=== PATIENT | male | born 1955 | race Caucasian/White ===

== ENCOUNTER 2020-04-15 14:04 | Outpatient (CLI) | payer MEDICARE, SELFPAY ==
--- NOTE | ~2020-04-15 | XR_ITS ---
EXAMINATION: XR chest 2V EXAM DATE: 04/15/2020 14:44 INDICATION: Weight loss, shortness of breath. TECHNIQUE: Frontal and lateral projections of the chest obtained and reviewed. There is no prior dilan dy for comparison. FINDINGS: The lungs are hyperinflated which can be seen with chronic obstructive pulmonary disease ( a clinical diagnosis of functional impairment), but is not diagnostic of it. The lungs are clear. Th ere are no pleural effusions. The cardiomediastinal silhouette is within normal limits. There is no pneumothorax suspected. There are bony degenerative changes. Cervical fusion hardware. IMPRESSION: 1. No acute cardiopulmonary findings. 2. Hyperinflation. Reviewed, dictated and finalized at location B.
== END 2020-04-15 14:05 | disposition home or self-care (01) ==
LOC: ANHIMG 14:17
PROVIDERS: PCP Physician Assistant Medical; Visit Provider Physician Assistant Medical
DX: R63.4 Abnormal weight loss (principal); R91.8 Other nonspecific abnormal finding of lung field
CPT/HCPCS: 71046

== ENCOUNTER 2020-04-25 14:09 | Outpatient (CLI) | payer MEDICARE, SELFPAY ==
--- NOTE | 2020-04-25 14:55 | ECHO_ITS ---
Patient Info Name: Brendan Ling Age: 65 years : 1955 Gender: Male Ht: 67 in Wt: 199 lbs BSA: 2.09 m2 HR: 67 bpm BP: 133 / 89 mmHg Technical Quality: Fair Exam Date: 04/25/2020 3:02 PM Exam Location: [facility] Patient Status: Outpatient Admit Date: 04/25/2020 Staff Ordering Physician: Trupti Mendez PAC Sales And Service Consultant: Alex Goldman RDCS, RT Attending Provider: Trupti Mendez Referring Physician: Vanessa JIMENEZ; Exam Type: CA echo doppler color flow Study Info Indications R01.1 - Cardiac murmur, unspecified Complete two-dimensional, color flow and Doppler transthoracic echocardiogram is performed. Summary 1. Complete two-dimensional, color flow and Doppler transthoracic echocardiogram is performed. 2. Left ventricular chamber dimension is normal. 3. Left ventricular systolic function is normal, estimated at 60-65%. 4. The left ventricular diastolic function is normal. 5. E/e' 9 is minimally elevated. 6. Global longitudinal strain is normal at -17.4%. 7. There is trace tricuspid valve regurgitation. 8. No pulmonary hypertension, estimated pulmonary arterial systolic pressure is 29 mmHg. Left Ventricle E/e' 9 is minimally elevated. Global longitudinal strain is normal at -17.4%. Left ventricular chamber dimension is normal. Left ventricular systolic function is normal, estimated at 60-65%. The left ventricular diastolic function is normal. Right Ventricle Right ventricular chamber dimension is normal. Right ventricular systolic function is normal. Left Atria Left atrial chamber dimension is normal. Right Atria Right atrial chamber dimension is normal. Aortic Valve There is no aortic valve stenosis based on valve area and gradients. Cannot determine number of aortic valve leaflets. The aortic valve is not well visualized. There is no aortic valve regurgitation. Pulmonic Valve There is no pulmonic regurgitation. Mitral Valve There is no mitral valve stenosis. There is no mitral valve regurgitation. Tricuspid Valve There is trace tricuspid valve regurgitation. No pulmonary hypertension, estimated pulmonary arterial systolic pressure is 29 mmHg. Pericardium/Pleural There is no pericardial effusion. Inferior Vena Cava Normal inferior vena cava with >50% collapse upon inspiration consistent with normal right atrial pressure, 5 mmHg. Aorta The aortic root size at the sinus of Valsalva is normal. Left Ventricular Outflow Tract Name Value Normal LVOT 2D LVOT Diameter 2.2 cm LVOT Doppler LVOT Peak Gradient 4 mmHg LVOT Mean Gradient 2 mmHg LVOT VTI 22 cm LVOT VTI/AV VTI Ratio 0.7 LVOT Stroke Volume 83 ml LVOT CO 5.8 l/min LVOT CI 2.8 l/min/m2 Mitral Valve Name Value Normal
== END 2020-04-25 14:10 | disposition home or self-care (01) ==
PROVIDERS: PCP Family Medicine; Visit Provider Physician Assistant Medical
DX: R01.1 Cardiac murmur, unspecified (principal)
CPT/HCPCS: 93306

== ENCOUNTER 2020-05-06 07:46 | Outpatient (CLI) | payer MEDICARE, SELFPAY ==
--- NOTE | ~2020-05-06 | US_ITS ---
EXAMINATION: US arterial ankle brachial ind DATE: 05/06/2020 09:37 INDICATION: Hypertension with heaviness to the legs. TECHNIQUE: Segmental pressures and plethysmographic and Doppler waveforms of the brachial and lower e xtremity arteries were obtained. COMPARISON: None. FINDINGS: Right and left brachial artery pressures of 123 mm Hg and 128 mm Hg, respectively, are concordant (no rmal difference <= 30 mmHg). The right ankle-brachial index (PRADEEP) is 1.27 (normal >= 0.9-1.0). The right great toe-brachial index (TBI) is 0.80 (normal >= 0.65). Arterial Doppler waveforms are triphasic at the right posterior tibia l artery and biphasic at the right dorsalis pedis artery, both with brisk systolic upstrokes. The left PRADEEP is 1.22. The left TBI is 0.79. Arterial Doppler waveforms are triphasic at the left post erior tibial and biphasic at the left dorsalis pedis artery, both with brisk systolic upstrokes. IMPRESSION: 1. No arterial occlusive disease to either lower limb with normal bilateral ABIs and TBI's. Reviewed, dictated and finalized at location B. IMPRESSION: 1. No arterial occlusive disease to either lower limb with normal bilateral PRADEEP s and TBI's.
== END 2020-05-06 07:47 | disposition home or self-care (01) ==
PROVIDERS: PCP Family Medicine; Visit Provider Physician Assistant Medical
DX: R09.89 Other specified symptoms and signs involving the circulatory and respiratory systems (principal)
CPT/HCPCS: 93922

== ENCOUNTER 2020-05-22 14:32 | Outpatient (CLI) | payer MEDICARE, SELFPAY ==
--- NOTE | 2020-05-26 16:38 | WPDPFTINT ---
PFT Interpretation PFT Interpretation: DOS: 05/22/2020 REQUESTING: Trupti Mendez NP REASON FOR TESTING: Hyperinflation PULMONARY FUNCTION TESTS Test results are reliable and reproducible. Spirometry: FEV1 144%, above normal. FVC is 133%, above normal. Normal FEV1%. No change with bronchodilator administration. Lung volumes: TLC is 138%, mildly increased consistent with mild hyperinflation. Residual volume is 114%, within the normal range. RV/TLC is normal which shows no air trapping. Normal airway resistance. Diffusion: DLCO 120%, upper limit of normal. Flow volume loop: Normal. IMPRESSION: This study shows mild hyperinflation without airflow obstruction and DLCO at the upper limit of normal. There are no prior tests to compare. This can be a normal variant. Danika Saleem MD
== END 2020-05-22 14:33 | disposition home or self-care (01) ==
PROVIDERS: PCP Family Medicine; Visit Provider Physician Assistant Medical
DX: R93.89 Abnormal findings on diagnostic imaging of other specified body structures (principal)
CPT/HCPCS: 94060; 94726; 94729

== ENCOUNTER 2020-06-07 01:12 | Outpatient (CLI) | payer MEDICARE, SELFPAY ==
[2020-06-07 18:31] LABS: SARS-CoV-2 RNA PCR Negative
== END 2020-06-07 01:13 | disposition home or self-care (01) ==
LOC: ANHCOVIDDT 01:12
PROVIDERS: PCP Family Medicine; Visit Provider Internal Medicine Gastroenterology
DX: Z01.812 Encounter for preprocedural laboratory examination (principal); Z20.828 Contact with and (suspected) exposure to other viral communicable diseases
CPT/HCPCS: 87635; C9803; U0003

== ENCOUNTER 2020-06-10 00:03 | Day surgery (SDC) | payer MEDICARE, SELFPAY ==
[2020-05-29 14:21] VITALS: BMI 33.1
[2020-06-10 07:52] VITALS: BP 134/83; PULSE 71; RESP 18; TEMP 37.1; O2SAT 99
[2020-06-10] MEDS: LACTATED RINGERS 1,000 ML 150 ML IV CONT (08:05)
--- NOTE | 2020-06-10 08:26 | WPDANESEPPF ---
Anes - Initial Pre Proc Eval Procedure: Operation Date: 06/10/20 09:00 Proposed Procedures p Screening Colonoscopy - Zeke Muller MD Date/Time: 06/10/20 08:26 Surgeon: Zeke Muller MD Pre Op Diagnosis: Neoplasm Screening Patient Data Age: 65 Gender: M Height: 5 ft 7 in Weight: 95.7 kg Last Vital Signs Temp 98.7 F 06/10/20 07:52 Pulse 71 06/10/20 07:52 Resp 18 06/10/20 07:52 BP 134/83 06/10/20 07:52 Pulse Ox 99 06/10/20 07:52 Allergies Allergy/AdvReac Type Severity Reaction Status Date / Time No Known Allergies Allergy Unknown Verified 06/10/20 07:51 Home Medications Medication Instructions Recorded Confirmed Type sildenafil 100 mg tablet 100 mg PO DAILY PRN #10 tablet 10/16/19 05/29/20 Rx alprazolam 0.25 mg tablet 0.25 mg PO TID PRN #90 tablet 12/11/19 05/29/20 Rx levothyroxine 75 mcg tablet 75 mcg PO DAILY #90 tablet 02/01/20 05/29/20 Rx fluoxetine 20 mg capsule See Rx Instructions .ROUTE 03/24/20 05/29/20 Rx .COMPLEX #180 cap amlodipine 2.5 mg tablet 2.5 mg PO DAILY #90 tablet 04/15/20 05/29/20 Rx ergocalciferol (vitamin D2) 1,250 50,000 unit PO WEEKLY #8 cap 04/28/20 05/29/20 Rx mcg (50,000 unit) capsule losartan 50 mg tablet See Rx Instructions .ROUTE 04/28/20 05/29/20 Rx .COMPLEX #90 tablet omeprazole 20 mg capsule,delayed See Rx Instructions .ROUTE 04/28/20 05/29/20 Rx release .COMPLEX #90 cap testosterone 20.25 mg/1.25 gram 2 pump TOPICAL DAILY #75 gm 05/06/20 05/29/20 Rx (1.62 %) transdermal gel pump Patient hx anesthesia problems: none Family hx anesthesia problems: none PMFSH Past Medical History Medical History (Updated 06/10/20 @ 08:26 by [place] Nelson MD) BMI 29.0-29.9,adult Essential hypertension Mixed hyperlipidemia Mood disorder CARIE (obstructive sleep apnea) CARIE on CPAP Family History Family History Sibling Diabetes mellitus Family history of obesity Hypertension Family history of type 2 diabetes mellitus Mother Depression Hypertension Other Family history of arthritis Family history of malignant neoplasm Social History Social History Smoking status: Never smoker Alcohol intake: current Alcohol use details: socially, infrequently Substance use: never Living arrangements: with friend(s) Gender identity (if verbalized by the patient): Male Spiritual care concerns: No Anes - Eval Final PreProcedure Day of Procedure 06/10/20 08:26 Patient weight: overweight Heart: regular rate and rhythm Lungs: clear to auscultation Airway: Mallampati scale class II Neurological: alert and oriented Last oral intake: >/= 8 hours ASA classification: III Emergent: no Anesthetic plan: proceed Anesthesia type and monitoring: general GIVS and standard monitoring Informed Consent: The patient's anesthetic plan and its attendant risks and benefits were discussed with the patient/family/POA. Questions were solicited and answers provided to the satisfaction of the patient/family/POA.
--- NOTE | 2020-06-10 08:59 | PM.HPGS ---
History of Present Illness History of Present Illness Consent: Risks, benefits, and alternatives have been discussed and questions answered. Patient agrees to proceed with procedure. Chief complaint: Neoplasm Screening Narrative: Brendan Ling is a 65 year old male here for screening colonoscopy, last one about 5 years ago. Review of Systems Constitutional: Constitutional: Denies headache(s) and Denies weakness Eyes: Eyes: Denies blurry vision ENT: Reports Normal hearing present, Denies headache(s) and Denies neck pain Cardiovascular: Cardiovascular: Denies chest pain and Denies dyspnea Respiratory: Respiratory: Denies dyspnea Gastrointestinal: Gastrointestinal: Reports no additional gastrointestinal complaints Genitourinary: Genitourinary: Denies dysuria Musculoskeletal: Musculoskeletal: Denies neck pain Integumentary/Breasts: Skin/Breast: Denies dry skin Neurologic: Reports Normal hearing present, Denies headache(s) and Denies weakness Psychiatric: Psychiatric: Denies anxiety Endocrine: Endocrine: Denies change in body appearance Hematologic/Lymphatic: Hematologic/Lymphatic: Denies easy bleeding Allergic/Immunologic: Allergic/Immunologic: Denies urticaria PMFSH Past Medical History Medical History (Updated 06/10/20 @ 09:00 by Zeke Muller MD) BMI 29.0-29.9,adult Colon cancer screening Essential hypertension Mixed hyperlipidemia Mood disorder CARIE (obstructive sleep apnea) CARIE on CPAP Family History Family History Sibling Diabetes mellitus Family history of obesity Hypertension Family history of type 2 diabetes mellitus Mother Depression Hypertension Other Family history of arthritis Family history of malignant neoplasm Social History Social History Smoking status: Never smoker Alcohol intake: current Alcohol use details: socially, infrequently Substance use: never Living arrangements: with friend(s) Gender identity (if verbalized by the patient): Male Spiritual care concerns: No Meds Home Medications and Allergies Home Medications Medication Instructions Recorded Confirmed Type sildenafil 100 mg tablet 100 mg PO DAILY PRN #10 tablet 10/16/19 05/29/20 Rx alprazolam 0.25 mg tablet 0.25 mg PO TID PRN #90 tablet 12/11/19 05/29/20 Rx levothyroxine 75 mcg tablet 75 mcg PO DAILY #90 tablet 02/01/20 05/29/20 Rx fluoxetine 20 mg capsule See Rx Instructions .ROUTE 09/14/20 11/19/20 Rx .COMPLEX #180 cap amlodipine 2.5 mg tablet 2.5 mg PO DAILY #90 tablet 04/15/20 05/29/20 Rx ergocalciferol (vitamin D2) 1,250 50,000 unit PO WEEKLY #8 cap 04/28/20 05/29/20 Rx mcg (50,000 unit) capsule losartan 50 mg tablet See Rx Instructions .ROUTE 04/28/20 05/29/20 Rx .COMPLEX #90 tablet omeprazole 20 mg capsule,delayed See Rx Instructions .ROUTE 04/28/20 05/29/20 Rx release .COMPLEX #90 cap testosterone 20.25 mg/1.25 gram 2 pump TOPICAL DAILY #75 gm 05/06/20 05/29/20 Rx (1.62 %) transdermal gel pump Allergies Allergy/AdvReac Type Severity Reaction Status Date / Time No Known Allergies Allergy Unknown Verified 06/10/20 07:51 Vital Signs Vital Signs - 24 hr 06/10/20 07:52 Temperature 98.7 F Pulse Rate 71 Respiratory Rate 18 Blood Pressure 134/83 Pulse Oximetry 99 Exam Const: General: comfortable and no acute distress HENMT: General nose exam: Normal nares present Eyes: General: appearance normal, both eyes and all related structures Neck: Neck: no JVD Resp: Auscultation: clear to auscultation bilaterally Cardio: Rate: regular rate Rhythm: regular rhythm GI: Inspection: non-distended GI Palp: Yes Soft to palpation Skin: General skin exam: normal color Neuro: General: gait normal Speech: normal speech Extrem: General: normal to inspection Psych: Mental Status: mental status grossly normal Assessment and
[2020-06-10 09:17] VITALS: BP 93/49; PULSE 62; RESP 18; O2SAT 95
[2020-06-10 09:27] VITALS: BP 99/66; PULSE 68; RESP 17; O2SAT 100
[2020-06-10 09:37] VITALS: BP 101/75; PULSE 64; RESP 25; O2SAT 100
== END 2020-06-10 09:54 | disposition home or self-care (01) ==
PROVIDERS: PCP Family Medicine; Visit Provider Internal Medicine Gastroenterology
PROC: 0DJD8ZZ Inspection of Lower Intestinal Tract, Via Natural or Artificial Opening Endoscopic (ICD-10-PCS; CPT 45378; principal; 2020-06-10 09:00)
DX: Z12.11 Encounter for screening for malignant neoplasm of colon (principal); D12.0 Benign neoplasm of cecum; K64.8 Other hemorrhoids; I10 Essential (primary) hypertension; E78.2 Mixed hyperlipidemia; G47.33 Obstructive sleep apnea (adult) (pediatric)
CPT/HCPCS: 45380; 88305; J2704; J7120

== ENCOUNTER 2020-07-30 12:24 | Outpatient (CLI) | payer MEDICARE, SELFPAY ==
--- NOTE | ~2020-07-30 | CT_ITS ---
EXAMINATION: CT abdomen pelvis wo/w con DATE: 07/30/2020 13:23 INDICATION: Microscopic hematuria TECHNIQUE: Computed tomography (CT) of the abdomen and pelvis was performed without intravenous contr ast. CT of the abdomen and pelvis was then performed with a total of 130 mL Omnipaque-350 intravenous contrast using a double-bolus technique for simultaneous opacification of the renal parenchyma and r enal collecting system. The dose-length product was 2501.83 mGy-cm. COMPARISON: None FINDINGS: Couple calcified nodules in the left lower lobe and lingula and calcified left hilar lymph node consi stent with old granulomatous disease. Heart size is normal. No pericardial or pleural effusion. A cou ple tiny mobile calcified gallstones in the dependent aspect of the otherwise normal gallbladder. A f ew scattered splenic calcific lesions consistent with old granulomatous disease. Liver, pancreas and bilateral adrenal glands are normal. Normal appendix. No abnormal bowel wall thickening or obstructio n. Bilateral kidneys and ureters are normal with no urolithiasis or hydronephrosis. The bilateral helen al collecting systems and ureters are opacified in their entirety with no evident urothelial irregula rities. Bladder appears unremarkable although assessment is limited due to dense metallic streak zia fact which projects across and obscures the central to inferior aspect of the bladder as well as the prostate. Tiny fat-containing umbilical and left inguinal hernias. Bilateral total hip arthroplasties which appear well-seated in near-anatomic alignment. Moderate lumbar spondylosis. There are bridging osteophytes at multiple levels in the lower thoracic spine, consistent with diffuse idiopathic skele miguelina hyperostosis (DISH). IMPRESSION: 1. Normal kidneys and ureters with no urolithiasis or other lesions to explain provided history of mi croscopic hematuria. 2. The prostate and portions of the bladder are obscured by dense metallic streak artifact from bilat eral total hip arthroplasties. 3. Minimal cholelithiasis. Reviewed, dictated and finalized at location A. CHECKER IMPRESSION: 1. Normal kidneys and ureters with no urolithiasis or other lesions to explain provided history of microscopic hematuria. 2. The prostate and portions of the bladder are obscured by dense metallic stre ak artifact from bilateral total hip arthroplasties. 3. Minimal cholelithiasis.
[2020-07-30 13:00] LABS: Estimated Glomerular Filt Rate > 60
== END 2020-07-30 12:25 | disposition home or self-care (01) ==
PROVIDERS: PCP Family Medicine; Visit Provider Urology
DX: R31.29 Other microscopic hematuria (principal); R91.8 Other nonspecific abnormal finding of lung field; M47.816 Spondylosis without myelopathy or radiculopathy, lumbar region; K80.20 Calculus of gallbladder without cholecystitis without obstruction
CPT/HCPCS: 74178; Q9967

== ENCOUNTER 2023-09-06 14:57 | Outpatient (CLI) | payer MEDICARE, SELFPAY ==
--- NOTE | ~2023-09-06 | MR_ITS ---
MRI of the brain Clinical History: Benign neoplasm of cerebral meninges Technique: Axial and sagittal T1-weighted images were acquired. These were followed by axial T2-weigh lori, diffusion weighted, gradient, and FLAIR images.. Following intravenous administration of 20 cc M ultiHance gadolinium, T1-weighted fat-sat imaging was performed in the axial and coronal planes. Findings: There is no acute infarct or intracranial hemorrhage. There are mild chronic white matter c hanges in the periventricular white matter bilaterally. Ventricles and subarachnoid spaces are unremarkable. Orbits are unremarkable. Paranasal sinuses and m astoid air cells are clear. Major intracranial flow voids are intact. Sagittal midline structures are intact. Suspected 1 cm enhancing meningioma anteriorly just right of the anterior falx cerebri (coronal postc ontrast image 21). IMPRESSION: Probable 1 cm meningioma at the anterior right frontal region, as detailed above. Minimal chronic white matter changes. Reviewed, dictated and finalized at location . ER AND CHECKERER SPECIALS IMPRESSION: Probable 1 cm meningioma at the anterior right frontal region, as detailed juana jones. Minimal chronic white matter changes.
== END 2023-09-06 14:58 | disposition home or self-care (01) ==
PROVIDERS: PCP Family Medicine; Visit Provider Family Medicine
DX: D32.0 Benign neoplasm of cerebral meninges (principal); R90.82 White matter disease, unspecified
CPT/HCPCS: 70553; A9577

== ENCOUNTER 2024-02-22 15:01 | Outpatient (CLI) | payer MEDICARE, SELFPAY ==
[2024-02-22 16:37] LABS: Free T4 Free Thyroxine 1.03 ng/mL (0.78-2.19)
[2024-02-23 14:38] LABS: Triiodothyronine T3 Free 2.8 pg/mL (2.3-4.2)
[2024-02-25 15:44] LABS: Vitamin D 1,25 (OH)2 Total 42 pg/mL (18-72); Vitamin D2 1,25 (OH)2 <8 pg/mL; Vitamin D3 1,25 (OH)2 42 pg/mL
[2024-02-27 18:23] LABS: Red Blood Cell Folate 470 ng/mL RBC (>280)
== END 2024-02-22 15:02 | disposition home or self-care (01) ==
LOC: ANHLAB 15:07
PROVIDERS: PCP Family Medicine; Visit Provider Psychiatry & Neurology Neurology
DX: E55.9 Vitamin D deficiency, unspecified (principal); D32.0 Benign neoplasm of cerebral meninges; G25.0 Essential tremor; G47.33 Obstructive sleep apnea (adult) (pediatric); R41.3 Other amnesia; R09.89 Other specified symptoms and signs involving the circulatory and respiratory systems
CPT/HCPCS: 36415; 82652; 82747; 84439; 84443; 84481

== ENCOUNTER 2024-12-14 08:53 | Outpatient (CLI) | payer MEDICARE, SELFPAY ==
--- NOTE | ~2024-12-14 | XR_ITS ---
XR chest 2V 12/14/2024 09:35 Indication: Cough Procedure: 2 view chest Comparison: 04/15/2020 Findings: Heart size upper normal. Shallow inspiration. No focal air space disease, pulmonary edema, pleural effusion or suspected pneumothorax. There are moderate degenerative changes of the shoulders. There is diffuse idiopathic skeletal hyperostosis (DISH) of the thoracic spine. Impression: 1: No acute cardiopulmonary disease. Reviewed, dictated and finalized at location A. Impression: 1: No acute cardiopulmonary disease.
--- NOTE | ~2024-12-14 | XR_ITS ---
AP view of the pelvis and AP and lateral views of the right hip Clinical history: Pain Findings: No acute fracture or dislocation is seen. Bilateral hip arthroplasties are present. No hard fuentes complication is evident. Soft tissues are unremarkable. Impression: No acute abnormality. Bilateral hip arthroplasties in place. Reviewed, dictated and finalized at location . Impression: No acute abnormality. Bilateral hip arthroplasties in place.
--- OUTSIDE RECORDS SUMMARY | 2024-12-14 09:01 | XMS_ITS | CONTINUITY OF CARE DOCUMENT ---
Author Name bradley huerta Address Unknown Organization [facility] Address [address] [place] [address] Phone [phone] Care Team Providers Care Refrigerator Car Icer Name Role Phone Vinod Jensen MD Unavailable [phone] CHANDRA VERMA, BOAZ F Unavailable CHANDRA VERMA, BOAZ F Unavailable [phone] PROBLEMS Condition Status Date Provider Notes PVD completed - Vinod Jensen MD per PCP Hypertension active Vinod Jensen MD Hyperlipidemia active Vinod Jensen MD Hypothyroidism active Vinod Jensen MD Depression / anxiety active Vinod Jensen MD Fatigue active Vinod Jensen MD Coronavirus infection in 09/2019 active Jojo Jensen MD Palpitations active Vinod Jensen MD Leg pain - nml ABIs 12/2021 active Vinod hadley MD CARIE - on CPAP active Vinod Jensen MD Coronary atherosclerosis, CA C score 155 01/2022 active Vinod Jensen MD Shortness of breath active Vinod Jensen MD Memory deficit active Vinod Jensen MD Dementia active Vinod Jensen MD ENCOUNTERS Date Type Provider Location Encounter Diag nosis 02/19 - 02/19 In-person encounter Office Visit Vinod Jensen MD [place] [facility] 11/02 - 11/02 In-person encounter Office Visit Vinod Jensen MD [place] [place] [facility] Dementia 07/29 - 07/29 In-person encounter Office Visit Vinod Jensen MD [place] Shortness of breathMemory deficit 04/29 - 04/29 In-person encounter Office Visit Vinod Jensen MD [place] [place] [facility] 10/22 - 10/22 In-person encounter Office Visit Vinod Jensen MD [place] 05/06 - 05/06 In-person encounter Office Visit Vinod Jensen MD [place] Coronary atherosclerosis, CAC score 155 01/2022 - 02/04 In-person encounter Office Visit Vinod Jensen MD [place] 01/29 - 01/29 In-person encounter Office Visit Vinod Jensen MD [place] 12/31 - 12/31 In-person encounter Office Visit Vinod Jensen MD [place] PVDHypertensionHyperlipidemiaHypothyroid ismDepressio n / anxietyFatigueCoronavirus infection in 09/2019PalpitationsLeg pain - nml ABIs 2OSA - on CPAP VITAL SIGNS Date Observation Value Provider Body Mass Index (Ratio) 32.48 kg/m2 Jojo Jensen MD oxygen saturation, oximetry 99 % Sonia Antonio respiratory rate E&M 12 /min Sonia Antonio weight E&M 207.4 [lb_av] Sonia Antonio pulse rate 67 /min Sonia Antonio blood pressure, cuff size regular Garfield Antonio blood pressure, diastolic 84 mm[Hg] Garfield Antonio blood pressure, systolic 134 mm[Hg] Butch Antonio height E&M 67 [in_i] Sonia Antonio Body Mass Index (Ratio) 32.10 kg/m2 Jojo Jensen MD blood pressure, cuff size regular Do angeline Sae blood pressure, diastolic 87 mm[Hg] Do angeline Sae blood pressure, systolic 132 mm[Hg] Spencer Doyleant oxygen saturation, oximetry 98 % Andreas Sae respiratory rate E&M 16 /min Andreas Sae pulse rate 68 /min Andreas Sae weight E&M 205 [lb_av] Andreas Sae height E&M 67 [in_i] [facility] (Ratio) 33.36 kg/m2 Jojo Jensen MD pulse rate 79 /min Marianna Cottonwood blood pressure, cuff size regular Fa [facility] blood pressure, diastolic 87 mm[Hg] [facility] blood pressure, systolic 138 mm[Hg] Christopher [facility] oxygen saturation, oximetry 98 % [facility] respiratory rate E&M 14 /min Marianna Marvin [facility] weight E&M 213 [lb_av] [facility] height E&M 67 [in_i] [facility] Body Mass Index (Ratio) 34.27 kg/m2 Jojo Jensen MD blood pressure, diastolic -1 mm[Hg] Li nkLogbenjamín blood pressure, systolic 130 mm[Hg] Ashley kLogbenjamín blood pressure, diastolic 84 mm[Hg] Sh james Martinez blood pressure, systolic 130 mm[Hg] She carolmera Martinez oxygen saturation, oximetry 95 % Yamileth Martinez pulse rate 73 /min Yamileth Martinez respiratory rate E&M 18 /min Yamileth Martinez weight E&M 218.8 [lb_av] Yamileth Martinez blood pressure, cuff size regular james Martinez height E&M 67 [in_i] Yamileth Michelle Body Mass Index (Ratio) 35.46 kg/m2 Jojo Jensen MD blood pressure, diastolic 84 mm[Hg] St keegan Kim blood pressure, systolic 139 mm[Hg] Anjum glynn Julio oxygen saturation, oximetry 98 % Mariola Julio pulse rate 68 /min Mariola Julio respiratory rate E&M 18 /min Mariolarenard sousas weight E&M 226.4 [lb_av] Mariolarenard Kim height E&M 67 [in_i] Mariolarenard Kim Body Mass Index (Ratio) 33.83 kg/m2 Jojo Jensen MD blood pressure, diastolic 81 mm[Hg] Ri gia Manerson blood pressure, systolic 126 mm[Hg] Leonides mega Manerson blood pressure, cuff size large Ri gia Dempsey oxygen saturation, oximetry 99 % Latosha Ke respiratory rate E&M 16 /min Andie jones Dempsey pulse rate 61 /min Latosha Clayton son weight E&M 216 [lb_av] Latosha Clayton son height E&M 67 [in_i] Latosha Clayton son Body Mass Index (Ratio) 34.45 kg/m2 Jojo Jensen MD blood pressure, cuff size large Mi gia Jonathon blood pressure, diastolic 91 mm[Hg] Mi gia Jonathon blood pressure, systolic 144 mm[Hg] Renny helroberth Jonathon oxygen saturation, oximetry 98 % Yazmin Holt pulse rate 79 /min Yazmin juan respiratory rate E&M 16 /min Dolores Holt weight E&M 220 [lb_av] Yazmin juan height E&M 67 [in_i] Yazmin juan Body Mass Index (Ratio) 34.45 kg/m2 Jojo Jensen MD blood pressure, diastolic 78 mm[Hg] Sa ra Diggs blood pressure, systolic 128 mm[Hg] Rashad a Diggs oxygen saturation, oximetry 100 % Kadi Diggs respiratory rate E&M 20 /min Kadi Si ms pulse rate 100 /min Kadi Diggs blood pressure, cuff size regular Sa ra Diggs weight E&M 220 [lb_av] Kadi Diggs height E&M 67 [in_i] Kadi Diggs weight E&M 219 [lb_av] Vaishnavi Galvan in Body Mass Index (Ratio) 34.30 kg/m2 Jojo Jensen MD blood pressure, diastolic 79 mm[Hg] Li nkLogic blood pressure, systolic 130 mm[Hg] Ashley kLogic blood pressure, diastolic 79 mm[Hg] Ca therine Arnol blood pressure, systolic 130 mm[Hg] Cat herine [place] oxygen saturation, oximetry 98 % Carrie [place] respiratory rate E&M 16 /min Catheri ne [place] pulse rate 60 /min Carrie Arnol weight E&M 219 [lb_av] Carrie [place] height E&M 67 [in_i] Carrie Arnol blood pressure, cuff size regular Ca therine Arnol ALLERGIES No Known Drug Allergies RESULTS Date Observation Value Provider Reference Range Interpretation Location cholesterol, non-HDL, total 112 MG/DL (CALC) [facility] <130 Normal cholesterol/HDL ratio, serum, percent 3.0 (calc) [facility] <5.0 Normal LDL cholesterol, serum 98 MG/DL (CALC) [facility] Normal triglyceride, serum, fasting 53 mg/dL [facility] <150 Normal HDL cholesterol, serum 55 mg/dL [facility] > OR = 40 Normal cholesterol, serum 167 mg/dL [facility] <200 Normal HISTORY OF MEDICATION USE Medication Status Instructions Dates Provider Indications Com ments primidone 50 mg tablet active Take one tab PO QD Sonia Antonio donepezil 5 mg tablet completed 1 tab daily - Sonia Antonio Zetia 10 mg tablet active Take 1 tablet by mouth once a day Karne Martinez Zetia 10 mg tablet completed Take 1 tablet by mouth once a day TAKE 1 TABLET BY MOUTH DAILY - Karen Martinez rosuvastatin 20 mg tablet active TAKE 1 TABLET BY MOUTH DAILY Daphne Barone Zetia 10 mg tablet completed TAKE 1 TABLET BY MOUTH DAILY - Jaqueline Omalley Crestor 20 mg tablet completed TAKE ONE TABLET BY MOUTH DAILY - Daphne Barone Vitamin D3 unspecified unspecified active 1 tab 3 times daily Andreas Quevedo One-A-Day Maximum Formula completed - Sonia Antonio fluoxetine 20 mg capsule active 1 tab daily Andreas Quevedo ibuprofen 800 mg tablet completed TAKE 1 TABLET BY MOUTH THREE TIMES DAILY NEEDED FOR PAIN - Sonia Antonio buspirone 5 mg tablet completed as needed - Sonia Antonio mirtazapine 15 mg tablet active 1 tab daily Andreas Quevedo omeprazole 20 mg capsule,delayed release(DR/EC) active 1 tab daily Andreas Quevedo amlodipine 2.5 mg tablet completed 1 tab daily - Sonia Antonio levothyroxine 75 mcg tablet active 1 tab daily Andreas Quevedo oxcarbazepine 150 mg tablet completed - Sonia Antonio losartan 50 mg tablet completed - Andreas Quevedo SOCIAL HISTORY Date Observation Value Provider smoking status Never smoker Vinod Jensen MD smoking status Never smoker Vinod Jensen MD smoking status Never smoker Marianna Antonio social history E&M S moking History: P enrique has never smoked. Vinod Jensen MD smoking status Never smoker Yamileth Martinez social history E&M S moking History: P enrique has never smoked. Vinod Jensen MD social history reviewed E&M revi ewed - no changes required Vinod Jensen MD smoking status Never smoker Mariola Julio social history E&M S moking History: P enrique has never smoked. Vinod Jensen MD social history reviewed E&M revi ewed - no changes required Vinod Jensen MD smoking status Never smoker Latosha gregory social history E&M S moking History: P enrique has never smoked. Vinod Jensen MD social history reviewed E&M revi ewed - no changes required Vinod Jensen MD smoking status Never smoker Yazmin Meraz and social history reviewed E&M revi ewed - no changes required Vinod Jensen MD social history E&M S moking History: P enrique has never smoked. Vinod Jensen MD smoking status Never smoker Vinod Jensen MD number of grandchildren Vinod Jensen MD social history E&M S moking History: P enrique has never smoked. Vinod Jensen MD social history reviewed E&M revi ewed - no changes required Vinod Jensen MD smoking status Never smoker Carrie mata FUNCTIONAL STATUS Date Observation Value Provider HRA, CV Assess/Plan, Angina (inactive) Management Plan continue current therapy Vinod Jensen MD HRA, CV Assess/Plan, Angina (inactive) Management Plan continue current therapy Vinod Jensen MD HRA, CV Assess/Plan, Angina (inactive) Management Plan continue current therapy Vinod Jensen MD HRA, CV Assess/Plan, Angina (inactive) Management Plan continue current therapy Vinod Jensen MD INSURANCE PROVIDERS Payer name Policy type / Coverage type [place] [employer] ID [facility] Other [facility] Other [employer]ARP [facility] ADVANTAGE PLAN 2 (HMO-POS) Medicare [id number] ADVANCE DIRECTIVES Name Date DISCUSSED - NO DECISION MADE TREATMENT PLAN Date Name Performer [id number],C,w ill check lipids H is updated medication list for this problem includes: Rosuvastatin 20 Mg Tablet (Rosuvastatin) ..... Take 1 tablet by mouth daily Zetia 10 Mg Tablet (Ezetimibe) ..... Take 1 tablet by mouth once a day take 1 tablet by mouth daily Vinod Jensen MD [id number],S, Vinod Jensen MD [id number],S, Vinod Jensen MD [id number],C,w ell controlled H is updated medication list for this problem includes: Amlodipine 2.5 Mg Tablet (Amlodipine) Losartan 50 Mg Tablet (Losartan) BP today: 130/84 P rior BP: 139/84 (10/22/2022) Labs Reviewed: C hol: 167 (04/14/2022) HDL: 55 (04/14/2022) LDL: 98 MG/DL (CALC) (04/14/2022) T (04/14/2022) Vinod Jensen MD [id number],C,T he patient is using CPAP on a regular basis. The patient has been benefiting from therapy and should continue use. Vinod Jensen MD [id number],C,c onitnue statin and xetia, will check lipid panel and adjust if needed. Vinod Jensen MD [id number],S, Vinod Jensen MD [id number],S, B P today: 139/84 P rior BP: 126/81 (05/06/2022) Labs Reviewed: C hol: 167 (04/14/2022) HDL: 55 (04/14/2022) LDL: 98 MG/DL (CALC) (04/14/2022) T (04/14/2022) His updated medication list for this problem includes: Amlodipine 2.5 Mg Tablet (Amlodipine) Losartan 50 Mg Tablet (Losartan) Vinod Jensen MD [id number],S,C ontinue his statin and zetia. Will check his cholesterol in 6 months and see him then. H is updated medication list for this problem includes: Zetia 10 Mg Tablet (Ezetimibe) ..... Take 1 tablet by mouth once a day take 1 tablet by mouth daily Rosuvastatin 20 Mg Tablet (Rosuvastatin) ..... Take 1 tablet by mouth daily Vinod Jensen MD [id number],S, Vinod Jensen MD [id number],C,Continue his statin and zetia Vinod Jensen MD [id number],B, H is updated medication list for this problem includes: Amlodipine 2.5 Mg Tablet (Amlodipine) Vinod Jensen MD [id number],B, B P today: 126/81 P rior BP: 144/91 (02/04/2022) His updated medication list for this problem includes: Amlodipine 2.5 Mg Tablet (Amlodipine) Losartan 50 Mg Tablet (Losartan) Vinod Jensen MD [id number],S, N o angina H is calcium score was 155 Vinod Jensen MD [id number],W, H e's taking crestor and we added zetia about 2 weeks ago because his LDL was 98. We'll recheck his lipids in 3 months or so. His updated medication list for this problem includes: Crestor 20 Mg Tablet (Rosuvastatin) ..... Take one tablet by mouth daily Zetia 10 Mg Tablet (Ezetimibe) ..... Take 1 tablet by mouth daily Vinod Jensen MD [id number],S, Vinod Jensen MD [id number],C,P t notes it has not been this high in ages. BP today: 144/91 P rior BP: 128/78 (01/29/2022) Vinod Jensen MD [id number],C,M RAMANDEEP 10yr risk is 13.2%. (greater than 10%). B egin 5mg Crestor daily. Will check in about 2 months. F/u with me in 3 months. Vinod Jensen MD [id number],S, Vinod Jensen MD [id number],S, T he patient is using CPAP on a regular basis. The patient has been benefiting from therapy and should continue use. Vinod Jensen MD [id number],S, H e wore a 24-hr holter which showed SR with 2% PVC burden and 0.3% PAC burden, no afib or pauses. Vinod Jensen MD [id number],S, R ecent LDL was 135. I recommended he get a calcium score to see how low he needs his LDL treated. Vinod Jensen MD [id number],S, H is recent ABIs showed normal bloodflow in his BLEs. Vinod Jensen MD [id number],S, B P today: 130/79 His updated medication list for this problem includes: Amlodipine 2.5 Mg Tablet (Amlodipine) Losartan 50 Mg Tablet (Losartan) Vinod Jensen MD Cardiology: N o recurrence Vinod Jensen MD Cardiology: H is updated medication list for this problem includes: Zetia 10 Mg Tablet (Ezetimibe) ..... Take 1 tablet by mouth once a day Rosuvastatin 20 Mg Tablet (Rosuvastatin) ..... Take 1 tablet by mouth daily Vinod Jensen MD Cardiology:Recently hospitalized for intense anxiety Vinod Jensen MD Cardiology: B P today: 134/84 P rior BP: 132/87 (11/03/2023) Labs Reviewed: C hol: 167 (04/14/2022) HDL: 55 (04/14/2022) LDL: 98 MG/DL (CALC) (04/14/2022) T (04/14/2022) & #13;The following medications were removed from the medication list: Amlodipine 2.5 Mg Tablet (Amlodipine) ..... 1 tab daily Vinod Jensen MD Cardiology: H ad a few extra beats according to recent Tele monitor, otherwise stable Vinod Jensen MD Cardiology: C ontinue statin and Zetia Vinod Jensen MD Cardiology:Worsened Vinod Jensen MD Cardiology:The patie nt is using CPAP on a regular basis. The patient has been benefiting from therapy and should continue use. Vinod Jensen MD Cardiology:per neurologist Vinod Jensen MD Cardiology Vinod Jensen MD Cardiology: B P today: 132/87 P rior BP: 138/87 (07/29/2023) Labs Reviewed: C hol: 167 (04/14/2022) HDL: 55 (04/14/2022) LDL: 98 MG/DL (CALC) (04/14/2022) T (04/14/2022) & #13;The following medications were removed from the medication list: Losartan 50 Mg Tablet (Losartan) His updated medication list for this problem includes: Amlodipine 2.5 Mg Tablet (Amlodipine) ..... 1 tab daily Vinod Jensen MD Cardiology:Stable. C ontinue medical therapy. I n light of his negative stress test and absence of chest pain at exertion there is no clinical indication to proceed with a cardiac cath at present. Vinod Jensen MD Cardiology:Stress te st negative for ischemia. PFTs show minimal disease on 09/08 E cho showed normal LVEF with some evidence of impaired relaxation which is normal for his age. Vinod Jensen MD Cardiology Vinod Jensen MD Cardiology: T he patient is using CPAP on a regular basis. The patient has been benefiting from therapy and should continue use. Vinod Jensen MD Cardiology: B P today: 138/87 P rior BP: 130/-1 (04/29/2023) Labs Reviewed: C hol: 167 (04/14/2022) HDL: 55 (04/14/2022) LDL: 98 MG/DL (CALC) (04/14/2022) T (04/14/2022) & #13;His updated medication list for this problem includes: Amlodipine 2.5 Mg Tablet (Amlodipine) Losartan 50 Mg Tablet (Losartan) Vinod Jensen MD Cardiology:CHOL: 167 (04/14/2022) LDL: 98 MG/DL (CALC) (04/14/2022) HDL: 55 (04/14/2022) T (04/14/2022) W ill obtain recent labs His updated medication list for this problem includes: Rosuvastatin 20 Mg Tablet (Rosuvastatin) ..... Take 1 tablet by mouth daily Zetia 10 Mg Tablet (Ezetimibe) ..... Take 1 tablet by mouth once a day take 1 tablet by mouth daily Vinod Jensen MD Cardiology: c onitnue statin and xetia His updated medication list for this problem includes: Amlodipine 2.5 Mg Tablet (Amlodipine) Vinod Jensen MD Cardiology:Decreased exercise tolerance and SOB on mild activity, this is new for him. We will check an Echo, PFTs, and a Reg stress test to evaluate his heart function. Vinod Jensen MD Cardiology:will chec k lipids H is updated medication list for this problem includes: Rosuvastatin 20 Mg Tablet (Rosuvastatin) ..... Take 1 tablet by mouth daily Zetia 10 Mg Tablet (Ezetimibe) ..... Take 1 tablet by mouth once a day take 1 tablet by mouth daily Vinod Jensen MD Cardiology Vinod Jensen MD Cardiology Vinod Jensen MD Cardiology:well cont rolled H is updated medication list for this problem includes: Amlodipine 2.5 Mg Tablet (Amlodipine) Losartan 50 Mg Tablet (Losartan) BP today: 130/84 P rior BP: 139/84 (10/22/2022) Labs Reviewed: C hol: 167 (04/14/2022) HDL: 55 (04/14/2022) LDL: 98 MG/DL (CALC) (04/14/2022) T (04/14/2022) Vinod Jensen MD Cardiology:The patie nt is using CPAP on a regular basis. The patient has been benefiting from therapy and should continue use. Vinod Jensen MD Cardiology:conitnue statin and xetia, will check lipid panel and adjust if needed. Vinod Jensen MD Cardiology Vinod Jensen MD Cardiology: B P today: 139/84 P rior BP: 126/81 (05/06/2022) Labs Reviewed: C hol: 167 (04/14/2022) HDL: 55 (04/14/2022) LDL: 98 MG/DL (CALC) (04/14/2022) T (04/14/2022) & #13;His updated medication list for this problem includes: Amlodipine 2.5 Mg Tablet (Amlodipine) Losartan 50 Mg Tablet (Losartan) Vinod Jensen MD Cardiology:Continue his statin and zetia. Will check his cholesterol in 6 months and see him then. H is updated medication list for this problem includes: Zetia 10 Mg Tablet (Ezetimibe) ..... Take 1 tablet by mouth once a day take 1 tablet by mouth daily Rosuvastatin 20 Mg Tablet (Rosuvastatin) ..... Take 1 tablet by mouth daily Vinod Jensen MD Cardiology Vinod Jensen MD Cardiology:Continue his statin a nd zetia Vinod Jensen MD Cardiology: H is updated medication list for this problem includes: Amlodipine 2.5 Mg Tablet (Amlodipine) Vinod Jensen MD Cardiology: B P today: 126/81 P rior BP: 144/91 (02/04/2022) His updated medication list for this problem includes: Amlodipine 2.5 Mg Tablet (Amlodipine) Losartan 50 Mg Tablet (Losartan) Vinod Jensen MD Cardiology: N o angina H is calcium score was 155 Vinod Jensen MD Cardiology: H e's taking crestor and we added zetia about 2 weeks ago because his LDL was 98. We'll recheck his lipids in 3 months or so. His updated medication list for this problem includes: Crestor 20 Mg Tablet (Rosuvastatin) ..... Take one tablet by mouth daily Zetia 10 Mg Tablet (Ezetimibe) ..... Take 1 tablet by mouth daily Vinod Jensen MD Cardiology Vinod Jensen MD Cardiology:Pt notes it has not been this high in ages. BP today: 144/91 P rior BP: 128/78 (01/29/2022) Vinod Jensen MD Cardiology:ABBOTT 10yr risk is 13.2%. (greater than 10%). B egin 5mg Crestor daily. Will check in about 2 months. F/u with me in 3 months. Vinod Jensen MD Cardiology Vinod Jensen MD Cardiology: T he patient is using CPAP on a regular basis. The patient has been benefiting from therapy and should continue use. Vinod Jensen MD Cardiology: H e wore a 24-hr holter which showed SR with 2% PVC burden and 0.3% PAC burden, no afib or pauses. Vinod Jensen MD Cardiology: R ecent LDL was 135. I recommended he get a calcium score to see how low he needs his LDL treated. Vinod Jensen MD Cardiology: H is recent ABIs showed normal bloodflow in his BLEs. Vinod Jensen MD Cardiology: B P today: 130/79 His updated medication list for this problem includes: Amlodipine 2.5 Mg Tablet (Amlodipine) Losartan 50 Mg Tablet (Losartan) Vinod Jensen MD Date Name Stress Regadenoson DLCO - 12724 FRC - 29712 FVC - 73054 Complete Echo LIPID PANEL COMPREHENSIVE METABO LIC PANEL, W/EGFR LIPID PANEL COMPREHENSIVE METABO LIC PANEL, W/EGFR LIPID PANEL LIPID PANEL Complete Echo Stress Routine CT, Coronary Calcium Score Arterial Duplex Bi-L ower EX HISTORY OF PROCEDURES Procedure Date Procedure Name Provider Procedure Notes S tatus Complex e/m visit add on Vinod Jensen MD completed Spirometry Vinod Jensen MD completed FVC / MVV - 01097 Vinod Jensen MD co mpleted FRC - 50421 Vinod Jensen MD complete d SpO2 w/o 6min walk/titration Vinod Jensen MD completed SVC - 46204 Vinod Jensen MD complete d DLCO - 20182 Vinod Jensen MD complet ed CT- Coronary CA score Vinod Jensen MD completed EKG Vinod Jensen MD completed
--- OUTSIDE RECORDS SUMMARY | 2024-12-14 09:01 | XMS_ITS | Clinical Summary ---
Author Organization [facility] [employer] Address [address] [address] Care Team Providers Care Pinsetter Mechanic Helper Name Role Phone Elan Gross MD Primary Care Provider [phone] Source Comments [facility] [employer],non-owned Affiliates and Associated Physician Practices is amultiple site organization consisting of ambulatory clinics and hospital sitesin [place], [place], [place] and [place]. This disclosure is being madepursuant to the Care Everywhere program and may not contain all information available regarding this patient. Last updated 18.[facility] [employer] Allergies No known active allergies Medications * Be aware that medications may not be up to date on this document. Alwaysverify current medications with the patient. busPIRone (BUSPAR) 5 MG tablet Take 5 mg by mouth 3 times daily 02/14/2021 Active mirtazapine (REMERON) 15 MG tablet TAKE 1 TABLET BY MOUTH EVERY DAY AT BEDTIME 02/14/2021 Active omeprazole (PRILOSEC) 20 MG capsule 08/15/2020 Active losartan (COZAAR) 50 MG tablet 1 tablet once daily 01/19/2021 Active amLODIPine (NORVASC) 2.5 MG tablet 1 tablet once daily 01/07/2021 Active levothyroxine (SYNTHROID) 75 MCG tablet 1 tablet once daily 01/19/2021 Active FLUoxetine (PROZAC) 20 MG capsule 1 capsule once daily 02/17/2021 Active valACYclovir (VALTREX) 500 MG tablet Take 500 mg by mouth once daily 02/20/2021 Active Cholecalciferol (VITAMIN D3 PO) Take 500 Units by mouth once daily Active Active Problems Problem Noted Date Diagnosed Date 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 Gender Identity Not on file Sexual Orientation Not on file Last Filed Vital Signs Vital Sign Reading Time Taken Comments Blood Pressure 136/84 03/05/2021 1:37 PM CDT Pulse 73 03/05/2021 1:37 PM CDT Temperature 36.6 C (97.8 F) 03/05/2021 1:37 PM CDT Respiratory Rate - - Oxygen Saturation 98% 03/05/2021 1:37 PM CDT Inhaled Oxygen Concentration - - Weight 96.5 kg (212 lb 12.8 oz) 03/05/2021 1:37 PM CDT Height 170.2 cm (5' 7) 03/05/2021 1:37 PM CDT Body Mass Index 33.33 03/05/2021 1:37 PM CDT Plan of Treatment Health Maintenance Due Date Last Done Comments COLOGUARD (AGES 45-75) - COL ON CA SCREENING 1954 COLON MONITORING 1954 COLONOSCOPY - COLON CA SCREENING 1954 CT COLONOGRAPHY - COLON CA SCREENING 1954 Colorectal Cancer Screening 1954 FIT - COLON CA SCREENING 1954 FLEX SIG - COLON CA SCREENING 1954 LIPID TESTING 1954 HEPATITIS C SCREENING 01/10/1972 DTAP/TDAP/TD VACCINES (1 - Tdap) 1973 PNEUMOCOCCAL VACCINE 50+ (1 of 1 - PCV) 01/15/2004 ZOSTER VACCINE (2 of 3) 11/30/2017 10/05/2017 SCREENING FOR DIABETES 03/05/2024 , 03/05/2021 COVID-19 VACCINE (3 - 2023-2 5 season) 2024 09/23/2020, 08/21/2020 DEPRESSION SCREENING 07/11/2024 INFLUENZA VACCINE (Season Ended) 2025 04/20/2018, 03/24/2016 Respiratory Syncytial Virus (RSV) Vaccine Pt: or over 60 yrs (1 - 1-dose 75+ series) 2029 HEPATITIS B VACCINE Aged Out No longe r eligible based on patient's age to complete this topic HIB VACCINE Aged Out No longer eligi ble based on patient's age to complete this topic HPV VACCINE Aged Out No longer eligi ble based on patient's age to complete this topic MENINGOCOCCAL (Group B) VACCINE SHARED DECISION-MAKING Aged Out No longer eligible based on patient's age to complete this topic MENINGOCOCCAL GROUPS A/C/Y/W VACCINE Aged Out No longer eligible b ased on patient's age to complete this topic Procedures Procedure Name Priority Date/Time Associated Diagnosis Comments COMPREHENSIVE METABOLIC PANEL Routine 03/05/2021 3:12 PM CDT Myopathy from Last 3 Months or Most Recently Relevant to Health Maintenance Results * (ABNORMAL) COMPREHENSIVE METABOLIC PANEL (03/05/2021 3:12 PM CDT) BUN 13 7 - 26 mg/dL 03/05/2021 4:09 PM [facility] Creatinine 0.93 0.71 - 1.16 mg/dL 03/05/2021 4:09 PM [facility] Sodium 139 136 - 145 mmol/L 03/05/2021 4:09 PM [facility] Potassium 4.1 3.5 - 4.5 mmol/L 03/05/2021 4:09 PM [facility] Chloride 103 98 - 107 mmol/L 03/05/2021 4:09 PM [facility] CO2 24 22 - 29 mmol/L 03/05/2021 4:09 PM [facility] Glucose 92 70 - 115 mg/dL 03/05/2021 4:09 PM [facility] Calcium 9.6 8.4 - 10.2 mg/dL 03/05/2021 4:09 PM [facility] Protein Total 7.4 6.0 - 8.3 g/dL 03/05/2021 4:09 PM [facility] Albumin 4.4 3.4 - 5.0 g/dL 03/05/2021 4:09 PM [facility] Bilirubin Total 0.7 0.2 - 1.2 mg/dL 03/05/2021 4:09 PM [facility] Alkaline Phosphatase 74 40 - 150 U/L 03/05/2021 4:09 PM [facility] ALT 14 5 - 55 U/L 03/05/2021 4:09 PM [facility] AST 18 5 - 34 U/L 03/05/2021 4:09 PM [facility] Anion Gap 16 8 - 18 03/05/2021 4:09 PM [facility] BUN/Creatinine Ratio 14 7 - 23 03/05/2021 4:09 PM [facility] Osmolality Calculated 288 270 - 300 mOsm/kg 03/05/2021 4:09 PM [facility] Albumin/Globulin Ratio 1.5 1.1 - 2.3 03/05/2021 4:09 PM [facility] eGFR by CKD-EPI 85(L) >=90 mL/min/1.7 3 m2 03/05/2021 4:09 PM [facility] Blood BLOOD SPECIMEN / Unknown Lab Venipuncture / Unknown 03/05/2021 3:12 PM CDT 03/05/2021 3:39 PM T Lokesh Pennington MD LAB - CHEMI STRY ORDERABLES Final Result [facility] [address] [place] [address], [place] [phone] from Last 3 Months or Most Recently Relevant to Health Maintenance Insurance [place] [id number] MANAGED MEDICARE ADV Care Teams Pinsetter Mechanic Helper Relationship Specialty Start Date End Date Elan Gross MD [address] [place] [address] PCP - General 02/26/21
--- OUTSIDE RECORDS SUMMARY | 2024-12-14 09:01 | XMS_ITS | Clinical Summary ---
Author Organization [facility] Address [address] [place] [address] Care Team Providers Care Orthopaedic Physician Assistant Name Role Phone Elan Gross MD Primary Care Provider [phone] Allergies No known active allergies Medications ALPRAZolam (XANAX) 0.25 mg tablet TAKE 1 TABLET 3 TIMES DAILY NEEDED. 5 Active FLUoxetine (PROzac) 20 mg capsule daily Active levothyroxine (SYNTHROID) 75 mcg tablet daily 5 Active omeprazole (PriLOSEC) 20 mg capsule 2 times daily 5 Active ibuprofen (ADVIL,MOTRIN) 800 mg tablet TAKE 1 TABLET EVERY SIX HOURS NEEDED FOR PAIN . DO NOT TAKE MORE THAN 4 TABLETS IN 24 HOURS 2 9 Active ARIPiprazole (ABILIFY) 5 mg tablet Take 5 mg by mouth daily 2 9 Active amLODIPine (NORVASC) 2.5 mg tablet 1 Active amoxicillin-cla vulanate (AUGMENTIN) 875-125 mg per tablet Take 1 tablet by mouth 2 (two) times a day 1 Active busPIRone (BUSPAR) 5 mg tablet Take 5 mg by mouth 3 (three) times a day 1 Active losartan (COZAAR) 50 mg tablet 1 Active valACYclovir (VALTREX) 500 mg tablet Take 500 mg by mouth daily 1 Active Nystop powder APPLY 1 APPLICATION TOPICALLY TO THE AFFECTED AREA TWICE DAILY 1 Active mirtazapine (REMERON) 15 mg tablet TAKE 1/2 TABLET BY MOUTH EVERY DAY AT BEDTIME Active Active Problems Problem Noted Date Diagnosed Date 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 Intracranial tumor 10/24/2014 Immunizations Immunization Administration Dates Next Due Influenza, Quadrivalent, Karlene l Culture-based MDCK, Preservative Free, Antibiotic Free, Intramuscular 04/20/2018 Influenza, Trivalent, Preservative Free, Intramu scular 03/24/2016 ZOSTER LIVE 10/05/2017 Surgical History Surgery Date Site/Laterality Comments [place] ARTHRP ACETBLR/PROX FEM PROSTC AGRFT/ALGRFT Total Hip Replacement Left - (Added by TW Conv) [place] NEUROPLASTY &/TRANSPOS MEDIAN NRV CARPAL TUNNE Neuroplasty Decompression Median Nerve At Carpal Tunnel - (Added by TW Conv) [place] ARTHRP ACETBLR/PROX FEM PROSTC AGRFT/ALGRFT Total Knee Replacement Right - (Added by TW Conv) Family History Medical History Relation Name Comments Diabetes Brother Family history of diabetes mellitus - (Added by TW Conv) Rheum arthritis Father Family histo ry of rheumatoid arthritis - (Added by TW Conv) Relation Name Status Comments Brother Father Social History Tobacco Use Types Packs/Day Years Used Date Smoking Tobacco: Never Smokeless Tobacco: Never Tobacco Cessation:Counseling Given: No AUDIT-C Answer Date Recorded Q1: How often do you have a drink containing alc ohol? Monthly or less 11/10/2020 Q2: How many drinks containi ng alcohol do you have on a typical day when you are drinking? 1 or 2 11/10/2020 Q3: How often do you have si x or more drinks on one occasion? 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 Gender Identity Not on file Sexual Orientation Not on file Obstetrics History Last Filed Vital Signs Vital Sign Reading Time Taken Comments Blood Pressure 149/90 11/10/2020 10:00 AM CDT Pulse 65 11/10/2020 10:00 AM CDT Temperature - - Respiratory Rate - - Oxygen Saturation - - Inhaled Oxygen Concentration - - Weight 101.4 kg (223 lb 9.6 oz) 021 10:00 AM CDT Height 170.2 cm (5' 7) 11/10/2020 10:0 0 AM CDT Body Mass Index 35.02 11/10/2020 10:00 AM CDT Plan of Treatment Not on file Medical Devices Implanted Type Area Healthcare Project Manager Device Identifier Shelf Expiration Date Model / Serial / Lot Bilateral Hip Replacement Pelvis Knee Replacement Right: Knee Hardware Spine Cervical Insurance [facility] MDCR HMO REF MEDICARE COMMERCIAL GENERIC [facility] MDCR HMO REF Care Teams Orthopaedic Physician Assistant Relationship Specialty Start Date End Date Elan Gross MD PCP - General 07/27/17
--- OUTSIDE RECORDS SUMMARY | 2024-12-14 09:01 | XMS_ITS | Referral Summary ---
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
--- OUTSIDE RECORDS SUMMARY | 2024-12-14 09:01 | XMS_ITS | Continuity of Care Document ---
Author Organization [facility] Address [address] [place] [address] [place] [address] Phone Care Team Providers Care Spaghetti Press Helper Name Role Phone Naveen Coulter MD Unavailable Unavailable Advance Directives Directive Yes / No Effective Date File Name No Information Encounters Encounter Description Practice Location Reason(s) For Visit Diagnoses Date Provider Providers Copied on Encounter Merged with [facility], [id number] [place] [address] [address], [place], [place], [id number], [place] tel:[phone] [facility] No Information [address] [place], [place], [id number], [place]. tel:[phone] Family History Family Member Type Diagnosis Age [...]
[2024-12-14 10:48] LABS: Basophils Absolute Auto 0.1 K/mm3 (0.0-0.1); Basophils Percent Auto 0.9 % (0.2-1.2); Eosinophils Absolute Auto 0.1 K/mm3 (0-0.3); Eosinophils Percent Auto 1.5 % (0-4.4); Hematocrit 41.6 % (42.0-52.0); Hemoglobin 13.7 g/dL (14.0-18.0); Immature Granulocyte Absolute 0.01 K/mm3 (0.00-0.031); Immature Granulocyte Percent A 0.2 % (0-0.5); Lymphocytes Absolute Auto 1.12 K/mm3 (0.9-3.2); Lymphocytes Percent Auto 20.9 % (18.3-44.2); Mean Corpuscular HGB Conc 32.9 g/dl (32-36); Mean Corpuscular Hemoglobin 30.1 pg (26-34); Mean Corpuscular Volume 91.4 fl (80-100); Mean Platelet Volume 11.6 fl (7.4-10.4); Monocytes Absolute Auto 0.4 K/mm3 (0.1-0.6); Monocytes Percent Auto 6.7 % (2.6-8.5); Neutrophils Absolute Auto 3.7 K/mm3 (1.3-6.7); Neutrophils Percent Auto 69.8 % (45.5-73.1); Platelet Count Result 221 k/mm3 (150-375); Red Blood Count 4.55 M/mm3 (4.6-6.20); Red Cell Distribution Width 12.9 % (11.5-14.5); White Blood Count 5.4 K/mm3 (4.5-10.0)
[2024-12-14 11:03] LABS: Alanine Aminotransferase 18 U/L (6-50); Albumin Level 4.4 g/dL (3.5-5.1); Alkaline Phosphatase 70 U/L (38-126); Anion Gap 8 mmol/L (4-12); Aspartate Amino Transferase 29 U/L (17-59); Bilirubin,Total 0.7 mg/dL (0.2-1.3); Blood Urea Nitrogen 17 mg/dL (9-20); Calcium 9.4 mg/dL (8.4-10.2); Carbon Dioxide 25 mmol/L (22-30); Chloride 107 mmol/L (98-107); Cholesterol 119 mg/dL (0-200); Estimated Glomerular Filt Rate > 60; Glucose 97 mg/dL (65-110); HDL Direct 56 mg/dL; Sodium 140 mmol/L (137-145); Total Protein 7.2 g/dL (6.3-8.2); Triglycerides 68 mg/dL (<150)
[2024-12-14 11:14] LABS: LDL Cholesterol Direct 39 mg/dL
[2024-12-14 11:33] LABS: Prostate Specific Antigen 1.1 ng/mL (< OR = 4.0)
== END 2024-12-14 08:54 | disposition home or self-care (01) ==
PROVIDERS: PCP Family Medicine; Visit Provider Physician Assistant Medical
DX: Z12.5 Encounter for screening for malignant neoplasm of prostate (principal); E78.5 Hyperlipidemia, unspecified; I10 Essential (primary) hypertension; R63.4 Abnormal weight loss; R05.9 Cough, unspecified; Z96.643 Presence of artificial hip joint, bilateral
CPT/HCPCS: 36415; 71046; 73502; 80053; 80061; 84153; 84443; 85025; G0103

== ENCOUNTER 2025-01-08 09:34 | Outpatient (CLI) | payer MEDICARE, SELFPAY ==
--- NOTE | ~2025-01-08 | MR_ITS ---
MRI of the brain Clinical History: Headache Technique: Axial and sagittal T1-weighted images were acquired. These were followed by axial T2-weigh lori, diffusion weighted, gradient, and FLAIR images. Following intravenous administration of 18 cc Mu ltiHance gadolinium, T1-weighted fat-sat imaging was performed in the axial, coronal, and sagittal pl anes. COMPARISON: 09/06/2023 Findings: There is no acute infarct or intracranial hemorrhage. Stable suspected meningioma anteriorl y.. Minimal chronic white matter changes are stable from prior exam. Ventricles and subarachnoid spaces are unremarkable. Orbits are unremarkable. Paranasal sinuses and m astoid air cell are clear. Major intracranial flow voids are intact. Sagittal midline structures are intact. IMPRESSION: No acute abnormality. Stable support 1 cm suspected meningioma anteriorly. Stable minimal chronic white matter disease. Reviewed, dictated and finalized at location .
--- OUTSIDE RECORDS SUMMARY | 2025-01-08 09:50 | XMS_ITS | Clinical Summary ---
Author Organization [facility] [employer] Address [address] [place] [address] Care Team Providers Care Pattern Scratcher Name Role Phone Elan Gross MD Primary Care Provider [phone] [facility] [employer],non-owned Affiliates and Associated Physician Practices is amultiple site organization consisting of ambulatory clinics and hospital sitesin [place] and [place]. This disclosure is being madepursuant to the Care Everywhere program and may not contain all information available regarding this patient. Last updated 18.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 Gender Identity Not on file Sexual Orientation [...] 7 - 26 mg/dL 03/05/2021 4:09 PM [facility] Creatinine 0.93 0.71 - 1.16 mg/dL 03/05/2021 4:09 PM [facility] Sodium 139 136 - 145 mmol/L 03/05/2021 4:09 PM [facility] Potassium 4.1 3.5 - 4.5 mmol/L 03/05/2021 4:09 PM [facility] Chloride 103 98 - 107 mmol/L 03/05/2021 4:09 PM [facility] CO2 24 22 - 29 mmol/L 03/05/2021 4:09 PM [facility] Glucose 92 70 - 115 mg/dL 03/05/2021 4:09 PM [facility] Calcium 9.6 8.4 - 10.2 mg/dL 03/05/2021 4:09 PM [facility] Protein Total 7.4 6.0 - 8.3 g/dL 03/05/2021 4:09 PM [facility] Albumin 4.4 3.4 - 5.0 g/dL 03/05/2021 4:09 PM [facility] Bilirubin Total 0.7 0.2 - 1.2 mg/dL 03/05/2021 4:09 PM [facility] Alkaline Phosphatase 74 40 - 150 U/L 03/05/2021 4:09 PM [facility] ALT 14 5 - 55 U/L 03/05/2021 4:09 PM [facility] AST 18 5 - 34 U/L 03/05/2021 4:09 PM [facility] Anion Gap 16 8 - 18 03/05/2021 4:09 PM [facility] BUN/Creatinine Ratio 14 7 - 23 03/05/2021 4:09 PM [facility] Osmolality Calculated 288 270 - 300 mOsm/kg 03/05/2021 4:09 PM [facility] Albumin/Globulin Ratio 1.5 1.1 - 2.3 03/05/2021 4:09 PM [facility] eGFR by CKD-EPI 85(L) >=90 mL/min/1.7 3 m2 03/05/2021 4:09 PM [facility] Blood BLOOD SPECIMEN / Unknown Lab Venipuncture / Unknown 03/05/2021 3:12 PM CDT 03/05/2021 3:39 PM T Lokesh Pennington MD LAB - CHEMI STRY ORDERABLES Final Result [facility] [address] [place] [address], [place] [phone] from Last 3 Months or Most Recently Relevant to Health Maintenance Insurance [place] [id number] MANAGED MEDICARE ADV Care Teams Pattern Scratcher Relationship Specialty Start Date End Date Elan Gross MD [address] [place] [address] PCP - General 02/26/21
--- OUTSIDE RECORDS SUMMARY | 2025-01-08 09:50 | XMS_ITS | Continuity of Care Document ---
Author Organization [facility] Address [address] [place] [address] [place] [address] Phone Care Team Providers Care Client Success Specialist Name Role Phone Naveen Coulter MD Unavailable Unavailable Advance Directives Directive Yes / No Effective Date File Name No Information Encounters Encounter Description Practice Location Reason(s) For Visit Diagnoses Date Provider Providers Copied on Encounter [facility], [id number] [place] [address] [address], [place], [place], [id number], [place] tel:[phone] [facility] No Information [address], [place], [place], [id number], [place]. tel:[phone] Family History Family Member Type Diagnosis Age [...]
--- OUTSIDE RECORDS SUMMARY | 2025-01-08 09:50 | XMS_ITS | Referral Summary ---
Author Organization 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
--- OUTSIDE RECORDS SUMMARY | 2025-01-08 09:50 | XMS_ITS | Clinical Summary ---
Author Organization [facility] Address [address] [place] [address] Care Team Providers Care Auto Body Worker Name Role Phone Elan Gross MD Primary Care Provider [phone] Allergies No known active allergies Medications ALPRAZolam [...] 10/05/2017 Surgical History Surgery Date Site/Laterality Comments [place] ARTHRP ACETBLR/PROX FEM PROSTC AGRFT/ALGRFT Total Hip Replacement Left - (Added by TW Conv) [place] NEUROPLASTY &/TRANSPOS MEDIAN NRV CARPAL TUNNE Neuroplasty Decompression Median Nerve At Carpal Tunnel - (Added by TW Conv) [place] ARTHRP ACETBLR/PROX FEM PROSTC AGRFT/ALGRFT Total Knee [...] on file 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 Gender Identity Not on file Sexual Orientation [...] on file Medical Devices Implanted Type Area Plodder Operator Device Identifier Shelf Expiration Date Model / Serial / Lot Bilateral Hip Replacement Pelvis Knee Replacement Right: Knee Hardware Spine Cervical Insurance [facility] MDCR HMO REF [facility] MEDICARE Address: [address] [address] [place] [address] MEDICARE COMMERCIAL GENERIC [facility] MDCR HMO REF [facility] MEDICARE Address: [place] [phone] [place] [address] Care Teams Auto Body Worker Relationship Specialty Start Date End Date Elan Gross MD PCP - General 07/27/17
--- OUTSIDE RECORDS SUMMARY | 2025-01-08 09:50 | XMS_ITS | Patient Health Record ---
Author Organization [facility] [employer] [facility] Address [address] [place] [address] Care Team Providers Care Acid Concentrator Name Role Phone Renato VERMA, Elan Primary Care Provider Elodia Medina Unavailable [phone] AltheaFernando harriset Unavailable [phone] Allergies Allergen (clinical drug ingredient) Drug/Non Drug Allergy documented on EMR Reaction Allergy Type Onset Date Status Seasonale Unknown Drug Allergy Active Reason For Referral No Information Medications Medication SIG (Take, Route, Frequency, Duration) Notes Start Date End Date Status valACYclovir HCl 500 MG Oral 11/21/2023 Unknown Ingrezza 40 MG 1 capsule Orally Onc e a day; Duration: 30 days Active Omeprazole 20 MG Oral; Duration: 100 Days Active Nystop [id number] UNIT/GM External 11/21/2023 Unknown Losartan Potassium 50 MG Oral; Duration: 100 Days Active Sertraline HCl 50 MG 0.5 tablet once a d ay for 6 days, 1 tablet once a day for 24 days Orally Once a day; Duration: 30 days 12/18/2024 Active Rosuvastatin Calcium 20 MG TAKE 1 TABLET BY MOUTH DAILY Oral; Duration: 90 Days Active amLODIPine Besylate 2.5 MG TAKE 1 TABLET BY MOUTH EVERY MORNING Oral; Duration: 100 Days Active Vitamin D 50 MCG (1999) 1 tablet Oral ly Once a day Active Mirtazapine 15 MG 1 tablet at bedtime Oral Once a day; Duration: 30 days Active Primidone 50 MG Oral; Duration: 90 Days Not-Taking Donepezil HCl 10 MG TAKE 1 TABLET BY EVERY DAY AT BEDTIME Oral; Duration: 90 Days Not-Taking Memantine HCl 10 MG 1 tablet Orally twic e a day Active Ezetimibe 10 MG Oral; Duration: 100 Days Active ARIPiprazole 5 MG TAKE 1 TABLET BY ALLYSON TH EVERY DAY Oral; Duration: 30 Days Not-Taking Levothyroxine Sodium 75 MCG Oral; Duration: 100 Days Active Rexulti 2 MG TAKE 1 TABLET BY ALLYSON TH DAILY; Duration: 30 Active Immunizations Vaccine Route Administration Date Status Comme nts Influenza virus vaccine, quadrivalent (IIV4), split virus, 0.25 mL dosage Unknown 05/30/2019 Administered Influenza, high-dose seasona l, quadrivalent, preservative free >65 yrs Unknown 04/22/2020 Administered Influenza, high-dose seasona l, quadrivalent, preservative free >65 yrs Unknown 04/03/2021 Administered Moderna Covid-19 Vaccine 1st dose Unknown 08/21/2020 Ad ministered Moderna Covid-19 Vaccine 1st dose Unknown 09/23/2020 Ad ministered Moderna Covid-19 Vaccine 1st dose Unknown 06/05/2021 Ad ministered Zoster Unknown 10/05/2017 Administered Social History Tobacco Use: Social History Observation Description Date Details (start date - stop date) Never Smoker NA - NA Sex Assigned At : Social History Observation Description Sex Assigned At Male Household Question Answer Notes Marital status: living with significant other Tobacco Control (Standard) Question Answer Notes Tobacco use: Nonsmoker Section Notes: Social History Substance Use Do you or have you ever smoked tobacco?: Never smoker How much tobacco do you smoke?: None Do you or have you ever used any other forms of tobacco or nicotine?: No Do you or have you ever used e-cigarettes or vape?: Never used electronic cigarettes Do you or have you ever used smokeless tobacco?: Never used smokeless tobacco How much tobacco do you chew?: none What was the date of your most recent tobacco screening?: 11/21/2023 Has tobacco cessation counseling been provided?: No What is your level of alcohol consumption?: Occasional How many years have you consumed alcohol?: 44 Do you use any illicit or recreational drugs?: No Which illicit or recreational drugs have you used?: Cannabis Have you used IV drugs?: No What is your level of caffeine consumption?: Moderate Education and Occupation What is the highest grade or level of school you have completed or the highest degree you have received?: GED or equivalent Are you currently employed?: No Who is your employer?: None Marriage and Sexuality What is your relationship status?: Domestic partner Are you sexually active?: Yes How many children do you have?: 6 Home and Environment Do you have any siblings?: 2 Are there any smokers in your house?: No Are there any guns present in your home?: No Advance Directive Do you have an advance directive?: Yes Do you have a medical power of defense attorney?: No High number of sexual partners: No History of inconsistent/no condom use: Yes Marital status: Domestic Partner Gender Identity and LGBTQ Identity Gender identity: Identifies as Male Assigned sex at : Male First name used: BILL Sexual orientation: Straight or heterosexual Social History Substance Use Do you or have you ever smoked tobacco?: Never smoker How much tobacco do you smoke?: None Do you or have you ever used any other forms of tobacco or nicotine?: No Do you or have you ever used e-cigarettes or vape?: Never used electronic cigarettes Do you or have you ever used smokeless tobacco?: Never used smokeless tobacco How much tobacco do you chew?: none What was the date of your most recent tobacco screening?: 11/21/2023 Has tobacco cessation counseling been provided?: No What is your level of alcohol consumption?: Occasional How many years have you consumed alcohol?: 44 Do you use any illicit or recreational drugs?: No Which illicit or recreational drugs have you used?: Cannabis Have you used IV drugs?: No What is your level of caffeine consumption?: Moderate Education and Occupation What is the highest grade or level of school you have completed or the highest degree you have received?: GED or equivalent Are you currently employed?: No Who is your employer?: None Marriage and Sexuality What is your relationship status?: Domestic partner Are you sexually active?: Yes How many children do you have?: 6 Home and Environment Do you have any siblings?: 2 Are there any smokers in your house?: No Are there any guns present in your home?: No Advance Directive Do you have an advance directive?: Yes Do you have a medical power of defense attorney?: No High number of sexual partners: No History of inconsistent/no condom use: Yes Marital status: Domestic Partner Gender Identity and LGBTQ Identity Gender identity: Identifies as Male Assigned sex at : Male First name used: BILL Sexual orientation: Straight or heterosexual Social History Substance Use Do you or have you ever smoked tobacco?: Never smoker How much tobacco do you smoke?: None Do you or have you ever used any other forms of tobacco or nicotine?: No Do you or have you ever used e-cigarettes or vape?: Never used electronic cigarettes Do you or have you ever used smokeless tobacco?: Never used smokeless tobacco How much tobacco do you chew?: none What was the date of your most recent tobacco screening?: 11/21/2023 Has tobacco cessation counseling been provided?: No What is your level of alcohol consumption?: Occasional How many years have you consumed alcohol?: 44 Do you use any illicit or recreational drugs?: No Which illicit or recreational drugs have you used?: Cannabis Have you used IV drugs?: No What is your level of caffeine consumption?: Moderate Education and Occupation What is the highest grade or level of school you have completed or the highest degree you have received?: GED or equivalent Are you currently employed?: No Who is your employer?: None Marriage and Sexuality What is your relationship status?: Domestic partner Are you sexually active?: Yes How many children do you have?: 6 Home and Environment Do you have any siblings?: 2 Are there any smokers in your house?: No Are there any guns present in your home?: No Advance Directive Do you have an advance directive?: Yes Do you have a medical power of defense attorney?: No High number of sexual partners: No History of inconsistent/no condom use: Yes Marital status: Domestic Partner Gender Identity and LGBTQ Identity Gender identity: Identifies as Male Assigned sex at : Male First name used: TRUDI Sexual orientation: Straight or heterosexual Social History Substance Use Do you or have you ever smoked tobacco?: Never smoker How much tobacco do you smoke?: None Do you or have you ever used any other forms of tobacco or nicotine?: No Do you or have you ever used e-cigarettes or vape?: Never used electronic cigarettes Do you or have you ever used smokeless tobacco?: Never used smokeless tobacco How much tobacco do you chew?: none What was the date of your most recent tobacco screening?: 11/21/2023 Has tobacco cessation counseling been provided?: No What is your level of alcohol consumption?: Occasional How many years have you consumed alcohol?: 44 Do you use any illicit or recreational drugs?: No Which illicit or recreational drugs have you used?: Cannabis Have you used IV drugs?: No What is your level of caffeine consumption?: Moderate Education and Occupation What is the highest grade or level of school you have completed or the highest degree you have received?: GED or equivalent Are you currently employed?: No Who is your employer?: None Marriage and Sexuality What is your relationship status?: Domestic partner Are you sexually active?: Yes How many children do you have?: 6 Home and Environment Do you have any siblings?: 2 Are there any smokers in your house?: No Are there any guns present in your home?: No Advance Directive Do you have an advance directive?: Yes Do you have a medical power of defense attorney?: No High number of sexual partners: No History of inconsistent/no condom use: Yes Marital status: Domestic Partner Gender Identity and LGBTQ Identity Gender identity: Identifies as Male Assigned sex at : Male First name used: BILL Sexual orientation: Straight or heterosexual Social History Substance Use Do you or have you ever smoked tobacco?: Never smoker How much tobacco do you smoke?: None Do you or have you ever used any other forms of tobacco or nicotine?: No Do you or have you ever used e-cigarettes or vape?: Never used electronic cigarettes Do you or have you ever used smokeless tobacco?: Never used smokeless tobacco How much tobacco do you chew?: none What was the date of your most recent tobacco screening?: 11/21/2023 Has tobacco cessation counseling been provided?: No What is your level of alcohol consumption?: Occasional How many years have you consumed alcohol?: 44 Do you use any illicit or recreational drugs?: No Which illicit or recreational drugs have you used?: Cannabis Have you used IV drugs?: No What is your level of caffeine consumption?: Moderate Education and Occupation What is the highest grade or level of school you have completed or the highest degree you have received?: GED or equivalent Are you currently employed?: No Who is your employer?: None Marriage and Sexuality What is your relationship status?: Domestic partner Are you sexually active?: Yes How many children do you have?: 6 Home and Environment Do you have any siblings?: 2 Are there any smokers in your house?: No Are there any guns present in your home?: No Advance Directive Do you have an advance directive?: Yes Do you have a medical power of defense attorney?: No High number of sexual partners: No History of inconsistent/no condom use: Yes Marital status: Domestic Partner Gender Identity and LGBTQ Identity Gender identity: Identifies as Male Assigned sex at : Male First name used: TRUDI Sexual orientation: Straight or heterosexual Social History Substance Use Do you or have you ever smoked tobacco?: Never smoker How much tobacco do you smoke?: None Do you or have you ever used any other forms of tobacco or nicotine?: No Do you or have you ever used e-cigarettes or vape?: Never used electronic cigarettes Do you or have you ever used smokeless tobacco?: Never used smokeless tobacco How much tobacco do you chew?: none What was the date of your most recent tobacco screening?: 11/21/2023 Has tobacco cessation counseling been provided?: No What is your level of alcohol consumption?: Occasional How many years have you consumed alcohol?: 44 Do you use any illicit or recreational drugs?: No Which illicit or recreational drugs have you used?: Cannabis Have you used IV drugs?: No What is your level of caffeine consumption?: Moderate Education and Occupation What is the highest grade or level of school you have completed or the highest degree you have received?: GED or equivalent Are you currently employed?: No Who is your employer?: None Marriage and Sexuality What is your relationship status?: Domestic partner Are you sexually active?: Yes How many children do you have?: 6 Home and Environment Do you have any siblings?: 2 Are there any smokers in your house?: No Are there any guns present in your home?: No Advance Directive Do you have an advance directive?: Yes Do you have a medical power of defense attorney?: No High number of sexual partners: No History of inconsistent/no condom use: Yes Marital status: Domestic Partner Gender Identity and LGBTQ Identity Gender identity: Identifies as Male Assigned sex at : Male First name used: TRUDI Sexual orientation: Straight or heterosexual Problems Problem Type SNOMED Code ICD Code Onset Dates Problem Status W/U Status Risk Notes Problem Mild recurrent major depression (85623709) Major depressive disorder, recurrent, mild (F33.0) 4 Active confirmed Problem Severe recurrent major depression without psychotic features (65995880) Major depressive disorder, recurrent severe without psychotic features (F33.2) Active confirmed Problem Generalized anxiety disorder (42460921) Generalized anxiety disorder (F41.1) 4 Active confirmed Problem Unspecified dementia, unspecified severity, with mood disturbance (F03.93) 4 Active confirmed Problem Tardive dyskinesia (389136200) Tardive dyskinesia (G24.01) Active confirmed Problem Essential hypertension (26270216) Benign essential HTN (I10) Active confirmed Vital Signs Heart Rate 69 /min 12/18/2024 Height-cm 170.18 cm 12/18/2024 Blood pressure diastolic 78 mm Hg 12/18/2024 Weight-kg 89.81 kg 12/18/2024 Height 67.00 in 12/18/2024 Blood pressure systolic 118 mm Hg 12/18/2024 Weight 198 lbs 12/18/2024 BMI 31.01 kg/m2 12/18/2024 Encounters Encounter Location Date Provider Diagnosis [facility] [employer] [place] [address] [facility] [address] [address] 01/25/2024 Kaur Ferguson Generalized anxiety disorder F41.1 ; Major depressive disorder, recurrent, mild F33.0 and Unspecified dementia, unspecified severity, with mood disturbance F03.93 [facility] [employer] [facility] [address] [facility] [address] [address] 02/22/2024 Kaur Ferguson Generalized anxiety disorder F41.1 ; Major depressive disorder, recurrent, mild F33.0 and Unspecified dementia, unspecified severity, with mood disturbance F03.93 [facility] [employer] [place] [address] [facility] [address] [address] 05/24/2024 Elodia Schwab Generalized anxiety disorder F41.1 ; Major depressive disorder, recurrent severe without psychotic features F33.2 ; Unspecified dementia, unspecified severity, with mood disturbance F03.93 and Hypertension I10 [employer] [facility] [address] [address] 05/31/2024 Elodia Schwab Major depressive disorder, recurrent severe without psychotic features F33.2 ; Generalized anxiety disorder F41.1 and Unspecified dementia, unspecified severity, with mood disturbance F03.93 [facility] [employer] [facility] [address] [address] 07/13/2024 Elodia Schwab Major depressive disorder, recurrent, mild F33.0 ; Generalized anxiety disorder F41.1 ; Unspecified dementia, unspecified severity, with mood disturbance F03.93 ; Tardive dyskinesia G24.01 and Hypertension I10 [facility], [place] [address] [facility] [address] [place] [address] 08/13/2024 Elodia Schwab [facility], [facility] [address] [facility] [address] [place] [address] 09/03/2024 Elodia Schwab Major depressive disorder, recurrent, mild F33.0 ; Generalized anxiety disorder F41.1 ; Unspecified dementia, unspecified severity, with mood disturbance F03.93 ; Tardive dyskinesia G24.01 and Benign essential HTN I10 [place] [address] [address] 10/01/2024 Elodia Schwab Major depressive disorder, recurrent, mild F33.0 ; Generalized anxiety disorder F41.1 ; Tardive dyskinesia G24.01 ; Unspecified dementia, unspecified severity, with mood disturbance F03.93 and Benign essential HTN I10 [place] [address] [address] [facility] [address] [place] [address] 11/12/2024 Elodia Schwab [facility], [facility] [address] [address] 12/06/2024 Elodia Schwab [place] [address] [address] 12/18/2024 Elodia Schwab Major depressive disorder, recurrent, mild F33.0 ; Generalized anxiety disorder F41.1 ; Tardive dyskinesia G24.01 ; Unspecified dementia, unspecified severity, with mood disturbance F03.93 ; Benign essential HTN I10 and Encounter for screening for depression Z13.31 [facility] [address] [address] 10/04/2024 Elodia Schwab [facility], [place] [address] [facility] [address] [place] [address] 10/16/2024 Elodia Schwab [facility], [place] [address] [facility] [address] [place] [address] 11/12/2024 Elodia Schwab Major depressive disorder, recurrent, mild F33.0 [facility], [place] [address] [place] [address] 12/04/2024 Elodia Schwab Generalized anxiety disorder F41.1 [facility] [employer] [facility] [address] [place] [address] 12/13/2024 Elodia Josselin Tardive dyskinesia G24.01 [facility] [employer] [address] [place] [address] 05/29/2024 Elodiajakub Villalobosyessenia Major depressive disorder, recurrent severe without psychotic features F33.2 [facility] [employer] [place] [address] [place] [address] 05/29/2024 Elodiajakub Schwab Major depressive disorder, recurrent severe without psychotic features F33.2 [facility] [employer] [address] [facility] [address] [place] [address] 09/11/2024 Elodia Griseldayessenia [facility] [employer] [address] [facility] [address] [place] [address] 10/04/2024 Elodia Schwab Assessments Encounter Date Diagnosis (ICD Code) Assessment Notes Treatment Notes Treatment Clinical Notes Section Notes 02/22/2024 Generalized anxiety disorder (ICD-10 - F41.1) cont fluoxetine 20mg daily cont mirtazapine 15mg qhs no longer taking buspar, donepezil (from neuro) also stopped at hospital doing better overall, better mood/interest, anxiety better currently, nightmares stopped, etc cont fluoxetine and mirtazapine; education provided says neuro sent letter that isn't dementia due to test results?, they are to f/u in office get ÁLVRAO for Dr Davis records-request again wants longer f/u, 3 months, earlier if concerns notes: not interested in therapy, also no showed so cannot schedule here, therapy may not be appropriate depending how quickly cognition declines. 01/25/2024 Major depressive disorder, recurrent, mild (ICD-10 - F33.0) fluoxetine and mirtazapine as above 01/25/2024 Generalized anxiety disorder (ICD-10 - F41.1) decrease buspar to 10mg qam (no bedtime dose-monitor nightmares/cameron ms) cont fluoxetine 20mg daily cont mirtazapine 15mg qhs looking back notes fall 2021 when last on buspar, had nightmare complaints that got better after increase prozac and stop buspar, might buspar be related, hx nightmares intermittent, contribute or coincidental. discuss options, pros/cons, shared decision making, review r/b/se will stop buspar at bedtime, keep am only and see if impact on nightmares hold on changing mirtazapine for now, may increase next visit also sees neurologist tomorrow may have med changes f/u 1 month, earlier if concerns notes: not interested in therapy, also no showed so cannot schedule here, therapy may not be appropriate depending how quickly cognition declines. 05/24/2024 Major depressive disorder, recurrent severe without psychotic features (ICD-10 - F33.2) Electronic Prior Authorization was requested for Rexulti 2 MG Tablet. Provider can order medication once approval received. Anxiety - persistent anxiety, described as a constant presence that worsens upon waking. - History of effective use of Rexulti (brexpiprazole), discontinued due to insurance issues. Plan: - 14-day Rexulti sample pack, starting at 0.5 mg for the first week, increasing to 1 mg for the second week. - Prior authorization for Rexulti prescription - relaxation techniques - Schedule follow-up in two weeks to assess response and manage therapy continuation. Sleep Disturbance - Reports mirtazapine aids his sleep effectively. Plan: - Continue mirtazapine for sleep, anxiety, and depression. - sleep hygiene Hypertension - blood pressure elevated this vivist - cont. BP medications as prescribed - monitor at home 05/24/2024 Generalized anxiety disorder (ICD-10 - F41.1) Anxiety - persistent anxiety, described as a constant presence that worsens upon waking. - History of effective use of Rexulti (brexpiprazole), discontinued due to insurance issues. Plan: - 14-day Rexulti sample pack, starting at 0.5 mg for the first week, increasing to 1 mg for the second week. - Prior authorization for Rexulti prescription - relaxation techniques - Schedule follow-up in two weeks to assess response and manage therapy continuation. Sleep Disturbance - Reports mirtazapine aids his sleep effectively. Plan: - Continue mirtazapine for sleep, anxiety, and depression. - sleep hygiene Hypertension - blood pressure elevated this vivist - cont. BP medications as prescribed - monitor at home 05/29/2024 Major depressive disorder, recurrent severe without psychotic features (ICD-10 - F33.2) 05/29/2024 Major depressive disorder, recurrent severe without psychotic features (ICD-10 - F33.2) Electronic Prior Authorization was requested for Rexulti 2 MG Tablet. Provider can order medication once approval received. 05/31/2024 Major depressive disorder, recurrent severe without psychotic features (ICD-10 - F33.2) Assessment and Plan: Anxiety/Depressi on - persistent anxiety and depression, reports improvement since starting rexulti 1 mg one week ago, tomorrow starts 2 mg for 2nd week of first sample pack given - prior authorization approved, but still $500 out of pocket, hope that after new year, their medicare part D plan with adjust allowing for more coverage Plan: - cont rexulti 2 mg, provided more samples until first of the year - provided a medication cost assistance packet in hopes of obtaining assistance with cost - Cont. duloxetine 60 mg daily Sleep Disturbance - Reports mirtazapine aids his sleep effectively. Plan: - Continue mirtazapine for sleep, anxiety, and depression. - sleep hygiene Elevated BP - blood pressure elevated lasrt visit, much mporved today - cont. BP medications as prescribed by PCP/specialists - monitor at home. follow up in 6 weeks, sooner if concerns arise 05/31/2024 Generalized anxiety disorder (ICD-10 - F41.1) Assessment and Plan: Anxiety/Depressi on - persistent anxiety and depression, reports improvement since starting rexulti 1 mg one week ago, tomorrow starts 2 mg for 2nd week of first sample pack given - prior authorization approved, but still $500 out of pocket, hope that after new year, their medicare part D plan with adjust allowing for more coverage Plan: - cont rexulti 2 mg, provided more samples until first of the year - provided a medication cost assistance packet in hopes of obtaining assistance with cost - Cont. duloxetine 60 mg daily Sleep Disturbance - Reports mirtazapine aids his sleep effectively. Plan: - Continue mirtazapine for sleep, anxiety, and depression. - sleep hygiene Elevated BP - blood pressure elevated lasrt visit, much mporved today - cont. BP medications as prescribed by PCP/specialists - monitor at home. follow up in 6 weeks, sooner if concerns arise 07/13/2024 Major depressive disorder, recurrent, mild (ICD-10 - F33.0) Assessment and Plan: Anxiety and Depression - Reports improvement in mood and anxiety with current medications, but still experiences good and bad days. - Continue Rexulti 2 mg daily, 4 week samples given, prior authorization was approved but significant out of pocket costs, we will work on assistance program - Consider switching from fluoxetine to duloxetine in the future, he does report some neuropathy - Continue mirtazapine 15 mg at bedtime. Dementia - He has declined medications and further treatment Tardive Dyskinesia/Invol untary movements - Patient exhibits oral, hand, and foot movements, which may be related to tardive dyskinesia - Discontinue primidone as per neurologist's guidance - Initiate Austedo XR titration pack, prior authroization, assistance program likely needed as well. Follow up in 4 weeks, sooner if concerns arise Bring completed Patient Assistance Program paperwork to next appointment 07/13/2024 Generalized anxiety disorder (ICD-10 - F41.1) Assessment and Plan: Anxiety and Depression - Reports improvement in mood and anxiety with current medications, but still experiences good and bad days. - Continue Rexulti 2 mg daily, 4 week samples given, prior authorization was approved but significant out of pocket costs, we will work on assistance program - Consider switching from fluoxetine to duloxetine in the future, he does report some neuropathy - Continue mirtazapine 15 mg at bedtime. Dementia - He has declined medications and further treatment Tardive Dyskinesia/Invol untary movements - Patient exhibits oral, hand, and foot movements, which may be related to tardive dyskinesia - Discontinue primidone as per neurologist's guidance - Initiate Austedo XR titration pack, prior authroization, assistance program likely needed as well. Follow up in 4 weeks, sooner if concerns arise Bring completed Patient Assistance Program paperwork to next appointment 09/03/2024 Major depressive disorder, recurrent, mild (ICD-10 - F33.0) Anxiety and Depression - Reports improvement in mood and anxiety with current medications, good and bad days reported Plan: - Continue Rexulti 2 mg daily, 4 week samples given, prior authorization was approved but significant out of pocket costs, assistance program application completed - Consider switching from fluoxetine to duloxetine in the future, he does report some neuropathy - Continue mirtazapine 15 mg at bedtime. Dementia - He has declined medications and further treatment Tardive Dyskinesia Assessment: Patient reports persistent tardive dyskinesia symptoms, including clicking and mouth movements. Previous trial of Austedo (deutetrabenazin e) at a low dose was ineffective in managing symptoms. Patient denies worsening of movements, describing them as about the same and notes they never got better. Considering alternative treatment options due to lack of improvement with current regimen. Plan: - Discontinue Austedo (deutetrabenazin e) due to lack of efficacy - Consider trial of Ingrezza (valbenazine) 40 mg PO daily for tardive dyskinesia management - Provide patient with Ingrezza samples - Educate patient on Ingrezza dosing: typically effective at lower doses, may increase to 60 mg or 80 mg if needed Follow up in 4 weeks, sooner if concerns arise 09/03/2024 Generalized anxiety disorder (ICD-10 - F41.1) Anxiety and Depression - Reports improvement in mood and anxiety with current medications, good and bad days reported Plan: - Continue Rexulti 2 mg daily, 4 week samples given, prior authorization was approved but significant out of pocket costs, assistance program application completed - Consider switching from fluoxetine to duloxetine in the future, he does report some neuropathy - Continue mirtazapine 15 mg at bedtime. Dementia - He has declined medications and further treatment Tardive Dyskinesia Assessment: Patient reports persistent tardive dyskinesia symptoms, including clicking and mouth movements. Previous trial of Austedo (deutetrabenazin e) at a low dose was ineffective in managing symptoms. Patient denies worsening of movements, describing them as about the same and notes they never got better. Considering alternative treatment options due to lack of improvement with current regimen. Plan: - Discontinue Austedo (deutetrabenazin e) due to lack of efficacy - Consider trial of Ingrezza (valbenazine) 40 mg PO daily for tardive dyskinesia management - Provide patient with Ingrezza samples - Educate patient on Ingrezza dosing: typically effective at lower doses, may increase to 60 mg or 80 mg if needed Follow up in 4 weeks, sooner if concerns arise 10/01/2024 Major depressive disorder, recurrent, mild (ICD-10 - F33.0) Brendan Norris presents with excessive daytime sleepiness, depression, anxiety, and tardive dyskinesia, currently managed with fluoxetine, Rexulti, and Ingrezza. Major Depressive Disorder Assessment: Patient reports persistent low mood, lack of motivation, and excessive sleeping (approximately 65% of the time in bed). Current treatment with fluoxetine 20mg has not adequately addressed depressive symptoms. Considering dose increase to optimize antidepressant effect. Plan: - Continue Rexulti 2 mg daily - Increase fluoxetine to 40mg PO daily - Reassess efficacy of increased dose in 6 weeks - If no significant improvement after dose optimization, consider alternative antidepressant - Educate patient on proper administration of thyroid medication (take first thing in morning, 1 hour before food or other medications) to address potential fatigue Anxiety Disorder Assessment: Patient reports ongoing anxiety symptoms. Considering optimization of current medication regimen to address both depression and anxiety. Plan: - Monitor response to fluoxetine dose increase (as outlined in depression management plan) Tardive Dyskinesia Assessment: Patient reports improvement in oral symptoms (clicking) as well as some limb movements with Ingrezza treatment. Current Ingrezza dose is 60mg. Plan: - Continue Ingrezza, danielle prior authorization - Monitor for improvement or worsening of symptoms Sleep Disturbance Assessment: Patient reports excessive daytime sleepiness and restless, unrefreshing sleep at night. This may be related to depression, medication side effects, or an underlying sleep disorder. Plan: - Adjust Rexulti timing to morning - Continue mirtazapine 15 mg at bedtime - Educate patient on sleep hygiene - Reassess sleep patterns after optimization of depression and anxiety treatment - Consider sleep study if symptoms persist despite improvement in mood and anxiety Dementia - Seeing Neurologist Plan: - Continue treatment plan as instructed per Neurologist Follow up in 6 weeks, sooner if concerns arise 10/01/2024 Generalized anxiety disorder (ICD-10 - F41.1) Brendan Norris presents with excessive daytime sleepiness, depression, anxiety, and tardive dyskinesia, currently managed with fluoxetine, Rexulti, and Ingrezza. Major Depressive Disorder Assessment: Patient reports persistent low mood, lack of motivation, and excessive sleeping (approximately 65% of the time in bed). Current treatment with fluoxetine 20mg has not adequately addressed depressive symptoms. Considering dose increase to optimize antidepressant effect. Plan: - Continue Rexulti 2 mg daily - Increase fluoxetine to 40mg PO daily - Reassess efficacy of increased dose in 6 weeks - If no significant improvement after dose optimization, consider alternative antidepressant - Educate patient on proper administration of thyroid medication (take first thing in morning, 1 hour before food or other medications) to address potential fatigue Anxiety Disorder Assessment: Patient reports ongoing anxiety symptoms. Considering optimization of current medication regimen to address both depression and anxiety. Plan: - Monitor response to fluoxetine dose increase (as outlined in depression management plan) Tardive Dyskinesia Assessment: Patient reports improvement in oral symptoms (clicking) as well as some limb movements with Ingrezza treatment. Current Ingrezza dose is 60mg. Plan: - Continue Ingrezza, danielle prior authorization - Monitor for improvement or worsening of symptoms Sleep Disturbance Assessment: Patient reports excessive daytime sleepiness and restless, unrefreshing sleep at night. This may be related to depression, medication side effects, or an underlying sleep disorder. Plan: - Adjust Rexulti timing to morning - Continue mirtazapine 15 mg at bedtime - Educate patient on sleep hygiene - Reassess sleep patterns after optimization of depression and anxiety treatment - Consider sleep study if symptoms persist despite improvement in mood and anxiety Dementia - Seeing Neurologist Plan: - Continue treatment plan as instructed per Neurologist Follow up in 6 weeks, sooner if concerns arise 11/12/2024 Major depressive disorder, recurrent, mild (ICD-10 - F33.0) 12/04/2024 Generalized anxiety disorder (ICD-10 - F41.1) 12/13/2024 Tardive dyskinesia (ICD-10 - G24.01) 12/18/2024 Major depressive disorder, recurrent, mild (ICD-10 - F33.0) receives rexulti from [employer] patient assistance 12/18/2024 Generalized anxiety disorder (ICD-10 - F41.1) 12/18/2024 Tardive dyskinesia (ICD-10 - G24.01) 10/01/2024 Tardive dyskinesia (ICD-10 - G24.01) Electronic Prior Authorization was requested for Ingrezza 40 MG Capsule. Provider can order medication once approval received. Brendan Norris presents with excessive daytime sleepiness, depression, anxiety, and tardive dyskinesia, currently managed with fluoxetine, Rexulti, and Ingrezza. Major Depressive Disorder Assessment: Patient reports persistent low mood, lack of motivation, and excessive sleeping (approximately 65% of the time in bed). Current treatment with fluoxetine 20mg has not adequately addressed depressive symptoms. Considering dose increase to optimize antidepressant effect. Plan: - Continue Rexulti 2 mg daily - Increase fluoxetine to 40mg PO daily - Reassess efficacy of increased dose in 6 weeks - If no significant improvement after dose optimization, consider alternative antidepressant - Educate patient on proper administration of thyroid medication (take first thing in morning, 1 hour before food or other medications) to address potential fatigue Anxiety Disorder Assessment: Patient reports ongoing anxiety symptoms. Considering optimization of current medication regimen to address both depression and anxiety. Plan: - Monitor response to fluoxetine dose increase (as outlined in depression management plan) Tardive Dyskinesia Assessment: Patient reports improvement in oral symptoms (clicking) as well as some limb movements with Ingrezza treatment. Current Ingrezza dose is 60mg. Plan: - Continue Ingrezza, danielle prior authorization - Monitor for improvement or worsening of symptoms Sleep Disturbance Assessment: Patient reports excessive daytime sleepiness and restless, unrefreshing sleep at night. This may be related to depression, medication side effects, or an underlying sleep disorder. Plan: - Adjust Rexulti timing to morning - Continue mirtazapine 15 mg at bedtime - Educate patient on sleep hygiene - Reassess sleep patterns after optimization of depression and anxiety treatment - Consider sleep study if symptoms persist despite improvement in mood and anxiety Dementia - Seeing Neurologist Plan: - Continue treatment plan as instructed per Neurologist Follow up in 6 weeks, sooner if concerns arise 09/03/2024 Unspecified dementia, unspecified severity, with mood disturbance (ICD-10 - F03.93) Anxiety and Depression - Reports improvement in mood and anxiety with current medications, good and bad days reported Plan: - Continue Rexulti 2 mg daily, 4 week samples given, prior authorization was approved but significant out of pocket costs, assistance program application completed - Consider switching from fluoxetine to duloxetine in the future, he does report some neuropathy - Continue mirtazapine 15 mg at bedtime. Dementia - He has declined medications and further treatment Tardive Dyskinesia Assessment: Patient reports persistent tardive dyskinesia symptoms, including clicking and mouth movements. Previous trial of Austedo (deutetrabenazin e) at a low dose was ineffective in managing symptoms. Patient denies worsening of movements, describing them as about the same and notes they never got better. Considering alternative treatment options due to lack of improvement with current regimen. Plan: - Discontinue Austedo (deutetrabenazin e) due to lack of efficacy - Consider trial of Ingrezza (valbenazine) 40 mg PO daily for tardive dyskinesia management - Provide patient with Ingrezza samples - Educate patient on Ingrezza dosing: typically effective at lower doses, may increase to 60 mg or 80 mg if needed Follow up in 4 weeks, sooner if concerns arise 07/13/2024 Unspecified dementia, unspecified severity, with mood disturbance (ICD-10 - F03.93) Assessment and Plan: Anxiety and Depression - Reports improvement in mood and anxiety with current medications, but still experiences good and bad days. - Continue Rexulti 2 mg daily, 4 week samples given, prior authorization was approved but significant out of pocket costs, we will work on assistance program - Consider switching from fluoxetine to duloxetine in the future, he does report some neuropathy - Continue mirtazapine 15 mg at bedtime. Dementia - He has declined medications and further treatment Tardive Dyskinesia/Invol untary movements - Patient exhibits oral, hand, and foot movements, which may be related to tardive dyskinesia - Discontinue primidone as per neurologist's guidance - Initiate Austedo XR titration pack, prior authroization, assistance program likely needed as well. Follow up in 4 weeks, sooner if concerns arise Bring completed Patient Assistance Program paperwork to next appointment 05/31/2024 Unspecified dementia, unspecified severity, with mood disturbance (ICD-10 - F03.93) Assessment and Plan: Anxiety/Depressi on - persistent anxiety and depression, reports improvement since starting rexulti 1 mg one week ago, tomorrow starts 2 mg for 2nd week of first sample pack given - prior authorization approved, but still $500 out of pocket, hope that after new year, their medicare part D plan with adjust allowing for more coverage Plan: - cont rexulti 2 mg, provided more samples until first of the year - provided a medication cost assistance packet in hopes of obtaining assistance with cost - Cont. duloxetine 60 mg daily Sleep Disturbance - Reports mirtazapine aids his sleep effectively. Plan: - Continue mirtazapine for sleep, anxiety, and depression. - sleep hygiene Elevated BP - blood pressure elevated lasrt visit, much mporved today - cont. BP medications as prescribed by PCP/specialists - monitor at home. follow up in 6 weeks, sooner if concerns arise 05/24/2024 Unspecified dementia, unspecified severity, with mood disturbance (ICD-10 - F03.93) Anxiety - persistent anxiety, described as a constant presence that worsens upon waking. - History of effective use of Rexulti (brexpiprazole), discontinued due to insurance issues. Plan: - 14-day Rexulti sample pack, starting at 0.5 mg for the first week, increasing to 1 mg for the second week. - Prior authorization for Rexulti prescription - relaxation techniques - Schedule follow-up in two weeks to assess response and manage therapy continuation. Sleep Disturbance - Reports mirtazapine aids his sleep effectively. Plan: - Continue mirtazapine for sleep, anxiety, and depression. - sleep hygiene Hypertension - blood pressure elevated this vivist - cont. BP medications as prescribed - monitor at home 01/25/2024 Unspecified dementia, unspecified severity, with mood disturbance (ICD-10 - F03.93) dx and tx per neuro; donepezil has neuro appt tomorrow kassandra helping to care for him. he refuses for any senior/memory day program to have activities/occu py day, or someone to come in house and help. Kassandra working with [facility] to get assistance or herself as caregiver. notes: -has seen PCP and neurology for workup, had imaging -November visit: ÁLVARO for records from Foster Davis MD, neurology [facility] but have not received records yet that I can find in EMR 02/22/2024 Major depressive disorder, recurrent, mild (ICD-10 - F33.0) fluoxetine and mirtazapine as above 02/22/2024 Unspecified dementia, unspecified severity, with mood disturbance (ICD-10 - F03.93) dx and tx per neuro; donepezil was stopped they report now possibly not dementia per neuro but he is to f/u with neuro notes: -has seen PCP and neurology for workup, had imaging -November visit: ÁLVARO for records from Foster Davis MD, neurology [facility] but have not received records yet that I can find in EMR 05/24/2024 Hypertension (ICD-10 - I10) Anxiety - persistent anxiety, described as a constant presence that worsens upon waking. - History of effective use of Rexulti (brexpiprazole), discontinued due to insurance issues. Plan: - 14-day Rexulti sample pack, starting at 0.5 mg for the first week, increasing to 1 mg for the second week. - Prior authorization for Rexulti prescription - relaxation techniques - Schedule follow-up in two weeks to assess response and manage therapy continuation. Sleep Disturbance - Reports mirtazapine aids his sleep effectively. Plan: - Continue mirtazapine for sleep, anxiety, and depression. - sleep hygiene Hypertension - blood pressure elevated this vivist - cont. BP medications as prescribed - monitor at home 07/13/2024 Tardive dyskinesia (ICD-10 - G24.01) Assessment and Plan: Anxiety and Depression - Reports improvement in mood and anxiety with current medications, but still experiences good and bad days. - Continue Rexulti 2 mg daily, 4 week samples given, prior authorization was approved but significant out of pocket costs, we will work on assistance program - Consider switching from fluoxetine to duloxetine in the future, he does report some neuropathy - Continue mirtazapine 15 mg at bedtime. Dementia - He has declined medications and further treatment Tardive Dyskinesia/Invol untary movements - Patient exhibits oral, hand, and foot movements, which may be related to tardive dyskinesia - Discontinue primidone as per neurologist's guidance - Initiate Austedo XR titration pack, prior authroization, assistance program likely needed as well. Follow up in 4 weeks, sooner if concerns arise Bring completed Patient Assistance Program paperwork to next appointment 09/03/2024 Tardive dyskinesia (ICD-10 - G24.01) Anxiety and Depression - Reports improvement in mood and anxiety with current medications, good and bad days reported Plan: - Continue Rexulti 2 mg daily, 4 week samples given, prior authorization was approved but significant out of pocket costs, assistance program application completed - Consider switching from fluoxetine to duloxetine in the future, he does report some neuropathy - Continue mirtazapine 15 mg at bedtime. Dementia - He has declined medications and further treatment Tardive Dyskinesia Assessment: Patient reports persistent tardive dyskinesia symptoms, including clicking and mouth movements. Previous trial of Austedo (deutetrabenazin e) at a low dose was ineffective in managing symptoms. Patient denies worsening of movements, describing them as about the same and notes they never got better. Considering alternative treatment options due to lack of improvement with current regimen. Plan: - Discontinue Austedo (deutetrabenazin e) due to lack of efficacy - Consider trial of Ingrezza (valbenazine) 40 mg PO daily for tardive dyskinesia management - Provide patient with Ingrezza samples - Educate patient on Ingrezza dosing: typically effective at lower doses, may increase to 60 mg or 80 mg if needed Follow up in 4 weeks, sooner if concerns arise 10/01/2024 Unspecified dementia, unspecified severity, with mood disturbance (ICD-10 - F03.93) Brendan Norris presents with excessive daytime sleepiness, depression, anxiety, and tardive dyskinesia, currently managed with fluoxetine, Rexulti, and Ingrezza. Major Depressive Disorder Assessment: Patient reports persistent low mood, lack of motivation, and excessive sleeping (approximately 65% of the time in bed). Current treatment with fluoxetine 20mg has not adequately addressed depressive symptoms. Considering dose increase to optimize antidepressant effect. Plan: - Continue Rexulti 2 mg daily - Increase fluoxetine to 40mg PO daily - Reassess efficacy of increased dose in 6 weeks - If no significant improvement after dose optimization, consider alternative antidepressant - Educate patient on proper administration of thyroid medication (take first thing in morning, 1 hour before food or other medications) to address potential fatigue Anxiety Disorder Assessment: Patient reports ongoing anxiety symptoms. Considering optimization of current medication regimen to address both depression and anxiety. Plan: - Monitor response to fluoxetine dose increase (as outlined in depression management plan) Tardive Dyskinesia Assessment: Patient reports improvement in oral symptoms (clicking) as well as some limb movements with Ingrezza treatment. Current Ingrezza dose is 60mg. Plan: - Continue Ingrezza, danielle prior authorization - Monitor for improvement or worsening of symptoms Sleep Disturbance Assessment: Patient reports excessive daytime sleepiness and restless, unrefreshing sleep at night. This may be related to depression, medication side effects, or an underlying sleep disorder. Plan: - Adjust Rexulti timing to morning - Continue mirtazapine 15 mg at bedtime - Educate patient on sleep hygiene - Reassess sleep patterns after optimization of depression and anxiety treatment - Consider sleep study if symptoms persist despite improvement in mood and anxiety Dementia - Seeing Neurologist Plan: - Continue treatment plan as instructed per Neurologist Follow up in 6 weeks, sooner if concerns arise 12/18/2024 Unspecified dementia, unspecified severity, with mood disturbance (ICD-10 - F03.93) 12/18/2024 Benign essential HTN (ICD-10 - I10) 10/01/2024 Benign essential HTN (ICD-10 - I10) Brendan Norris presents with excessive daytime sleepiness, depression, anxiety, and tardive dyskinesia, currently managed with fluoxetine, Rexulti, and Ingrezza. Major Depressive Disorder Assessment: Patient reports persistent low mood, lack of motivation, and excessive sleeping (approximately 65% of the time in bed). Current treatment with fluoxetine 20mg has not adequately addressed depressive symptoms. Considering dose increase to optimize antidepressant effect. Plan: - Continue Rexulti 2 mg daily - Increase fluoxetine to 40mg PO daily - Reassess efficacy of increased dose in 6 weeks - If no significant improvement after dose optimization, consider alternative antidepressant - Educate patient on proper administration of thyroid medication (take first thing in morning, 1 hour before food or other medications) to address potential fatigue Anxiety Disorder Assessment: Patient reports ongoing anxiety symptoms. Considering optimization of current medication regimen to address both depression and anxiety. Plan: - Monitor response to fluoxetine dose increase (as outlined in depression management plan) Tardive Dyskinesia Assessment: Patient reports improvement in oral symptoms (clicking) as well as some limb movements with Ingrezza treatment. Current Ingrezza dose is 60mg. Plan: - Continue Ingrezza, danielle prior authorization - Monitor for improvement or worsening of symptoms Sleep Disturbance Assessment: Patient reports excessive daytime sleepiness and restless, unrefreshing sleep at night. This may be related to depression, medication side effects, or an underlying sleep disorder. Plan: - Adjust Rexulti timing to morning - Continue mirtazapine 15 mg at bedtime - Educate patient on sleep hygiene - Reassess sleep patterns after optimization of depression and anxiety treatment - Consider sleep study if symptoms persist despite improvement in mood and anxiety Dementia - Seeing Neurologist Plan: - Continue treatment plan as instructed per Neurologist Follow up in 6 weeks, sooner if concerns arise 09/03/2024 Benign essential HTN (ICD-10 - I10) Anxiety and Depression - Reports improvement in mood and anxiety with current medications, good and bad days reported Plan: - Continue Rexulti 2 mg daily, 4 week samples given, prior authorization was approved but significant out of pocket costs, assistance program application completed - Consider switching from fluoxetine to duloxetine in the future, he does report some neuropathy - Continue mirtazapine 15 mg at bedtime. Dementia - He has declined medications and further treatment Tardive Dyskinesia Assessment: Patient reports persistent tardive dyskinesia symptoms, including clicking and mouth movements. Previous trial of Austedo (deutetrabenazin e) at a low dose was ineffective in managing symptoms. Patient denies worsening of movements, describing them as about the same and notes they never got better. Considering alternative treatment options due to lack of improvement with current regimen. Plan: - Discontinue Austedo (deutetrabenazin e) due to lack of efficacy - Consider trial of Ingrezza (valbenazine) 40 mg PO daily for tardive dyskinesia management - Provide patient with Ingrezza samples - Educate patient on Ingrezza dosing: typically effective at lower doses, may increase to 60 mg or 80 mg if needed Follow up in 4 weeks, sooner if concerns arise 07/13/2024 Hypertension (ICD-10 - I10) Assessment and Plan: Anxiety and Depression - Reports improvement in mood and anxiety with current medications, but still experiences good and bad days. - Continue Rexulti 2 mg daily, 4 week samples given, prior authorization was approved but significant out of pocket costs, we will work on assistance program - Consider switching from fluoxetine to duloxetine in the future, he does report some neuropathy - Continue mirtazapine 15 mg at bedtime. Dementia - He has declined medications and further treatment Tardive Dyskinesia/Invol untary movements - Patient exhibits oral, hand, and foot movements, which may be related to tardive dyskinesia - Discontinue primidone as per neurologist's guidance - Initiate Austedo XR titration pack, prior authroization, assistance program likely needed as well. Follow up in 4 weeks, sooner if concerns arise Bring completed Patient Assistance Program paperwork to next appointment 12/18/2024 Encounter for screening for depression (ICD-10 - Z13.31) 01/25/2024 Other reports stopped several months ago 05/24/2024 Other referral to the local chapter or national office of the Alzheimer's Association ( ; http://www.alz. org), the Alzheimer's Disease Education and Referral Center (ADEAR) ( ; http://www.brooke. nih.gov/Alzheim ers/), referral to the local chapter or national office of the Alzheimer's Association ( ; http://www.alz. org), the Alzheimer's Disease Education and Referral Center (ADEAR) ( ; http://www.brooke. nih.gov/Alzheim ers/), Anxiety - persistent anxiety, described as a constant presence that worsens upon waking. - History of effective use of Rexulti (brexpiprazole), discontinued due to insurance issues. Plan: - 14-day Rexulti sample pack, starting at 0.5 mg for the first week, increasing to 1 mg for the second week. - Prior authorization for Rexulti prescription - relaxation techniques - Schedule follow-up in two weeks to assess response and manage therapy continuation. Sleep Disturbance - Reports mirtazapine aids his sleep effectively. Plan: - Continue mirtazapine for sleep, anxiety, and depression. - sleep hygiene Hypertension - blood pressure elevated this vivist - cont. BP medications as prescribed - monitor at home 10/01/2024 Ninoska Norris presents with excessive daytime sleepiness, depression, anxiety, and tardive dyskinesia, currently managed with fluoxetine, Rexulti, and Ingrezza. Major Depressive Disorder Assessment: Patient reports persistent low mood, lack of motivation, and excessive sleeping (approximately 65% of the time in bed). Current treatment with fluoxetine 20mg has not adequately addressed depressive symptoms. Considering dose increase to optimize antidepressant effect. Plan: - Continue Rexulti 2 mg daily - Increase fluoxetine to 40mg PO daily - Reassess efficacy of increased dose in 6 weeks - If no significant improvement after dose optimization, consider alternative antidepressant - Educate patient on proper administration of thyroid medication (take first thing in morning, 1 hour before food or other medications) to address potential fatigue Anxiety Disorder Assessment: Patient reports ongoing anxiety symptoms. Considering optimization of current medication regimen to address both depression and anxiety. Plan: - Monitor response to fluoxetine dose increase (as outlined in depression management plan) Tardive Dyskinesia Assessment: Patient reports improvement in oral symptoms (clicking) as well as some limb movements with Ingrezza treatment. Current Ingrezza dose is 60mg. Plan: - Continue Ingrezza, danielle prior authorization - Monitor for improvement or worsening of symptoms Sleep Disturbance Assessment: Patient reports excessive daytime sleepiness and restless, unrefreshing sleep at night. This may be related to depression, medication side effects, or an underlying sleep disorder. Plan: - Adjust Rexulti timing to morning - Continue mirtazapine 15 mg at bedtime - Educate patient on sleep hygiene - Reassess sleep patterns after optimization of depression and anxiety treatment - Consider sleep study if symptoms persist despite improvement in mood and anxiety Dementia - Seeing Neurologist Plan: - Continue treatment plan as instructed per Neurologist Follow up in 6 weeks, sooner if concerns arise 12/18/2024 Ninoska Norris, an older male patient with a history of dementia and anxiety, presents with worsening mood, anxiety, and weight loss following the of a close friend and another friend's hospitalization. Major Depressive Disorder Assessment: Patient reports feeling scared, shaken, and consumed with anxiety related to his condition and dementia. He has been experiencing increased crying episodes and significant weight loss (approximately 19-23 pounds since August). Sleep patterns are disrupted, with reports of restlessness and frequent waking during the night. Current antidepressant regimen (fluoxetine 40mg) does not appear to be effective, as evidenced by persistent depressive symptoms and social withdrawal. Plan: - Discontinue fluoxetine 40mg: - Taper instructions: Skip a day, then take a day, then skip a day, then stop - Initiate sertraline: - Start with 25mg PO daily for the first week (half of a 50mg tablet) - Increase to 50mg PO daily after the first week - Informed patient that dosing may increase up to 200mg if needed - Continue Rexulti (brexpiprazole) 2mg - Continue mirtazapine 15mg at bedtime - Advised patient about potential mood fluctuations during medication transition - Follow-up appointment in 5-6 weeks to assess response to medication change Anxiety Disorder Assessment: Patient reports feeling scared, shaken, and consumed with anxiety related to his condition and dementia. There is notable social withdrawal, with reluctance to leave the house. Current medication regimen includes Rexulti (brexpiprazole) 2mg, which appears to be beneficial. Plan: - Consider increasing Rexulti (brexpiprazole) to 3mg (maximum recommended dose for depression and anxiety) - Continue to monitor for side effects, particularly tardive dyskinesia - Encourage engagement in stress-reduction techniques and outdoor activities Dementia Assessment: Patient has a known history of dementia. There are conflicting reports about recent memory changes, with the patient denying worsening but the caregiver noting some decline. Current treatment includes memantine 10mg twice daily, prescribed by a neurologist. Donepezil (Aricept) has been discontinued. Plan: - Continue memantine 10mg PO twice daily - Monitor cognitive function and report any significant changes to the neurologist Tardive Dyskinesia Assessment: Patient is currently taking Ingrezza (valbenazine) for management of tardive dyskinesia symptoms. There appears to be improvement in involuntary movements with this medication. Plan: - Continue Ingrezza (valbenazine) - Monitor for effectiveness and side effects Weight Loss Assessment: Patient has experienced significant weight loss of approximately 19-23 pounds since August. Recent medical checkup revealed good overall health, but anemia was noted. Plan: - Monitor weight at follow-up appointments - Await results of upcoming anemia test - Encourage adequate nutrition and appetite stimulation Plan Of Treatment Next Appt Details Provider Name:Elodia saenz, 01/29/2025 01:15:00 PM, [address] [facility] [address] [address], [facility] [address], [place], [address], Insurance Providers Payer Name Payer Address Payer Phone Subscriber Number Group Number Insured Name Patient Relationship to Insured Coverage Start Date Coverage End Date [facility] Medicare Replacement/ Advantage - Ppo [address] [address] [place] [address] [id number] BRENDAN NORRIS Self - patient is the insured Medical (General) History Medical History History ICD Code Problems: Dementia Generalized anxiety disorder Hyperlipidemia Hypothyroidism Marijuana user Mild recurrent major depression Minimal cognitive impairment Obesity Surgical History Surgery Date(Month/Year) Operative procedure on knee (5927651) Total replacement of hip (11913712) Reconstructive surgery Hospitalization History Reason Date(Month/Year) bradycardia 01/2024 depression 11/2023
== END 2025-01-08 09:35 | disposition home or self-care (01) ==
PROVIDERS: PCP Family Medicine; Visit Provider Physician Assistant Medical
DX: G30.9 Alzheimer's disease, unspecified (principal); F02.A4 Dementia in other diseases classified elsewhere, mild, with anxiety; R51.9 Headache, unspecified
CPT/HCPCS: 70553; A9577

== ENCOUNTER 2025-01-22 11:45 | Observation (INO) | payer MEDICARE, SELFPAY ==
[2025-01-22] VITALS (7 sets, daily range): BP systolic 97–151; BP diastolic 66–92; PULSE 50–75; RESP 10–18; TEMP 36.5–36.8; O2SAT 96–98; BMI 28.2
--- NOTE | ~2025-01-22 | XR_ITS ---
No XR chest 2V Ordering provider: Erica Muse MD History: 70 years Male with . weak . Comparison: None. FINDINGS: MEDIASTINUM: The cardiac silhouette is not enlarged. LUNGS: No infiltrates, effusions or pneumothorax. OTHER: No free air under the diaphragm. Degenerative changes of the spine. IMPRESSION: No acute cardiopulmonary pathology. Reviewed, dictated and finalized at location A.
--- NOTE | ~2025-01-22 | US_ITS ---
Duplex Sonography of the bilateral lower extremities: Indication: DVT Sagittal and transverse B-mode images as well as color-flow imaging were performed on the right and l eft femoral and popliteal veins. B-mode examination was done without and with compression in the tra nsverse plane. There is good visualization of the bilateral common femoral, proximal profunda femora l, superficial femoral, greater saphenous, and popliteal veins. Normal flow was seen on color-flow im aging. Normal compressibility was demonstrated. Visualized calf veins are also patent. Impression: No evidence of deep vein thrombosis involving either lower extremity. Reviewed, dictated and finalized at location M. Impression: No evidence of deep vein thrombosis involving either lower extremit y.
--- NOTE | ~2025-01-22 | CT_ITS ---
CT brain wo con Ordering provider: Bridger Pink MD History: 70 years Male with . leg weakness . Comparison: None. Technique: CT of the head without contrast. Radiation reduction technique utilized.The dose-length pr oduct was 605.33 mGy-cm. FINDINGS: BRAIN PARENCHYMA AND CSF SPACES: Mild leukoaraiosis and diffuse cortical atrophy. Mild atheromatous d isease. No midline shift, mass effect or hemorrhage. The brain parenchyma and CSF spaces are otherwi se normal. VISUALIZED PARANASAL SINUSES: Well aerated. MASTOIDS: Well aerated. BONES: The bones appear intact. Osteoma is seen in the right frontal bone in the midline. SOFT TISSUES: Visualized nasopharynx is normal. Superficial soft tissues are normal. IMPRESSION: No acute intracranial findings. Reviewed, dictated and finalized at location A.
--- NOTE | ~2025-01-22 | MR_ITS ---
MRI of the brain Clinical History: New weakness, inability to ambulate Technique: Axial and sagittal T1-weighted images were acquired. These were followed by axial T2-weigh lori, diffusion weighted, gradient, and FLAIR images. Following intravenous administration of 70 cc Mu ltiHance gadolinium, T1-weighted fat-sat imaging was performed in the axial, coronal, and sagittal pl anes. COMPARISON: 01/08/2025 Findings: Stable 13 mm meningioma superiorly at the anterior right aspect of the falx cerebri. No acu te infarct or intracranial hemorrhage. Minimal chronic microvascular ischemic changes are again prese nt. Ventricles and subarachnoid spaces are mildly dilated. Orbits are unremarkable. Paranasal sinuses are clear. Major intracranial flow voids are intact. Sagittal midline structures are intact. No abnormal postcontrast enhancement identified aside from the aforementioned meningioma. IMPRESSION: No acute abnormality. Stable small meningioma, as above. Reviewed, dictated and finalized at [facility].
--- NOTE | 2025-01-22 11:55 | ECG_ITS ---
Test Date: 2025-01-22 12:46:50 Measurements Intervals Mosby Rate: 51 P: 55 IA: 133 QRS: -9 QRSD: 93 T: 31 QT: 423 QTc: 391 Interpretive Statements SINUS BRADYCARDIA OTHERWISE NORMAL ELECTROCARDIOGRAM No previous ECG available for comparison Electronically Signed On 01-22-2025 13:26:13 CDT by Randy Araya M.D.
[2025-01-22 12:03] LABS: Hematocrit 40.5 % (42.0-52.0); Hemoglobin 13.0 g/dL (14.0-18.0); Immature Granulocyte Percent A 0.3 % (0-0.5); Lymphocytes Absolute Auto 1.71 K/mm3 (0.9-3.2); Mean Corpuscular HGB Conc 32.1 g/dl (32-36); Mean Corpuscular Hemoglobin 30.2 pg (26-34); Mean Corpuscular Volume 94.0 fl (80-100); Nucleated Red Blood Cells Absolute Auto 0.000 K/mm3 (0.0-0.012); Nucleated Red Blood Cells Perc 0.0 % (0.0-0.2); Platelet Count Result 186 k/mm3 (150-375); Red Blood Count 4.31 M/mm3 (4.6-6.20); White Blood Count 7.1 K/mm3 (4.5-10.0)
--- OUTSIDE RECORDS SUMMARY | 2025-01-22 12:16 | XMS_ITS | Patient Health Record ---
Author Organization [facility] Address [address] [place] [address] Care Team Providers Care Shuttle Hand Name Role Phone Renato VERMA, Elan Primary Care Provider Elodia Medina Unavailable [phone] AltheaFernando harriset Unavailable [phone] Allergies Allergen (clinical drug ingredient) Drug/Non Drug Allergy documented on EMR Reaction Allergy Type Onset Date Status Seasonale Unknown Drug Allergy Active Reason For Referral No Information Medications Medication SIG (Take, Route, Frequency, Duration) Notes Start Date End Date Status Sertraline HCl 50 MG 1 tablet Orally Onc e a day; Duration: 30 days Active valACYclovir HCl 500 MG Oral 11/21/2023 Unknown Ingrezza 40 MG 1 capsule Orally Onc e a day; Duration: 30 days Active Omeprazole 20 MG Oral; Duration: 100 Days Active Nystop 099828 UNIT/GM External 11/21/2023 Unknown Losartan Potassium 50 MG Oral; Duration: 100 Days Active Rosuvastatin Calcium 20 MG TAKE 1 [...] HCl 10 MG TAKE 1 TABLET BY ALLYSON TH EVERY DAY AT BEDTIME Oral; Duration: 90 [...] Do you have a medical power of embroidery machine operator?: No High number of sexual partners: No [...] Do you have a medical power of embroidery machine operator?: No High number of sexual partners: No [...] Do you have a medical power of embroidery machine operator?: No High number of sexual partners: No [...] Do you have a medical power of embroidery machine operator?: No High number of sexual partners: No [...] Do you have a medical power of embroidery machine operator?: No High number of sexual partners: No [...] Do you have a medical power of embroidery machine operator?: No High number of sexual partners: No History of inconsistent/no condom use: Yes Marital status: Domestic Partner Gender Identity and LGBTQ Identity Gender identity: Identifies as Male Assigned sex at : Male First name used: TRUDI Sexual orientation: Straight or heterosexual Problems Problem Type SNOMED Code ICD Code Onset Dates Problem Status W/U Status Risk Notes Problem Mild recurrent major depression (02111126) Major depressive disorder, recurrent, mild (F33.0) 4 Active confirmed Problem Severe recurrent major depression without psychotic features (76949485) Major depressive disorder, recurrent severe without psychotic features (F33.2) Active confirmed Problem Generalized anxiety disorder (47092528) Generalized anxiety disorder (F41.1) 4 Active confirmed Problem Unspecified dementia, unspecified severity, with mood disturbance (F03.93) Active confirmed Problem Tardive dyskinesia (708179692) Tardive dyskinesia (G24.01) Active confirmed Problem Essential hypertension (67104520) Benign essential HTN (I10) Active confirmed Vital Signs Heart Rate 69 /min 12/18/2024 Height-cm 170.18 cm 12/18/2024 Blood pressure diastolic 78 mm Hg 12/18/2024 Weight-kg 89.81 kg 12/18/2024 Height 67.00 in 12/18/2024 Blood pressure systolic 118 mm Hg 12/18/2024 Weight 198 lbs 12/18/2024 BMI 31.01 kg/m2 12/18/2024 Encounters Encounter Location Date Provider Diagnosis [facility] [employer] [address] [address] 01/25/2024 Kaur Ferguson Generalized anxiety disorder F41.1 ; Major depressive disorder, recurrent, mild F33.0 and Unspecified dementia, unspecified severity, with mood disturbance F03.93 [facility] [employer] [address] [address] 02/22/2024 Kaur Ferguson Generalized anxiety disorder F41.1 ; Major depressive disorder, recurrent, mild F33.0 and Unspecified dementia, unspecified severity, with mood disturbance F03.93 [facility] [employer] [address] 05/24/2024 Elodia Schwab Generalized anxiety disorder F41.1 ; Major depressive disorder, recurrent severe without psychotic features F33.2 ; Unspecified dementia, unspecified severity, with mood disturbance F03.93 and Hypertension I10 [facility] [employer] [place] [address] [facility] [address] [address] 05/31/2024 Elodia Schwab Major depressive disorder, recurrent severe without psychotic features F33.2 ; Generalized anxiety disorder F41.1 and Unspecified dementia, unspecified severity, with mood disturbance F03.93 [facility] [employer] [place] [address] [facility] [address] [address] 07/13/2024 Elodia Schwab Major depressive disorder, recurrent, mild F33.0 ; Generalized anxiety disorder F41.1 ; Unspecified dementia, unspecified severity, with mood disturbance F03.93 ; Tardive dyskinesia G24.01 and Hypertension I10 [facility], [facility] [address] [place] [address] 08/13/2024 Elodia Schwab [facility], [facility] [address] [place] [address] 09/03/2024 Elodia Schwab Major depressive disorder, recurrent, mild F33.0 ; Generalized anxiety disorder F41.1 ; Unspecified dementia, unspecified severity, with mood disturbance F03.93 ; Tardive dyskinesia G24.01 and Benign essential HTN I10 [facility], [facility] [address] [place] [address] 10/01/2024 Elodia Schwab Major depressive disorder, recurrent, mild F33.0 ; Generalized anxiety disorder F41.1 ; Tardive dyskinesia G24.01 ; Unspecified dementia, unspecified severity, with mood disturbance F03.93 and Benign essential HTN I10 [place] [address] [place] [address] 11/12/2024 Elodia Schwab [facility], [facility] [address] [place] [address] 12/06/2024 Elodia Schwab [facility], [facility] [address] [place] [address] 12/18/2024 Elodia Schwab Major depressive disorder, recurrent, mild F33.0 ; Generalized anxiety disorder F41.1 ; Tardive dyskinesia G24.01 ; Unspecified dementia, unspecified severity, with mood disturbance F03.93 ; Benign essential HTN I10 and Encounter for screening for depression Z13.31 [place] [address] [place] [address] 10/04/2024 Elodia Schwab [facility], [facility] [address] [place] [address] 10/16/2024 Elodia Schwab [facility], [facility] [address] [place] [address] 11/12/2024 Elodia Schwab Major depressive disorder, recurrent, mild F33.0 [place] [address] [place] [address] 12/04/2024 Elodia Villalobosyessenia Generalized anxiety disorder F41.1 [facility] [employer] [facility] [address] [place] [address] 12/13/2024 Elodia Schwab Tardive dyskinesia G24.01 [facility] [employer] [facility] [address] [place] [address] 05/29/2024 Elodia Schwab Major depressive disorder, recurrent severe without psychotic features F33.2 [facility] [employer] [facility] [address] [place] [address] 05/29/2024 Elodia Schwab Major depressive disorder, recurrent severe without psychotic features F33.2 [facility] [employer] [facility] [address] [place] [address] 09/11/2024 Elodia Schwab [facility] [employer] [facility] [address] [place] [address] 10/04/2024 Elodia Griseldayessenia Assessments Encounter Date Diagnosis (ICD Code) Assessment [...] they are to f/u in office get ÁLVARO for Dr Davis records-request again wants longer [...] mild (ICD-10 - F33.0) receives rexulti from [employer] patient assistance 12/18/2024 Generalized anxiety disorder (ICD-10 [...] in house and help. Kassandra working with [facility] to get assistance or herself as caregiver. notes: -has seen PCP and neurology for workup, had imaging -November visit: ÁLVARO for records from Foster Davis MD, neurology [facility] but have not received records yet that [...] for records from Foster Davis MD, neurology [facility] but have not received records yet that [...] Of Treatment Next Appt Details Provider Name:Elodia Angulo letty, 01/29/2025 01:15:00 PM, [facility] [facility] [address], [facility] [address], [address], Insurance Providers Payer Name Payer Address Payer Phone Subscriber Number Group Number Insured Name Patient Relationship to Insured Coverage Start Date Coverage End Date [facility] Medicare Replacement/ Advantage - Ppo [address] [address] [place] [address] [id number] BRENDAN NORRIS Self - patient is the insured Medical (General) History Medical History History ICD Code Problems: Dementia Generalized anxiety disorder Hyperlipidemia Hypothyroidism Marijuana user Mild recurrent major depression Minimal cognitive impairment Obesity Surgical History Surgery Date(Month/Year) Operative procedure on knee (4662993) Total replacement of hip (27602268) Reconstructive surgery Hospitalization History Reason Date(Month/Year) bradycardia 01/2024 depression 11/2023
--- OUTSIDE RECORDS SUMMARY | 2025-01-22 12:16 | XMS_ITS | Clinical Summary ---
Author Organization [facility] Address [address] [place] [address] Care Team Providers Care Cost And Sales Record Supervisor Name Role Phone Elan Gross MD Primary Care Provider [phone] Allergies No known active allergies Medications ALPRAZolam [...] 10/05/2017 Surgical History Surgery Date Site/Laterality Comments [place] ARTHRP ACETBLR/PROX FEM PROSTC AGRFT/ALGRFT Total Hip Replacement Left - (Added by TW Conv) [place] NEUROPLASTY &/TRANSPOS MEDIAN NRV CARPAL TUNNE Neuroplasty Decompression Median Nerve At Carpal Tunnel - (Added by TW Conv) [place] ARTHRP ACETBLR/PROX FEM PROSTC AGRFT/ALGRFT Total Knee [...] on file Legal Sex 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
--- OUTSIDE RECORDS SUMMARY | 2025-01-22 12:16 | XMS_ITS | Clinical Summary ---
Author Organization [facility] Address [address] [place] [address] Care Team Providers Care Brake Operator Heavy Duty Name Role Phone Elan Gross MD Primary Care Provider [phone] Source Comments [facility],non-owned Affiliates and Associated Physician Practices is amultiple site organization consisting of ambulatory clinics and hospital sitesin [place], [place], [place] and [place]. This disclosure is being madepursuant to the Care Everywhere program and may not contain all information available regarding this patient. 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 Gender Identity Not on file Sexual Orientation [...] 09/23/2020, 08/21/2020 DEPRESSION SCREENING 07/11/2024 INFLUENZA VACCINE (#1) 2025 8, 03/24/2016 Respiratory Syncytial Virus (RSV) Vaccine Pt: [...] 7 - 26 mg/dL 03/05/2021 4:09 PM [facility] Creatinine 0.93 0.71 - 1.16 mg/dL 03/05/2021 4:09 PM [facility] Sodium 139 136 - 145 mmol/L 03/05/2021 4:09 PM [facility] Potassium 4.1 3.5 - 4.5 mmol/L 03/05/2021 4:09 PM [facility] Chloride 103 98 - 107 mmol/L 03/05/2021 4:09 PM [facility] CO2 24 22 - 29 mmol/L 03/05/2021 4:09 PM [facility] Glucose 92 70 - 115 mg/dL 03/05/2021 4:09 PM [facility] Calcium 9.6 8.4 - 10.2 mg/dL 03/05/2021 4:09 PM [facility] Protein Total 7.4 6.0 - 8.3 g/dL 03/05/2021 4:09 PM [facility] Albumin 4.4 3.4 - 5.0 g/dL 03/05/2021 4:09 PM [facility] Bilirubin Total 0.7 0.2 - 1.2 mg/dL 03/05/2021 4:09 PM [facility] Alkaline Phosphatase 74 40 - 150 U/L 03/05/2021 4:09 PM [facility] ALT 14 5 - 55 U/L 03/05/2021 4:09 PM [facility] AST 18 5 - 34 U/L 03/05/2021 4:09 PM [facility] Anion Gap 16 8 - 18 03/05/2021 4:09 PM [facility] BUN/Creatinine Ratio 14 7 - 23 03/05/2021 4:09 PM [facility] Osmolality Calculated 288 270 - 300 mOsm/kg 03/05/2021 4:09 PM [facility] Albumin/Globulin Ratio 1.5 1.1 - 2.3 03/05/2021 4:09 PM [facility] eGFR by CKD-EPI 85(L) >=90 mL/min/1.7 3 m2 03/05/2021 4:09 PM [facility] Blood BLOOD SPECIMEN / Unknown Lab Venipuncture / Unknown 03/05/2021 3:12 PM CDT 03/05/2021 3:39 PM [facility] Lokesh Pennington MD LAB - CHEMI STRY ORDERABLES Final Result [facility] [address] [place] [address], [place] [phone] from Last 3 Months or Most Recently Relevant to Health Maintenance Insurance [place] [id number] MANAGED MEDICARE ADV Care Teams Brake Operator Heavy Duty Relationship Specialty Start Date End Date Elan Gross MD [address] [place] [address] PCP - General 02/26/21
--- OUTSIDE RECORDS SUMMARY | 2025-01-22 12:16 | XMS_ITS | Referral Summary ---
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
--- OUTSIDE RECORDS SUMMARY | 2025-01-22 12:16 | XMS_ITS | Clinical Summary ---
Author Organization [facility] Address [address] [place] [address] Care Team Providers Care Experimental Box Tester Name Role Phone Tresa Mancilla TRANSIT BUS DRIVER Primary Care Provider [phone] Social History Tobacco Use Types Packs/Day Years Used Date Smoking Tobacco: Never Assessed Sex and Gender Information Value Date Recorded Sex Assigned at Not on file Legal Sex Male 6:07 PM CDT Gender Identity Not on file Sexual Orientation Not on file Plan of Treatment Health Maintenance Due Date Last Done Comments Colorectal Cancer Screening Colonoscopy (10 Years) 1954 Hepatitis C 01/15/1972 DTaP, Tdap and Td Vaccines ( 1 - Tdap) 1973 Pneumococcal Vaccine: 50+ Ye ars (1 of 1 - PCV) 01/15/2004 Zoster Vaccines (2 of 3) 11/30/2017 10/05/2017 Annual Medicare Wellness Visit 2019 COVID-19 Vaccine ( - 2023-2 5 season) 2024 RSV Immunization or 60+ Years (1 - 1-dose 75+ series) 2029 Meningococcal B Vaccine Aged Out No l onger eligible based on patient's age to complete this topic Meningococcal Vaccine Aged Out No iain emily eligible based on patient's age to complete this topic RSV Immunizations Under 20 Months Aged Out No longer eligible based on patient's age to complete this topic Insurance [facility] Care Teams Experimental Box Tester Relationship Specialty Start Date End Date Tresa Mancilla NP [address] [place] [address] PCP - General NURSE PRACTITIONER 12/09/21
--- OUTSIDE RECORDS SUMMARY | 2025-01-22 12:16 | XMS_ITS | Continuity of Care Document ---
Author Organization [facility] Address [address] [place] [address] [place] [address] Phone Care Team Providers Care Mold Swabber Name Role Phone Naveen Coulter MD Unavailable Unavailable Advance Directives Directive Yes / No Effective Date File Name No Information Encounters Encounter Description Practice Location Reason(s) For Visit Diagnoses Date Provider Providers Copied on Encounter [facility], [id number] [place] [address] [address], [place], [place], [id number], [place] tel:[phone] [facility] No Information [address], [place], [place], [id number], [place]. tel:[phone] Family History Family Member Type Diagnosis Age [...]
[2025-01-22 12:27] LABS: Alanine Aminotransferase 20 U/L (6-50); Albumin Level 4.0 g/dL (3.5-5.1); Alkaline Phosphatase 60 U/L (38-126); Anion Gap 7 mmol/L (4-12); Aspartate Amino Transferase 28 U/L (17-59); Bilirubin,Total 0.8 mg/dL (0.2-1.3); Blood Urea Nitrogen 20 mg/dL (9-20); Calcium 9.1 mg/dL (8.4-10.2); Carbon Dioxide 25 mmol/L (22-30); Chloride 106 mmol/L (98-107); Estimated CRCL calculation 70 ml/min; Estimated Glomerular Filt Rate > 60; Glucose 83 mg/dL (65-110); Potassium 4.3 mmol/L (3.4-5.0); Sodium 138 mmol/L (137-145); Total Protein 6.5 g/dL (6.3-8.2)
[2025-01-22] MEDS: SODIUM CHLORIDE 0.9% IV 1,000 ML 999 ML IV CONT (12:47)
--- NOTE | 2025-01-22 13:03 | ED.GENADULT ---
HPI - General Adult General Chief complaint: Weakness Stated complaint: weakness/lethargy Time Seen by Provider: 01/22/25 12:01 History of Present Illness HPI narrative: Patient is a 70-year-old male who presents ER with weakness beginning today. Patient did not get up out of bed today due to his weakness when typically he is able to get up and move himself to the bathroom. Patient is with spring due to his Parkinson's and has known dementia. History obtained from his significant other. No recent fevers or chills. No recent cough. No change in dietary habits. He has not had his morning medicines today. Related Data Home Medications ?Medication ?Instructions ?Recorded ?Confirmed ?Last Taken ?Type ezetimibe 10 mg tablet (Zetia) 10 mg PO DAILY 08/10/22 01/21/25 Unknown History cholecalciferol (vitamin D3) 25 25 mcg PO DAILY 01/26/24 01/21/25 Unknown History mcg (1,000 unit) capsule brexpiprazole 2 mg tablet (Rexulti) 2 mg PO DAILY 07/24/24 01/21/25 Unknown History valbenazine 40 mg capsule 40 mg PO DAILY 09/24/24 01/21/25 Unknown History (Ingrezza) sertraline 25 mg tablet (Zoloft) 25 mg PO DAILY 01/10/25 01/21/25 Unknown History Allergies Allergy/AdvReac Type Severity Reaction Status Date / Time No Known Allergies Allergy Unknown Verified 01/22/25 18:41 Review of Systems Review of Systems: ROS unobtainable: Yes unobtainable due to mental status PMFSH Past Medical History Medical History Drug-induced Parkinson's disease Dementia Dysuria Microhematuria Constipation Prostatitis Chronic daily headache Dementia of the Alzheimer's type Essential tremor Memory deficit Dyspnea on exertion Parasagittal meningioma Elevated fasting glucose Abnormal RBC Elevated ALT measurement Erectile dysfunction HSV-2 infection Elevated CK Hepatitis Weight loss Anxiety Colon cancer screening Mood disorder CARIE on CPAP Screening for prostate cancer Elevated CK Essential hypertension Mixed hyperlipidemia CARIE (obstructive sleep apnea) Surgical History Surgical History H/O cervical spine surgery History of knee surgery History of hip surgery Hx of colonoscopy Family History Family History Sibling Diabetes mellitus Family history of obesity Hypertension Family history of type 2 diabetes mellitus Mother Depression Hypertension Bipolar 1 disorder Father Abscess of internal cheek Septicemia Rheumatoid arthritis Other Family history of arthritis Family history of malignant neoplasm Social History Social History Smoking status: Never smoker Smokeless tobacco user: other Second hand tobacco smoke exposure: Yes Alcohol intake: never Alcohol use details: socially, infrequently Substance use: never Substance use type: marijuana Other substance usage details: gummies for anxiety Do You Feel Safe in your Home?: Yes Lack of Transportation: No Lack of Food: Never True Current Housing: I Have Housing Concerned About Future Housing: No Difficulty Paying Gas/Electric Bills: No Difficulty Paying for Meds: No Currently Unemployed: No Education: High School Diploma/GED Difficulty w/ Childcare or Family Care: No Living arrangements: with friend(s) Additional living arrangements comments: Kassandra 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 HEAD: Normocephalic, atraumatic. EYES: PERRL and EOMI. ENT: Mucous membranes moist. CHEST: Clear to auscultation. No respiratory distress. HEART: Regular rate and rhythm. Normal peripheral pulses. ABDOMEN: Soft, nontender, nondistended. EXTREMITIES: Extremities are stiff and tremulous. 1+ edema SKIN: Warm, dry, no rash. NEURO: Awake alert, and x1, at neurologic baseline. Course Course Emergency Course: Patient unable to get out of bed or walk, I have personally tried to assist him. Unsure how he was able to make it to his clinic appointment last couple of days. Will admit for observation hydration since he was initially hypertensive. This may improve him. Accepted by the hospitalist service. Neurology was consulted. Vital Signs Vital signs: Vital Signs Temperature 98.2 F 01/22/25 11:50 Pulse Rate 50 L 01/22/25 11:50 Respiratory Rate 12 01/22/25 11:50 Blood Pressure 97/80 L 01/22/25 11:50 Pulse Oximetry 97 01/22/25 11:50 Oxygen Delivery Room Air 01/22/25 11:50 Temperature 98.2 F 01/22/25 11:50 Pulse Rate 62 01/22/25 17:35 Respiratory Rate 16 01/22/25 17:35 Blood Pressure 122/73 01/22/25 17:35 Pulse Oximetry 97 01/22/25 17:35 Oxygen Delivery Room Air 01/22/25 11:50 Medical Decision Making Vital Signs Vital Signs: Vital Signs Temperature 98.2 F 01/22/25 11:50 Pulse Rate 50 L 01/22/25 11:50 Respiratory Rate 12 01/22/25 11:50 Blood Pressure 97/80 L 01/22/25 11:50 Pulse Oximetry 97 01/22/25 11:50 Oxygen Delivery Room Air 01/22/25 11:50 Temperature 98.2 F 01/22/25 11:50 Pulse Rate 62 01/22/25 17:35 Respiratory Rate 16 01/22/25 17:35 Blood Pressure 122/73 01/22/25 17:35 Pulse Oximetry 97 01/22/25 17:35 Oxygen Delivery Room Air 01/22/25 11:50 Lab Data 01/22/25 11:57 01/22/25 11:57 Labs: Lab Results 01/22/25 01/22/25 01/22/25 Range/Units 11:57 13:01 13:29 WBC 7.1 (4.5-10.0) K/mm3 RBC 4.31 L (4.6-6.20) M/mm3 Hgb 13.0 L (14.0-18.0) g/dL Hct 40.5 L (42.0-52.0) % MCV 94.0 (80-100) fl MCH 30.2 (26-34) pg MCHC 32.1 (32-36) g/dl RDW 13.2 (11.5-14.5) % Plt Count 186 (150-375) k/mm3 MPV 11.2 H (7.4-10.4) fl Immature Gran % (Auto) 0.3 (0-0.5) % Neut % (Auto) 67.5 (45.5-73.1) % Lymph % (Auto) 23.9 (18.3-44.2) % [place] % (Auto) 6.7 (2.6-8.5) % Eos % (Auto) 1.0 (0-4.4) % Baso % (Auto) 0.6 (0.2-1.2) % Lymph # (Auto) 1.71 (0.9-3.2) K/mm3 [place] # (Auto) 0.5 (0.1-0.6) K/mm3 Eos # (Auto) 0.1 (0-0.3) K/mm3 Baso # (Auto) 0.0 (0.0-0.1) K/mm3 Abs Immat Gran (auto) 0.02 (0.00-0.031) K/mm3 Absolute Neuts (auto) 4.8 (1.3-6.7) K/mm3 Absolute Nucleated RBC 0.000 (0.0-0.012) K/mm3 Nucleated RBC % 0.0 (0.0-0.2) % Sodium 138 (137-145) mmol/L Potassium 4.3 (3.4-5.0) mmol/L Chloride 106 (98-107) mmol/L Carbon Dioxide 25 (22-30) mmol/L Anion Gap 7 (4-12) mmol/L BUN 20 (9-20) mg/dL Creatinine 0.91 (0.7-1.3) mg/dL Estim Creat Clear Calc 70 ml/min Estimated GFR > 60 (59 - ) Glucose 83 (65-110) mg/dL Calcium 9.1 (8.4-10.2) mg/dL Total Bilirubin 0.8 (0.2-1.3) mg/dL AST 28 (17-59) U/L ALT 20 (6-50) U/L Alkaline Phosphatase 60 (38-126) U/L Troponin I < 0.012 (0.000-0.034) ng/mL Total Protein 6.5 (6.3-8.2) g/dL Albumin 4.0 (3.5-5.1) g/dL Urine Color Yellow (Yellow) Urine Appearance Clear (Clear) Urine pH 6.0 (5.0-9.0) Ur Specific [place] 1.027 (1.001-1.035) Urine Protein Negative (Negative) mg/dL Urine Glucose (UA) Negative (Negative) mg/dL Urine Ketones Trace H (Negative) mg/dL Ur Blood (Man) Negative (Negative) Urine Nitrate Negative (Negative) Urine Bilirubin Negative (Negative) Urine Urobilinogen 1.0 (<2.0) mg/dL Leukocyte Esterase Rfl Negative (Negative) [place] Influenza A (RT-PCR) Negative (Negative) Influenza B (RT-PCR) Negative (Negative) RSV (RT-PCR) Negative (Negative) SARS-CoV-2 RNA (RT-PCR) Negative (Negative) Imaging Data Radiologist's impression: ITS Impressions Chest X-Ray 01/22/25 12:33 IMPRESSION: No acute cardiopulmonary pathology. Head CT 01/22/25 14:41 IMPRESSION: No acute intracranial findings. ECG Data EKG #1: ECG completion date: 01/22/25 ECG completion time: 12:46 EKG Interpretation: bradycardia (51), sinus rhythm, no ectopy, normal QRS and prolonged QT Discharge Plan Discharge Clinical Impression: Dehydration, Parkinson disease Patient Disposition: Still a Patient Condition: Stable
[2025-01-22 13:19] LABS: Troponin I < 0.012 ng/mL (0.000-0.034)
[2025-01-22 13:38] LABS: Add Urine Microscopic? NO; Appearance Urine Clear (Clear); Glucose Urine UA Negative (Negative); Leukocyte Esterase Ur Negative LEU/UL (Negative); Nitrate Urine Negative (Negative); Specific Grav Ur 1.027 (1.001-1.035)
[2025-01-22 13:51] LABS: Influenza A QL RT-PCR Negative (Negative); Influenza B QL RT-PCR Negative (Negative); RSV RNA, RT-PCR Negative (Negative); SARS-CoV-2 RNA PCR Negative (Negative)
--- NOTE | 2025-01-22 14:26 | PC.NURSE ---
per EDP Joesph, attempted to stand and ambulate patient. patient unable to stand fully. assisted back to bed and in comfortable position. EDP aware.
[2025-01-22] MEDS: SODIUM CHLORIDE 0.9% IV 1,000 ML 125 ML IV CONT (16:46)
--- NOTE | 2025-01-22 17:29 | P.HP_ITS ---
H&P: HPI History of Present Illness Date/Time: 01/22/25 17:29 Chief Complaint: Weakness Narrative: 70 y/o M with PMH of Parkinson's, dementia, essential tremor, CARIE, hypertension, hyperlipidemia presents here with generalized weakness. The patient presents here from home via EMS for further evaluation of generalized weakness. He reports onset of generalized weakness starting today, 01/22. He reports that was 1st noted when he cannot get out of bed today due to the extreme weakness. Per patient and his he is normally ambulatory without assistance. The patient denies accompanying focal weakness, focal numbness, nausea, vomiting, diarrhea, fever, chills, chest pain, shortness of breath, or cough. Weakness if accompanied by bilateral burning in his lower extremities. Reviewed neurology's most recent note from yesterday, 01/21. The patient walks at baseline with a walker and is now requiring complex care for majority of his needs. clarified that the patient has a walker but for the most part does not use it. Initial VS at presentation: 98.2? F, HR 50, R 12, 97/80, and 97% on RA. ED workup showed: No leukocytosis, hemoglobin 13.0, no significant electrolyte derangements, renal function within normal limits, initial troponin negative, UA showed trace ketones, viral PCR negative. CXR showed no acute cardiopulmonary pathology. Head CT showed no acute intracranial findings. Review of Systems Review of Systems: All systems reviewed & are unremarkable except as noted in HPI and below PMFSH Past Medical History Medical History Drug-induced Parkinson's disease Dementia Dysuria Microhematuria Constipation Prostatitis Chronic daily headache Dementia of the Alzheimer's type Essential tremor Memory deficit Dyspnea on exertion Parasagittal meningioma Elevated fasting glucose Abnormal RBC Elevated ALT measurement Erectile dysfunction HSV-2 infection Elevated CK Hepatitis Weight loss Anxiety Colon cancer screening Mood disorder CARIE on CPAP Screening for prostate cancer Elevated CK Essential hypertension Mixed hyperlipidemia CARIE (obstructive sleep apnea) Surgical History Surgical History H/O cervical spine surgery History of knee surgery History of hip surgery Hx of colonoscopy Family History Family History Sibling Diabetes mellitus Family history of obesity Hypertension Family history of type 2 diabetes mellitus Mother Depression Hypertension Bipolar 1 disorder Father Abscess of internal cheek Septicemia Rheumatoid arthritis Other Family history of arthritis Family history of malignant neoplasm Social History Social History Smoking status: Never smoker Smokeless tobacco user: other Second hand tobacco smoke exposure: Yes Alcohol intake: never Alcohol use details: socially, infrequently Substance use: never Substance use type: marijuana Other substance usage details: gummies for anxiety Do You Feel Safe in your Home?: Yes Lack of Transportation: No Lack of Food: Never True Current Housing: I Have Housing Concerned About Future Housing: No Difficulty Paying Gas/Electric Bills: No Difficulty Paying for Meds: No Currently Unemployed: No Education: High School Diploma/GED Difficulty w/ Childcare or Family Care: No Living arrangements: with friend(s) Additional living arrangements comments: Kassandra Occupation/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 Gender identity (if verbalized by the patient): Male Spiritual care concerns: No Meds Home Medications and Allergies Home Medications ?Medication ?Instructions ?Recorded ?Confirmed ?Type ezetimibe 10 mg tablet (Zetia) 10 mg PO DAILY 08/10/22 01/22/25 History ibuprofen 800 mg tablet 800 mg PO TID PRN pain #270 tabs 12/06/23 01/22/25 Rx cholecalciferol (vitamin D3) 25 25 mcg PO DAILY 01/26/24 01/22/25 History mcg (1,000 unit) capsule brexpiprazole 2 mg tablet (Rexulti) 2 mg PO DAILY 07/24/24 01/22/25 History valbenazine 40 mg capsule 40 mg PO .pm 09/24/24 01/22/25 History (Ingrezza) levothyroxine 75 mcg tablet 75 mcg PO DAILY #90 tabs 10/24/24 01/22/25 Rx omeprazole 20 mg capsule,delayed See Rx Instructions .Route 01/07/25 01/22/25 Rx release .COMPLEX #90 caps sertraline 25 mg tablet (Zoloft) 50 mg PO DAILY 01/10/25 01/22/25 History carbidopa 25 mg-levodopa 100 mg 1 tablet PO TID #90 tabs 01/21/25 01/22/25 Rx tablet (Sinemet) docusate sodium 100 mg capsule 100 mg PO BID 01/22/25 01/22/25 History (Dulcolax Stool Softener (docusate)) memantine 10 mg tablet 10 mg PO BID 01/22/25 01/22/25 History mirtazapine 15 mg tablet (Remeron) 15 mg PO HS 01/22/25 01/22/25 History rosuvastatin 20 mg tablet 20 mg PO DAILY 01/22/25 01/22/25 History Allergies Allergy/AdvReac Type Severity Reaction Status Date / Time No Known Allergies Allergy Unknown Verified 01/22/25 18:41 Vital Signs Vital Signs - 24 hr 01/22/25 11:50 01/22/25 14:01 01/22/25 14:45 Temperature 98.2 F Pulse Rate 50 L 60 59 L Respiratory Rate 12 13 15 Blood Pressure 97/80 L 108/83 110/84 Pulse Oximetry 97 98 98 Oxygen Delivery Room Air Exam Const: General: comfortable and no acute distress Other: , male, elderly, nontoxic appearance HENMT: Face/Nose/Sinus: Normal nares present Mouth: Yes moist mucous membranes Eyes: General: appearance normal, both eyes and all related structures Sclera: sclerae normal Pupils: Equal, round and reactive pupils present EOM: EOMs intact bilaterally Resp: Effort & Inspection: normal respiratory effort Auscultation: clear to auscultation bilaterally Cardio: Rate: regular rate Rhythm: regular rhythm Other: S1-S2 present without murmur, rub, ectopy GI: Other: Abdomen soft, nondistended, nontender. Normoactive bowel sounds in all quadrants. Skin: General skin exam: normal color and no rashes or lesions noted Wounds: no wounds Neuro: Speech: normal speech Sensory Exam: normal sensation Other: Moderate to severe weakness in all extremities, symmetric. A&O x4. Extrem: General: normal to inspection Psych: Mental Status: mental status grossly normal Affect: normal affect Other: Good insight and judgment, pleasant H&P: Results Labs Labs: Short CBC 01/22/25 Range/Units 11:57 WBC 7.1 (4.5-10.0) K/mm3 Hgb 13.0 L (14.0-18.0) g/dL Hct 40.5 L (42.0-52.0) % Plt Count 186 (150-375) k/mm3 BMP 01/22/25 11:57 Sodium 138 Potassium 4.3 Chloride 106 Carbon Dioxide 25 BUN 20 Creatinine 0.91 Glucose 83 Calcium 9.1 Cardiac Enzymes 01/22/25 Range/Units 11:57 Troponin I < 0.012 (0.000-0.034) ng/mL Liver Function 01/22/25 Range/Units 11:57 Total Bilirubin 0.8 (0.2-1.3) mg/dL AST 28 (17-59) U/L ALT 20 (6-50) U/L Alkaline Phosphatase 60 (38-126) U/L Albumin 4.0 (3.5-5.1) g/dL Urine 01/22/25 Range/Units 13:29 Urine Color Yellow (Yellow) Urine Appearance Clear (Clear) Urine pH 6.0 (5.0-9.0) Ur Specific [place] 1.027 (1.001-1.035) Urine Protein Negative (Negative) mg/dL Urine Glucose (UA) Negative (Negative) mg/dL Assessment and Plan Assessment and plan (1) Generalized weakness: Code(s): R53.1 - Weakness Status: Acute Assessment and Plan: - UA, CXR, head CT, viral PCR, and chemistry were virtually unremarkable - patient has complex neurological history including essential tremor, dementia, and Parkinson's. Per neurology's most recent note from yesterday on 01/21, the patient's physical condition has continued to deteriorate although he is mentally stable. General plan to continue his Namenda and add Sinemet. - no specific etiology discovered during initial workup for patient's generali zed weakness, high suspicion for progression of patient's Parkinson's as etiology for his new weakness. However will obtain MRI to rule out CVA. Neurology has been consulted. - PT/OT evaluation treatment for discharge planning (2) Drug-induced Parkinson's disease: Code(s): G21.19 - Other drug induced secondary parkinsonism Status: Acute Assessment and Plan: - continue home medications: Namenda and start Sinemet dosing (Start with half a tablet twice a day for 3 days then 1 tablet twice a day for 3 days then 1 tablet 3 times a day to continue). Patient has not started. (3) CARIE (obstructive sleep apnea): Code(s): G47.33 - Obstructive sleep apnea (adult) (pediatric) Status: Acute Assessment and Plan: - has not used a CPAP in the last year Plan Diet: Regular GI Prophylaxis: Not currently indicated DVT Prophylaxis: SCDs IV fluids: 1L bolus -> 125 mL/hr x1L Lines/Tubes: Peripheral IV Code Status: Full code Quality VTE Prophylaxis VTE prophylaxis: mechanical ordered Hospitalist MIPS Advance Care Plan I have confirmed that the patient's Advanced Care Plan is present, code status is documented, or surrogate decision maker is listed in patient medical record.: Yes Medication Reconciliation I have utilized all available resources to obtain, update and review the patients current medications (includes all prescriptions, OTC, herbals, cannabis, and nutritional supplements).: Yes
--- NOTE | 2025-01-22 18:13 | ADMGEN ---
This patient, Brendan Ling (Bill), was admitted to Medical Room 251-01. Patient/family oriented to hospital policies and general routines including ID bracelet, bed and alarms, visiting hours, pain management, procedures, bathroom and other care routines, personal items, smoking policy, room service/diet, and visiting hours. Information on how to activate the Rapid Response Team has been discussed. Patient/Family are encouraged to report perceived risks to care and to ask questions if they do not understand what they are told or what they should do.
[2025-01-23] MEDS: MIRTAZAPINE 15 MG TABLET PO ×2 (00:07→20:30)
[2025-01-23 02:56] VITALS: BP 106/73; PULSE 97; RESP 18; TEMP 36.5; O2SAT 96
[2025-01-23 04:46] LABS: Hematocrit 36.9 % (42.0-52.0); Hemoglobin 11.9 g/dL (14.0-18.0); Immature Granulocyte Percent A 0.3 % (0-0.5); Lymphocytes Absolute Auto 1.87 K/mm3 (0.9-3.2); Mean Corpuscular HGB Conc 32.2 g/dl (32-36); Mean Corpuscular Hemoglobin 30.2 pg (26-34); Mean Corpuscular Volume 93.7 fl (80-100); Nucleated Red Blood Cells Absolute Auto 0.000 K/mm3 (0.0-0.012); Nucleated Red Blood Cells Perc 0.0 % (0.0-0.2); Platelet Count Result 164 k/mm3 (150-375); Red Blood Count 3.94 M/mm3 (4.6-6.20); White Blood Count 6.6 K/mm3 (4.5-10.0)
[2025-01-23 05:09] LABS: Anion Gap 7 mmol/L (4-12); Blood Urea Nitrogen 16 mg/dL (9-20); Calcium 8.6 mg/dL (8.4-10.2); Carbon Dioxide 25 mmol/L (22-30); Chloride 107 mmol/L (98-107); Estimated CRCL calculation 76 ml/min; Estimated Glomerular Filt Rate > 60; Glucose 78 mg/dL (65-110); Potassium 3.7 mmol/L (3.4-5.0); Sodium 139 mmol/L (137-145)
[2025-01-23] MEDS: LEVOTHYROXINE SODIUM 75 MCG TABLET PO (06:24)
--- NOTE | 2025-01-23 08:46 | P.PNIM_ITS ---
Progress Note: A&P Assessment and Plan (1) Generalized weakness: Code(s): R53.1 - Weakness Status: Acute Assessment and Plan: - UA, CXR, head CT, viral PCR, and chemistry were virtually unremarkable - patient has complex neurological history including essential tremor, dementia, and Parkinson's. Per neurology's most recent note from yesterday on 01/21, the patient's physical condition has continued to deteriorate although he is mentally stable. General plan to continue his Namenda and add Sinemet. - no specific etiology discovered during initial workup for patient's generalized weakness, high suspicion for progression of patient's Parkinson's as etiology for his new weakness. However will obtain MRI to rule out CVA. Neurology has been consulted. - PT/OT evaluation treatment for discharge planning (2) Drug-induced Parkinson's disease: Code(s): G21.19 - Other drug induced secondary parkinsonism Status: Acute Assessment and Plan: - continue home medications: Namenda and start Sinemet dosing (Start with half a tablet twice a day for 3 days then 1 tablet twice a day for 3 days then 1 tablet 3 times a day to continue). - neurology is consulted-awaiting recommendation (3) CARIE (obstructive sleep apnea): Code(s): G47.33 - Obstructive sleep apnea (adult) (pediatric) Status: Acute Assessment and Plan: - has not used a CPAP in the last year Plan Diet: Regular GI Prophylaxis: Not currently indicated DVT Prophylaxis: SCDs IV fluids: 1L bolus -> 125 mL/hr x1L Lines/Tubes: Peripheral IV Code Status: Full code Time Spent With Patient Time with patient: 25 - 35 minutes Subjective Date/time seen: 01/23/25 08:46 Interval history: 70 y/o M with PMH of Parkinson's, dementia, essential tremor, CARIE, hypertension, hyperlipidemia presents here with generalized weakness. The patient presents here from home via EMS for further evaluation of generalized weakness. He reports onset of generalized weakness starting today, 01/22. He reports that was 1st noted when he cannot get out of bed today due to the extreme weakness. Per patient and his he is normally ambulatory without assistance. The patient denies accompanying focal weakness, focal numbness, nausea, vomiting, diarrhea, fever, chills, chest pain, shortness of breath, or cough. Weakness if accompanied by bilateral burning in his lower extremities. Reviewed neurology's most recent note from yesterday, 01/21. The patient walks at baseline with a walker and is now requiring complex care for majority of his needs. clarified that the patient has a walker but for the most part does not use it. Initial VS at presentation: 98.2? F, HR 50, R 12, 97/80, and 97% on RA. ED workup showed: No leukocytosis, hemoglobin 13.0, no significant electrolyte derangements, renal function within normal limits, initial troponin negative, UA showed trace ketones, viral PCR negative. CXR showed no acute cardiopulmonary pathology. Head CT showed no acute intracranial findings. Pt is seen and examined. PT/OT ordered. He is resting in bed, at the bedside. PT is alert to self, thinks it is 2008 and knows he is in the hospital. Denies pain. Review of Systems Review of Systems: All systems reviewed & are unremarkable except as noted in HPI and below Exam Narrative: weak in all extremities but symmetric. mask-like. otherwise fine. Const: General: comfortable and no acute distress Other: , male, elderly, nontoxic appearance HENMT: Face/Nose/Sinus: Normal nares present Mouth: Yes moist mucous membranes Eyes: General: appearance normal, both eyes and all related structures Sclera: sclerae normal Pupils: Equal, round and reactive pupils present EOM: EOMs intact bilaterally Resp: Effort & Inspection: normal respiratory effort Auscultation: clear to auscultation bilaterally Cardio: Rate: regular rate Rhythm: regular rhythm Other: S1-S2 present without murmur, rub, ectopy GI: Other: Abdomen soft, nondistended, nontender. Normoactive bowel sounds in all quadrants. Skin: General skin exam: normal color and no rashes or lesions noted Wounds: no wounds Neuro: Cranial nerves: Yes Equal, round and reactive pupils present Speech: normal speech Sensory Exam: normal sensation Other: Moderate to severe weakness in all extremities, symmetric. A&O x4. Extrem: General: normal to inspection Psych: Mental Status: mental status grossly normal Affect: normal affect Other: Good insight and judgment, pleasant Objective Data Vital Signs Vital Signs: Vital Signs - 24 hr 01/22/25 11:50 01/22/25 14:01 01/22/25 14:45 Temperature 98.2 F Pulse Rate 50 L 60 59 L Respiratory Rate 12 13 15 Blood Pressure 97/80 L 108/83 110/84 Pulse Oximetry 97 98 98 Oxygen Delivery Room Air 01/22/25 16:45 01/22/25 17:01 01/22/25 17:35 Temperature Pulse Rate 67 75 62 Respiratory Rate 10 L 13 16 Blood Pressure 135/88 151/92 H 122/73 Pulse Oximetry 98 98 97 Oxygen Delivery 01/22/25 20:00 01/22/25 20:55 01/23/25 02:56 Temperature 97.7 F 97.7 F Pulse Rate 61 97 Respiratory Rate 18 18 Blood Pressure 103/66 106/73 Pulse Oximetry 96 96 Oxygen Delivery Room Air Intake/Output Intake/Output: Intake & Output 01/20/25 01/21/25 01/22/25 01/23/25 23:59 23:59 23:59 23:59 Intake Total 1000 1120 Output Total 60 700 Balance 940 420 Meds/Results Medications: Active Medications Generic Name Dose Route Start Last Admin Trade Name Freq PRN Reason Stop Dose Admin Acetaminophen 650 mg 01/22/25 16:31 Acetaminophen 325 Mg Tablet PO Q4H PRN Mild Pain (1-3) or Fever Carbidopa/Levodopa 1 tablet 01/29/25 09:00 Carbidopa/Levodopa 25/100 Mg Tablet PO TID [facility] Carbidopa/Levodopa 1 tablet 01/23/25 09:00 Carbidopa/Levodopa 12.5/50 Mg Tablet PO 01/25/25 17:01 BID [facility] Carbidopa/Levodopa 1 tablet 01/26/25 09:00 Carbidopa/Levodopa 25/100 Mg Tablet PO 01/28/25 17:01 BID [facility] Docusate Sodium 100 mg 01/23/25 09:00 Docusate Sodium 100 Mg Capsule PO BID [facility] Ezetimibe 10 mg 01/23/25 09:00 Ezetimibe 10 Mg Tablet PO DAILY [facility] Ibuprofen 800 mg 01/22/25 22:02 Ibuprofen 400 Mg Tablet PO TID PRN pain 4-6 Levothyroxine Sodium 75 mcg 01/23/25 06:30 01/23/25 06:24 Levothyroxine Sodium 75 Mcg Tablet PO 75 mcg DAILY@0630 [facility] Administration Memantine 10 mg 01/23/25 09:00 Memantine 10 Mg Tablet PO BID [facility] Mirtazapine 15 mg 01/22/25 23:55 01/23/25 00:07 Mirtazapine 15 Mg Tablet PO 15 mg HS [facility] Administration Miscellaneous Information 0 each 01/22/25 00:01 Brexpiprazole Nonform Can Pt Bring From Home? XX 02/21/25 00:00 CLARIFY [facility] Miscellaneous Information 0 each 01/22/25 00:01 Valbenazine Nonform Can Pt Bring From Home? XX 02/21/25 00:00 CLARIFY [facility] Non-Formulary Medication 2 mg 01/23/25 09:00 Brexpiprazole [Rexulti] PO 02/22/25 08:59 DAILY DARIEN Non-Formulary Medication 40 mg 01/22/25 22:00 Valbenazine [Ingrezza] PO 02/21/25 21:59 .pm [facility] Ondansetron HCl 4 mg 01/22/25 16:31 Ondansetron Inj 4 Mg/2 Ml Vial IV PUSH Q4H PRN Nausea Pantoprazole Sodium 40 mg 01/23/25 09:00 Pantoprazole 40 Mg Tablet PO QAM [facility] Rosuvastatin Calcium 20 mg 01/23/25 09:00 Rosuvastatin 20 Mg Tablet PO DAILY [facility] Sertraline HCl 50 mg 01/23/25 09:00 Sertraline Hcl 50 Mg Tablet PO DAILY [facility] Vitamin D 25 mcg 01/23/25 09:00 Cholecalciferol (Vitamin D3) 25 Mcg (1,000 Units) Tablet PO DAILY [facility] Radiology Results: ITS Impressions Chest X-Ray 01/22/25 12:33 IMPRESSION: No acute cardiopulmonary pathology. Head CT 01/22/25 14:41 IMPRESSION: No acute intracranial findings. Labs Labs: Laboratory Results - last 24 hr 01/22/25 01/22/25 01/22/25 11:57 13:01 13:29 WBC 7.1 RBC 4.31 L Hgb 13.0 L Hct 40.5 L MCV 94.0 MCH 30.2 MCHC 32.1 RDW 13.2 Plt Count 186 MPV 11.2 H Immature Gran % (Auto) 0.3 Neut % (Auto) 67.5 Lymph % (Auto) 23.9 [place] % (Auto) 6.7 Eos % (Auto) 1.0 Baso % (Auto) 0.6 Lymph # (Auto) 1.71 [place] # (Auto) 0.5 Eos # (Auto) 0.1 Baso # (Auto) 0.0 Abs Immat Gran (auto) 0.02 Absolute Neuts (auto) 4.8 Absolute Nucleated RBC 0.000 Nucleated RBC % 0.0 Sodium 138 Potassium 4.3 Chloride 106 Carbon Dioxide 25 Anion Gap 7 BUN 20 Creatinine 0.91 Estim Creat Clear Calc 70 Estimated GFR > 60 Glucose 83 Calcium 9.1 Total Bilirubin 0.8 AST 28 ALT 20 Alkaline Phosphatase 60 Troponin I < 0.012 Total Protein 6.5 Albumin 4.0 Urine Color Yellow Urine Appearance Clear Urine pH 6.0 Ur Specific [place] 1.027 Urine Protein Negative Urine Glucose (UA) Negative Urine Ketones Trace H Ur Blood (Man) Negative Urine Nitrate Negative Urine Bilirubin Negative Urine Urobilinogen 1.0 Leukocyte Esterase Rfl Negative Influenza A (RT-PCR) Negative Influenza B (RT-PCR) Negative RSV (RT-PCR) Negative SARS-CoV-2 RNA (RT-PCR) Negative 01/23/25 04:16 WBC 6.6 RBC 3.94 L Hgb 11.9 L Hct 36.9 L MCV 93.7 MCH 30.2 MCHC 32.2 RDW 12.8 Plt Count 164 MPV 11.3 H Immature Gran % (Auto) 0.3 Neut % (Auto) 60.3 Lymph % (Auto) 28.4 [place] % (Auto) 9.0 H Eos % (Auto) 1.2 Baso % (Auto) 0.8 Lymph # (Auto) 1.87 [place] # (Auto) 0.6 Eos # (Auto) 0.1 Baso # (Auto) 0.1 Abs Immat Gran (auto) 0.02 Absolute Neuts (auto) 4.0 Absolute Nucleated RBC 0.000 Nucleated RBC % 0.0 Sodium 139 Potassium 3.7 Chloride 107 Carbon Dioxide 25 Anion Gap 7 BUN 16 Creatinine 0.77 Estim Creat Clear Calc 76 Estimated GFR > 60 Glucose 78 Calcium 8.6 Total Bilirubin AST ALT Alkaline Phosphatase Troponin I Total Protein Albumin Urine Color Urine Appearance Urine pH Ur Specific [place] Urine Protein Urine Glucose (UA) Urine Ketones Ur Blood (Man) Urine Nitrate Urine Bilirubin Urine Urobilinogen Leukocyte Esterase Rfl Influenza A (RT-PCR) Influenza B (RT-PCR) RSV (RT-PCR) SARS-CoV-2 RNA (RT-PCR) Quality VTE Prophylaxis VTE prophylaxis: mechanical ordered
[2025-01-23] MEDS: CARBIDOPA/LEVODOPA 12.5/50 MG TABLET 1 TABLET PO ×2 (09:45→17:28)
[2025-01-23] MEDS: DOCUSATE SODIUM 100 MG CAPSULE PO ×2 (09:45→17:28)
[2025-01-23] MEDS: EZETIMIBE 10 MG TABLET PO (09:45)
[2025-01-23] MEDS: MEMANTINE 10 MG TABLET PO ×2 (09:45→17:28)
[2025-01-23] MEDS: PANTOPRAZOLE 40 MG TABLET PO (09:46)
[2025-01-23] MEDS: ROSUVASTATIN 20 MG TABLET PO (09:46)
[2025-01-23] MEDS: SERTRALINE HCL 50 MG TABLET PO (09:46)
[2025-01-23] MEDS: CHOLECALCIFEROL (VITAMIN D3) 25 MCG (1,000 UNITS) TABLET PO (09:46)
[2025-01-23 14:00] VITALS: BP 113/85; PULSE 55; RESP 18; TEMP 37; O2SAT 95
[2025-01-23 19:52] VITALS: BP 105/69; PULSE 93; RESP 18; TEMP 36.3; O2SAT 92
[2025-01-24 04:56] VITALS: BP 100/60; PULSE 60; RESP 18; TEMP 36.1; O2SAT 97
[2025-01-24 05:30] LABS: Hematocrit 37.2 % (42.0-52.0); Hemoglobin 12.1 g/dL (14.0-18.0); Mean Corpuscular HGB Conc 32.5 g/dl (32-36); Mean Corpuscular Hemoglobin 30.4 pg (26-34); Mean Corpuscular Volume 93.5 fl (80-100); Platelet Count Result 169 k/mm3 (150-375); Red Blood Count 3.98 M/mm3 (4.6-6.20); White Blood Count 9.1 K/mm3 (4.5-10.0)
[2025-01-24 05:42] LABS: Alanine Aminotransferase 17 U/L (6-50); Albumin Level 3.9 g/dL (3.5-5.1); Alkaline Phosphatase 56 U/L (38-126); Anion Gap 7 mmol/L (4-12); Aspartate Amino Transferase 28 U/L (17-59); Bilirubin,Total 0.8 mg/dL (0.2-1.3); Blood Urea Nitrogen 16 mg/dL (9-20); Calcium 8.6 mg/dL (8.4-10.2); Carbon Dioxide 26 mmol/L (22-30); Chloride 105 mmol/L (98-107); Cholesterol 103 mg/dL (0-200); Estimated CRCL calculation 70 ml/min; Estimated Glomerular Filt Rate > 60; Glucose 95 mg/dL (65-110); HDL Direct 46 mg/dL; Potassium 3.7 mmol/L (3.4-5.0); Sodium 138 mmol/L (137-145); Total Protein 6.3 g/dL (6.3-8.2); Triglycerides 64 mg/dL (<150)
[2025-01-24] MEDS: LEVOTHYROXINE SODIUM 75 MCG TABLET PO (06:31)
[2025-01-24 06:52] LABS: Vitamin B12 313.0 pg/mL (239-931)
--- NOTE | 2025-01-24 07:54 | P.PNIM_ITS ---
Progress Note: A&P Assessment and Plan (1) Generalized weakness: Code(s): R53.1 - Weakness <Lore Motta, RADIOLOGY CT TECHNOLOGIST - Last Filed: 01/24/25 15:02> Status: Acute <Lore Motta, RADIOLOGY CT TECHNOLOGIST - Last Filed: 01/24/25 15:02> Assessment and Plan: - UA, CXR, head CT, viral PCR, and chemistry were virtually unremarkable - patient has complex neurological history including essential tremor, dementia, and Parkinson's. Per neurology's most recent note from yesterday on 01/21, the patient's physical condition has continued to deteriorate although he is mentally stable. General plan to continue his Namenda and add Sinemet. - no specific etiology discovered during initial workup for patient's generalized weakness, high suspicion for progression of patient's Parkinson's as etiology for his new weakness. However will obtain MRI to rule out CVA. Neurology has been consulted. - PT/OT evaluation treatment for discharge planning <Lore Motta, RADIOLOGY CT TECHNOLOGIST - Last Filed: 01/24/25 15:02> - UA, CXR, head CT, viral PCR, and chemistry were virtually unremarkable - patient has complex neurological history including essential tremor, dementia, and Parkinson's. Per neurology's most recent note from yesterday on 01/21, the patient's physical condition has continued to deteriorate although he is mentally stable. General plan to continue his Namenda and add Sinemet. - no specific etiology discovered during initial workup for patient's generalized weakness, high suspicion for progression of patient's Parkinson's as etiology for his new weakness. However will obtain MRI to rule out CVA. Neurology has been consulted. - PT/OT evaluation treatment for discharge planning 01/24: - Brain MRI: No acute abnormality. Stable, small anterior meningioma (13mm). - PT: 01/23 - Limited due to balance and safety concerns. Recommending AIR v SNF upon discharge. Recommending PT for gait, strengthening, endurance, & safety education. 01/24 - improved participation. competed bed mobility, transfer, &short distance gait with moderate assistance. able to advance step sequency but requires cues for posture during transfer & gait. - Neurology consulted and recommended EEG, continued PT, and rehab placement upon discharge. 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 - neurology is consulted-awaiting recommendation <Lore Motta APRN - Last Filed: 01/24/25 15:02> - continue home medications: Namenda and start Sinemet dosing (Start with half a tablet twice a day for 3 days then 1 tablet twice a day for 3 days then 1 tablet 3 times a day to continue). - neurology is consulted-awaiting recommendation 01/24 - Neurology consult recommendation: EEG and continue to work with physical therapy. Start him on Sinemet 25/101 tablet 3 times a day. It should be observed for some time and possibly unless we find any other etiology for the change on the systemic review, 2-3 weeks of rehab may be beneficial. <Herbert Rea, Student - Last Filed: 01/24/25 14:22> (3) CARIE (obstructive sleep apnea): Code(s): G47.33 - Obstructive sleep apnea (adult) (pediatric) <Lore Motta RADIOLOGY CT TECHNOLOGIST - Last Filed: 01/24/25 15:02> Status: Acute <Lore Motta APRN - Last Filed: 01/24/25 15:02> Assessment and Plan: - has not used a CPAP in the last year <Lore Motta APRN - Last Filed: 01/24/25 15:02> Assessment and Plan: Diet: Regular GI Prophylaxis: Not currently indicated DVT Prophylaxis: SCDs IV fluids: 1L bolus -> 125 mL/hr x1L Lines/Tubes: Peripheral IV Code Status: Full code <Lore Motta APRN - Last Filed: 01/24/25 15:02> Time Spent With Patient Time with patient: 25 - 35 minutes <Lore Motta APRN - Last Filed: 01/24/25 15:02> Subjective Date/time seen: 01/24/25 07:54 <Lore Motta RADIOLOGY CT TECHNOLOGIST - Last Filed: 01/24/25 15:02> Interval history: 70 y/o M with PMH of Parkinson's, dementia, essential tremor, CARIE, hypertension, hyperlipidemia presents here with generalized weakness. The patient presents here from home via EMS for further evaluation of generalized weakness. He reports onset of generalized weakness starting today, 01/22. He reports that was 1st noted when he cannot get out of bed today due to the extreme weakness. Per patient and his he is normally ambulatory without assistance. The patient denies accompanying focal weakness, focal numbness, nausea, vomiting, diarrhea, fever, chills, chest pain, shortness of breath, or cough. Weakness if accompanied by bilateral burning in his lower extremities. Reviewed neurology's most recent note from yesterday, 01/21. The patient walks at baseline with a walker and is now requiring complex care for majority of his needs. clarified that the patient has a walker but for the most part does not use it. Initial VS at presentation: 98.2? F, HR 50, R 12, 97/80, and 97% on RA. ED workup showed: No leukocytosis, hemoglobin 13.0, no significant electrolyte derangements, renal function within normal limits, initial troponin negative, UA showed trace ketones, viral PCR negative. CXR showed no acute cardiopulmonary pathology. Head CT showed no acute intracranial findings. Pt is seen and examined. PT/OT ordered. He is resting in bed, at the bedside. PT is alert to self, thinks it is 2008 and knows he is in the hospital. Denies pain. <Lore Motta APRN - Last Filed: 01/24/25 15:02> 70 y/o M with PMH of Parkinson's, dementia, essential tremor, CARIE, hypertension, hyperlipidemia presents here with generalized weakness. The patient presents here from home via EMS for further evaluation of generalized weakness. He reports onset of generalized weakness starting today, 01/22. He reports that was 1st noted when he cannot get out of bed today due to the extreme weakness. Per patient and his he is normally ambulatory without assistance. The patient denies accompanying focal weakness, focal numbness, nausea, vomiting, diarrhea, fever, chills, chest pain, shortness of breath, or cough. Weakness if accompanied by bilateral burning in his lower extremities. Reviewed neurology's most recent note from yesterday, 01/21. The patient walks at baseline with a walker and is now requiring complex care for majority of his needs. clarified that the patient has a walker but for the most part does not use it. Initial VS at presentation: 98.2? F, HR 50, R 12, 97/80, and 97% on RA. ED workup showed: No leukocytosis, hemoglobin 13.0, no significant electrolyte derangements, renal function within normal limits, initial troponin negative, UA showed trace ketones, viral PCR negative. CXR showed no acute cardiopulmonary pathology. Head CT showed no acute intracranial findings. 01/23: Pt is seen and examined. PT/OT ordered. He is resting in bed, at the bedside. PT is alert to self, thinks it is 2008 and knows he is in the hospital. Denies pain. 01/24: Upright in chair upon exam today. Pt alert to self, still thinks its 2008, knows he is in hospital. Denies pain and shortness of breath. greater participation with PT today. <Herbert Rea, Student - Last Filed: 01/24/25 14:22> Review of Systems Review of Systems: All systems reviewed & are unremarkable except as noted in HPI and below <Lore Motta APRN - Last Filed: 01/24/25 15:02> Exam Narrative: weak in all extremities but symmetric. mask-like. otherwise fine. <Lore Motta APRN - Last Filed: 01/24/25 15:02> Const: General: comfortable and no acute distress <Lore T. Kalia, RADIOLOGY CT TECHNOLOGIST - Last Filed: 01/24/25 15:02> Other: , male, elderly, nontoxic appearance <Lore Motta RADIOLOGY CT TECHNOLOGIST - Last Filed: 01/24/25 15:02> HENMT: Face/Nose/Sinus: Normal nares present <Lore Motta RADIOLOGY CT TECHNOLOGIST - Last Filed: 01/24/25 15:02> Mouth: Yes moist mucous membranes <Lore Motta RADIOLOGY CT TECHNOLOGIST - Last Filed: 01/24/25 15:02> Eyes: General: appearance normal, both eyes and all related structures <Lore Motta RADIOLOGY CT TECHNOLOGIST - Last Filed: 01/24/25 15:02> Sclera: sclerae normal <Lore Motta RADIOLOGY CT TECHNOLOGIST - Last Filed: 01/24/25 15:02> Pupils: Equal, round and reactive pupils present <Lore Motta RADIOLOGY CT TECHNOLOGIST - Last Filed: 01/24/25 15:02> EOM: EOMs intact bilaterally <Lore Motta RADIOLOGY CT TECHNOLOGIST - Last Filed: 01/24/25 15:02> Resp: Effort & Inspection: normal respiratory effort <Lore Motta RADIOLOGY CT TECHNOLOGIST - Last Filed: 01/24/25 15:02> Auscultation: clear to auscultation bilaterally <Lore Motta RADIOLOGY CT TECHNOLOGIST - Last Filed: 01/24/25 15:02> Cardio: Rate: regular rate <Lore Motta RADIOLOGY CT TECHNOLOGIST - Last Filed: 01/24/25 15:02> Rhythm: regular rhythm <Lore Motta RADIOLOGY CT TECHNOLOGIST - Last Filed: 01/24/25 15:02> Other: S1-S2 present without murmur, rub, ectopy <Lore oMtta RADIOLOGY CT TECHNOLOGIST - Last Filed: 01/24/25 15:02> GI: Other: Abdomen soft, nondistended, nontender. Normoactive bowel sounds in all quadrants. <Lore Motta RADIOLOGY CT TECHNOLOGIST - Last Filed: 01/24/25 15:02> Skin: General skin exam: normal color and no rashes or lesions noted <Lore Motta RADIOLOGY CT TECHNOLOGIST - Last Filed: 01/24/25 15:02> Wounds: no wounds <Lore Motta RADIOLOGY CT TECHNOLOGIST - Last Filed: 01/24/25 15:02> Neuro: Cranial nerves: Yes Equal, round and reactive pupils present <Lore Motta RADIOLOGY CT TECHNOLOGIST - Last Filed: 01/24/25 15:02> Speech: normal speech <oLre Motta RADIOLOGY CT TECHNOLOGIST - Last Filed: 01/24/25 15:02> Sensory Exam: normal sensation <Lore Motta RADIOLOGY CT TECHNOLOGIST - Last Filed: 01/24/25 15:02> Other: Moderate to severe weakness in all extremities, symmetric. A&O x4. <Lore Motta RADIOLOGY CT TECHNOLOGIST - Last Filed: 01/24/25 15:02> Extrem: General: normal to inspection <Lore Motta RADIOLOGY CT TECHNOLOGIST - Last Filed: 01/24/25 15:02> Psych: Mental Status: mental status grossly normal <Lore Motta RADIOLOGY CT TECHNOLOGIST - Last Filed: 01/24/25 15:02> Affect: normal affect <Lore Motta RADIOLOGY CT TECHNOLOGIST - Last Filed: 01/24/25 15:02> Other: Good insight and judgment, pleasant <Lore Motta RADIOLOGY CT TECHNOLOGIST - Last Filed: 01/24/25 15:02> Objective Data Vital Signs Vital Signs: Vital Signs - 24 hr 01/23/25 09:45 01/23/25 13:54 01/23/25 14:00 Temperature 98.6 F Pulse Rate 55 L Respiratory Rate 18 Blood Pressure 113/85 Pulse Oximetry 95 Oxygen Delivery Room Air Room Air 01/23/25 19:52 01/23/25 20:00 01/24/25 04:56 Temperature 97.3 F L 97 F L Pulse Rate 93 60 Respiratory Rate 18 18 Blood Pressure 105/69 100/60 Pulse Oximetry 92 97 Oxygen Delivery Room Air <Lore Motta RADIOLOGY CT TECHNOLOGIST - Last Filed: 01/24/25 15:02> Intake/Output Intake/Output: Intake & Output 01/21/25 01/22/25 01/23/25 01/24/25 23:59 23:59 23:59 23:59 Intake Total 1000 1440 150 Output Total 60 1800 Balance 940 -360 150 <Lore Motta, RADIOLOGY CT TECHNOLOGIST - Last Filed: 01/24/25 15:02> Meds/Results Medications: Active Medications Generic Name Dose Route Start Last Admin Trade Name Cortez PRN Reason Stop Dose Admin Acetaminophen 650 mg 01/22/25 16:31 Acetaminophen 325 Mg Tablet PO Q4H PRN Mild Pain (1-3) or Fever Carbidopa/Levodopa 1 tablet 01/29/25 09:00 Carbidopa/Levodopa 25/100 Mg Tablet PO TID DARIEN Carbidopa/Levodopa 1 tablet 01/23/25 09:00 01/23/25 17:28 Carbidopa/Levodopa 12.5/50 Mg Tablet PO 01/25/25 17:01 1 tablet BID DARIEN Administration Carbidopa/Levodopa 1 tablet 01/26/25 09:00 Carbidopa/Levodopa 25/100 Mg Tablet PO 01/28/25 17:01 BID DARIEN Docusate Sodium 100 mg 01/23/25 09:00 01/23/25 17:28 Docusate Sodium 100 Mg Capsule PO 100 mg BID DARIEN Administration Ezetimibe 10 mg 01/23/25 09:00 01/23/25 09:45 Ezetimibe 10 Mg Tablet PO 10 mg DAILY DARIEN Administration Ibuprofen 800 mg 01/22/25 22:02 Ibuprofen 400 Mg Tablet PO TID PRN pain 4-6 Levothyroxine Sodium 75 mcg 01/23/25 06:30 01/24/25 06:31 Levothyroxine Sodium 75 Mcg Tablet PO 75 mcg DAILY@0630 DARIEN Administration Memantine 10 mg 01/23/25 09:00 01/23/25 17:28 Memantine 10 Mg Tablet PO 10 mg BID DARIEN Administration Mirtazapine 15 mg 01/22/25 23:55 01/23/25 20:30 Mirtazapine 15 Mg Tablet PO 15 mg HS DARIEN Administration Miscellaneous Information 1 each 01/23/25 00:01 Please Send Rexulti 2 Mg Tablets And Ingrezza 4 Mg Capsules To Pharmacy For Verification W XX 02/22/25 00:00 CLARIFY DARIEN Non-Formulary Medication 2 mg 01/23/25 09:00 Brexpiprazole [Rexulti] PO 02/22/25 08:59 DAILY DARIEN Non-Formulary Medication 40 mg 01/22/25 22:00 Valbenazine [Ingrezza] PO 02/21/25 21:59 .pm DARIEN Ondansetron HCl 4 mg 01/22/25 16:31 Ondansetron Inj 4 Mg/2 Ml Vial IV PUSH Q4H PRN Nausea Pantoprazole Sodium 40 mg 01/23/25 09:00 01/23/25 09:46 Pantoprazole 40 Mg Tablet PO 40 mg QAM DARIEN Administration Rosuvastatin Calcium 20 mg 01/23/25 09:00 01/23/25 09:46 Rosuvastatin 20 Mg Tablet PO 20 mg DAILY DARIEN Administration Sertraline HCl 50 mg 01/23/25 09:00 01/23/25 09:46 Sertraline Hcl 50 Mg Tablet PO 50 mg DAILY DARIEN Administration Vitamin D 25 mcg 01/23/25 09:00 01/23/25 09:46 Cholecalciferol (Vitamin D3) 25 Mcg (1,000 Units) Tablet PO 25 mcg DAILY DARIEN Administration <Lore Motta RADIOLOGY CT TECHNOLOGIST - Last Filed: 01/24/25 15:02> Radiology Results: ITS Impressions Chest X-Ray 01/22/25 12:33 IMPRESSION: No acute cardiopulmonary pathology. Head CT 01/22/25 14:41 IMPRESSION: No acute intracranial findings. Brain MRI 01/23/25 13:12 IMPRESSION: No acute abnormality. Stable small meningioma, as above. <Lore Motta RADIOLOGY CT TECHNOLOGIST - Last Filed: 01/24/25 15:02> Labs Labs: Laboratory Results - last 24 hr 01/24/25 04:45 WBC 9.1 RBC 3.98 L Hgb 12.1 L Hct 37.2 L MCV 93.5 MCH 30.4 MCHC 32.5 RDW 13.1 Plt Count 169 MPV 11.6 H Sodium 138 Potassium 3.7 Chloride 105 Carbon Dioxide 26 Anion Gap 7 BUN 16 Creatinine 0.85 Estim Creat Clear Calc 70 Estimated GFR > 60 Glucose 95 Calcium 8.6 Total Bilirubin 0.8 AST 28 ALT 17 Alkaline Phosphatase 56 Total Protein 6.3 Albumin 3.9 Triglycerides 64 Cholesterol 103 LDL Cholesterol Direct 37 HDL Direct 46 Vitamin B12 313.0 Folate 4.5 <Lore Motta RADIOLOGY CT TECHNOLOGIST - Last Filed: 01/24/25 15:02> Quality VTE Prophylaxis VTE prophylaxis: mechanical ordered <Lore Motta RADIOLOGY CT TECHNOLOGIST - Last Filed: 01/24/25 15:02>
[2025-01-24] MEDS: CHOLECALCIFEROL (VITAMIN D3) 25 MCG (1,000 UNITS) TABLET PO (08:33)
[2025-01-24] MEDS: DOCUSATE SODIUM 100 MG CAPSULE PO ×2 (08:33→17:04)
[2025-01-24] MEDS: MEMANTINE 10 MG TABLET PO ×2 (08:33→17:04)
[2025-01-24] MEDS: PANTOPRAZOLE 40 MG TABLET PO (08:33)
[2025-01-24] MEDS: EZETIMIBE 10 MG TABLET PO (08:33)
[2025-01-24] MEDS: SERTRALINE HCL 50 MG TABLET PO (08:33)
[2025-01-24] MEDS: ROSUVASTATIN 20 MG TABLET PO (08:33)
[2025-01-24] MEDS: CARBIDOPA/LEVODOPA 12.5/50 MG TABLET 1 TABLET PO ×2 (08:34→17:04)
--- NOTE | 2025-01-24 10:52 | PHAR ---
Home meds verified: Ingrezza 40mg Take 1 capsule PO daily Rexulti 2mg take 1 tablet PO daily
[2025-01-24] MEDS: BREXPIPRAZOLE 2 MG 2 EACH PO (12:08)
--- NOTE | 2025-01-24 12:40 | P.CONNEU_ITS ---
Assessment and Plan Assessment and plan (1) Encephalopathy acute: Code(s): G93.40 - Encephalopathy, unspecified Status: Acute Assessment and Plan: A sudden deterioration would raise possibility of underlying systemic or metabolic problems or drug-induced problem. As such we have not found any specific reason for it. MRI of the brain did not show evidence for new stroke or any acute finding. There is a small stable meningioma noted in the frontal area without any change from the previous examination done recently. CBC and chemistry profile and vitamin B12 folic acid level were all within normal range. LDL was 37. Hence I will suggest an EEG and clinical follow-up. If his condition deteriorates which is otherwise unexplained we may consider spinal tap to look for any underlying encephalitis. Clinically I do not doubt it but around the summertime this is one of the possibilities to keep in mind. (2) Dementia of the Alzheimer's type: Qualifiers: Alzheimer's disease onset: unspecified onset Dementia severity: mild D ementia behavioral or psychological symptom: with anxiety Qualified Code(s): G 30.9 - Alzheimer's disease, unspecified; F02.A4 - Dementia in other diseases classified elsewhere, mild, with anxiety Code(s): G30.9 - Alzheimer's disease, unspecified; F02.80 - Dementia in other diseases classified elsewhere, unspecified severity, without behavioral disturbance, psychotic disturbance, mood disturbance, and anxiety Status: Acute Assessment and Plan: Patient has a long history of psychiatric problems and has been on psychotropic medications however in the past few years he has developed memory problems. He should continue the Namenda 10 mg twice a day. (3) Drug-induced Parkinson's disease: Code(s): G21.19 - Other drug induced secondary parkinsonism Status: Acute Assessment and Plan: I will suggest Sinemet 25/101 tablet 3 times a day and work with physical therapy to improve mobility. (4) Mood disorder: Code(s): F39 - Unspecified mood [affective] disorder Status: Acute (5) Parasagittal meningioma: Code(s): D32.0 - Benign neoplasm of cerebral meninges Status: Acute Assessment and Plan: This has been noted to be stable. Plan Patient has been diagnosed to have major psychiatric problem has been on psychotropic medications for several years. In the past few years his memory has declined and now he has developed parkinsonian features. During the interim he has had dyskinesia which was treated with Ingrezza.. He responded very well. However according to his is not able to sit up and also has been having periods of hallucinations which led to this hospitalization. Of course possibility of metabolic encephalopathy would be a consideration. The urine examination chest x-ray did not show any abnormality. I will suggest an EEG and continue to work with physical therapy in start him on Sinemet 25/101 tablet 3 times a day. It should be observed for some time and possibly unless we find any other etiology for the change on the systemic review, 2-3 weeks of rehab may be beneficial. Consult date: 01/24/25 HPI: Brendan Ling (Bill) is a 70 year old male With history of schizophrenia and degenerative dementia and a tardive dyskinesia and drug-induced Parkinson's disease was seen by me on 01/21/2025. He was given advised to start on Sinemet in view of the parkinsonian symptoms however before he could start medications he was unable to get up and was also hallucinating and appeared confused and. The patient's and daughter who also present at the time of this evaluation as they did in the office stated that this was a sudden change in his condition and they brought her to the hospital on account of that. It complains of generalized weakness and could not get up or move or walk or take Septra bathroom. Patient used to have dyskinetic movement which responded very well to ingrezza.. Also has been on Rexulti and Namenda. He has not had any febrile illness. No history of trauma or any sudden lapse in his awareness was described. MRI of the brain was performed which shows a aging changes and a small meningioma 13 mm size at the anterior aspect of the falx cerebri. No new findings were noted. There is no history of seizure transient ischemic attack or stroke. He has not had any febrile illness. Review of Systems 2 Review of Systems: All systems reviewed & are unremarkable except as noted in HPI and below PMFSH Past Medical History Medical History (Updated 01/24/25 @ 12:51 by Foster Davis MD) Encephalopathy acute Drug-induced Parkinson's disease Dementia Dysuria Microhematuria Constipation Prostatitis Chronic daily headache Dementia of the Alzheimer's type Essential tremor Memory deficit Dyspnea on exertion Parasagittal meningioma Elevated fasting glucose Abnormal RBC Elevated ALT measurement Erectile dysfunction HSV-2 infection Elevated CK Hepatitis Weight loss Anxiety Colon cancer screening Mood disorder CARIE on CPAP Screening for prostate cancer Elevated CK Essential hypertension Mixed hyperlipidemia CARIE (obstructive sleep apnea) Surgical History Surgical History H/O cervical spine surgery History of knee surgery History of hip surgery Hx of colonoscopy Family History Family History Sibling Diabetes mellitus Family history of obesity Hypertension Family history of type 2 diabetes mellitus Mother Depression Hypertension Bipolar 1 disorder Father Abscess of internal cheek Septicemia Rheumatoid arthritis Other Family history of arthritis Family history of malignant neoplasm Social History Social History Smoking status: Never smoker Smokeless tobacco user: other Second hand tobacco smoke exposure: Yes Alcohol intake: never Alcohol use details: socially, infrequently Substance use: never Substance use type: marijuana Other substance usage details: gummies for anxiety Do You Feel Safe in your Home?: Yes Lack of Transportation: No Lack of Food: Never True Current Housing: I Have Housing Concerned About Future Housing: No Difficulty Paying Gas/Electric Bills: No Difficulty Paying for Meds: No Currently Unemployed: No Education: High School Diploma/GED Difficulty w/ Childcare or Family Care: No Living arrangements: with friend(s) Additional living arrangements comments: [place] Occupation/Education: retired 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 Gender identity (if verbalized by the patient): Male Spiritual care concerns: No Meds Home Medications and Allergies Home Medications ?Medication ?Instructions ?Recorded ?Confirmed ?Type ezetimibe 10 mg tablet (Zetia) 10 mg PO DAILY 08/10/22 01/22/25 History ibuprofen 800 mg tablet 800 mg PO TID PRN pain #270 tabs 12/06/23 01/22/25 Rx cholecalciferol (vitamin D3) 25 25 mcg PO DAILY 01/26/24 01/22/25 History mcg (1,000 unit) capsule brexpiprazole 2 mg tablet (Rexulti) 2 mg PO DAILY 07/24/24 01/22/25 History valbenazine 40 mg capsule 40 mg PO .pm 09/24/24 01/22/25 History (Ingrezza) levothyroxine 75 mcg tablet 75 mcg PO DAILY #90 tabs 10/24/24 01/22/25 Rx omeprazole 20 mg capsule,delayed See Rx Instructions .Route 01/07/25 01/22/25 Rx release .COMPLEX #90 caps sertraline 25 mg tablet (Zoloft) 50 mg PO DAILY 01/10/25 01/22/25 History carbidopa 25 mg-levodopa 100 mg 1 tablet PO TID #90 tabs 01/21/25 01/22/25 Rx tablet (Sinemet) docusate sodium 100 mg capsule 100 mg PO BID 01/22/25 01/22/25 History (Dulcolax Stool Softener (docusate)) memantine 10 mg tablet 10 mg PO BID 01/22/25 01/22/25 History mirtazapine 15 mg tablet (Remeron) 15 mg PO HS 01/22/25 01/22/25 History rosuvastatin 20 mg tablet 20 mg PO DAILY 01/22/25 01/22/25 History Allergies Allergy/AdvReac Type Severity Reaction Status Date / Time No Known Allergies Allergy Unknown Verified 01/22/25 18:41 Vital Signs Vital Signs - 24 hr 01/23/25 13:54 01/23/25 14:00 01/23/25 19:52 Temperature 98.6 F 97.3 F L Pulse Rate 55 L 93 Respiratory Rate 18 18 Blood Pressure 113/85 105/69 Pulse Oximetry 95 92 Oxygen Delivery Room Air 01/23/25 20:00 01/24/25 04:56 01/24/25 08:00 Temperature 97 F L Pulse Rate 60 Respiratory Rate 18 Blood Pressure 100/60 Pulse Oximetry 97 Oxygen Delivery Room Air Room Air Exam 2 Const: General: cooperative, well developed and alert Other: He is able to tell me the name of his and daughter other than that he is unable to tell me the month or the year. He is also not able to follow two-step commands. No aphasia but he has some dysarthria. He seems fairly slow. Resting tremor of both hands were noted no tremor of the head and neck trunk or lower limbs were noted. HENMT: Head: atraumatic Eyes: Alignment and Position: position normal Pupils: Equal, round and reactive pupils present EOM: EOMs intact bilaterally Neck: Neck: supple Resp: Effort & Inspection: normal respiratory effort Cardio: Rate: regular rate Rhythm: regular rhythm Skin: General skin exam: normal color Neuro: General: Unable to assess gait Cranial nerves: Yes CN's II-XII intact bilaterally, Yes Equal, round and reactive pupils present, Yes Bilaterally intact EOM present, Yes Nystagmus not present, Yes facial symmetry and Yes Midline tongue present Motor exam (neuro): 5/5 motor strength present throughout, Motor fasciculations not present, Normal motor muscle tone present throughout, Motor abnormalities not present and Tremors during motor activity present Other: Resting tremor of both hands and mild cogwheeling was noted. No dystonia or dyskinesias were seen at this time. Results Labs 01/24/25 04:45 01/24/25 04:45 Labs: Short CBC 01/24/25 Range/Units 04:45 WBC 9.1 (4.5-10.0) K/mm3 Hgb 12.1 L (14.0-18.0) g/dL Hct 37.2 L (42.0-52.0) % Plt Count 169 (150-375) k/mm3 BMP 01/24/25 04:45 Sodium 138 Potassium 3.7 Chloride 105 Carbon Dioxide 26 BUN 16 Creatinine 0.85 Glucose 95 Calcium 8.6 Liver Function 01/24/25 Range/Units 04:45 Total Bilirubin 0.8 (0.2-1.3) mg/dL AST 28 (17-59) U/L ALT 17 (6-50) U/L Alkaline Phosphatase 56 (38-126) U/L Albumin 3.9 (3.5-5.1) g/dL
[2025-01-24 14:00] VITALS: BP 100/68; PULSE 79; RESP 19; TEMP 36.6; O2SAT 94
[2025-01-24] MEDS: ACETAMINOPHEN 325 MG TABLET 650 MG PO (14:35)
[2025-01-24] MEDS: VALBENAZINE 40 MG 40 EACH PO (20:28)
[2025-01-24] MEDS: MIRTAZAPINE 15 MG TABLET PO (20:28)
[2025-01-24 20:32] VITALS: O2SAT 98
[2025-01-24 21:01] VITALS: BP 108/67; PULSE 60; RESP 16; TEMP 36.6; O2SAT 98
[2025-01-25 05:52] VITALS: BP 113/62; PULSE 58; RESP 16; TEMP 36.7; O2SAT 100
[2025-01-25 05:52] LABS: Hematocrit 39.5 % (42.0-52.0); Hemoglobin 12.9 g/dL (14.0-18.0); Mean Corpuscular HGB Conc 32.7 g/dl (32-36); Mean Corpuscular Hemoglobin 30.6 pg (26-34); Mean Corpuscular Volume 93.6 fl (80-100); Platelet Count Result 157 k/mm3 (150-375); Red Blood Count 4.22 M/mm3 (4.6-6.20); White Blood Count 7.2 K/mm3 (4.5-10.0)
[2025-01-25] MEDS: LEVOTHYROXINE SODIUM 75 MCG TABLET PO (05:53)
[2025-01-25 06:10] LABS: Alanine Aminotransferase 16 U/L (6-50); Albumin Level 3.9 g/dL (3.5-5.1); Alkaline Phosphatase 59 U/L (38-126); Anion Gap 7 mmol/L (4-12); Aspartate Amino Transferase 26 U/L (17-59); Bilirubin,Total 0.8 mg/dL (0.2-1.3); Blood Urea Nitrogen 16 mg/dL (9-20); Calcium 9.0 mg/dL (8.4-10.2); Carbon Dioxide 28 mmol/L (22-30); Chloride 104 mmol/L (98-107); Estimated CRCL calculation 70 ml/min; Estimated Glomerular Filt Rate > 60; Glucose 96 mg/dL (65-110); Potassium 3.7 mmol/L (3.4-5.0); Sodium 139 mmol/L (137-145); Total Protein 6.7 g/dL (6.3-8.2)
--- NOTE | 2025-01-25 07:23 | PM.IMPN ---
Progress Note: A&P Assessment and Plan (1) Generalized weakness: Code(s): R53.1 - Weakness <Lore Motta APRN - Last Filed: 01/25/25 15:37> Status: Acute <Lore Motta APRN - Last Filed: 01/25/25 15:37> Assessment and Plan: - UA, CXR, head CT, viral PCR, and chemistry were virtually unremarkable - patient has complex neurological history including essential tremor, dementia, and Parkinson's. Per neurology's most recent note from yesterday on 01/21, the patient's physical condition has continued to deteriorate although he is mentally stable. General plan to continue his Namenda and add Sinemet. - no specific etiology discovered during initial workup for patient's generalized weakness, high suspicion for progression of patient's Parkinson's as etiology for his new weakness. However will obtain MRI to rule out CVA. Neurology has been consulted. - PT/OT evaluation treatment for discharge planning 01/24: - Brain MRI: No acute abnormality. Stable, small anterior meningioma (13mm). - PT: 01/23 - Limited due to balance and safety concerns. Recommending AIR v SNF upon discharge. Recommending PT for gait, strengthening, endurance, & safety education. 01/24 - improved participation. competed bed mobility, transfer, &short distance gait with moderate assistance. able to advance step sequency but requires cues for posture during transfer & gait. - OT: 01/24: benefits from skilled OT to maximize functional safety & independence with ADLs & functional transfers - Neurology consulted and recommended EEG, continued PT, and rehab placement upon discharge. 01/25: - continue PT/OT - EEG pending - neurology unavailable today <Lore Motta APRN - Last Filed: 01/25/25 15:37> - UA, CXR, head CT, viral PCR, and chemistry were virtually unremarkable - patient has complex neurological history including essential tremor, dementia, and Parkinson's. Per neurology's most recent note from yesterday on 01/21, the patient's physical condition has continued to deteriorate although he is mentally stable. General plan to continue his Namenda and add Sinemet. - no specific etiology discovered during initial workup for patient's generalized weakness, high suspicion for progression of patient's Parkinson's as etiology for his new weakness. However will obtain MRI to rule out CVA. Neurology has been consulted. - PT/OT evaluation treatment for discharge planning 01/24: - Brain MRI: No acute abnormality. Stable, small anterior meningioma (13mm). - PT: 01/23 - Limited due to balance and safety concerns. Recommending AIR v SNF upon discharge. Recommending PT for gait, strengthening, endurance, & safety education. 01/24 - improved participation. competed bed mobility, transfer, &short distance gait with moderate assistance. able to advance step sequency but requires cues for posture during transfer & gait. - OT: 01/24: benefits from skilled OT to maximize functional safety & independence with ADLs & functional transfers - Neurology consulted and recommended EEG, continued PT, and rehab placement upon discharge. 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 - neurology is consulted-awaiting recommendation 01/24 - Neurology consult recommendation: EEG and continue to work with physical therapy. Start him on Sinemet 25/101 tablet 3 times a day. It should be observed for some time and possibly unless we find any other etiology for the change on the systemic review, 2-3 weeks of rehab may be beneficial. <Lore Motta APRN - Last Filed: 01/25/25 15:37> - continue home medications: Namenda and start Sinemet dosing (Start with half a tablet twice a day for 3 days then 1 tablet twice a day for 3 days then 1 tablet 3 times a day to continue). - neurology is consulted-awaiting recommendation 01/24 - Neurology consult recommendation: EEG and continue to work with physical therapy. Start him on Sinemet 25/101 tablet 3 times a day. It should be observed for some time and possibly unless we find any other etiology for the change on the systemic review, 2-3 weeks of rehab may be beneficial. 01/25 - EEG pending - care coordination working on rehab placement <Herbert Rea, Student - Last Filed: 01/25/25 14:59> (3) CARIE (obstructive sleep apnea): Code(s): G47.33 - Obstructive sleep apnea (adult) (pediatric) <Lore Motta V[employer]TER - Last Filed: 01/25/25 15:37> Status: Acute <Lore Motta [employer]ELV[employer] C[employer]TER - Last Filed: 01/25/25 15:37> Assessment and Plan: - has not used a CPAP in the last year <Lore Motta VELV[employer] CUTTER - Last Filed: 01/25/25 15:37> Assessment and Plan: Diet: Regular GI Prophylaxis: Not currently indicated DVT Prophylaxis: SCDs IV fluids: 1L bolus -> 125 mL/hr x1L Lines/Tubes: Peripheral IV Code Status: Full code <Lore Sanket Motta [employer]TER - Last Filed: 01/25/25 15:37> Time Spent With Patient Time with patient: 25 - 35 minutes <Lore Sanket Motta [employer] - Last Filed: 01/25/25 15:37> Subjective Date/time seen: 01/25/25 07:23 <Lore Sanket Motta [employer] - Last Filed: 01/25/25 15:37> Interval history: 70 y/o M with PMH of Parkinson's, dementia, essential tremor, CARIE, hypertension, hyperlipidemia presents here with generalized weakness. The patient presents here from home via EMS for further evaluation of generalized weakness. He reports onset of generalized weakness starting today, 01/22. He reports that was 1st noted when he cannot get out of bed today due to the extreme weakness. Per patient and his he is normally ambulatory without assistance. The patient denies accompanying focal weakness, focal numbness, nausea, vomiting, diarrhea, fever, chills, chest pain, shortness of breath, or cough. Weakness if accompanied by bilateral burning in his lower extremities. Reviewed neurology's most recent note from yesterday, 01/21. The patient walks at baseline with a walker and is now requiring complex care for majority of his needs. clarified that the patient has a walker but for the most part does not use it. Initial VS at presentation: 98.2? F, HR 50, R 12, 97/80, and 97% on RA. ED workup showed: No leukocytosis, hemoglobin 13.0, no significant electrolyte derangements, renal function within normal limits, initial troponin negative, UA showed trace ketones, viral PCR negative. CXR showed no acute cardiopulmonary pathology. Head CT showed no acute intracranial findings. 01/23: Pt is seen and examined. PT/OT ordered. He is resting in bed, at the bedside. PT is alert to self, thinks it is 2007 and knows he is in the hospital. Denies pain. 01/24: Upright in chair upon exam today. Pt alert to self, still thinks its 2007, knows he is in hospital. Denies pain and shortness of breath. greater participation with PT today. 01/25: Appears more alert today. Still A&O x1, but a lot more alert, aware of hospital as location. Tremors appear less today on exam. Denies chest pain, SOB, abdominal pain. <Lore AashishJalen Motta, [employer] - Last Filed: 01/25/25 15:37> 70 y/o M with PMH of Parkinson's, dementia, essential tremor, CARIE, hypertension, hyperlipidemia presents here with generalized weakness. The patient presents here from home via EMS for further evaluation of generalized weakness. He reports onset of generalized weakness starting today, 01/22. He reports that was 1st noted when he cannot get out of bed today due to the extreme weakness. Per patient and his he is normally ambulatory without assistance. The patient denies accompanying focal weakness, focal numbness, nausea, vomiting, diarrhea, fever, chills, chest pain, shortness of breath, or cough. Weakness if accompanied by bilateral burning in his lower extremities. Reviewed neurology's most recent note from yesterday, 01/21. The patient walks at baseline with a walker and is now requiring complex care for majority of his needs. clarified that the patient has a walker but for the most part does not use it. Initial VS at presentation: 98.2? F, HR 50, R 12, 97/80, and 97% on RA. ED workup showed: No leukocytosis, hemoglobin 13.0, no significant electrolyte derangements, renal function within normal limits, initial troponin negative, UA showed trace ketones, viral PCR negative. CXR showed no acute cardiopulmonary pathology. Head CT showed no acute intracranial findings. 01/23: Pt is seen and examined. PT/OT ordered. He is resting in bed, at the bedside. PT is alert to self, thinks it is 2007 and knows he is in the hospital. Denies pain. 01/24: Upright in chair upon exam today. Pt alert to self, still thinks its 2007, knows he is in hospital. Denies pain and shortness of breath. greater participation with PT today. 01/25: Appears more alert today. Still A&O x1, but aware of hospital as location. Tremors appear less today on exam. Denies chest pain, SOB, abdominal pain. <Herbert Rea, Student - Last Filed: 01/25/25 14:59> Review of Systems Review of Systems: All systems reviewed & are unremarkable except as noted in HPI and below <Lore Motta [employer] - Last Filed: 01/25/25 15:37> Exam Narrative: weak in all extremities but symmetric. mask-like. otherwise fine. <Lore Motta [employer] - Last Filed: 01/25/25 15:37> Const: General: comfortable and no acute distress <Lore Motta [employer] C[employer] - Last Filed: 01/25/25 15:37> Other: , male, elderly, nontoxic appearance <Lore Motta [employer] C[employer]TER - Last Filed: 01/25/25 15:37> HENMT: Face/Nose/Sinus: Normal nares present <Lore Motta [employer] C[employer]TER - Last Filed: 01/25/25 15:37> Mouth: Yes moist mucous membranes <Lore Motta [employer] C[employer]TER - Last Filed: 01/25/25 15:37> Eyes: General: appearance normal, both eyes and all related structures <Lore Motta [employer] C[employer]TER - Last Filed: 01/25/25 15:37> Sclera: sclerae normal <Lore Motta [employer] C[employer]TER - Last Filed: 01/25/25 15:37> Pupils: Equal, round and reactive pupils present <Lore Motta [employer] C[employer]TER - Last Filed: 01/25/25 15:37> EOM: EOMs intact bilaterally <Lore Motta [employer] C[employer]TER - Last Filed: 01/25/25 15:37> Resp: Effort & Inspection: normal respiratory effort <Lore Motta APRN - Last Filed: 01/25/25 15:37> Auscultation: clear to auscultation bilaterally <Lore Motta VELV[employer] CUTTER - Last Filed: 01/25/25 15:37> Cardio: Rate: regular rate <Lore Motta VELV[employer] C[employer]TER - Last Filed: 01/25/25 15:37> Rhythm: regular rhythm <Lore Sanket Kalia [employer] - Last Filed: 01/25/25 15:37> Other: S1-S2 present without murmur, rub, ectopy <Lore Sanket Kalia [employer] - Last Filed: 01/25/25 15:37> GI: Other: Abdomen soft, nondistended, nontender. Normoactive bowel sounds in all quadrants. <Lore Motta [employer] C[employer]TER - Last Filed: 01/25/25 15:37> Skin: General skin exam: normal color and no rashes or lesions noted <Lore Motta [employer] C[employer]TER - Last Filed: 01/25/25 15:37> Wounds: no wounds <Lorelaila Motta [employer] - Last Filed: 01/25/25 15:37> Neuro: Cranial nerves: Yes Equal, round and reactive pupils present <Lore Motta [employer] C[employer]TER - Last Filed: 01/25/25 15:37> Speech: normal speech <Lore Sanket Kalia [employer] - Last Filed: 01/25/25 15:37> Sensory Exam: normal sensation <Lorelaila Coles Kalia [employer] - Last Filed: 01/25/25 15:37> Other: Moderate to severe weakness in all extremities, symmetric. A&O x4. <Lorelaila Coles Kalia [employer] C[employer]TER - Last Filed: 01/25/25 15:37> Extrem: General: normal to inspection <Lore Motta [employer] C[employer]TER - Last Filed: 01/25/25 15:37> Psych: Mental Status: mental status grossly normal <Lore Coles Kalia [employer] - Last Filed: 01/25/25 15:37> Affect: normal affect <Lore Motta [employer] C[employer] - Last Filed: 01/25/25 15:37> Other: Good insight and judgment, pleasant <Lore Motta [employer] C[employer]TER - Last Filed: 01/25/25 15:37> Objective Data Vital Signs Vital Signs: Vital Signs - 24 hr 01/24/25 08:00 01/24/25 13:44 01/24/25 14:00 Temperature 97.9 F Pulse Rate 79 Respiratory Rate 19 Blood Pressure 100/68 Pulse Oximetry 94 Oxygen Delivery Room Air Room Air 01/24/25 20:00 01/24/25 20:32 01/24/25 21:01 Temperature 97.8 F Pulse Rate 60 Respiratory Rate 16 Blood Pressure 108/67 Pulse Oximetry 98 98 Oxygen Delivery Room Air Room Air 01/25/25 05:52 Temperature 98.0 F Pulse Rate 58 L Respiratory Rate 16 Blood Pressure 113/62 Pulse Oximetry 100 Oxygen Delivery <Lore Motta, [employer] - Last Filed: 01/25/25 15:37> Intake/Output Intake/Output: Intake & Output 01/22/25 01/23/25 01/24/25 01/25/25 23:59 23:59 23:59 23:59 Intake Total 1000 1440 750 300 Output Total 60 1800 Balance 940 -360 750 300 <Lore Motta, [employer] - Last Filed: 01/25/25 15:37> Meds/Results Medications: Active Medications Generic Name Dose Route Start Last Admin Trade Name Freq PRN Reason Stop Dose Admin Acetaminophen 650 mg 01/22/25 16:31 01/24/25 14:35 Acetaminophen 325 Mg Tablet PO 650 mg Q4H PRN Administration Mild Pain (1-3) or Fever Carbidopa/Levodopa 1 tablet 01/29/25 09:00 Carbidopa/Levodopa 25/100 Mg Tablet PO TID DARIEN Carbidopa/Levodopa 1 tablet 01/23/25 09:00 01/24/25 17:04 Carbidopa/Levodopa 12.5/50 Mg Tablet PO 01/25/25 17:01 1 tablet BID DARIEN Administration Carbidopa/Levodopa 1 tablet 01/26/25 09:00 Carbidopa/Levodopa 25/100 Mg Tablet PO 01/28/25 17:01 BID DARIEN Docusate Sodium 100 mg 01/23/25 09:00 01/24/25 17:04 Docusate Sodium 100 Mg Capsule PO 100 mg BID DARIEN Administration Ezetimibe 10 mg 01/23/25 09:00 01/24/25 08:33 Ezetimibe 10 Mg Tablet PO 10 mg DAILY DARIEN Administration Ibuprofen 800 mg 01/22/25 22:02 Ibuprofen 400 Mg Tablet PO TID PRN pain 4-6 Levothyroxine Sodium 75 mcg 01/23/25 06:30 01/25/25 05:53 Levothyroxine Sodium 75 Mcg Tablet PO 75 mcg DAILY@0630 DARIEN Administration Memantine 10 mg 01/23/25 09:00 01/24/25 17:04 Memantine 10 Mg Tablet PO 10 mg BID DARIEN Administration Mirtazapine 15 mg 01/22/25 23:55 01/24/25 20:28 Mirtazapine 15 Mg Tablet PO 15 mg HS DARIEN Administration Brexpiprazole [ 2 mg 01/24/25 09:00 01/24/25 12:08 Rexulti] 2 Mg Tablet PO 02/23/25 08:59 2 mg Home Med DAILY DARIEN Administration Valbenazine [ 40 mg 01/24/25 21:00 01/24/25 20:28 Ingrezza] 40 Mg PO 02/23/25 20:59 40 mg Capsule Home Med HS DARIEN Administration Ondansetron HCl 4 mg 01/22/25 16:31 Ondansetron Inj 4 Mg/2 Ml Vial IV PUSH Q4H PRN Nausea Pantoprazole Sodium 40 mg 01/23/25 09:00 01/24/25 08:33 Pantoprazole 40 Mg Tablet PO 40 mg QAM DARIEN Administration Rosuvastatin Calcium 20 mg 01/23/25 09:00 01/24/25 08:33 Rosuvastatin 20 Mg Tablet PO 20 mg DAILY DARIEN Administration Sertraline HCl 50 mg 01/23/25 09:00 01/24/25 08:33 Sertraline Hcl 50 Mg Tablet PO 50 mg DAILY DARIEN Administration Vitamin D 25 mcg 01/23/25 09:00 01/24/25 08:33 Cholecalciferol (Vitamin D3) 25 Mcg (1,000 Units) Tablet PO 25 mcg DAILY DARIEN Administration <Lore Motta, [employer] - Last Filed: 01/25/25 15:37> Radiology Results: ITS Impressions Chest X-Ray 01/22/25 12:33 IMPRESSION: No acute cardiopulmonary pathology. Head CT 01/22/25 14:41 IMPRESSION: No acute intracranial findings. Brain MRI 01/23/25 13:12 IMPRESSION: No acute abnormality. Stable small meningioma, as above. <Lore Motta, V[employer] - Last Filed: 01/25/25 15:37> Labs Labs: Laboratory Results - last 24 hr 01/25/25 05:28 WBC 7.2 RBC 4.22 L Hgb 12.9 L Hct 39.5 L MCV 93.6 MCH 30.6 MCHC 32.7 RDW 13.1 Plt Count 157 MPV 11.3 H Sodium 139 Potassium 3.7 Chloride 104 Carbon Dioxide 28 Anion Gap 7 BUN 16 Creatinine 0.85 Estim Creat Clear Calc 70 Estimated GFR > 60 Glucose 96 Calcium 9.0 Total Bilirubin 0.8 AST 26 ALT 16 Alkaline Phosphatase 59 Total Protein 6.7 Albumin 3.9 <Lore Motta APRN - Last Filed: 01/25/25 15:37> Quality VTE Prophylaxis VTE prophylaxis: mechanical ordered <Lore Motta APRN - Last Filed: 01/25/25 15:37>
[2025-01-25] MEDS: BREXPIPRAZOLE 2 MG 2 EACH PO (08:33)
[2025-01-25] MEDS: DOCUSATE SODIUM 100 MG CAPSULE PO ×2 (08:35→17:45)
[2025-01-25] MEDS: PANTOPRAZOLE 40 MG TABLET PO (08:35)
[2025-01-25] MEDS: CHOLECALCIFEROL (VITAMIN D3) 25 MCG (1,000 UNITS) TABLET PO (08:36)
[2025-01-25] MEDS: MEMANTINE 10 MG TABLET PO ×2 (08:36→17:44)
[2025-01-25] MEDS: ROSUVASTATIN 20 MG TABLET PO (08:36)
[2025-01-25] MEDS: CARBIDOPA/LEVODOPA 12.5/50 MG TABLET 1 TABLET PO ×2 (08:36→17:45)
[2025-01-25] MEDS: EZETIMIBE 10 MG TABLET PO (08:36)
[2025-01-25] MEDS: SERTRALINE HCL 50 MG TABLET PO (08:36)
[2025-01-25 12:19] VITALS: O2SAT 100
[2025-01-25 16:10] VITALS: BP 98/68; PULSE 50; RESP 16; TEMP 36.2; O2SAT 100
[2025-01-25] MEDS: MIRTAZAPINE 15 MG TABLET PO (20:28)
[2025-01-25] MEDS: VALBENAZINE 40 MG 40 EACH PO (20:29)
[2025-01-25 20:30] VITALS: PULSE 50; RESP 16; O2SAT 100
[2025-01-25 21:34] VITALS: BP 90/54; PULSE 62; RESP 16; TEMP 36.5; O2SAT 97
[2025-01-25 22:18] VITALS: PULSE 83; RESP 11; O2SAT 97
[2025-01-26] VITALS (7 sets, daily range): BP systolic 100–128; BP diastolic 62–70; PULSE 51–77; RESP 12–18; TEMP 36.1–36.4; O2SAT 97–99
[2025-01-26 05:04] LABS: Hematocrit 37.8 % (42.0-52.0); Hemoglobin 12.7 g/dL (14.0-18.0); Mean Corpuscular HGB Conc 33.6 g/dl (32-36); Mean Corpuscular Hemoglobin 30.8 pg (26-34); Mean Corpuscular Volume 91.7 fl (80-100); Platelet Count Result 162 k/mm3 (150-375); Red Blood Count 4.12 M/mm3 (4.6-6.20); White Blood Count 6.3 K/mm3 (4.5-10.0)
[2025-01-26 05:26] LABS: Alanine Aminotransferase 22 U/L (6-50); Albumin Level 3.7 g/dL (3.5-5.1); Alkaline Phosphatase 57 U/L (38-126); Anion Gap 8 mmol/L (4-12); Aspartate Amino Transferase 32 U/L (17-59); Bilirubin,Total 0.5 mg/dL (0.2-1.3); Blood Urea Nitrogen 16 mg/dL (9-20); Calcium 8.8 mg/dL (8.4-10.2); Carbon Dioxide 25 mmol/L (22-30); Chloride 107 mmol/L (98-107); Estimated CRCL calculation 78 ml/min; Estimated Glomerular Filt Rate > 60; Glucose 106 mg/dL (65-110); Potassium 3.8 mmol/L (3.4-5.0); Sodium 140 mmol/L (137-145); Total Protein 6.5 g/dL (6.3-8.2)
[2025-01-26] MEDS: LEVOTHYROXINE SODIUM 75 MCG TABLET PO (06:21)
--- NOTE | 2025-01-26 07:15 | P.PNIM_ITS ---
Progress Note: A&P Assessment and Plan (1) Generalized weakness: Code(s): R53.1 - Weakness <Lore Motta APRN - Last Filed: 01/26/25 15:12> Status: Acute <Lore Motta APRN - Last Filed: 01/26/25 15:12> Assessment and Plan: - UA, CXR, head CT, viral PCR, and chemistry were virtually unremarkable - patient has complex neurological history including essential tremor, dementia, and Parkinson's. Per neurology's most recent note from yesterday on 01/21, the patient's physical condition has continued to deteriorate although he is mentally stable. General plan to continue his Namenda and add Sinemet. - no specific etiology discovered during initial workup for patient's generalized weakness, high suspicion for progression of patient's Parkinson's as etiology for his new weakness. However will obtain MRI to rule out CVA. Neurology has been consulted. - PT/OT evaluation treatment for discharge planning 01/24: - Brain MRI: No acute abnormality. Stable, small anterior meningioma (13mm). - PT: 01/23 - Limited due to balance and safety concerns. Recommending AIR v SNF upon discharge. Recommending PT for gait, strengthening, endurance, & safety education. 01/24 - improved participation. competed bed mobility, transfer, &short distance gait with moderate assistance. able to advance step sequency but requires cues for posture during transfer & gait. - OT: 01/24: benefits from skilled OT to maximize functional safety & independence with ADLs & functional transfers - Neurology consulted and recommended EEG, continued PT, and rehab placement upon discharge. 01/25: - continue PT/OT - EEG pending - neurology unavailable today <Lore Motta APRN - Last Filed: 01/26/25 15:12> - UA, CXR, head CT, viral PCR, and chemistry were virtually unremarkable - patient has complex neurological history including essential tremor, dementia, and Parkinson's. Per neurology's most recent note from yesterday on 01/21, the patient's physical condition has continued to deteriorate although he is mentally stable. General plan to continue his Namenda and add Sinemet. - no specific etiology discovered during initial workup for patient's generalized weakness, high suspicion for progression of patient's Parkinson's as etiology for his new weakness. However will obtain MRI to rule out CVA. Neurology has been consulted. - PT/OT evaluation treatment for discharge planning 01/24: - Brain MRI: No acute abnormality. Stable, small anterior meningioma (13mm). - PT: 01/23 - Limited due to balance and safety concerns. Recommending AIR v SNF upon discharge. Recommending PT for gait, strengthening, endurance, & safety education. 01/24 - improved participation. competed bed mobility, transfer, &short distance gait with moderate assistance. able to advance step sequency but requires cues for posture during transfer & gait. - OT: 01/24: benefits from skilled OT to maximize functional safety & independence with ADLs & functional transfers - Neurology consulted and recommended EEG, continued PT, and rehab placement upon discharge. 01/25: - continue PT/OT - EEG pending - neurology unavailable today 01/26/25: - PT on 01/25: demonstrates improved bed mobility and sitting balance today. Continues to require moderate assistance for transfers and short distance gait. Continue PT services. - EEG still pending - Yesterday, patient experienced 1 episode of difficulty swallowing oral medication. Bedside swallow evaluation completed and unremarkable. Recommended pt receive an oral diet of regular solids (IDDSI Level 7) and thin liquids (IDDSI Level 1). It is additionally recommended that the pt follow these standard swallowing precautions: Small bites/sips, slow down the pace of oral intake, and sit upright during meals. No further ST is warranted at this time. 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 - neurology is consulted-awaiting recommendation 01/24 - Neurology consult recommendation: EEG and continue to work with physical therapy. Start him on Sinemet 25/101 tablet 3 times a day. It should be observed for some time and possibly unless we find any other etiology for the change on the systemic review, 2-3 weeks of rehab may be beneficial. 01/25 - EEG pending - care coordination working on rehab placement 01/26 now on sinemet 25/100 mg bid- tolerating it well <Lore Motta CERTIFIED ETHICAL HACKER - Last Filed: 01/26/25 15:12> (3) CARIE (obstructive sleep apnea): Code(s): G47.33 - Obstructive sleep apnea (adult) (pediatric) <Lore reyes CERTIFIED ETHICAL HACKER - Last Filed: 01/26/25 15:12> Status: Acute <Lore AashishJalen Motta CERTIFIED ETHICAL HACKER - Last Filed: 01/26/25 15:12> Assessment and Plan: - has not used a CPAP in the last year <Lore AashishJalen Kalia CERTIFIED ETHICAL HACKER - Last Filed: 01/26/25 15:12> Assessment and Plan: Diet: Regular GI Prophylaxis: Not currently indicated DVT Prophylaxis: SCDs IV fluids: 1L bolus -> 125 mL/hr x1L Lines/Tubes: Peripheral IV Code Status: Full code rt leg is somewhat painful per report. is requesting ultrasound to r/u DVT. ordered. <Lorelaila Motta CERTIFIED ETHICAL HACKER - Last Filed: 01/26/25 15:12> Time Spent With Patient Time with patient: 25 - 35 minutes <Lore Motta, CERTIFIED ETHICAL HACKER - Last Filed: 01/26/25 15:12> Subjective Date/time seen: 01/26/25 07:15 <Lore Motta CERTIFIED ETHICAL HACKER - Last Filed: 01/26/25 15:12> Interval history: 70 y/o M with PMH of Parkinson's, dementia, essential tremor, CARIE, hypertension, hyperlipidemia presents here with generalized weakness. The patient presents here from home via EMS for further evaluation of generalized weakness. He reports onset of generalized weakness starting today, 01/22. He reports that was 1st noted when he cannot get out of bed today due to the extreme weakness. Per patient and his he is normally ambulatory without assistance. The patient denies accompanying focal weakness, focal numbness, nausea, vomiting, diarrhea, fever, chills, chest pain, shortness of breath, or cough. Weakness if accompanied by bilateral burning in his lower extremities. Reviewed neurology's most recent note from yesterday, 01/21. The patient walks at baseline with a walker and is now requiring complex care for majority of his needs. clarified that the patient has a walker but for the most part does not use it. Initial VS at presentation: 98.2? F, HR 50, R 12, 97/80, and 97% on RA. ED workup showed: No leukocytosis, hemoglobin 13.0, no significant electrolyte derangements, renal function within normal limits, initial troponin negative, UA showed trace ketones, viral PCR negative. CXR showed no acute cardiopulmonary pathology. Head CT showed no acute intracranial findings. 01/23: Pt is seen and examined. PT/OT ordered. He is resting in bed, at the bedside. PT is alert to self, thinks it is 2007 and knows he is in the hospital. Denies pain. 01/24: Upright in chair upon exam today. Pt alert to self, still thinks its 2007, knows he is in hospital. Denies pain and shortness of breath. greater par ticipation with PT today. 01/25: Appears more alert today. Still A&O x1 (self), but more alert, aware of hospital as location. Tremors appear less today on exam. Denies chest pain, SOB, abdominal pain. 01/26: in bed, resting with eyes closed. Per , pt rt leg is pailful, especially when moved. no erythema, no swelling noted. Bedside swallow completed per speech and pt did well. NO acute events overnight, pt working with PT/OT <Lore Motta, CERTIFIED ETHICAL HACKER - Last Filed: 01/26/25 15:12> 70 y/o M with PMH of Parkinson's, dementia, essential tremor, CARIE, hypertension, hyperlipidemia presents here with generalized weakness. The patient presents here from home via EMS for further evaluation of generalized weakness. He reports onset of generalized weakness starting today, 01/22. He reports that was 1st noted when he cannot get out of bed today due to the extreme weakness. Per patient and his he is normally ambulatory without assistance. The patient denies accompanying focal weakness, focal numbness, nausea, vomiting, diarrhea, fever, chills, chest pain, shortness of breath, or cough. Weakness if accompanied by bilateral burning in his lower extremities. Reviewed neurology's most recent note from yesterday, 01/21. The patient walks at baseline with a walker and is now requiring complex care for majority of his needs. clarified that the patient has a walker but for the most part does not use it. Initial VS at presentation: 98.2? F, HR 50, R 12, 97/80, and 97% on RA. ED workup showed: No leukocytosis, hemoglobin 13.0, no significant electrolyte derangements, renal function within normal limits, initial troponin negative, UA showed trace ketones, viral PCR negative. CXR showed no acute cardiopulmonary pathology. Head CT showed no acute intracranial findings. 01/23: Pt is seen and examined. PT/OT ordered. He is resting in bed, at the bedside. PT is alert to self, thinks it is 2007 and knows he is in the hospital. Denies pain. 01/24: Upright in chair upon exam today. Pt alert to self, still thinks its 2007, knows he is in hospital. Denies pain and shortness of breath. greater participation with PT today. 01/25: Appears more alert today. Still A&O x1 (self), but more alert, aware of hospital as location. Tremors appear less today on exam. Denies chest pain, SOB, abdominal pain. 01/26: <Herbert Rea, Student - Last Filed: 01/26/25 15:12> Review of Systems Review of Systems: All systems reviewed & are unremarkable except as noted in HPI and below <Lore Motta CERTIFIED ETHICAL HACKER - Last Filed: 01/26/25 15:12> Exam Const: General: comfortable and no acute distress <Lore Motta APRN - Last Filed: 01/26/25 15:12> Other: , male, elderly, nontoxic appearance <Lore Motta APRN - Last Filed: 01/26/25 15:12> HENMT: Face/Nose/Sinus: Normal nares present <Lore Motta APRN - Last Filed: 01/26/25 15:12> Mouth: Yes moist mucous membranes <Lore Motta CERTIFIED ETHICAL HACKER - Last Filed: 01/26/25 15:12> Eyes: General: appearance normal, both eyes and all related structures <Lore Motta CERTIFIED ETHICAL HACKER - Last Filed: 01/26/25 15:12> Sclera: sclerae normal <Lore Motta CERTIFIED ETHICAL HACKER - Last Filed: 01/26/25 15:12> Pupils: Equal, round and reactive pupils present <Lore Motta APRN - Last Filed: 01/26/25 15:12> EOM: EOMs intact bilaterally <Lore Motta CERTIFIED ETHICAL HACKER - Last Filed: 01/26/25 15:12> Resp: Effort & Inspection: normal respiratory effort <Lore Motta APRN - Last Filed: 01/26/25 15:12> Auscultation: clear to auscultation bilaterally <Lore Coles Kalia CERTIFIED ETHICAL HACKER - Last Filed: 01/26/25 15:12> Cardio: Rate: regular rate <Lorelaila Coles Kalia CERTIFIED ETHICAL HACKER - Last Filed: 01/26/25 15:12> Rhythm: regular rhythm <Lore Motta CERTIFIED ETHICAL HACKER - Last Filed: 01/26/25 15:12> Other: S1-S2 present without murmur, rub, ectopy <Lore Coles Kalia CERTIFIED ETHICAL HACKER - Last Filed: 01/26/25 15:12> GI: Other: Abdomen soft, nondistended, nontender. Normoactive bowel sounds in all quadrants. <Lore Motta CERTIFIED ETHICAL HACKER - Last Filed: 01/26/25 15:12> Skin: General skin exam: normal color and no rashes or lesions noted <Lore Motta CERTIFIED ETHICAL HACKER - Last Filed: 01/26/25 15:12> Wounds: no wounds <Lorelaila Coles Kalia CERTIFIED ETHICAL HACKER - Last Filed: 01/26/25 15:12> Neuro: Cranial nerves: Yes Equal, round and reactive pupils present <Lore Motta CERTIFIED ETHICAL HACKER - Last Filed: 01/26/25 15:12> Speech: normal speech <Lore Coles Kalia CERTIFIED ETHICAL HACKER - Last Filed: 01/26/25 15:12> Sensory Exam: normal sensation <Lore Motta CERTIFIED ETHICAL HACKER - Last Filed: 01/26/25 15:12> Other: Moderate to severe weakness in all extremities, symmetric. A&O x4. <Lore Coles Kalia CERTIFIED ETHICAL HACKER - Last Filed: 01/26/25 15:12> Extrem: General: normal to inspection <Lore Motta CERTIFIED ETHICAL HACKER - Last Filed: 01/26/25 15:12> Psych: Mental Status: mental status grossly normal <Lore Motta CERTIFIED ETHICAL HACKER - Last Filed: 01/26/25 15:12> Affect: normal affect <Lore Motta CERTIFIED ETHICAL HACKER - Last Filed: 01/26/25 15:12> Other: Good insight and judgment, pleasant <Lore T. Kalia, CERTIFIED ETHICAL HACKER - Last Filed: 01/26/25 15:12> Objective Data Vital Signs Vital Signs: Vital Signs - 24 hr 01/25/25 08:35 01/25/25 12:19 01/25/25 16:10 Temperature 97.2 F L Pulse Rate 50 L Respiratory Rate 16 Blood Pressure 98/68 L Pulse Oximetry 100 100 Oxygen Delivery Room Air Room Air 01/25/25 20:30 01/25/25 21:34 01/25/25 22:18 Temperature 97.7 F Pulse Rate 50 L 62 83 Respiratory Rate 16 16 11 L Blood Pressure 90/54 L Pulse Oximetry 100 97 97 Oxygen Delivery Room Air Autopap 01/26/25 04:01 01/26/25 06:00 Temperature 97.6 F Pulse Rate 77 60 Respiratory Rate 16 14 Blood Pressure 128/70 Pulse Oximetry 97 97 Oxygen Delivery Autopap <Lore Motta, CERTIFIED ETHICAL HACKER - Last Filed: 01/26/25 15:12> Intake/Output Intake/Output: Intake & Output 01/23/25 01/24/25 01/25/25 01/26/25 23:59 23:59 23:59 23:59 Intake Total 6710 478 5467 300 Output Total 1800 Balance -776 206 8522 300 <Lore Motta, CERTIFIED ETHICAL HACKER - Last Filed: 01/26/25 15:12> Meds/Results Medications: Active Medications Generic Name Dose Route Start Last Admin Trade Name Freq PRN Reason Stop Dose Admin Acetaminophen 650 mg 01/22/25 16:31 01/24/25 14:35 Acetaminophen 325 Mg Tablet PO 650 mg Q4H PRN Administration Mild Pain (1-3) or Fever Carbidopa/Levodopa 1 tablet 01/29/25 09:00 Carbidopa/Levodopa 25/100 Mg Tablet PO TID DARIEN Carbidopa/Levodopa 1 tablet 01/26/25 09:00 Carbidopa/Levodopa 25/100 Mg Tablet PO 01/28/25 17:01 BID DARIEN Docusate Sodium 100 mg 01/23/25 09:00 01/25/25 17:45 Docusate Sodium 100 Mg Capsule PO 100 mg BID DARIEN Administration Ezetimibe 10 mg 01/23/25 09:00 01/25/25 08:36 Ezetimibe 10 Mg Tablet PO 10 mg DAILY DARIEN Administration Ibuprofen 800 mg 01/22/25 22:02 Ibuprofen 400 Mg Tablet PO TID PRN pain 4-6 Levothyroxine Sodium 75 mcg 01/23/25 06:30 01/26/25 06:21 Levothyroxine Sodium 75 Mcg Tablet PO 75 mcg DAILY@0630 DARIEN Administration Memantine 10 mg 01/23/25 09:00 01/25/25 17:44 Memantine 10 Mg Tablet PO 10 mg BID DARIEN Administration Mirtazapine 15 mg 01/22/25 23:55 01/25/25 20:28 Mirtazapine 15 Mg Tablet PO 15 mg HS DARIEN Administration Brexpiprazole [ 2 mg 01/24/25 09:00 01/25/25 08:33 Rexulti] 2 Mg Tablet PO 02/23/25 08:59 2 mg Home Med DAILY DARIEN Administration Valbenazine [ 40 mg 01/24/25 21:00 01/25/25 20:29 Ingrezza] 40 Mg PO 02/23/25 20:59 40 mg Capsule Home Med HS DARIEN Administration Ondansetron HCl 4 mg 01/22/25 16:31 Ondansetron Inj 4 Mg/2 Ml Vial IV PUSH Q4H PRN Nausea Pantoprazole Sodium 40 mg 01/23/25 09:00 01/25/25 08:35 Pantoprazole 40 Mg Tablet PO 40 mg QAM DARIEN Administration Rosuvastatin Calcium 20 mg 01/23/25 09:00 01/25/25 08:36 Rosuvastatin 20 Mg Tablet PO 20 mg DAILY DARIEN Administration Sertraline HCl 50 mg 01/23/25 09:00 01/25/25 08:36 Sertraline Hcl 50 Mg Tablet PO 50 mg DAILY DARIEN Administration Vitamin D 25 mcg 01/23/25 09:00 01/25/25 08:36 Cholecalciferol (Vitamin D3) 25 Mcg (1,000 Units) Tablet PO 25 mcg DAILY DARIEN Administration <Lore Motta, CERTIFIED ETHICAL HACKER - Last Filed: 01/26/25 15:12> Radiology Results: ITS Impressions Chest X-Ray 01/22/25 12:33 IMPRESSION: No acute cardiopulmonary pathology. Head CT 01/22/25 14:41 IMPRESSION: No acute intracranial findings. Brain MRI 01/23/25 13:12 IMPRESSION: No acute abnormality. Stable small meningioma, as above. <Lore Motta APRN - Last Filed: 01/26/25 15:12> Labs Labs: Laboratory Results - last 24 hr 01/26/25 04:51 WBC 6.3 RBC 4.12 L Hgb 12.7 L Hct 37.8 L MCV 91.7 MCH 30.8 MCHC 33.6 RDW 13.0 Plt Count 162 MPV 11.8 H Sodium 140 Potassium 3.8 Chloride 107 Carbon Dioxide 25 Anion Gap 8 BUN 16 Creatinine 0.75 Estim Creat Clear Calc 78 Estimated GFR > 60 Glucose 106 Calcium 8.8 Total Bilirubin 0.5 AST 32 ALT 22 Alkaline Phosphatase 57 Total Protein 6.5 Albumin 3.7 <Lore Motta APRN - Last Filed: 01/26/25 15:12> Quality VTE Prophylaxis VTE prophylaxis: mechanical ordered <Lore Motta APRN - Last Filed: 01/26/25 15:12>
[2025-01-26] MEDS: PANTOPRAZOLE 40 MG TABLET PO (08:55)
[2025-01-26] MEDS: MEMANTINE 10 MG TABLET PO ×2 (08:55→17:20)
[2025-01-26] MEDS: SERTRALINE HCL 50 MG TABLET PO (08:55)
[2025-01-26] MEDS: EZETIMIBE 10 MG TABLET PO (08:55)
[2025-01-26] MEDS: DOCUSATE SODIUM 100 MG CAPSULE PO ×2 (08:55→17:20)
[2025-01-26] MEDS: CARBIDOPA/LEVODOPA 25/100 MG TABLET 1 TABLET PO ×2 (08:56→17:19)
[2025-01-26] MEDS: ROSUVASTATIN 20 MG TABLET PO (08:56)
[2025-01-26] MEDS: CHOLECALCIFEROL (VITAMIN D3) 25 MCG (1,000 UNITS) TABLET PO (08:56)
[2025-01-26] MEDS: BREXPIPRAZOLE 2 MG 2 EACH PO (08:56)
--- NOTE | 2025-01-26 11:34 | PCSTNOTE ---
Please refer to the Bedside Swallow Evaluation in the EMR. Please note, silent aspiration cannot be ruled out at bedside. This 70 year old male patient was seen for a bedside swallow evaluation (BSE) to ensure safety during oral intake. The patient was admitted to [facility] on 01/22 due to weakness. The patient has a PMH significant for Parkinson's Disease and Dementia. An oral motor exam was completed. The pt demonstrates appropriate range of mobility and strength for oral intake. The pt has full upper dentures and partial lower dentures that were worn during the BSE. The pt exhibits a weak vocal quality. The pt verbalized that he occasionally has trouble swallowing because he eats too fast. Trials of thin liquid, puree, mixed, and solid consistencies were completed via straw, spoon, and hand. Throughout all trials of different consistencies, the pt demonstrated no s/s of aspiration. The pt?s vocal quality remained clear, but weak, after all trials and the pt did not cough/throat clear. Oral transit was timely. No oral residue observed. Laryngeal elevation was adequate and timely for all swallows. Please note that silent aspiration cannot be ruled out at bedside. Given the results of this assessment, it is recommended this pt receive an oral diet of regular solids (IDDSI Level 7) and thin liquids (IDDSI Level 1). It is additionally recommended that the pt follow these standard swallowing precautions: Small bites/sips, slow down the pace of oral intake, and sit upright during meals. No further ST is warranted at this time. Dr. Torrez and JOSEFINA Wolff were notified of BSE results and recommendations. Thank you for this referral.
[2025-01-26] MEDS: MIRTAZAPINE 15 MG TABLET PO (20:16)
[2025-01-26] MEDS: VALBENAZINE 40 MG 40 EACH PO (20:17)
[2025-01-27 04:58] LABS: Hematocrit 42.8 % (42.0-52.0); Hemoglobin 13.6 g/dL (14.0-18.0); Mean Corpuscular HGB Conc 31.8 g/dl (32-36); Mean Corpuscular Hemoglobin 30.8 pg (26-34); Mean Corpuscular Volume 96.8 fl (80-100); Platelet Count Result 165 k/mm3 (150-375); Red Blood Count 4.42 M/mm3 (4.6-6.20); White Blood Count 6.5 K/mm3 (4.5-10.0)
[2025-01-27 05:30] VITALS: BP 107/74; PULSE 84; RESP 18; TEMP 36.1; O2SAT 95
[2025-01-27 05:36] LABS: Alanine Aminotransferase 19 U/L (6-50); Albumin Level 3.8 g/dL (3.5-5.1); Alkaline Phosphatase 58 U/L (38-126); Anion Gap 11 mmol/L (4-12); Aspartate Amino Transferase 33 U/L (17-59); Bilirubin,Total 0.6 mg/dL (0.2-1.3); Blood Urea Nitrogen 17 mg/dL (9-20); Calcium 9.3 mg/dL (8.4-10.2); Carbon Dioxide 22 mmol/L (22-30); Chloride 106 mmol/L (98-107); Estimated CRCL calculation 79 ml/min; Estimated Glomerular Filt Rate > 60; Glucose 88 mg/dL (65-110); Potassium 4.2 mmol/L (3.4-5.0); Sodium 139 mmol/L (137-145); Total Protein 6.3 g/dL (6.3-8.2)
[2025-01-27] MEDS: LEVOTHYROXINE SODIUM 75 MCG TABLET PO (06:14)
--- NOTE | 2025-01-27 07:42 | P.PNIM_ITS ---
Progress Note: A&P Assessment and Plan (1) Generalized weakness: Code(s): R53.1 - Weakness <Lore Motta, [employer] - Last Filed: 01/27/25 12:20> Status: Acute <Lore Motta [employer] - Last Filed: 01/27/25 12:20> Assessment and Plan: - UA, CXR, head CT, viral PCR, and chemistry were virtually unremarkable - patient has complex neurological history including essential tremor, dementia, and Parkinson's. Per neurology's most recent note from yesterday on 01/21, the patient's physical condition has continued to deteriorate although he is mentally stable. General plan to continue his Namenda and add Sinemet. - no specific etiology discovered during initial workup for patient's generalized weakness, high suspicion for progression of patient's Parkinson's as etiology for his new weakness. However will obtain MRI to rule out CVA. Neurology has been consulted. - PT/OT evaluation treatment for discharge planning 01/24: - Brain MRI: No acute abnormality. Stable, small anterior meningioma (13mm). - PT: 01/23 - Limited due to balance and safety concerns. Recommending AIR v SNF upon discharge. Recommending PT for gait, strengthening, endurance, & safety education. 01/24 - improved participation. competed bed mobility, transfer, &short distance gait with moderate assistance. able to advance step sequency but requires cues for posture during transfer & gait. - OT: 01/24: benefits from skilled OT to maximize functional safety & independence with ADLs & functional transfers - Neurology consulted and recommended EEG, continued PT, and rehab placement upon discharge. 01/25: - continue PT/OT - EEG pending - neurology unavailable today 01/26/25: - PT on 01/25: demonstrates improved bed mobility and sitting balance today. Continues to require moderate assistance for transfers and short distance gait. Continue PT services. - EEG still pending - Yesterday, patient experienced 1 episode of difficulty swallowing oral medication. Bedside swallow evaluation completed and unremarkable. Recommended pt receive an oral diet of regular solids (IDDSI Level 7) and thin liquids (IDDSI Level 1). It is additionally recommended that the pt follow these standar d swallowing precautions: Small bites/sips, slow down the pace of oral intake, and sit upright during meals. No further ST is warranted at this time. 01/27/25: - PT on 01/26: Improved bed mobility & sitting balance. Require modera assist for transfers and short distance gait. Continue PT. - EEG Planned for tomorrow - rt leg pain, on and off for a while - Doppler ultrasound neg for DVT- lidocaine patch ordered-continue working with PT/OT <Lore Motta APRN - Last Filed: 01/27/25 12:20> - UA, CXR, head CT, viral PCR, and chemistry were virtually unremarkable - patient has complex neurological history including essential tremor, dementia, and Parkinson's. Per neurology's most recent note from yesterday on 01/21, the patient's physical condition has continued to deteriorate although he is mentally stable. General plan to continue his Namenda and add Sinemet. - no specific etiology discovered during initial workup for patient's generalized weakness, high suspicion for progression of patient's Parkinson's as etiology for his new weakness. However will obtain MRI to rule out CVA. Neurology has been consulted. - PT/OT evaluation treatment for discharge planning 01/24: - Brain MRI: No acute abnormality. Stable, small anterior meningioma (13mm). - PT: 01/23 - Limited due to balance and safety concerns. Recommending AIR v SNF upon discharge. Recommending PT for gait, strengthening, endurance, & safety ed ucation. 01/24 - improved participation. competed bed mobility, transfer, &short distance gait with moderate assistance. able to advance step sequency but requires cues for posture during transfer & gait. - OT: 01/24: benefits from skilled OT to maximize functional safety & independence with ADLs & functional transfers - Neurology consulted and recommended EEG, continued PT, and rehab placement u gisela discharge. 01/25: - continue PT/OT - EEG pending - neurology unavailable today 01/26/25: - PT on 01/25: demonstrates improved bed mobility and sitting balance today. Continues to require moderate assistance for transfers and short distance gait. Continue PT services. - EEG still pending - Yesterday, patient experienced 1 episode of difficulty swallowing oral medication. Bedside swallow evaluation completed and unremarkable. Recommended pt receive an oral diet of regular solids (IDDSI Level 7) and thin liquids (IDDSI Level 1). It is additionally recommended that the pt follow these standard swallowing precautions: Small bites/sips, slow down the pace of oral intake, and sit upright during meals. No further ST is warranted at this time. 01/27/25: - PT on 01/26: Improved bed mobility & sitting balance. Require modera assist for transfers and short distance gait. Continue PT. 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 - neurology is consulted-awaiting recommendation 01/24 - Neurology consult recommendation: EEG and continue to work with physical therapy. Start him on Sinemet 25/101 tablet 3 times a day. It should be observed for some time and possibly unless we find any other etiology for the change on the systemic review, 2-3 weeks of rehab may be beneficial. 01/25 - EEG pending - care coordination working on rehab placement 01/26 now on sinemet 25/100 mg bid- tolerating it well <Lore Motta, [employer] - Last Filed: 01/27/25 12:20> - continue home medications: Namenda and start Sinemet dosing (Start with half a tablet twice a day for 3 days then 1 tablet twice a day for 3 days then 1 tablet 3 times a day to continue). - neurology is consulted-awaiting recommendation 01/24 - Neurology consult recommendation: EEG and continue to work with physical therapy. Start him on Sinemet 25/101 tablet 3 times a day. It should be observed for some time and possibly unless we find any other etiology for the change on the systemic review, 2-3 weeks of rehab may be beneficial. 01/25 - EEG pending - care coordination working on rehab placement 01/26 now on sinemet 25/100 mg bid- tolerating it well 01/27 sinemet 25/100 BID through 01/28. TID starting 01/29/25. <Leland Zapata - Last Filed: 01/27/25 12:12> (3) CRAIE (obstructive sleep apnea): Code(s): G47.33 - Obstructive sleep apnea (adult) (pediatric) <Lore Motta APRN - Last Filed: 01/27/25 12:20> Status: Acute <Lore Motta APRN - Last Filed: 01/27/25 12:20> Assessment and Plan: - has not used a CPAP in the last year <Lore Motta APRN - Last Filed: 01/27/25 12:20> Assessment and Plan: Diet: Regular GI Prophylaxis: Not currently indicated DVT Prophylaxis: SCDs IV fluids: 1L bolus -> 125 mL/hr x1L Lines/Tubes: Peripheral IV Code Status: Full code rt leg is somewhat painful per report. is requesting ultrasound to r/u DVT. ordered. <Lore Motta APRN - Last Filed: 01/27/25 12:20> Diet: Regular + supplementation (01/27) GI Prophylaxis: Not currently indicated DVT Prophylaxis: SCDs IV fluids: 1L bolus -> 125 mL/hr x1L Lines/Tubes: Peripheral IV Code Status: Full code rt leg is somewhat painful per report. is requesting ultrasound to r/u DVT. ordered. 01/27 - US negative for DVT. Right hip pain persist. Lidocaine patch ordered <Leland Zapata - Last Filed: 01/27/25 12:12> Time Spent With Patient Time with patient: 25 - 35 minutes <Lore Motta APRN - Last Filed: 01/27/25 12:20> Subjective Date/time seen: 01/27/25 07:42 <Lore Coles Kalia, [employer] - Last Filed: 01/27/25 12:20> Interval history: 70 y/o M with PMH of Parkinson's, dementia, essential tremor, CARIE, hypertension, hyperlipidemia presents here with generalized weakness. The patient presents here from home via EMS for further evaluation of generalized weakness. He reports onset of generalized weakness starting today, 01/22. He reports that was 1st noted when he cannot get out of bed today due to the extreme weakness. Per patient and his he is normally ambulatory without assistance. The patient denies accompanying focal weakness, focal numbness, nausea, vomiting, diarrhea, fever, chills, chest pain, shortness of breath, or cough. Weakness if accompanied by bilateral burning in his lower extremities. Reviewed neurology's most recent note from yesterday, 01/21. The patient walks at baseline with a walker and is now requiring complex care for majority of his needs. clarified that the patient has a walker but for the most part does not use it. Initial VS at presentation: 98.2? F, HR 50, R 12, 97/80, and 97% on RA. ED workup showed: No leukocytosis, hemoglobin 13.0, no significant electrolyte derangements, renal function within normal limits, initial troponin negative, UA showed trace ketones, viral PCR negative. CXR showed no acute cardiopulmonary pathology. Head CT showed no acute intracranial findings. 01/23: Pt is seen and examined. PT/OT ordered. He is resting in bed, at the bedside. PT is alert to self, thinks it is 2007 and knows he is in the hospital. Denies pain. 01/24: Upright in chair upon exam today. Pt alert to self, still thinks its 2008, knows he is in hospital. Denies pain and shortness of breath. greater participation with PT today. 01/25: Appears more alert today. Still A&O x1 (self), but more alert, aware of hospital as location. Tremors appear less today on exam. Denies chest pain, SOB, abdominal pain. 01/26: in bed, resting with eyes closed. Per , pt rt leg is pailful, especially when moved. no erythema, no swelling noted. Bedside swallow completed per speech and pt did well. NO acute events overnight, pt working with PT/OT <Lore Motta, [employer] - Last Filed: 01/27/25 12:20> 70 y/o M with PMH of Parkinson's, dementia, essential tremor, CARIE, hypertension, hyperlipidemia presents here with generalized weakness. The patient presents here from home via EMS for further evaluation of generalized weakness. He reports onset of generalized weakness starting today, 01/22. He reports that was 1st noted when he cannot get out of bed today due to the extreme weakness. Per patient and his he is normally ambulatory without assistance. The patient denies accompanying focal weakness, focal numbness, nausea, vomiting, diarrhea, fever, chills, chest pain, shortness of breath, or cough. Weakness if accompanied by bilateral burning in his lower extremities. Reviewed neurology's most recent note from yesterday, 01/21. The patient walks at baseline with a walker and is now requiring complex care for majority of his needs. clarified that the patient has a walker but for the most part does not use it. Initial VS at presentation: 98.2? F, HR 50, R 12, 97/80, and 97% on RA. ED workup showed: No leukocytosis, hemoglobin 13.0, no significant electrolyte derangements, renal function within normal limits, initial troponin negative, UA showed trace ketones, viral PCR negative. CXR showed no acute cardiopulmonary pathology. Head CT showed no acute intracranial findings. 01/23: Pt is seen and examined. PT/OT ordered. He is resting in bed, at the bedside. PT is alert to self, thinks it is 2007 and knows he is in the hospital. Denies pain. 01/24: Upright in chair upon exam today. Pt alert to self, still thinks its 2008, knows he is in hospital. Denies pain and shortness of breath. greater participation with PT today. 01/25: Appears more alert today. Still A&O x1 (self), but more alert, aware of hospital as location. Tremors appear less today on exam. Denies chest pain, SOB, abdominal pain. 01/26: in bed, resting with eyes closed. Per , pt rt leg is pailful, especially when moved. no erythema, no swelling noted. Bedside swallow completed per speech and pt did well. NO acute events overnight, pt working with PT/OT 01/27: in bed, A&O x2 (Self & Location) but not time (year). Can identify . RT leg pain unchanged, but no DVT. Pain radiates from foot to hip. History of hip pain. No erythema or edema noted. continues to work with PT/OT. Denies chest pain, abdominal pain, & dyspnea. <Herbert Rea, Student - Last Filed: 01/27/25 12:12> Review of Systems Review of Systems: All systems reviewed & are unremarkable except as noted in HPI and below <Lore Motta [employer] - Last Filed: 01/27/25 12:20> Exam Narrative: weak in all extremities but symmetric. mask-like. otherwise fine. <Lore Motta [employer] - Last Filed: 01/27/25 12:20> Const: General: comfortable and no acute distress <Lore Motta [employer] - Last Filed: 01/27/25 12:20> Other: , male, elderly, nontoxic appearance <Lore Motta APRN - Last Filed: 01/27/25 12:20> HENMT: Face/Nose/Sinus: Normal nares present <Lore Motta APRN - [address] Filed: 01/27/25 12:20> Mouth: Yes moist mucous membranes <Lore Motta APRN - Last Filed: 01/27/25 12:20> Eyes: General: appearance normal, both eyes and all related structures <Lore Motta APRN - Last Filed: 01/27/25 12:20> Sclera: sclerae normal <Lore Motta APRN - Last Filed: 01/27/25 12:20> Pupils: Equal, round and reactive pupils present <Lore Motta APRN - Last Filed: 01/27/25 12:20> EOM: EOMs intact bilaterally <Lore Motta APRN - Last Filed: 01/27/25 12:20> Resp: Effort & Inspection: normal respiratory effort <Lore Motta APRN - Last Filed: 01/27/25 12:20> Auscultation: clear to auscultation bilaterally <Lore Motta [employer] - Last Filed: 01/27/25 12:20> Cardio: Rate: regular rate <Lore Sanket Kalia [employer] - Last Filed: 01/27/25 12:20> Rhythm: regular rhythm <Lore AashishJalen Motta [employer] - Last Filed: 01/27/25 12:20> Other: S1-S2 present without murmur, rub, ectopy <Lore Sanket Kalia [employer] - Last Filed: 01/27/25 12:20> GI: Other: Abdomen soft, nondistended, nontender. Normoactive bowel sounds in all quadrants. <Lore Motta [employer] - Last Filed: 01/27/25 12:20> Skin: General skin exam: normal color and no rashes or lesions noted <Lore TJalen Kalia [employer] - Last Filed: 01/27/25 12:20> Wounds: no wounds <Lore Sanket Kalia [employer] - Last Filed: 01/27/25 12:20> Neuro: Cranial nerves: Yes Equal, round and reactive pupils present <Lore ZendejasJalen Kalia [employer] - Last Filed: 01/27/25 12:20> Speech: normal speech <Lore aSnket Kalia [employer] - Last Filed: 01/27/25 12:20> Sensory Exam: normal sensation <Lore ZendejasJalen Kalia [employer] - Last Filed: 01/27/25 12:20> Other: Moderate to severe weakness in all extremities, symmetric. A&O x4. <Lore Coles Kalia [employer] - Last Filed: 01/27/25 12:20> Extrem: General: normal to inspection <Lore Sanket Kalia [employer] - Last Filed: 01/27/25 12:20> Psych: Mental Status: mental status grossly normal <Lore Motta [employer] - Last Filed: 01/27/25 12:20> Affect: normal affect <Lore Coles Kalia [employer] - Last Filed: 01/27/25 12:20> Other: Good insight and judgment, pleasant <Lore Motta [employer] - Last Filed: 01/27/25 12:20> Objective Data Vital Signs Vital Signs: Vital Signs - 24 hr 01/26/25 08:45 01/26/25 15:09 01/26/25 16:37 Temperature 97.5 F L Pulse Rate 51 L Respiratory Rate 16 Blood Pressure 100/62 Pulse Oximetry 99 Oxygen Delivery Room Air 01/26/25 20:10 01/26/25 20:20 01/26/25 23:00 Temperature 97 F L Pulse Rate 60 60 Respiratory Rate 18 18 12 Blood Pressure 117/69 Pulse Oximetry 98 98 Oxygen Delivery Room Air CPAP 01/27/25 05:30 Temperature 97 F L Pulse Rate 84 Respiratory Rate 18 Blood Pressure 107/74 Pulse Oximetry 95 Oxygen Delivery <Lore Motta, [employer] - Last Filed: 01/27/25 12:20> Intake/Output Intake/Output: Intake & Output 01/24/25 01/25/25 01/26/25 01/27/25 23:59 23:59 23:59 23:59 Intake Total 750 1000 1020 100 Balance 750 1000 1020 100 <Lore Motta [employer] - Last Filed: 01/27/25 12:20> Meds/Results Medications: Active Medications Generic Name Dose Route Start Last Admin Trade Name Freq PRN Reason Stop Dose Admin Acetaminophen 650 mg 01/22/25 16:31 01/24/25 14:35 Acetaminophen 325 Mg Tablet PO 650 mg Q4H PRN Administration Mild Pain (1-3) or Fever Carbidopa/Levodopa 1 tablet 01/29/25 09:00 Carbidopa/Levodopa 25/100 Mg Tablet PO TID DARIEN Carbidopa/Levodopa 1 tablet 01/26/25 09:00 01/26/25 17:19 Carbidopa/Levodopa 25/100 Mg Tablet PO 01/28/25 17:01 1 tablet BID DARIEN Administration Docusate Sodium 100 mg 01/23/25 09:00 01/26/25 17:20 Docusate Sodium 100 Mg Capsule PO 100 mg BID DARIEN Administration Ezetimibe 10 mg 01/23/25 09:00 01/26/25 08:55 Ezetimibe 10 Mg Tablet PO 10 mg DAILY DARIEN Administration Ibuprofen 800 mg 01/22/25 22:02 Ibuprofen 400 Mg Tablet PO TID PRN pain 4-6 Levothyroxine Sodium 75 mcg 01/23/25 06:30 01/27/25 06:14 Levothyroxine Sodium 75 Mcg Tablet PO 75 mcg DAILY@0630 DARIEN Administration Memantine 10 mg 01/23/25 09:00 01/26/25 17:20 Memantine 10 Mg Tablet PO 10 mg BID DARIEN Administration Mirtazapine 15 mg 01/22/25 23:55 01/26/25 20:16 Mirtazapine 15 Mg Tablet PO 15 mg HS DARIEN Administration Brexpiprazole [ 2 mg 01/24/25 09:00 01/26/25 08:56 Rexulti] 2 Mg Tablet PO 02/23/25 08:59 2 mg Home Med DAILY DARIEN Administration Valbenazine [ 40 mg 01/24/25 21:00 01/26/25 20:17 Ingrezza] 40 Mg PO 02/23/25 20:59 40 mg Capsule Home Med HS DARIEN Administration Ondansetron HCl 4 mg 01/22/25 16:31 Ondansetron Inj 4 Mg/2 Ml Vial IV PUSH Q4H PRN Nausea Pantoprazole Sodium 40 mg 01/23/25 09:00 01/26/25 08:55 Pantoprazole 40 Mg Tablet PO 40 mg QAM DARIEN Administration Rosuvastatin Calcium 20 mg 01/23/25 09:00 01/26/25 08:56 Rosuvastatin 20 Mg Tablet PO 20 mg DAILY DARIEN Administration Sertraline HCl 50 mg 01/23/25 09:00 01/26/25 08:55 Sertraline Hcl 50 Mg Tablet PO 50 mg DAILY DARIEN Administration Vitamin D 25 mcg 01/23/25 09:00 01/26/25 08:56 Cholecalciferol (Vitamin D3) 25 Mcg (1,000 Units) Tablet PO 25 mcg DAILY DARIEN Administration <Lore Motta, [employer] - Last Filed: 01/27/25 12:20> Radiology Results: ITS Impressions Chest X-Ray 01/22/25 12:33 IMPRESSION: No acute cardiopulmonary pathology. Head CT 01/22/25 14:41 IMPRESSION: No acute intracranial findings. Brain MRI 01/23/25 13:12 IMPRESSION: No acute abnormality. Stable small meningioma, as above. Venous Doppler Study 01/26/25 18:09 Impression: No evidence of deep vein thrombosis involving either lower extremity. <Lore Motta, [employer] - Last Filed: 01/27/25 12:20> Labs Labs: Laboratory Results - last 24 hr 01/27/25 04:33 WBC 6.5 RBC 4.42 L Hgb 13.6 L Hct 42.8 MCV 96.8 D MCH 30.8 MCHC 31.8 L RDW 13.0 Plt Count 165 MPV 11.5 H Sodium 139 Potassium 4.2 Chloride 106 Carbon Dioxide 22 Anion Gap 11 BUN 17 Creatinine 0.74 Estim Creat Clear Calc 79 Estimated GFR > 60 Glucose 88 Calcium 9.3 Total Bilirubin 0.6 AST 33 ALT 19 Alkaline Phosphatase 58 Total Protein 6.3 Albumin 3.8 <Lore Motta APRN - Last Filed: 01/27/25 12:20> Quality VTE Prophylaxis VTE prophylaxis: mechanical ordered <Lore Motta APRN - Last Filed: 01/27/25 12:20>
[2025-01-27] MEDS: CARBIDOPA/LEVODOPA 25/100 MG TABLET 1 TABLET PO ×2 (09:09→18:01)
[2025-01-27] MEDS: DOCUSATE SODIUM 100 MG CAPSULE PO ×2 (09:09→18:00)
[2025-01-27] MEDS: EZETIMIBE 10 MG TABLET PO (09:09)
[2025-01-27] MEDS: ROSUVASTATIN 20 MG TABLET PO (09:10)
[2025-01-27] MEDS: SERTRALINE HCL 50 MG TABLET PO (09:10)
[2025-01-27] MEDS: MEMANTINE 10 MG TABLET PO ×2 (09:10→18:01)
[2025-01-27] MEDS: PANTOPRAZOLE 40 MG TABLET PO (09:10)
[2025-01-27] MEDS: BREXPIPRAZOLE 2 MG 2 EACH PO (09:10)
[2025-01-27] MEDS: CHOLECALCIFEROL (VITAMIN D3) 25 MCG (1,000 UNITS) TABLET PO (09:10)
--- NOTE | 2025-01-27 09:24 | WPDNEUROPN ---
Subjective Date/time seen: 01/27/25 09:24 Interval history: 70 years old admitted through the ER for the complaints of generalized weakness in addition to difficulties in getting out of the bed and moving around. Patient has ongoing diagnosis of Parkinson's with dementia but at this stage he has no generalized symptomatology. He was initially seen by Dr. Davis with the possibility of encephalopathy superimposed on dementia of the Alzheimer's type. Patient also has history of psychiatric problem and was suggested to be experiencing drug-induced Parkinson's disease but he was continued on Namenda 10mg twice a in addition he was started on carbidopa levodopa 25/100 3 times a day additional possibility of the metabolic encephalopathy was considered. Continues to have generalized weakness, was continued on carbidopa levodopa, at present he is receiving 25/101 tablet 3 times a day in addition to all his other medication particularly memantine 10mg twice a day, mirtazapine 15mg at HS, sertraline 50mg daily, Ingrezza 40mg daily, at present he is being investigated for the painful right lower extremity with ultrasound. His examination remains unchanged Objective Data Vital Signs Vital Signs: Vital Signs - 24 hr 01/26/25 15:09 01/26/25 16:37 01/26/25 20:10 Temperature 36.4 C L 36.1 C L Pulse Rate 51 L 60 Respiratory Rate 16 18 Blood Pressure 100/62 117/69 Pulse Oximetry 99 98 Oxygen Delivery 01/26/25 20:20 01/26/25 23:00 01/27/25 05:30 Temperature 36.1 C L Pulse Rate 60 84 Respiratory Rate 18 12 18 Blood Pressure 107/74 Pulse Oximetry 98 95 Oxygen Delivery Room Air CPAP Intake/Output Intake/Output: Intake & Output 01/24/25 01/25/25 01/26/25 01/27/25 23:59 23:59 23:59 23:59 Intake Total 750 1000 1020 100 Balance 750 1000 1020 100 Meds/Results Medications: Active Medications Generic Name Dose Route Start Last Admin Trade Name Freq PRN Reason Stop Dose Admin Acetaminophen 650 mg 01/22/25 16:31 01/24/25 14:35 Acetaminophen 325 Mg Tablet PO 650 mg Q4H PRN Administration Mild Pain (1-3) or Fever Carbidopa/Levodopa 1 tablet 01/29/25 09:00 Carbidopa/Levodopa 25/100 Mg Tablet PO TID [facility] [place] Carbidopa/Levodopa 1 tablet 01/26/25 09:00 01/27/25 09:09 Carbidopa/Levodopa 25/100 Mg Tablet PO 01/28/25 17:01 1 tablet BID DARIEN Administration Docusate Sodium 100 mg 01/23/25 09:00 01/27/25 09:09 Docusate Sodium 100 Mg Capsule PO 100 mg BID DARIEN Administration Ezetimibe 10 mg 01/23/25 09:00 01/27/25 09:09 Ezetimibe 10 Mg Tablet PO 10 mg DAILY DARIEN Administration Ibuprofen 800 mg 01/22/25 22:02 Ibuprofen 400 Mg Tablet PO TID PRN pain 4-6 Levothyroxine Sodium 75 mcg 01/23/25 06:30 01/27/25 06:14 Levothyroxine Sodium 75 Mcg Tablet PO 75 mcg DAILY@0630 DARIEN Administration Memantine 10 mg 01/23/25 09:00 01/27/25 09:10 Memantine 10 Mg Tablet PO 10 mg BID DARIEN Administration Mirtazapine 15 mg 01/22/25 23:55 01/26/25 20:16 Mirtazapine 15 Mg Tablet PO 15 mg HS DARIEN Administration Brexpiprazole [ 2 mg 01/24/25 09:00 01/27/25 09:10 Rexulti] 2 Mg Tablet PO 02/23/25 08:59 2 mg Home Med DAILY DARIEN Administration Valbenazine [ 40 mg 01/24/25 21:00 01/26/25 20:17 Ingrezza] 40 Mg PO 02/23/25 20:59 40 mg Capsule Home Med HS DARIEN Administration Ondansetron HCl 4 mg 01/22/25 16:31 Ondansetron Inj 4 Mg/2 Ml Vial IV PUSH Q4H PRN Nausea Pantoprazole Sodium 40 mg 01/23/25 09:00 01/27/25 09:10 Pantoprazole 40 Mg Tablet PO 40 mg QAM DARIEN Administration Rosuvastatin Calcium 20 mg 01/23/25 09:00 01/27/25 09:10 Rosuvastatin 20 Mg Tablet PO 20 mg DAILY DARIEN Administration Sertraline HCl 50 mg 01/23/25 09:00 01/27/25 09:10 Sertraline Hcl 50 Mg Tablet PO 50 mg DAILY DARIEN Administration Vitamin D 25 mcg 01/23/25 09:00 01/27/25 09:10 Cholecalciferol (Vitamin D3) 25 Mcg (1,000 Units) Tablet PO 25 mcg DAILY DARIEN Administration Radiology Results: ITS Impressions Chest X-Ray 01/22/25 12:33 IMPRESSION: No acute cardiopulmonary pathology. Head CT 01/22/25 14:41 IMPRESSION: No acute intracranial findings. Brain MRI 01/23/25 13:12 IMPRESSION: No acute abnormality. Stable small meningioma, as above. Venous Doppler Study 01/26/25 18:09 Impression: No evidence of deep vein thrombosis involving either lower extremity. Labs Labs: Laboratory Results - last 24 hr 01/27/25 04:33 WBC 6.5 RBC 4.42 L Hgb 13.6 L Hct 42.8 MCV 96.8 D MCH 30.8 MCHC 31.8 L RDW 13.0 Plt Count 165 MPV 11.5 H Sodium 139 Potassium 4.2 Chloride 106 Carbon Dioxide 22 Anion Gap 11 BUN 17 Creatinine 0.74 Estim Creat Clear Calc 79 Estimated GFR > 60 Glucose 88 Calcium 9.3 Total Bilirubin 0.6 AST 33 ALT 19 Alkaline Phosphatase 58 Total Protein 6.3 Albumin 3.8
[2025-01-27 14:00] VITALS: BP 96/64; PULSE 57; RESP 16; TEMP 36.3; O2SAT 98
[2025-01-27] MEDS: ACETAMINOPHEN 325 MG TABLET 650 MG PO (15:43)
[2025-01-27 19:58] VITALS: BP 100/63; PULSE 77; RESP 18; TEMP 36.1; O2SAT 93
[2025-01-27] MEDS: VALBENAZINE 40 MG 40 EACH PO (20:13)
[2025-01-27] MEDS: MIRTAZAPINE 15 MG TABLET PO (20:13)
[2025-01-27 20:49] VITALS: PULSE 51; RESP 18; O2SAT 96
[2025-01-27 20:51] VITALS: O2SAT 96
[2025-01-28 05:08] VITALS: BP 99/66; PULSE 93; RESP 16; TEMP 36.1; O2SAT 97
[2025-01-28 05:23] LABS: Hematocrit 38.8 % (42.0-52.0); Hemoglobin 12.6 g/dL (14.0-18.0); Mean Corpuscular HGB Conc 32.5 g/dl (32-36); Mean Corpuscular Hemoglobin 30.4 pg (26-34); Mean Corpuscular Volume 93.5 fl (80-100); Platelet Count Result 191 k/mm3 (150-375); Red Blood Count 4.15 M/mm3 (4.6-6.20); White Blood Count 5.3 K/mm3 (4.5-10.0)
[2025-01-28 05:56] LABS: Alanine Aminotransferase 16 U/L (6-50); Albumin Level 3.7 g/dL (3.5-5.1); Alkaline Phosphatase 62 U/L (38-126); Anion Gap 7 mmol/L (4-12); Aspartate Amino Transferase 34 U/L (17-59); Bilirubin,Total 0.4 mg/dL (0.2-1.3); Blood Urea Nitrogen 17 mg/dL (9-20); Calcium 9.0 mg/dL (8.4-10.2); Carbon Dioxide 28 mmol/L (22-30); Chloride 104 mmol/L (98-107); Estimated CRCL calculation 70 ml/min; Estimated Glomerular Filt Rate > 60; Glucose 90 mg/dL (65-110); Potassium 4.0 mmol/L (3.4-5.0); Sodium 139 mmol/L (137-145); Total Protein 6.3 g/dL (6.3-8.2)
[2025-01-28] MEDS: LEVOTHYROXINE SODIUM 75 MCG TABLET PO (06:24)
--- NOTE | 2025-01-28 07:17 | PM.DS ---
DS: Discharge Diagnosis Discharge Diagnosis (1) Generalized weakness: Code(s): R53.1 - Weakness Status: Acute Assessment and Plan: - UA, CXR, head CT, viral PCR, and chemistry were virtually unremarkable - patient has complex neurological history including essential tremor, dementia, and Parkinson's. Per neurology's most recent note from yesterday on 01/21, the patient's physical condition has continued to deteriorate although he is mentally stable. General plan to continue his Namenda and add Sinemet. - no specific etiology discovered during initial workup for patient's generalized weakness, high suspicion for progression of patient's Parkinson's as etiology for his new weakness. However will obtain MRI to rule out CVA. Neurology has been consulted. - PT/OT evaluation treatment for discharge planning 01/24: - Brain MRI: No acute abnormality. Stable, small anterior meningioma (13mm). - PT: 01/23 - Limited due to balance and safety concerns. Recommending AIR v SNF upon discharge. Recommending PT for gait, strengthening, endurance, & safety education. 01/24 - improved participation. competed bed mobility, transfer, &short distance gait with moderate assistance. able to advance step sequency but requires cues for posture during transfer & gait. - OT: 01/24: benefits from skilled OT to maximize functional safety & independence with ADLs & functional transfers - Neurology consulted and recommended EEG, continued PT, and rehab placement upon discharge. 01/25: - continue PT/OT - EEG pending - neurology unavailable today 01/26/25: - PT on 01/25: demonstrates improved bed mobility and sitting balance today. Continues to require moderate assistance for transfers and short distance gait. Continue PT services. - EEG still pending - Yesterday, patient experienced 1 episode of difficulty swallowing oral medication. Bedside swallow evaluation completed and unremarkable. Recommended pt receive an oral diet of regular solids (IDDSI Level 7) and thin liquids (IDDSI Level 1). It is additionally recommended that the pt follow these standard swallowing precautions: Small bites/sips, slow down the pace of oral intake, and sit upright during meals. No further ST is warranted at this time. 01/27/25: - PT on 01/26: Improved bed mobility & sitting balance. Require modera assist for transfers and short distance gait. Continue PT. - EEG Planned for tomorrow - rt leg pain, on and off for a while - Doppler ultrasound neg for DVT- lidocaine patch ordered-continue working with PT/OT (2) Drug-induced Parkinson's disease: Code(s): G21.19 - Other drug induced secondary parkinsonism Status: Acute Assessment and Plan: - continue home medications: Namenda and start Sinemet dosing (Start with half a tablet twice a day for 3 days then 1 tablet twice a day for 3 days then 1 tablet 3 times a day to continue). - neurology is consulted-awaiting recommendation 01/24 - Neurology consult recommendation: EEG and continue to work with physical therapy. Start him on Sinemet 25/101 tablet 3 times a day. It should be observed for some time and possibly unless we find any other etiology for the change on the systemic review, 2-3 weeks of rehab may be beneficial. 01/25 - EEG pending - care coordination working on rehab placement 01/26 now on sinemet 25/100 mg bid- tolerating it well 01/27 sinemet 25/100 BID through 01/28. TID starting 01/29/25. (3) CARIE (obstructive sleep apnea): Code(s): G47.33 - Obstructive sleep apnea (adult) (pediatric) Status: Acute Assessment and Plan: - has not used a CPAP in the last year Plan Diet: Regular + supplementation (01/27) GI Prophylaxis: Not currently indicated DVT Prophylaxis: SCDs IV fluids: 1L bolus -> 125 mL/hr x1L Lines/Tubes: Peripheral IV Code Status: Full code rt leg is somewhat painful per report. is requesting ultrasound to r/u DVT. ordered. 01/27 - US negative for DVT. Right hip pain persist. Lidocaine patch ordered DS: Summary Time Spent with Patient Time attestation: Total time spent providing and/or coordinating discharge services: Exam Narrative: weak in all extremities but symmetric. mask-like. otherwise fine. Const: General: comfortable and no acute distress Other: , male, elderly, nontoxic appearance HENMT: Face/Nose/Sinus: Normal nares present Mouth: Yes moist mucous membranes Eyes: General: appearance normal, both eyes and all related structures Sclera: sclerae normal Pupils: Equal, round and reactive pupils present EOM: EOMs intact bilaterally Resp: Effort & Inspection: normal respiratory effort Auscultation: clear to auscultation bilaterally Cardio: Rate: regular rate Rhythm: regular rhythm Other: S1-S2 present without murmur, rub, ectopy GI: Other: Abdomen soft, nondistended, nontender. Normoactive bowel sounds in all quadrants. Skin: General skin exam: normal color and no rashes or lesions noted Wounds: no wounds Neuro: Cranial nerves: Yes Equal, round and reactive pupils present Speech: normal speech Sensory Exam: normal sensation Other: Moderate to severe weakness in all extremities, symmetric. A&O x4. Extrem: General: normal to inspection Psych: Mental Status: mental status grossly normal Affect: normal affect Other: Good insight and judgment, pleasant DS: Data Data Completed and Pending Labs on day of discharge: Labs from last 24 hours 01/28/25 04:37 WBC 5.3 RBC 4.15 L Hgb 12.6 L Hct 38.8 L MCV 93.5 MCH 30.4 MCHC 32.5 RDW 12.9 Plt Count 191 MPV 11.6 H Sodium 139 Potassium 4.0 Chloride 104 Carbon Dioxide 28 Anion Gap 7 BUN 17 Creatinine 0.84 Estim Creat Clear Calc 70 Estimated GFR > 60 Glucose 90 Calcium 9.0 Total Bilirubin 0.4 AST 34 ALT 16 Alkaline Phosphatase 62 Total Protein 6.3 Albumin 3.7 Discharge Plan Discharge Consulting providers: Walker Gann Patient Language: Grenadian Discharge Medications: No Action ibuprofen 800 mg tablet 800 mg PO TID PRN (Reason: pain) Qty: 270 0RF Rexulti 2 mg tablet 2 mg PO DAILY sertraline [Zoloft] 25 mg tablet 50 mg PO DAILY ezetimibe [Zetia] 10 mg tablet 10 mg PO DAILY cholecalciferol (vitamin D3) 25 mcg (1,000 unit) capsule 25 mcg PO DAILY Ingrezza 40 mg capsule 40 mg PO .pm carbidopa-levodopa [Sinemet] 25-100 mg tablet 1 tablet PO TID Qty: 90 7RF Patient Comments: new medication just ordered Rx Instructions: Start with half a tablet twice a day for 3 days then 1 tablet twice a day for 3 days then 1 tablet 3 times a day to continue rosuvastatin 20 mg tablet 20 mg PO DAILY docusate sodium [Dulcolax Stool Softener (dss)] 100 mg capsule 100 mg PO BID mirtazapine [Remeron] 15 mg tablet 15 mg PO HS Rx Instructions: psych memantine 10 mg tablet 10 mg PO BID levothyroxine 75 mcg tablet 75 mcg PO DAILY Qty: 90 2RF omeprazole 20 mg capsule,delayed release(DR/EC) See Rx Instructions .ROUTE .COMPLEX Qty: 90 2RF Dose Instruction: TAKE 1 CAPSULE BY MOUTH DAILY Rx Instructions: TAKE 1 CAPSULE BY MOUTH DAILY Date of admission: 01/22/25 16:31 Primary Care Provider: Elan Gross Admitting Provider: Sofy Clark Attending physician on admission: Sofy Clark Condition: Stable Quality VTE Prophylaxis VTE prophylaxis: mechanical ordered
[2025-01-28 08:55] VITALS: BP 110/70; PULSE 57
[2025-01-28] MEDS: DOCUSATE SODIUM 100 MG CAPSULE PO ×2 (08:58→16:27)
[2025-01-28] MEDS: SERTRALINE HCL 50 MG TABLET PO (08:58)
[2025-01-28] MEDS: CARBIDOPA/LEVODOPA 25/100 MG TABLET 1 TABLET PO ×2 (08:58→16:27)
[2025-01-28] MEDS: CHOLECALCIFEROL (VITAMIN D3) 25 MCG (1,000 UNITS) TABLET PO (08:58)
[2025-01-28] MEDS: MEMANTINE 10 MG TABLET PO ×2 (08:58→16:27)
[2025-01-28] MEDS: ROSUVASTATIN 20 MG TABLET PO (08:58)
[2025-01-28] MEDS: EZETIMIBE 10 MG TABLET PO (08:59)
[2025-01-28] MEDS: BREXPIPRAZOLE 2 MG 2 EACH PO (08:59)
[2025-01-28] MEDS: PANTOPRAZOLE 40 MG TABLET PO (08:59)
--- NOTE | 2025-01-28 09:25 | WPDNEUROLOGY ---
Neurology EEG Report General Information Date of Study: 01/28/25 TEST EEG DIAGNOSIS Change in mental status. CONDITION OF RECORDING Patient slept throughout the tracing. EEG NUMBER [id number] CLINICAL HISTORY EEG has been requested because of the change in the mental. Patient slept throughout the tracing. EEG DESCRIPTION Low-voltage 15 to 18 hertz per 2nd beta activity seen admixed with low to medium voltage 6 to 7 hertz per 2nd theta activity during drowsiness. Bilateral symmetrical sleep activity is noted with symmetrical spindles and 3 to 4 hertz per 2nd low to medium voltage 3 to 4 hertz per 2nd delta Activity. Photic stimulation not done. Hyperventilation not done. Non paroxysmal. Nonfocal. Nonlateralizing. IMPRESSION No abnormalities noted in this tracing which mainly comprised of sleep. Clinical correlation recommended. There is no evidence of paroxysmal activity or focal slow activity.
--- NOTE | 2025-01-28 14:09 | WPDNEUROPN ---
Progress Note: A&P Assessment and Plan (1) Dementia of the Alzheimer's type: Qualifiers: Alzheimer's disease onset: unspecified onset Dementia severity: mild Dementia behavioral or psychological symptom: with anxiety Qualified Code(s): G30.9 - Alzheimer's disease, unspecified; F02.A4 - Dementia in other diseases classified elsewhere, mild, with anxiety Code(s): G30.9 - Alzheimer's disease, unspecified; F02.80 - Dementia in other diseases classified elsewhere, unspecified severity, without behavioral disturbance, psychotic disturbance, mood disturbance, and anxiety Status: Acute (2) Drug-induced Parkinson's disease: Code(s): G21.19 - Other drug induced secondary parkinsonism Status: Acute (3) Parasagittal meningioma: Code(s): D32.0 - Benign neoplasm of cerebral meninges Status: Acute (4) Mood disorder: Code(s): F39 - Unspecified mood [affective] disorder Status: Acute Plan I explained to the patient's that fluctuations in mental status can occur in a patient with history of chronic mental illness as well as dementia however it is always important to look for any precipitating event. In this particular instance we did not find evidence for any infection or acute infarct on the brain scan. Hence continue supportive treatment is recommended. It also appears that the is he is tolerating Sinemet 25/101 tablet 3 times a day fairly well and has been beneficial in reducing some of the parkinsonian features. His EEG was reported to be within acceptable normal limits. He should continue same medications and after discharge I shall be glad to see him as previously planned in my office. Subjective Date/time seen: 01/28/25 14:09 Interval history: The patient is 70-year-old with history of the chronic schizophrenia and a recent development of dementia Alzheimer's type and now Parkinson's disease which is thought to most likely drug induced from being on major tranquilizers for long time was seen for follow-up. His was also present. He has improved significantly since arriving here. MRI of the brain did not show evidence for any acute infarct. 13 mm meningioma was seen in the anterior aspect of the falx cerebri. I have reviewed the films and agree with findings. Patient denies any additional new symptoms. He is on Sinemet 25/101 tablet 3 times a day and is able to tolerate it without any significant problem. He has not had any hallucinations or any other difficulty. Working the physical therapist also and is able to ambulate under guidance. Review of Systems Review of Systems: All systems reviewed & are unremarkable except as noted in HPI and below Exam Narrative: Fully conscious alert. Overall he seems to fairly common pleasant. Head and neck no evidence of external trauma. Cranial nerves change individual testing were intact. Motor system moving both upper lower limbs. The cogwheeling and a tremor appear minimal compared to initial examination. no dyskinesia were noted. Objective Data Vital Signs Vital Signs: Vital Signs - 24 hr 01/27/25 19:58 01/27/25 20:10 01/27/25 20:49 Temperature 97 F L Pulse Rate 77 51 L Respiratory Rate 18 18 Blood Pressure 100/63 Pulse Oximetry 93 96 Oxygen Delivery Room Air CPAP 01/27/25 20:51 01/28/25 05:08 01/28/25 08:55 Temperature 97 F L Pulse Rate 93 57 L Respiratory Rate 16 Blood Pressure 99/66 L 110/70 Pulse Oximetry 96 97 Oxygen Delivery Room Air 01/28/25 09:00 Temperature Pulse Rate Respiratory Rate Blood Pressure Pulse Oximetry Oxygen Delivery Room Air Intake/Output Intake/Output: Intake & Output 01/25/25 01/26/25 01/27/25 01/28/25 23:59 23:59 23:59 23:59 Intake Total 1000 1020 820 200 Output Total 200 Balance 1000 1020 620 200 Meds/Results Medications: Active Medications Generic Name Dose Route Start Last Admin Trade Name Freq PRN Reason Stop Dose Admin Acetaminophen 650 mg 01/22/25 16:31 01/27/25 15:43 Acetaminophen 325 Mg Tablet PO 650 mg Q4H PRN Administration Mild Pain (1-3) or Fever Carbidopa/Levodopa 1 tablet 01/29/25 09:00 Carbidopa/Levodopa 25/100 Mg Tablet PO TID DARIEN Carbidopa/Levodopa 1 tablet 01/26/25 09:00 01/28/25 08:58 Carbidopa/Levodopa 25/100 Mg Tablet PO 01/28/25 17:01 1 tablet BID DARIEN Administration Docusate Sodium 100 mg 01/23/25 09:00 01/28/25 08:58 Docusate Sodium 100 Mg Capsule PO 100 mg BID DARIEN Administration Ezetimibe 10 mg 01/23/25 09:00 01/28/25 08:59 Ezetimibe 10 Mg Tablet PO 10 mg DAILY DARIEN Administration Ibuprofen 800 mg 01/22/25 22:02 Ibuprofen 400 Mg Tablet PO TID PRN pain 4-6 Levothyroxine Sodium 75 mcg 01/23/25 06:30 01/28/25 06:24 Levothyroxine Sodium 75 Mcg Tablet PO 75 mcg DAILY@0630 DARIEN Administration Lidocaine 1 patch 01/28/25 12:20 01/28/25 12:54 Lidocaine 5% Patch TRANSDERM Not Given DAILY DARIEN Memantine 10 mg 01/23/25 09:00 01/28/25 08:58 Memantine 10 Mg Tablet PO 10 mg BID DARIEN Administration Mirtazapine 15 mg 01/22/25 23:55 01/27/25 20:13 Mirtazapine 15 Mg Tablet PO 15 mg HS DARIEN Administration Brexpiprazole [ 2 mg 01/24/25 09:00 01/28/25 08:59 Rexulti] 2 Mg Tablet PO 02/23/25 08:59 2 mg Home Med DAILY DARIEN Administration Valbenazine [ 40 mg 01/24/25 21:00 01/27/25 20:13 Ingrezza] 40 Mg PO 02/23/25 20:59 40 mg Capsule Home Med HS DARIEN Administration Ondansetron HCl 4 mg 01/22/25 16:31 Ondansetron Inj 4 Mg/2 Ml Vial IV PUSH Q4H PRN Nausea Pantoprazole Sodium 40 mg 01/23/25 09:00 01/28/25 08:59 Pantoprazole 40 Mg Tablet PO 40 mg QAM DARIEN Administration Rosuvastatin Calcium 20 mg 01/23/25 09:00 01/28/25 08:58 Rosuvastatin 20 Mg Tablet PO 20 mg DAILY DARIEN Administration Sertraline HCl 50 mg 01/23/25 09:00 01/28/25 08:58 Sertraline Hcl 50 Mg Tablet PO 50 mg DAILY DARIEN Administration Vitamin D 25 mcg 01/23/25 09:00 01/28/25 08:58 Cholecalciferol (Vitamin D3) 25 Mcg (1,000 Units) Tablet PO 25 mcg DAILY DARIEN Administration Radiology Results: ITS Impressions Chest X-Ray 01/22/25 12:33 IMPRESSION: No acute cardiopulmonary pathology. Head CT 01/22/25 14:41 IMPRESSION: No acute intracranial findings. Brain MRI 01/23/25 13:12 IMPRESSION: No acute abnormality. Stable small meningioma, as above. Venous Doppler Study 01/26/25 18:09 Impression: No evidence of deep vein thrombosis involving either lower extremity. Labs Labs: Laboratory Results - last 24 hr 01/28/25 04:37 WBC 5.3 RBC 4.15 L Hgb 12.6 L Hct 38.8 L MCV 93.5 MCH 30.4 MCHC 32.5 RDW 12.9 Plt Count 191 MPV 11.6 H Sodium 139 Potassium 4.0 Chloride 104 Carbon Dioxide 28 Anion Gap 7 BUN 17 Creatinine 0.84 Estim Creat Clear Calc 70 Estimated GFR > 60 Glucose 90 Calcium 9.0 Total Bilirubin 0.4 AST 34 ALT 16 Alkaline Phosphatase 62 Total Protein 6.3 Albumin 3.7
[2025-01-28 14:10] VITALS: BP 98/70; PULSE 88; RESP 16; TEMP 36.4; O2SAT 96
--- NOTE | 2025-01-28 14:34 | P.PNIM_ITS ---
Progress Note: A&P Assessment and Plan (1) Generalized weakness: Code(s): R53.1 - Weakness <Lore ZendejasJalen Motta, UNIQUE - Last Filed: 01/28/25 15:03> Status: Acute <Lore ZendejasJalen Motat APRN - Last Filed: 01/28/25 15:03> Assessment and Plan: - UA, CXR, head CT, viral PCR, and chemistry were virtually unremarkable - patient has complex neurological history including essential tremor, dementia, and Parkinson's. Per neurology's most recent note from yesterday on 01/21, the patient's physical condition has continued to deteriorate although he is mentally stable. General plan to continue his Namenda and add Sinemet. - no specific etiology discovered during initial workup for patient's generalized weakness, high suspicion for progression of patient's Parkinson's as etiology for his new weakness. However will obtain MRI to rule out CVA. Neurology has been consulted. - PT/OT evaluation treatment for discharge planning 01/24: - Brain MRI: No acute abnormality. Stable, small anterior meningioma (13mm). - PT: 01/23 - Limited due to balance and safety concerns. Recommending AIR v SNF upon discharge. Recommending PT for gait, strengthening, endurance, & safety education. 01/24 - improved participation. competed bed mobility, transfer, &short distance gait with moderate assistance. able to advance step sequency but requires cues for posture during transfer & gait. - OT: 01/24: benefits from skilled OT to maximize functional safety & independence with ADLs & functional transfers - Neurology consulted and recommended EEG, continued PT, and rehab placement upon discharge. 01/25: - continue PT/OT - EEG pending - neurology unavailable today 01/26/25: - PT on 01/25: demonstrates improved bed mobility and sitting balance today. Continues to require moderate assistance for transfers and short distance gait. Continue PT services. - EEG still pending - Yesterday, patient experienced 1 episode of difficulty swallowing oral medication. Bedside swallow evaluation completed and unremarkable. Recommended pt receive an oral diet of regular solids (IDDSI Level 7) and thin liquids (IDDSI Level 1). It is additionally recommended that the pt follow these standar d swallowing precautions: Small bites/sips, slow down the pace of oral intake, and sit upright during meals. No further ST is warranted at this time. 01/27/25: - PT on 01/26: Improved bed mobility & sitting balance. Require modera assist for transfers and short distance gait. Continue PT. 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 - neurology is consulted-awaiting recommendation 01/24 - Neurology consult recommendation: EEG and continue to work with physical therapy. Start him on Sinemet 25/101 tablet 3 times a day. It should be observed for some time and possibly unless we find any other etiology for the change on the systemic review, 2-3 weeks of rehab may be beneficial. 01/25 - EEG pending - care coordination working on rehab placement 01/26 now on sinemet 25/100 mg bid- tolerating it well 01/27 sinemet 25/100 BID through 01/28. TID starting 01/29/25. 01/28 continue meds-tolerating it well <Lore Motta APRN - Last Filed: 01/28/25 15:03> (3) CARIE (obstructive sleep apnea): Code(s): G47.33 - Obstructive sleep apnea (adult) (pediatric) <Lore Motta APRN - Last Filed: 01/28/25 15:03> Status: Acute <Lore Motta APRN - Last Filed: 01/28/25 15:03> Assessment and Plan: - has not used a CPAP in the last year <Lore Motta APRN - Last Filed: 01/28/25 15:03> Assessment and Plan: Diet: Regular + supplementation (01/27) GI Prophylaxis: Not currently indicated DVT Prophylaxis: SCDs IV fluids: 1L bolus -> 125 mL/hr x1L Lines/Tubes: Peripheral IV Code Status: Full code rt leg is somewhat painful per report. is requesting ultrasound to r/u DVT. ordered. 01/27 - US negative for DVT. Right hip pain persist. Lidocaine patch ordered <Lore Motta APRN - Last Filed: 01/28/25 15:03> Time Spent With Patient Time with patient: 25 - 35 minutes <Lore Motta APRN - Last Filed: 01/28/25 15:03> Subjective Date/time seen: 01/28/25 14:34 <Lore Motta APRN - Last Filed: 01/28/25 15:03> Interval history: Pt is seen and examined. He is doing well today, EEG is completed. Tremors are better. <Lore Mtota APRN - Last Filed: 01/28/25 15:03> The patient is 70-year-old with history of the chronic schizophrenia and a recent development of dementia Alzheimer's type and now Parkinson's disease which is thought to most likely drug induced from being on major tranquilizers for long time was seen for follow-up. His was also present. He has improved significantly since arriving here. MRI of the brain did not show evidence for any acute infarct. 13 mm meningioma was seen in the anterior aspect of the falx cerebri. I have reviewed the films and agree with findings. Patient denies any additional new symptoms. He is on Sinemet 25/101 tablet 3 times a day and is able to tolerate it without any significant problem. He has not had any hallucinations or any other difficulty. Working the physical therapist also and is able to ambulate under guidance. 01/28/25 - <Herbert Rea, Student - Last Filed: 01/28/25 15:03> Review of Systems Review of Systems: All systems reviewed & are unremarkable except as noted in HPI and below <Lore Motta APRN - Last Filed: 01/28/25 15:03> Exam Narrative: weak in all extremities but symmetric. mask-like. otherwise fine. <Lore Motta APRN - Last Filed: 01/28/25 15:03> Const: General: comfortable and no acute distress <Lore Motta APRN - Last Filed: 01/28/25 15:03> Other: , male, elderly, nontoxic appearance <Lore Motta APRN - Last Filed: 01/28/25 15:03> HENMT: Face/Nose/Sinus: Normal nares present <Lore Motta APRN - Last Filed: 01/28/25 15:03> Mouth: Yes moist mucous membranes <Lore Motta APRN - Last Filed: 01/28/25 15:03> Eyes: General: appearance normal, both eyes and all related structures <Lore Motta APRN - Last Filed: 01/28/25 15:03> Sclera: sclerae normal <Lorelaila Coles Kalia [employer] - Last Filed: 01/28/25 15:03> Pupils: Equal, round and reactive pupils present <Lore Coles Kalia [employer] - Last Filed: 01/28/25 15:03> EOM: EOMs intact bilaterally <Lore Motta [employer] - Last Filed: 01/28/25 15:03> Resp: Effort & Inspection: normal respiratory effort <Lore Motta [employer] - Last Filed: 01/28/25 15:03> Auscultation: clear to auscultation bilaterally <Lore Motta [employer] - Last Filed: 01/28/25 15:03> Cardio: Rate: regular rate <Lore Motta [employer] - Last Filed: 01/28/25 15:03> Rhythm: regular rhythm <Lore Motta [employer] - Last Filed: 01/28/25 15:03> Other: S1-S2 present without murmur, rub, ectopy <Lore Motta [employer] - Last Filed: 01/28/25 15:03> GI: Other: Abdomen soft, nondistended, nontender. Normoactive bowel sounds in all quadrants. <Lore Motta [employer] - Last Filed: 01/28/25 15:03> Skin: General skin exam: normal color and no rashes or lesions noted <Lore Motta [employer] - Last Filed: 01/28/25 15:03> Wounds: no wounds <Lore Motta [employer] - Last Filed: 01/28/25 15:03> Neuro: Cranial nerves: Yes Equal, round and reactive pupils present <Lore Motta [employer] - Last Filed: 01/28/25 15:03> Speech: normal speech <Lore Motta APRN - Last Filed: 01/28/25 15:03> Sensory Exam: normal sensation <Lore Motta [employer] - Last Filed: 01/28/25 15:03> Other: Moderate to severe weakness in all extremities, symmetric. A&O x4. <Lore Motta APRN - Last Filed: 01/28/25 15:03> Extrem: General: normal to inspection <Lore Motta [employer] - Last Filed: 01/28/25 15:03> Psych: Mental Status: mental status grossly normal <Lore Motta [employer] - Last Filed: 01/28/25 15:03> Affect: normal affect <Lore Motta [employer] - Last Filed: 01/28/25 15:03> Other: Good insight and judgment, pleasant <Lore Motta [employer] - Last Filed: 01/28/25 15:03> Objective Data Vital Signs Vital Signs: Vital Signs - 24 hr 01/27/25 19:58 01/27/25 20:10 01/27/25 20:49 Temperature 97 F L Pulse Rate 77 51 L Respiratory Rate 18 18 Blood Pressure 100/63 Pulse Oximetry 93 96 Oxygen Delivery Room Air CPAP 01/27/25 20:51 01/28/25 05:08 01/28/25 08:55 Temperature 97 F L Pulse Rate 93 57 L Respiratory Rate 16 Blood Pressure 99/66 L 110/70 Pulse Oximetry 96 97 Oxygen Delivery Room Air 01/28/25 09:00 01/28/25 14:10 Temperature 97.6 F Pulse Rate 88 Respiratory Rate 16 Blood Pressure 98/70 L Pulse Oximetry 96 Oxygen Delivery Room Air <Lore Motta [employer] - Last Filed: 01/28/25 15:03> Intake/Output Intake/Output: Intake & Output 01/25/25 01/26/25 01/27/25 01/28/25 23:59 23:59 23:59 23:59 Intake Total 1000 1020 820 680 Output Total 200 Balance 1000 1020 620 680 <Lore Motta [employer] - Last Filed: 01/28/25 15:03> Meds/Results Medications: Active Medications Generic Name Dose Route Start Last Admin Trade Name Freq PRN Reason Stop Dose Admin Acetaminophen 650 mg 01/22/25 16:31 01/27/25 15:43 Acetaminophen 325 Mg Tablet PO 650 mg Q4H PRN Administration Mild Pain (1-3) or Fever Carbidopa/Levodopa 1 tablet 01/29/25 09:00 Carbidopa/Levodopa 25/100 Mg Tablet PO TID DARIEN Carbidopa/Levodopa 1 tablet 01/26/25 09:00 01/28/25 08:58 Carbidopa/Levodopa 25/100 Mg Tablet PO 01/28/25 17:01 1 tablet BID DARIEN Administration Docusate Sodium 100 mg 01/23/25 09:00 01/28/25 08:58 Docusate Sodium 100 Mg Capsule PO 100 mg BID DARIEN Administration Ezetimibe 10 mg 01/23/25 09:00 01/28/25 08:59 Ezetimibe 10 Mg Tablet PO 10 mg DAILY DARIEN Administration Ibuprofen 800 mg 01/22/25 22:02 Ibuprofen 400 Mg Tablet PO TID PRN pain 4-6 Levothyroxine Sodium 75 mcg 01/23/25 06:30 01/28/25 06:24 Levothyroxine Sodium 75 Mcg Tablet PO 75 mcg DAILY@0630 DARIEN Administration Lidocaine 1 patch 01/28/25 12:20 01/28/25 12:54 Lidocaine 5% Patch TRANSDERM Not Given DAILY DARIEN Memantine 10 mg 01/23/25 09:00 01/28/25 08:58 Memantine 10 Mg Tablet PO 10 mg BID DARIEN Administration Mirtazapine 15 mg 01/22/25 23:55 01/27/25 20:13 Mirtazapine 15 Mg Tablet PO 15 mg HS DARIEN Administration Brexpiprazole [ 2 mg 01/24/25 09:00 01/28/25 08:59 Rexulti] 2 Mg Tablet PO 02/23/25 08:59 2 mg Home Med DAILY DARIEN Administration Valbenazine [ 40 mg 01/24/25 21:00 01/27/25 20:13 Ingrezza] 40 Mg PO 02/23/25 20:59 40 mg Capsule Home Med HS DARIEN Administration Ondansetron HCl 4 mg 01/22/25 16:31 Ondansetron Inj 4 Mg/2 Ml Vial IV PUSH Q4H PRN Nausea Pantoprazole Sodium 40 mg 01/23/25 09:00 01/28/25 08:59 Pantoprazole 40 Mg Tablet PO 40 mg QAM DARIEN Administration Rosuvastatin Calcium 20 mg 01/23/25 09:00 01/28/25 08:58 Rosuvastatin 20 Mg Tablet PO 20 mg DAILY DARIEN Administration Sertraline HCl 50 mg 01/23/25 09:00 01/28/25 08:58 Sertraline Hcl 50 Mg Tablet PO 50 mg DAILY DARIEN Administration Vitamin D 25 mcg 01/23/25 09:00 01/28/25 08:58 Cholecalciferol (Vitamin D3) 25 Mcg (1,000 Units) Tablet PO 25 mcg DAILY DARIEN Administration <Lore Motta APRN - Last Filed: 01/28/25 15:03> Radiology Results: ITS Impressions Chest X-Ray 01/22/25 12:33 IMPRESSION: No acute cardiopulmonary pathology. Head CT 01/22/25 14:41 IMPRESSION: No acute intracranial findings. Brain MRI 01/23/25 13:12 IMPRESSION: No acute abnormality. Stable small meningioma, as above. Venous Doppler Study 01/26/25 18:09 Impression: No evidence of deep vein thrombosis involving either lower extremity. <Lore Motta APRN - Last Filed: 01/28/25 15:03> Labs Labs: Laboratory Results - last 24 hr 01/28/25 04:37 WBC 5.3 RBC 4.15 L Hgb 12.6 L Hct 38.8 L MCV 93.5 MCH 30.4 MCHC 32.5 RDW 12.9 Plt Count 191 MPV 11.6 H Sodium 139 Potassium 4.0 Chloride 104 Carbon Dioxide 28 Anion Gap 7 BUN 17 Creatinine 0.84 Estim Creat Clear Calc 70 Estimated GFR > 60 Glucose 90 Calcium 9.0 Total Bilirubin 0.4 AST 34 ALT 16 Alkaline Phosphatase 62 Total Protein 6.3 Albumin 3.7 <Lore Motta APRN - Last Filed: 01/28/25 15:03> Quality VTE Prophylaxis VTE prophylaxis: mechanical ordered <Lore Motta APRN - Last Filed: 01/28/25 15:03>
[2025-01-28 20:27] VITALS: BP 103/66; PULSE 57; RESP 16; TEMP 36.7; O2SAT 96
[2025-01-28] MEDS: MIRTAZAPINE 15 MG TABLET PO (20:40)
[2025-01-28] MEDS: VALBENAZINE 40 MG 40 EACH PO (20:42)
[2025-01-28 21:03] VITALS: O2SAT 95
[2025-01-28 22:41] VITALS: PULSE 64; RESP 11; O2SAT 99
[2025-01-29 04:54] LABS: Hematocrit 39.0 % (42.0-52.0); Hemoglobin 12.6 g/dL (14.0-18.0); Mean Corpuscular HGB Conc 32.3 g/dl (32-36); Mean Corpuscular Hemoglobin 30.2 pg (26-34); Mean Corpuscular Volume 93.5 fl (80-100); Platelet Count Result 197 k/mm3 (150-375); Red Blood Count 4.17 M/mm3 (4.6-6.20); White Blood Count 6.2 K/mm3 (4.5-10.0)
[2025-01-29 05:16] VITALS: BP 103/64; PULSE 64; RESP 16; TEMP 36.3; O2SAT 99
[2025-01-29 05:16] LABS: Alanine Aminotransferase 16 U/L (6-50); Albumin Level 3.8 g/dL (3.5-5.1); Alkaline Phosphatase 62 U/L (38-126); Anion Gap 5 mmol/L (4-12); Aspartate Amino Transferase 31 U/L (17-59); Bilirubin,Total 0.5 mg/dL (0.2-1.3); Blood Urea Nitrogen 20 mg/dL (9-20); Calcium 8.9 mg/dL (8.4-10.2); Carbon Dioxide 29 mmol/L (22-30); Chloride 101 mmol/L (98-107); Estimated CRCL calculation 68 ml/min; Estimated Glomerular Filt Rate > 60; Glucose 90 mg/dL (65-110); Potassium 3.8 mmol/L (3.4-5.0); Sodium 135 mmol/L (137-145); Total Protein 6.4 g/dL (6.3-8.2)
[2025-01-29] MEDS: LEVOTHYROXINE SODIUM 75 MCG TABLET PO (06:07)
--- NOTE | 2025-01-29 07:21 | P.DS_ITS ---
DS: Admitting Diagnosis Discharge Date 01/29/2025 11:15 <Herbert Rea, Student - Last Filed: 01/29/25 12:28> Admitting Diagnosis Generalized Weakness <Herbert Rea, Student - Last Filed: 01/29/25 12 :28> DS: Discharge Diagnosis Discharge Diagnosis (1) Generalized weakness: Code(s): R53.1 - Weakness <Lore Motta, ACQUISITION COST ESTIMATOR - Last Filed: 01/29/25 12:37> Status: Acute <Lore Motta ACQUISITION COST ESTIMATOR - Last Filed: 01/29/25 12:37> Assessment and Plan: - UA, CXR, head CT, viral PCR, and chemistry were virtually unremarkable - patient has complex neurological history including essential tremor, dementia, and Parkinson's. Per neurology's most recent note from yesterday on 01/21, the patient's physical condition has continued to deteriorate although he is mentally stable. General plan to continue his Namenda and add Sinemet. - no specific etiology discovered during initial workup for patient's generalized weakness, high suspicion for progression of patient's Parkinson's as etiology for his new weakness. However will obtain MRI to rule out CVA. Neurology has been consulted. - PT/OT evaluation treatment for discharge planning 01/24: - Brain MRI: No acute abnormality. Stable, small anterior meningioma (13mm). - PT: 01/23 - Limited due to balance and safety concerns. Recommending AIR v SNF upon discharge. Recommending PT for gait, strengthening, endurance, & safety education. 01/24 - improved participation. competed bed mobility, transfer, &short distance gait with moderate assistance. able to advance step sequency but requires cues for posture during transfer & gait. - OT: 01/24: benefits from skilled OT to maximize functional safety & indep endence with ADLs & functional transfers - Neurology consulted and recommended EEG, continued PT, and rehab placement upon discharge. 01/25: - continue PT/OT - EEG pending - neurology unavailable today 01/26/25: - PT on 01/25: demonstrates improved bed mobility and sitting balance today. Continues to require moderate assistance for transfers and short distance gait. Continue PT services. - EEG still pending - Yesterday, patient experienced 1 episode of difficulty swallowing oral medication. Bedside swallow evaluation completed and unremarkable. Recommended pt receive an oral diet of regular solids (IDDSI Level 7) and thin liquids (IDDSI Level 1). It is additionally recommended that the pt follow these standard swallowing precautions: Small bites/sips, slow down the pace of oral intake, and sit upright during meals. No further ST is warranted at this time. 01/27/25: - PT on 01/26: Improved bed mobility & sitting balance. Require modera assist for transfers and short distance gait. Continue PT. 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 - neurology is consulted-awaiting recommendation 01/24 - Neurology consult recommendation: EEG and continue to work with physical therapy. Start him on Sinemet 25/101 tablet 3 times a day. It should be observed for some time and possibly unless we find any other etiology for the change on the systemic review, 2-3 weeks of rehab may be beneficial. 01/25 - EEG pending - care coordination working on rehab placement 01/26 now on sinemet 25/100 mg bid- tolerating it well 01/27 sinemet 25/100 BID through 01/28. TID starting 01/29/25. 01/28 continue meds-tolerating it well <Lore Motta APRN - Last Filed: 01/29/25 12:37> (3) CARIE (obstructive sleep apnea): Code(s): G47.33 - Obstructive sleep apnea (adult) (pediatric) <Lore Motta APRN - Last Filed: 01/29/25 12:37> Status: Acute <Lore Motta APRN - Last Filed: 01/29/25 12:37> Assessment and Plan: - has not used a CPAP in the last year <Lore Motta APRN - Last Filed: 01/29/25 12:37> Assessment and Plan: Diet: Regular + supplementation (01/27) GI Prophylaxis: Not currently indicated DVT Prophylaxis: SCDs IV fluids: 1L bolus -> 125 mL/hr x1L Lines/Tubes: Peripheral IV Code Status: Full code rt leg is somewhat painful per report. is requesting ultrasound to r/u DVT. ordered. 01/27 - US negative for DVT. Right hip pain persist. Lidocaine patch ordered <Lore Motta APRN - Last Filed: 01/29/25 12:37> DS: Summary Hospital Course Hospital Course: 70 y/o M with PMH of Parkinson's, dementia, essential tremor, CARIE, hypertension, hyperlipidemia presents here with generalized weakness. Presented from home via EMS on 01/22/25. ED workup showed: No leukocytosis, hemoglobin 13.0, no significant electrolyte derangements, renal function within normal limits, initial troponin negative, UA showed trace ketones, viral PCR negative. CXR showed no acute cardiopulmonary pathology. Head CT showed no acute intracranial findings. Neurology was consulted during admission and followed patient through out. Brain MRI was ordered and unremarkable besides stable, small anterior meningioma. EEG was completed on 01/28 and no abnormalities was noted. No evidence of paroxysmal activity or focal slow activity. Daily labs assessing for electrolyte status, kidney function, infection, and anemia where unremarkable. mild anemia was consistent throughout, unchanged, and comparable to historical lab values. On 01/25, a swallowing study was conducted due to concerns with swallowing medication. these results are unremarkable. On 01/26, leg US was negative for DVT and assessed due to right leg pain. Lidocaine patch was placed on hip which helped radiating symptoms. PT/OT evaluated and treated patient during admission and noted continual improvement in patients status. They are recommending continuing services upon discharge to improve balance, endurance, gait training, strengthening, safety awareness and transfers. # Generalized Weakness & Drug-induced Parkinson's Disease - Admitted for weakness and fluctuations in mental status. No evidence of infection or acute infarction were identified through labs and brain MRI. EEG was within normal limits. Neurology was consulted, followed patient through discharge, and recommend the following: - Continue taking Sinemet 25/101 three times per day by mouth - Continue physical therapy at home. Home Health referral placed. - Follow up in office with Neurology. <Herbert Rea, Student - Last Filed: 01/29/25 12:28> Status at Discharge Functional status at discharge: uses cane/walker <Lore Motta APRN - Last Filed: 01/29/25 12:37> Overall status at discharge: patient is progressing back to baseline <Lore Motta APRN - Last Filed: 01/29/25 12:37> Time Spent with Patient Time attestation: Total time spent providing and/or coordinating discharge services: <Lore Motta APRN - Last Filed: 01/29/25 12:37> Time spent: Greater than 30 minutes <Lore Motta ACQUISITION COST ESTIMATOR - Last Filed: 01/29/25 12:37> Exam Narrative: weak in all extremities but symmetric. <Lore Motta APRN - Last Filed: 01/29/25 12:37> Const: General: comfortable <Lore Motta ACQUISITION COST ESTIMATOR - Last Filed: 01/29/25 12:37> Other: , male, elderly, nontoxic appearance <Lore Motta APRN - Last Filed: 01/29/25 12:37> Cardio: Other: S1-S2 present without murmur, rub, ectopy <Lore Motta APRN - Last Filed: 01/29/25 12:37> GI: Other: Abdomen soft, nondistended, nontender. Normoactive bowel sounds in all quadrants. <Lore Motta ACQUISITION COST ESTIMATOR - Last Filed: 01/29/25 12:37> Neuro: Other: Moderate to severe weakness in all extremities, symmetric. A&O x4. <Lore Motta ACQUISITION COST ESTIMATOR - Last Filed: 01/29/25 12:37> Psych: Other: Good insight and judgment, pleasant <Lore Motta APRN - Last Filed: 01/29/25 12:37> DS: Data Data Completed and Pending Completed studies during hospitalization: eeg <Lore Motta APRN - Last Filed: 01/29/25 12:37> Labs on day of discharge: Labs from last 24 hours 01/29/25 04:37 WBC 6.2 RBC 4.17 L Hgb 12.6 L Hct 39.0 L MCV 93.5 MCH 30.2 MCHC 32.3 RDW 12.8 Plt Count 197 MPV 11.2 H Sodium 135 L Potassium 3.8 Chloride 101 Carbon Dioxide 29 Anion Gap 5 BUN 20 Creatinine 0.87 Estim Creat Clear Calc 68 Estimated GFR > 60 Glucose 90 Calcium 8.9 Total Bilirubin 0.5 AST 31 ALT 16 Alkaline Phosphatase 62 Total Protein 6.4 Albumin 3.8 <Lore Motta ACQUISITION COST ESTIMATOR - Last Filed: 01/29/25 12:37> Discharge Plan Discharge Attending physician on discharge: Pepe Maldonado <Lore Motta APRN - Last Filed: 01/29/25 12:37> Pepe Maldonado <Herbert Rea Student - Last Filed: 01/29/25 12:28> Consulting providers: Walker Gnan <Lore Motta APRN - Last Filed: 01/29/25 12:37> Discharging Clinician: Lore Motta <Lore Motta APRN - Last Filed: 01/29/25 12:37> Lore Motta <Herbert Rea Student - Last Filed: 01/29/25 12:28> Patient Disposition: Home with Home Health Service <Lore Motta APRN - Last Filed: 01/29/25 12:37> Activity: may shower <Lore Motta APRN - Last Filed: 01/29/25 12:37> may shower <Leland Zapata - Last Filed: 01/29/25 12:28> Diet: as tolerated <Lore Motta APRN - Last Filed: 01/29/25 12:37> as tolerated <Herbert Rea Student - Last Filed: 01/29/25 12:28> Discharge Instructions: 1) Call & schedule a follow up with Neurology in the next 1-3 weeks or as indicated by Dr. Davis. 2) Continue taking Sinemet 25/101 three times per day by mouth daily. 3) Continue Physical Therapy with Home Health. They will contact you to initiate services. <Lore Motta APRN - Last Filed: 01/29/25 12:37> Patient Instructions: Antibiotic Form <Lore Motta APRN - Last Filed: 01/29/25 12:37> Patient Language: Citizen Of [place] <Lore Motta APRN - Last Filed: 01/29/25 12:37> Stand Alone Forms: General Discharge Information <Lore Motta APRN - Last Filed: 01/29/25 12:37> Follow-up/Referrals: Walker Gann MD [Physician] - 2 Weeks Elan Gross MD [Primary Care Provider] - 2 Weeks <Lore Motta APRN - Last Filed: 01/29/25 12:37> Discharge Medications: New carbidopa-levodopa [Sinemet] 25-100 mg Tablet 1 tablet PO TID Qty: 90 0RF Continued ibuprofen 800 mg tablet 800 mg PO TID PRN (Reason: pain) Qty: 270 0RF Rexulti 2 mg tablet 2 mg PO DAILY sertraline [Zoloft] 25 mg tablet 50 mg PO DAILY ezetimibe [Zetia] 10 mg tablet 10 mg PO DAILY cholecalciferol (vitamin D3) 25 mcg (1,000 unit) capsule 25 mcg PO DAILY Ingrezza 40 mg capsule 40 mg PO .pm rosuvastatin 20 mg tablet 20 mg PO DAILY docusate sodium [Dulcolax Stool Softener (dss)] 100 mg capsule 100 mg PO BID mirtazapine [Remeron] 15 mg tablet 15 mg PO HS Rx Instructions: psych memantine 10 mg tablet 10 mg PO BID levothyroxine 75 mcg tablet 75 mcg PO DAILY Qty: 90 2RF omeprazole 20 mg capsule,delayed release(DR/EC) See Rx Instructions .ROUTE .COMPLEX Qty: 90 2RF Dose Instruction: TAKE 1 CAPSULE BY MOUTH DAILY Rx Instructions: TAKE 1 CAPSULE BY MOUTH DAILY Discontinued carbidopa-levodopa [Sinemet] 25-100 mg tablet 1 tablet PO TID Qty: 90 7RF Patient Comments: new medication just ordered Rx Instructions: Start with half a tablet twice a day for 3 days then 1 tablet twice a day for 3 days then 1 tablet 3 times a day to continue <Lore Motta APRN - Last Filed: 01/29/25 12:37> Date of admission: 01/22/25 16:31 <Lore Motta APRN - Last Filed: 01/29/25 12:37> Primary Care Provider: Elan Gross <Lore Motta APRN - Last Filed: 01/29/25 12:37> Admitting Provider: Sofy Clark <Lore Motta APRN - Last Filed: 01/29/25 12:37> Attending physician on admission: Sofy Clark <Lore Motta APRN - Last Filed: 01/29/25 12:37> Condition: Stable <Lore Motta APRN - Last Filed: 01/29/25 12:37> Quality VTE Prophylaxis VTE prophylaxis: mechanical ordered <Lore Motta APRN - Last Filed: 01/29/25 12:37>
[2025-01-29] MEDS: DOCUSATE SODIUM 100 MG CAPSULE PO (09:46)
[2025-01-29] MEDS: MEMANTINE 10 MG TABLET PO (09:46)
[2025-01-29] MEDS: EZETIMIBE 10 MG TABLET PO (09:46)
[2025-01-29] MEDS: CHOLECALCIFEROL (VITAMIN D3) 25 MCG (1,000 UNITS) TABLET PO (09:46)
[2025-01-29] MEDS: ROSUVASTATIN 20 MG TABLET PO (09:46)
[2025-01-29] MEDS: PANTOPRAZOLE 40 MG TABLET PO (09:46)
[2025-01-29] MEDS: SERTRALINE HCL 50 MG TABLET PO (09:47)
[2025-01-29] MEDS: CARBIDOPA/LEVODOPA 25/100 MG TABLET 1 TABLET PO ×2 (09:47→12:24)
[2025-01-29] MEDS: BREXPIPRAZOLE 2 MG 2 EACH PO (09:48)
--- NOTE | 2025-01-29 10:38 | PCNWS ---
Weekly nutritional screen. Patient is tolerating current diet with adequate intake. No weight loss reported. No nutritional needs at this time.
[2025-01-29 14:00] VITALS: BP 100/64; PULSE 58; RESP 16; TEMP 36.4; O2SAT 99
== END 2025-01-29 16:30 | disposition home health service (06) ==
LOC: ANHED 12:13 → ANH2MED 19:10
PROVIDERS: Emergency Medicine; Nurse Practitioner; Student in an Organized Health Care Education/Training Program; Admitting Provider Internal Medicine; Emergency Provider Emergency Medicine; PCP Family Medicine; Visit Provider Internal Medicine
DX: R53.1 Weakness (principal); G21.19 Other drug induced secondary parkinsonism; M79.604 Pain in right leg; M25.551 Pain in right hip; E86.0 Dehydration; G93.40 Encephalopathy, unspecified; G30.9 Alzheimer's disease, unspecified; F02.A4 Dementia in other diseases classified elsewhere, mild, with anxiety; G25.0 Essential tremor; D32.0 Benign neoplasm of cerebral meninges; E78.2 Mixed hyperlipidemia; G47.33 Obstructive sleep apnea (adult) (pediatric); I10 Essential (primary) hypertension; F39 Unspecified mood [affective] disorder; F20.9 Schizophrenia, unspecified; Z20.822 Contact with and (suspected) exposure to COVID-19; Z79.899 Other long term (current) drug therapy; Z99.89 Dependence on other enabling machines and devices
CPT/HCPCS: 36415; 70450; 70553; 71046; 80048; 80053; 80061; 81003; 82607; 82746; 84484; 85025; 85027; 87637; 92610; 93005; 93970; 95816; 96361; 96374; 97110; 97116; 97162; 97165; 97530; 97535; 99285; A9270; A9577; G0378; J7030

== ENCOUNTER 2025-03-15 11:20 | Emergency (ER) | payer MEDICARE, SELFPAY ==
--- OUTSIDE RECORDS SUMMARY | 2004-11-25 08:30 | XMS_ITS | Continuity of Care Document ---
Author Organization [facility] Address [address] [place] [address] [place] [address] Phone Care Team Providers Care Emergency Medicine Physician Name Role Phone Naveen Coulter MD Unavailable Unavailable Advance Directives Directive Yes / No Effective Date File Name No Information Encounters Encounter Description Practice Location Reason(s) For Visit Diagnoses Date Provider Providers Copied on Encounter [facility], [address] [place] [address] [address], [place], [place], [id number], [place] tel:[phone] [facility] No Information [address] [facility] [address], [place], [place], [address], [place]. tel:[phone] Family History Family Member Type Diagnosis Age [...]
--- OUTSIDE RECORDS SUMMARY | 2025-03-14 13:00 | XMS_ITS | Encounter Summary ---
Author Organization [facility] Address [address] [place] [address] Phone Care Team Providers Care Telegraph Plant Maintainer Name Role Phone Elan Gross MD Primary Care Provider [phone] Reason for Visit * Auth/Cert (Routine) Specialty Diagnoses / Procedures Referred By Columba t Referred To Contact Referral ID Status Reason Start Date Expiration Date Visits Re quested Visits Authorized [id number] 1 1 Encounter Details Date Type Department Care Team (Late Contact Info) Description 03/14/2025 1:00 PM CDT Home Care Visit [facility] [address] [place] [address] Maryellen Lewis OTA [place] OT - HOME VISIT Social History Tobacco Use Types Packs/Day Years Used Date Smoking Tobacco: Never Assessed Sex and Gender Information Value Date Recorded Sex Assigned at Not on file Legal Sex Male 9:36 AM CDT Gender Identity Not on file Sexual Orientation Not on file documented as of this encounter Last Filed Vital Signs Vital Sign Reading Time Taken Comments Blood Pressure - - Pulse - - Temperature 36.3 C (97.4 F) 03/14/2025 1:31 PM CDT Respiratory Rate - - Oxygen Saturation - - Inhaled Oxygen Concentration - - Weight - - Height - - Body Mass Index - - documented in this encounter Plan of Treatment Upcoming Encounters Date Type Department Care Team ([facility] Contact Info) Description 03/19/2025 1:00 AM CDT Home Care Visit [facility] [address] [place] [address] Regla Kinney, TRANSACTION PROCESSOR-SPEECH LANGUAGE PATHOLOGIST [place] 03/20/2025 1:00 AM CDT Home Care Visit [facility] [address] [place] [address] Maryellen Lewis OTA [place] 03/20/2025 2:00 AM CDT Home Care Visit [facility] [address] [place] [address] Mckenzie Waldron RN [place] 03/21/2025 1:00 AM CDT Home Care Visit [facility] [address] [place] [address] Regla Kinney, TRANSACTION PROCESSOR-SPEECH LANGUAGE PATHOLOGIST [place] 03/22/2025 2:00 AM CDT Home Care Visit [facility] [address] [place] [address] Maryellen Lewis, S[place] documented as of this encounter Visit Diagnoses Not on filedocumented in this encounter Home Health Visit - Care Plan Visit Details Visit Type -OT - HOME VISIT Discipline -Occupational Therapy Problems Problem Description Start Date Status Goals Interve ntions OT COMPREHENSIVE Disciplines: Occupational Therapy 02/19/2025 Active 3 goals linked to scheduled/documente d interventions 3 goal interventions scheduled/documente d in this visit Goals Goal Associated Problem Outcome Goal Met? Visit Notes OT Toileting Description: Short Term Goal: Patient will demonstrate ability to complete toileting to include clothing management at standing position with grab bars and toilet arms as needed with stand by assist. To be met by 03/09/25. OT COMPREHENSIVE No OT Transfers Description: Short Term Goal: Patient and caregiver will complete shower transfer with adaptive equipment of grab bars and shower seat as needed with stand by assist and good in order to safely perform ADLs. To be met by 03/09/25. OT COMPREHENSIVE No OT Home Exercise Program Description: Short Term Goal: Patient and Caregiver will perform HEP of UE ROM and fine motor coordination with independence in order to improve performance with ADLs and IADLs. To be met by 03/09/25 EXTENDED TO 03/23/25 NEW GOAL: LTG: Pt. and caregiver to dem o. gross motor coordination activities to improve balance and functional use of UEs together to be met by 03/23/25 pT. AND OT COMPREHENSIVE No Interventions Intervention Associated Problem/Goal Status Variance Visit Notes OT Toileting Description: Instruct on toileting techniques and safety. Assistive device as needed. Problem:OT COMPREHENSIVE Goal:OT Toileting Performed Patient performed toileting at sitting and standing position with toilet arms minimal assist for clothing management. Education provided fall prevention. Response verbalize understanding, ongoing and increased time. Pt completed toileting task with Mi n A for clothing management post toilet task. Pt completed initial clothing management with CGA for safety in standing, increased time and tactile cues for motor response. OT Transfers Description: Instruct on transfer techniques and safety. Equipment as needed. Problem:OT COMPREHENSIVE Goal:OT Transfers Performed Transfer 1 Patient performed toilet transfer with toilet arms with contact guard assistance. Pt completed sit <> stand transfr from recliner with SBA/CGA for safety x3 trials and max v/c to push from surface to stand and reach for surface to sit. Pt c ompleted functional mobility living room <> bathroom with CGA for safety and v/c to leave AD in hallway due to unable to fit AD through doorway and v/c to retrieve AD when exiting as Pt attempts to ambulate without. Continued recommendations to CG to meño p extra 2ww in bathroom for Pt to utilize once entering room. Toilet rails installed on toilet this visit with Pt completing sit <> stand toilet transfer with SBA/cGA with good use of new rails. Education provided fall prevention, adaptive equipment use and use of assistive device. Response verbalize understanding, return demonstration, additional education required, ongoing and reinforcement needed for compliance. OT Home Exercise Program Description: Instruct on Home Exercise Program. Problem:OT COMPREHENSIVE Goal:OT Home Exercise Program Performed BUE exercise. Patient to complete 10 mins as tolerated. Instruction provided to Patient and Caregiver. Response verbalize understanding, return demonstration, additional education required, ongoing and reinforcement needed for compliance. Pt complete d 10 mins BUE groos motor exercise using arm restorator in standing with CGA for safety with focus on improving standing balance and coordination when performing ADL tasks. Pt tolerated well. Pt and CG education on use of arm restorator while seated wi th recommendations to implement into daily HEP with verbal intent to follow through. documented in this encounter Care Teams [employer] Maintainer Relationship Specialty Start Date End Date Elan Gross MD [address] [address] PCP - General Family Medicine 02/06/25 documented as of this encounter
--- OUTSIDE RECORDS SUMMARY | 2025-03-14 14:00 | XMS_ITS | Encounter Summary ---
Author Organization [facility] Address [address] [place] [address] Phone Care Team Providers Care Watch Train Assembler Name Role Phone Elan Gross MD Primary Care Provider [phone] Reason for Visit * Auth/Cert (Routine) Specialty Diagnoses / Procedures Referred By Columba melendez Referred To Contact Referral ID Status Reason Start Date Expiration Date Visits Re quested Visits Authorized [id number] 1 1 Encounter Details Date Type Department Care Team (Late Contact Info) Description 03/14/2025 2:00 PM CDT Home Care Visit [facility] [address] [place] [address] Regla Kinney, MANAGER PARKING-SPEECH LANGUAGE PATHOLOGIST MA MANAGER PARKING - HOME VISIT Social History Tobacco Use Types Packs/Day Years Used Date Smoking Tobacco: Never Assessed Sex and Gender Information Value Date Recorded Sex Assigned at Not on file Legal Sex Male 9:36 AM CDT Gender Identity Not on file Sexual Orientation Not on file documented as of this encounter Last Filed Vital Signs Vital Sign Reading Time Taken Comments Blood Pressure 106/72 03/14/2025 3:08 PM CDT Pulse 60 03/14/2025 3:08 PM CDT Temperature 36.5 C (97.7 F) 03/14/2025 3:08 PM CDT Respiratory Rate 18 03/14/2025 3:08 PM CDT Oxygen Saturation - - Inhaled Oxygen Concentration - - Weight - - Height - - Body Mass Index - - documented in this encounter Plan of Treatment Upcoming Encounters Date Type Department Care Team ([facility] Contact Info) Description 03/19/2025 1:00 AM CDT [facility] [address] [place] [address] Regla Kinney, MANAGER PARKING-SPEECH LANGUAGE PATHOLOGIST [place] 03/20/2025 1:00 AM CDT [facility] [address] [place] [address] Maryellen Lewis OTA [place] 03/20/2025 2:00 AM CDT [facility] [address] [place] [address] Mckenzie Waldron RN [place] 03/21/2025 1:00 AM CDT [facility] [address] [place] [address] Regla Kinney, MANAGER PARKING-SPEECH LANGUAGE PATHOLOGIST [place] 03/22/2025 2:00 AM CDT Home Care Visit [address] [address] Maryellen Lewis, SARA MA documented as of this encounter Visit Diagnoses Not on filedocumented in this encounter Home Health Visit - Care Plan Visit Details Visit Type -MANAGER PARKING - HOME VISIT Discipline -Speech Language Pathology Problems Problem Description Start Date Status Goals Interve ntions ST DM VOICE Disciplines: Speech Language Pathology 02/20/2025 Active 1 goal linked to scheduled/document ed intervention 1 goal intervention scheduled/documente d in this visit ST DM COGNITION Disciplines: Speech Language Pathology 02/20/2025 Active 1 goal linked to scheduled/document ed intervention 1 goal intervention scheduled/documente d in this visit Goals Goal Associated Problem Outcome Goal Met? Visit Notes ST Voice Tasks Description: Short Term Goal: Patient will complete voice intensity exercises and structured sentence level voice tasks targeting vocal intensity with 70% accuracy with moderate verbal and visual feedback as needed, to support functional communication. To be met b y 03/16/25 Inspector Fibrous Wallboard Goal Patient will complete voice intensity exercises and structured sentence level voice tasks targeting vocal intensity with 80% accuracy with moderate verbal and visual feedback as needed, to support functional communication. To be met by 03/09/25 The patient will exhibit improved The Consensus Auditory-Perceptual Evaluation of Voice (CAPE-V) severity ratings for vocal intensity overall severity decreasing from severely to moderately deviant, as measured by clinician judgme nt over structured and conversational tasks. To be met by 04/09/25 ST DM VO[address] No ST Short-Term Memory Description: Short Term Goal Patient will complete short-term memory tasks utilizing trained internal and/or external memory strategies/compensatory aides with 70 % accuracy with moderate visual/verbal cues in order to improve safety and independence in the home. T o be met by 03/16/25 Inspector Fibrous Wallboard Goal Patient will complete short-term memory tasks utilizing trained internal and/or external memory strategies/compensatory aides with 80 % accuracy with min visual/verbal cues in order to improve safety and independence in the home. To be met by 03/23/25 ST DM COGNITION No Interventions Intervention Associated Problem/Goal Status Variance Visit Notes ST Voice Tasks Description: Vocal intensity exercise, structured voice tasks Problem:ST DM VOICE Goal:ST Voice Tasks Performed ST facilitated voice intensity exercise using vowel prolongations as well as connected speech tasks. Pt required MOD cues for imitation of target and improved breath support and vocal loudness. Patient completed: * 20 repetitions of vowel prolongat ions (Loud ahhhhh) * Sentence/phrase level tasks (functional phrases) Pt MOD cues during these structured tasks * Carryover: Spontaneous response questions (Pt used his loud voice 50% of the time no cues) MOD CUES 80% ST trained Pt in use of a a V isual Analog Scale (VAS) 0-10 rating scale to assist with training Pt self monitoring of Pt vocal effort/loudness level during voice tasks. (i.e., 3/10 effort is poor effort/loudness and 7-8/10 is good effort/loud level.) Skilled interventions utilize d in this session include: [ X ] Voice exercise [ X ] Fading cueing hierarchy [ X ] Verbal cues [ X ] Visual models/cues [ X ] Shaping productions [ X ] HEP training [ X ] Train self-monitoring skills using Visual Analog Scale (VAS) [ X ] Caregiver training to promote carryover ST Short-Term Memory Description: Instruct on short-term memory strategies. Problem:ST DM COGNITION Goal:ST Short-Term Memory Performed The Speech Therapist (ST) provided skilled intervention targeting memory deficits to improve the patient s ability to recall functional information and increase independence in daily routines. The primary focus of this session was on training the patient in the use of external memory aids as compensatory strategies to support memory function.Memory aids introduced and/or reinforced during this session included:Cognitively accessible cheat sheets/memory supports for PT, OT, and ST Home Exercise Progra ms (HEPs) to facilitate task recall and carryover across disciplines.The ST facilitated structured memory tasks incorporating HEP content to promote use of these aids. The patient demonstrated approximately 70% accuracy on short-term memory tasks, requ iring moderate visual and verbal cues for successful task completion. Spouse reports the cheat sheets/memory aids help simplify all therapies HEPs. Spouse rpeorts they are helping patient remember his exercises.Additionally , the ST conducted an inter view with the patient and spouse to gather personal information for development of a simple memory book, designed to assist the patient with recall of family members' names and relationships. Skilled interventions utilized in this session include: [ X ] Fading cueing hierarchy [ X ] Errorless learning [ X ] Verbal cues [ X ] External Memory Aids [ X ] Overlearning [ X ] Functional/relevant tasks to increase activity/participation [ X ] Verbal reinforcement/feedback [ X ] Caregiver training t o promote carryover documented in this encounter Care Teams Watch Train Assembler Relationship Specialty Start Date End Date Elan Gross MD [address] [address] PCP - General Family Medicine 02/06/25 documented as of this encounter
--- OUTSIDE RECORDS SUMMARY | 2025-03-14 16:00 | XMS_ITS | Encounter Summary ---
Author Organization [facility] Address [address] [place] [address] Phone Care Team Providers Care Saddle Lining Stitcher Name Role Phone Elan Gross MD Primary Care Provider [phone] Reason for Visit * Auth/Cert (Routine) Specialty Diagnoses / Procedures Referred By Columba melendez Referred To Contact Referral ID Status Reason Start Date Expiration Date Visits Re quested Visits Authorized [id number] 1 1 Encounter Details Date Type Department Care Team (Late Contact Info) Description 03/14/2025 4:00 PM CDT Home Care Visit [facility] [address] [place] [address] Mckenzie Waldron RN [place] - HOME VISIT Social History Tobacco Use [...] Time Taken Comments Blood Pressure 106/72 03/14/2025 3:32 PM CDT Pulse 60 03/14/2025 3:32 PM CDT Temperature 36.5 C (97.7 F) 03/14/2025 3:32 PM CDT Respiratory Rate 16 03/14/2025 3:32 PM CDT Oxygen Saturation 97% 03/14/2025 3:32 PM CDT Inhaled Oxygen Concentration - - Weight - - Height - - Body Mass Index - - documented in this encounter Plan of Treatment Upcoming Encounters Date Type Department Care Team (Late Contact Info) Description 03/19/2025 1:00 AM CDT Home Care Visit [address] [address] Regla Kinney, EDUCATION SITE MANAGER-SPEECH LANGUAGE PATHOLOGIST [place] 03/20/2025 1:00 AM CDT Home Care Visit [address] [address] Maryellen Lewis OTA [place] 03/20/2025 2:00 AM CDT Home Care Visit [address] [address] Mckenzie Waldron RN [place] 03/21/2025 1:00 AM CDT Home Care Visit [address] [address] Regla Kinney, EDUCATION SITE MANAGER-SPEECH LANGUAGE PATHOLOGIST [place] 03/22/2025 2:00 AM CDT Home Care Visit [address] [address] Maryellen Lewis, SARA MA documented as of this encounter Visit Diagnoses Not on filedocumented in this encounter Care Teams Saddle Lining Stitcher Relationship Specialty Start Date End Date Elan Gross MD [address] [place] [address] PCP - General Family Medicine 02/06/25 documented as of this encounter
[2025-03-15] VITALS (7 sets, daily range): BP systolic 103–144; BP diastolic 81–101; PULSE 48–71; RESP 14–20; TEMP 36.5–36.6; O2SAT 98–100
--- NOTE | ~2025-03-15 | CT_ITS ---
EXAM: CT brain wo con, CT facial & cervical spine wo - 03/15/2025 15:10 CDT History: 70 years old Male with fall COMPARISON: None available. PROCEDURE: CT of the face, head and cervical spine without contrast. Axial, sagittal and coronal reformatted planes were evaluated. FINDINGS: CT HEAD: Evaluation is limited secondary to artifact caused by the patient's motion. BRAIN PARENCHYMA: No acute hemorrhage. No mass effect or herniation. Elias-white matter differentiation is maintained. Mild chronic volume loss. Scattered hypodensities in subcortical and periventricular white matter, likely representing chronic microvascular ischemic changes in this age group. Atherosc lerotic calcification of the intracranial vessels is noted. VENTRICLES/ EXTRA-AXIAL SPACES: No hydrocephalus or extra-axial fluid collection. EXTRACRANIAL STRUCTURES: No calvarial fracture. CT CERVICAL SPINE: No acute fracture or subluxation. Straightening of cervical lordosis, likely positional or may be related to muscle spasm. Multilevel degenerative changes of the cervical spine include varying degrees of disk space narrowing, endplate osteophytosis as well as facet and uncal arthropathy. Prevertebral soft tissues are within normal limits. Visualized lung apices are clear. CT FACE: BONES: No evidence of nasal, periorbital, zygomatic, maxillary, pterygoid or mandible fracture. The temporomandibular joints are intact. C5-C6 ACDF. PARANASAL SINUSES and MASTOID AIR CELLS: Clear. SOFT TISSUES: Globes are symmetric and intact. No retrobulbar soft tissue edema, hemorrhage or air. OTHER: Patient is partially edentulous. IMPRESSION: 1. No evidence for acute intracranial hemorrhage or calvarial fracture. 2. No evidence for cervical spine fracture or traumatic subluxation. 3. No CT evidence of a facial injury. 4. Multilevel degenerative changes of the cervical spine. Reviewed, dictated and finalized at location N. IMPRESSION: 1. No evidence for acute intracranial hemorrhage or calvarial fracture. 2. No evidence for cervical spine fracture or traumatic subluxation. 3. No CT evidence of a facial injury. 4. Multilevel degenerative changes of the cervical spine.
--- NOTE | ~2025-03-15 | CT_ITS ---
EXAMINATION: CT chest abdomen pelvis wo con DATE: 03/15/2025 15:24 CDT INDICATION: Status post fall. Left-sided rib pain. TECHNIQUE: Computed tomography (CT) of the chest, abdomen, and pelvis was performed without intravenous contrast. The dose-length product was 2048.42 mGy- cm. Automated exposure control and iterative reconstruction technique were employed. COMPARISON: CT dated 07/30/2020 FINDINGS: CHEST CT: There is atherosclerosis of the aorta. Heart size normal. No significant pleural or pericardial effusion. No thoracic lymphadenopathy. Moderate thoracic and lumbar spondylosis. There is a lytic defect and C5. Mild superior endplate compression deformity of T1, likely chronic. No endobronchial lesions. There is dependent atelectasis. There is calcified granuloma left lung base. There are small nodules in the upper lobes measuring 2 mm or less, likely benign. No suspicious pulmonary nodules or masses. No endobronchial lesions. No pneumothorax. There is osteoarthritis of the shoulders. No acute rib fracture identified. There is atherosclerosis of the aorta without aneurysm. No lymphadenopathy. There are bilateral hip arthroplasties. ABDOMEN/PELVIS CT: There are gallstones. There are calcified granulomas of the spleen. The liver, pancreas, adrenal glands and kidneys are unremarkable. Nonobstructive bowel pattern. There is fecal impaction of the colon and rectum. Large stool ball present in the rectum. IMPRESSION: 1. No acute abnormality of the chest, abdomen or pelvis. 2: Cholelithiasis. Reviewed, dictated and finalized at location O.
--- NOTE | ~2025-03-15 | XR_ITS ---
[id number] 03/15/2025 15:26 Indication: Left knee pain Procedure: 3 views left knee Comparison: No prior studies for comparison. Findings: There is mild osteoarthritis of the patellofemoral compartment. No fracture, subluxation or dislocation. No joint effusion. Impression: 1: Mild patellofemoral compartment osteoarthritis. Reviewed, dictated and finalized at location O. Impression: 1: Mild patellofemoral compartment osteoarthritis.
--- NOTE | 2025-03-15 13:42 | PC.NURSE ---
pt called out via call light stating provider hadn't been in to see him yet. Kylah MASON notified.
--- OUTSIDE RECORDS SUMMARY | 2025-03-15 14:11 | XMS_ITS | Clinical Summary ---
Author Organization [facility] Address [address] [place] [address] Care Team Providers Care Tax Audit Manager Name Role Phone Tresa Mancilla [employer] Primary Care Provider Social History Tobacco Use Types Packs/Day Years [...] Annual Medicare Wellness Visit 2019 COVID-19 Vaccine (1 - 2023-2 5 season) 2025 RSV Immunization or 60+ Years (1 - 1-dose 75+ series) 2029 Meningococcal B Vaccine Aged Out No l onger eligible based on patient's age to complete this topic Meningococcal Vaccine Aged Out No iain emily eligible based on patient's age to complete this topic RSV Immunizations Under 20 Months Aged Out No longer eligible based on patient's age to complete this topic Insurance [facility] Care Teams Tax Audit Manager Relationship Specialty Start Date End Date Tresa Mancilla NP [address] [place] [address] PCP - General NURSE PRACTITIONER 12/09/21
--- OUTSIDE RECORDS SUMMARY | 2025-03-15 14:11 | XMS_ITS | Clinical Summary ---
Author Organization [facility] Address [address] [place] [address] Care Team Providers Care Fire Prevention Inspector Name Role Phone Elan Gross MD Primary Care Provider [phone] Allergies No known active allergies Medications ALPRAZolam [...] 10/05/2017 Surgical History Surgery Date Site/Laterality Comments RI ARTHRP ACETBLR/PROX FEM PROSTC AGRFT/ALGRFT Total Hip Replacement Left - (Added by TW Conv) RI NEUROPLASTY &/TRANSPOS MEDIAN NRV CARPAL TUNNE Neuroplasty Decompression Median Nerve At Carpal Tunnel - (Added by TW Conv) RI ARTHRP ACETBLR/PROX FEM PROSTC AGRFT/ALGRFT Total Knee [...] on file Legal Sex Male 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
--- OUTSIDE RECORDS SUMMARY | 2025-03-15 14:11 | XMS_ITS | Patient Health Record ---
Author Organization [facility] Address [address] [place] [address] Care Team Providers Care Take Down Sorter Name Role Phone Renato VERMA, Elan Primary Care Provider Elodia Medina Unavailable [phone] Allergies Allergen (clinical drug ingredient) Drug/Non Drug Allergy documented on EMR Reaction Allergy Type Onset Date Status Seasonale Unknown Drug Allergy Active Reason For Referral No Information Medications Medication SIG (Take, Route, Frequency, Duration) Notes Start Date End Date Status valACYclovir HCl 500 MG Tablet Oral 11/21/2023 Unknown Ingrezza 40 MG Capsule 1 capsule Orally Once a day; Duration: 30 days Active Omeprazole 20 MG Capsule Delayed Release Oral; Duration: 100 Days Active Nystop 660346 UNIT/GM Powder External 11/21/2023 Unknown Losartan Potassium 50 MG Tablet Oral; Duration: 100 Days Active Rosuvastatin Calcium 20 MG Tablet TAKE 1 TABLET BY MOUTH DAILY Oral; Duration: 90 Days Active Mirtazapine 15 MG Tablet 1 tablet at bed time Oral Once a day; Duration: 30 days Active amLODIPine Besylate 2.5 MG Tablet TAKE 1 TABLET BY MOUTH EVERY MORNING Oral; Duration: 100 Days Active Vitamin D 50 MCG (1999) Tablet 1 tablet Orally Once a day Active Primidone 50 MG Tablet Oral; Duration: 9 0 Days Not-Taking Donepezil HCl 10 MG Tablet TAKE 1 TABLET BY MOUTH EVERY DAY AT BEDTIME Oral; Duration: 90 Days Not-Taking Memantine HCl 10 MG Tablet 1 tablet Oral ly twice a day Active Sertraline HCl 50 MG Tablet 1 tablet Orally Once a day; Duration: 30 days Active Ezetimibe 10 MG Tablet Oral; Duration: 1 00 Days Active ARIPiprazole 5 MG Tablet TAKE 1 TABLET B Y MOUTH EVERY DAY Oral; Duration: 30 Days Not-Taking Levothyroxine Sodium 75 MCG Tablet Oral; Duration: 100 Days Active Rexulti 2 MG Tablet TAKE 1 TABLET BY DAILY; Duration: 30 Active Immunizations Vaccine Route [...] History Observation Description Sex Assigned At Male Social History Household: Social Info Question Answer Notes Household Marital status: living with significant o ther Drug/Alcohol: Social Info Question Answer Notes Drugs Have you used drugs other than those for medical reasons in the past 12 months? Yes Marijuana? Yes Tobacco Use: Social Info Question Answer Notes Tobacco Control (Standard) Tobacco use: Nonsmoker Additional Details Category Social Info Options Details Migrated Social History Migrated Social History Alcohol Intake: Occasional 02/14/2020,Tobacco Years: Never smoker 01/25/2020 Drug/Alcohol: Do you smoke marijuana? Yes Do you drink alcohol? Occasional ly Section Notes: Social History Substance Use Do [...] Do you have a medical power of collections attorney?: No High number of sexual partners: [...] Do you have a medical power of collections attorney?: No High number of sexual partners: [...] Do you have a medical power of collections attorney?: No High number of sexual partners: [...] Do you have a medical power of collections attorney?: No High number of sexual partners: [...] Do you have a medical power of collections attorney?: No High number of sexual partners: [...] Do you have a medical power of collections attorney?: No High number of sexual partners: No History of inconsistent/no condom use: Yes Marital status: Domestic Partner Gender Identity and LGBTQ Identity Gender identity: Identifies as Male Assigned sex at : Male First name used: BILL Sexual orientation: Straight or heterosexual Problems Problem Type SNOMED Code ICD Code Onset Dates Problem Status W/U Status Risk Notes Problem Mild recurrent major depression (11942900) Major depressive disorder, recurrent, mild (F33.0) 4 Active confirmed Problem Severe recurrent major depression without psychotic features (06669740) Major depressive disorder, recurrent severe without psychotic features (F33.2) Active confirmed Problem Generalized anxiety disorder (75789678) Generalized anxiety disorder (F41.1) 4 Active confirmed Problem Unspecified dementia, unspecified severity, with mood disturbance (F03.93) 4 Active confirmed Problem Tardive dyskinesia (778710589) Tardive dyskinesia (G24.01) Active confirmed Problem Essential hypertension (97861112) Benign essential HTN (I10) Active confirmed Vital Signs Heart Rate 69 /min 12/18/2024 Height-cm 170.18 cm 12/18/2024 Blood pressure diastolic 78 mm Hg 12/18/2024 Weight-kg 89.81 kg 12/18/2024 Height 67.00 in 12/18/2024 Blood pressure systolic 118 mm Hg 12/18/2024 Weight 198 lbs 12/18/2024 BMI 31.01 kg/m2 12/18/2024 Encounters Encounter Location Date Provider Diagnosis [place] [facility] [address] [facility] [address] [address] 05/24/2024 Elodia Schwab Generalized anxiety disorder F41.1 ; Major depressive disorder, recurrent severe without psychotic features F33.2 ; Unspecified dementia, unspecified severity, with mood disturbance F03.93 and Hypertension I10 [facility] [address] [address] 05/31/2024 Elodia Schwab Major depressive disorder, recurrent severe without psychotic features F33.2 ; Generalized anxiety disorder F41.1 and Unspecified dementia, unspecified severity, with mood disturbance F03.93 [facility] [address] [address] 07/13/2024 Elodia Schwab Major depressive disorder, recurrent, mild F33.0 ; Generalized anxiety disorder F41.1 ; Unspecified dementia, unspecified severity, with mood disturbance F03.93 ; Tardive dyskinesia G24.01 and Hypertension I10 [facility] [address] [address] 08/13/2024 Elodia Schwab [facility], [facility] [address] [place] [address] 09/03/2024 Elodia Schwab Major depressive disorder, recurrent, mild F33.0 ; Generalized anxiety disorder F41.1 ; Unspecified dementia, unspecified severity, with mood disturbance F03.93 ; Tardive dyskinesia G24.01 and Benign essential HTN I10 [facility], [place] [address] [place] [address] 10/01/2024 Elodia Schwab Major depressive disorder, recurrent, mild F33.0 ; Generalized anxiety disorder F41.1 ; Tardive dyskinesia G24.01 ; Unspecified dementia, unspecified severity, with mood disturbance F03.93 and Benign essential HTN I10 [facility], [place] [address] [facility] [address] [place] [address] 11/12/2024 Elodia Schwab [facility], [place] [address] [facility] [address] [place] [address] 12/06/2024 Elodia Schwab [facility], [place] [address] [facility] [address] [place] [address] 12/18/2024 Elodia Schwab Major depressive disorder, recurrent, mild F33.0 ; Generalized anxiety disorder F41.1 ; Tardive dyskinesia G24.01 ; Unspecified dementia, unspecified severity, with mood disturbance F03.93 ; Benign essential HTN I10 and Encounter for screening for depression Z13.31 [place] [address] [facility] [address] [place] [address] 10/04/2024 Elodia Schwab [facility], [place] [address] [place] [address] 10/16/2024 Elodia Schwab [facility], [place] [address] [place] [address] 11/12/2024 Elodia Schwab Major depressive disorder, recurrent, mild F33.0 [facility], [place] [address] [place] [address] 12/04/2024 Elodia Schwab Generalized anxiety disorder F41.1 [facility], [place] [address] [place] [address] 12/13/2024 Elodia Schwab Tardive dyskinesia G24.01 [facility] [employer] [facility] [address] [facility] [address] [place] [address] 05/29/2024 Elodia Schwab Major depressive disorder, recurrent severe without psychotic features F33.2 [facility] [address] [facility] [address] [facility] [address] [place] [address] 05/29/2024 Elodia Schwab Major depressive disorder, recurrent severe without psychotic features F33.[address] [facility] [address] [place] [address] 09/11/2024 Elodia Schwab [address] [facility] [address] [place] [address] 10/04/2024 Elodia Schwab Assessments Encounter Date Diagnosis (ICD Code) Assessment Notes Treatment Notes Treatment Clinical Notes Section Notes 05/24/2024 Major depressive disorder, recurrent severe without [...] depressive disorder, recurrent, mild (ICD-10 - F33.0) Jabari Norris presents with excessive daytime sleepiness, depression, [...] 10/01/2024 Generalized anxiety disorder (ICD-10 - F41.1) Jabari Norris presents with excessive daytime sleepiness, depression, [...] mild (ICD-10 - F33.0) receives rexulti from [employer] patient assistance 12/18/2024 Generalized anxiety disorder (ICD-10 - F41.1) 12/18/2024 Tardive dyskinesia (ICD-10 - G24.01) 10/01/2024 Tardive dyskinesia (ICD-10 - G24.01) Electronic Prior Authorization was requested for Ingrezza 40 MG Capsule. Provider can order medication once approval received. Jabari Norris presents with excessive daytime sleepiness, depression, [...] as prescribed - monitor at home 05/24/2024 Hypertension (ICD-10 - I10) Anxiety - [...] severity, with mood disturbance (ICD-10 - F03.93) Jabari Norris presents with excessive daytime sleepiness, depression, [...] 10/01/2024 Benign essential HTN (ICD-10 - I10) Jabari oNrris presents with excessive daytime sleepiness, depression, anxiety, [...] for screening for depression (ICD-10 - Z13.31) 05/24/2024 Other referral to the local chapter [...] medications as prescribed - monitor at home 12/18/2024 Other Jabari Norris, an older male patient with a [...] nutrition and appetite stimulation Plan Of Treatment No Information Insurance Providers Payer Name Payer Address Payer Phone Subscriber Number Group Number Insured Name Patient Relationship to Insured Coverage Start Date Coverage End Date [employer] Medicare Replacement/ Advantage - Ppo [address] [address] [place] [address] [id number] JABARI NORRIS Self - patient is the insured Medical (General) History Medical History History ICD Code Problems: Dementia Generalized anxiety disorder Hyperlipidemia Hypothyroidism Marijuana user Mild recurrent major depression Minimal cognitive impairment Obesity Surgical History Surgery Date(Month/Year) Operative procedure on knee (6355835) Total replacement of hip ([id number]) Reconstructive surgery Hospitalization History Reason Date(Month/Year) bradycardia 01/2024 depression 11/2023
--- OUTSIDE RECORDS SUMMARY | 2025-03-15 14:11 | XMS_ITS | Clinical Summary ---
Author Organization [facility] Address [address] [place] [address] Phone Care Team Providers Care Wad Printing Machine Operator Name Role Phone Elan Gross MD Primary Care Provider [phone] Allergies No known active allergies Medications ibuprofen (MOTRIN) 800 MG Tablet Take 800 mg by mouth every 8 hours as needed for Mild or more severe pain. Active Vitamin D3 1000 UNIT Tablet Take 25 mcg by mouth daily. Active docusate sodium (COLACE) 100 MG Tablet Take 100 mg by mouth 2 times daily. Active omeprazole (PRILOSEC) 20 MG Tablet Delayed Response Take 20 mg by mouth daily. Active levothyroxine sodium (TIROSINT) 75 MCG Capsule Take 1 Capsule by mouth daily. Active sertraline (Zoloft) 50 MG Tablet Take 50 mg by mouth daily. Active mirtazapine (Remeron) 15 MG Tablet Take 15 mg by mouth nightly. Active carbidopa-levod opa (SINEMET) 25-100 MG Tablet Take 1 Tablet by mouth 3 times daily. Active EZETIMIBE-SIMVA STATIN PO Take 10 mg by mouth 4 times daily as needed for Other. Active rosuvastatin (CRESTOR) 20 MG Tablet Take 20 mg by mouth daily. Active memantine (NAMENDA) 10 MG Tablet Take 10 mg by mouth 2 times daily. Active Brexpiprazole (Rexulti) 2 MG Tablet Take 1 Tablet by mouth daily. Active Valbenazine Tosylate (Ingrezza) 40 MG Capsule Take 40 mg by mouth nightly. Active gabapentin (NEURONTIN) 100 MG Capsule Take 100 mg by mouth 3 times daily. 02/11/2025 Active predniSONE (DELTASONE) 10 MG Tablet Take 10 mg by mouth daily. Active Encounters Date Type Department Care Team Description 03/14/2025 4:00 PM CDT Home Care Visit [address] [address] Mckenzie Waldron RN SN - HOME VISIT 03/14/2025 2:00 PM CDT Home Care Visit [address] [address] Regla Kinney, GREY INSPECTOR-SPEECH LANGUAGE PATHOLOGIST GREY INSPECTOR - HOME VISIT 03/14/2025 1:00 PM CDT Home Care Visit [address] [address] Maryellen Lewis OTA OT - HOME VISIT 03/13/2025 2:30 PM CDT Home Care Visit [address] [address] Regla Kinney, GREY INSPECTOR-SPEECH LANGUAGE PATHOLOGIST GREY INSPECTOR - HOME VISIT 03/12/2025 2:00 PM CDT Home Care Visit [address] [address] Crystal Perez, PT PT - DISCIPLINE DISCHARGE 03/12/2025 10:30 AM CDT Home Care Visit [address] [address] Lashay Kim OT OT - REASSESSMENT 03/08/2025 11:00 AM CDT Home Care Visit [address] [address] Teresa Brown, JOSEFINA SN - HOME VISIT 03/07/2025 12:00 PM CDT Home Care Visit [address] [address] Maryellen Lewis OTA OT - HOME VISIT 03/07/2025 11:30 AM CDT Home Care Visit [address] [address] Rose Cason SAP PORTAL CONSULTANT PT - HOME VISIT 03/06/2025 2:00 PM CDT Home Care Visit [address] [address] Regla Kinney, GREY INSPECTOR-SPEECH LANGUAGE PATHOLOGIST GREY INSPECTOR - HOME VISIT 03/05/2025 12:30 PM CDT Home Care Visit [address] [address] Maryellne Lewis, SARA OT - HOME VISIT 03/05/2025 12:00 PM CDT Home Care Visit [address] [address] Rose Cason, SAP PORTAL CONSULTANT PT - HOME VISIT 03/04/2025 2:15 PM CDT Home Care Visit [address] [address] Regla Kinney, GREY INSPECTOR-SPEECH LANGUAGE PATHOLOGIST GREY INSPECTOR - HOME VISIT 03/01/2025 12:00 PM CDT Home Care Visit [address] [address] Veronica Blackburn LPN SN - HOME VISIT 03/01/2025 10:30 AM CDT Home Care Visit [address] [address] Maryellen Lewis, METAL BUFFER OT - HOME VISIT 02/28/2025 12:00 PM CDT Home Care Visit [address] [address] Rose Cason, SAP PORTAL CONSULTANT PT - HOME VISIT 02/27/2025 2:30 PM CDT Home Care Visit [address] [address] Regla Kinney, GREY INSPECTOR-SPEECH LANGUAGE PATHOLOGIST GREY INSPECTOR - HOME VISIT 02/27/2025 12:30 PM CDT Home Care Visit [address] [address] Maryellen Lewis, METAL BUFFER OT - HOME VISIT 02/26/2025 1:30 PM CDT Home Care Visit [address] [address] Rose Cason, SAP PORTAL CONSULTANT PT - HOME VISIT 02/26/2025 Home Care Visit [address] [address] Nicole Abarca, RN CARE CONFERENCE 02/25/2025 2:30 PM CDT Home Care Visit [address] [address] Regla Kinney, GREY INSPECTOR-SPEECH LANGUAGE PATHOLOGIST GREY INSPECTOR - HOME VISIT 02/25/2025 Home Care Visit [address] [address] Rose Cason, SAP PORTAL CONSULTANT TELEPHONE ENCOUNTER 02/25/2025 Home Care Visit [address] [address] Risa Woods, PRECISION PRINTING WORKER TELEPHONE ENCOUNTER 02/22/2025 11:00 AM CDT Home Care Visit [address] [address] Mckenzie Waldron, RN SN - HOME VISIT 02/21/2025 1:00 PM CDT Home Care Visit [address] [address] Rose Cason, SAP PORTAL CONSULTANT PT - HOME VISIT 02/21/2025 12:30 PM CDT Home Care Visit [address] [address] Maryellen Lewis, SARA OT - HOME VISIT 02/21/2025 11:30 AM CDT Home Care Visit [address] [address] Risa Woods, PRECISION PRINTING WORKER PRECISION PRINTING WORKER - INITIAL EVALUATION 02/21/2025 Home Care Visit [address] [address] Risa Woods, PRECISION PRINTING WORKER TELEPHONE ENCOUNTER 02/20/2025 9:30 AM CDT Home Care Visit [address] [address] Regla Kinney, GREY INSPECTOR-SPEECH LANGUAGE PATHOLOGIST GREY INSPECTOR - INITIAL EVALUATION 02/19/2025 3:30 PM CDT Home Care Visit [address] [address] Lashay Kim OT OT - INITIAL EVALUATION 02/19/2025 10:00 AM CDT Home Care Visit [address] [address] Crystal Perez, PT PT - INITIAL EVALUATION 02/16/2025 9:00 AM CDT Home Care Visit [address] [address] Nicole Abarca, RN SN - OASIS START OF CARE 02/16/2025 Plan of Care Documentation [address] [address] 02/15/2025 Travel from Last 3 Months Social History Tobacco Use Types Packs/Day Years [...] CDT Inhaled Oxygen Concentration - - Weight 84.8 kg (187 lb) 02/19/2025 10:13 AM CDT Height 170.2 cm (5' 7) 02/19/2025 3:57 PM CDT Body Mass Index 28.43 02/19/2025 10:13 AM CDT Plan of Treatment Upcoming Encounters Date Type Department Care Team (Late st Contact Info) Description 03/19/2025 1:00 AM CDT Home Care Visit [address] [address] Regla Kinney, GREY INSPECTOR-SPEECH LANGUAGE PATHOLOGIST [place] 03/20/2025 1:00 AM [facility] [address] [place] [address] Maryellen Lewis OTA [place] 03/20/2025 2:00 AM CD[facility] [address] [place] [address] Mckenzie Waldron RN [place] 03/21/2025 1:00 AM CD[facility] [address] [place] [address] Regla Kinney, GREY INSPECTOR-SPEECH LANGUAGE PATHOLOGIST [place] 03/22/2025 2:00 AM CDT Home Care Visit [address] [address] Maryellen Lewis, SARA [place] Health Maintenance Due Date Last Done Comments Hepatitis C Virus (HCV) Screening 1955 TdaP Immunization 1955 Cologuard 1999 Colonoscopy 1999 Colorectal Cancer Screening 1999 Immunochemical Fecal Occult Blood 1999 Pneumococcal Immunization (50+ years) (1 of 1 - PCV) 01/15/2004 Zoster Immunization (2 of 3) 11/30/2017 10/05/2017 Influenza Immunization (#1) 03/11/202511/2023, 02/26/2022, 04/03/2021, Additional history exists SARS-COV-2 Immunization ( season) 2025 04/14/2024, 07/22/2023, 06/05/2021, Additional history exists Respiratory Syncytial Virus (RSV) Immunization (Adult) Completed 07/22/2023 Hepatitis B Immunization Aged Out No longer eligible based on patient's age to complete this topic Human Papillomavirus (HPV) Immunization Aged Out No longer eligible based on patient's age to complete this topic Meningococcal Immunization (ACWY) Aged Out No longer eligible based on patient's age to complete this topic Rotavirus Immunization Aged Out No lo nger eligible based on patient's age to complete this topic Insurance [facility] Advance Directives * Full Code (Latest Code Status on File) Date Activated Date Inactivated Comments 02/16/2025 10:29 PM Care Teams Wad Printing Machine Operator Relationship Specialty Start Date End Date Elan Gross MD [address] [place] [address] PCP - General Family Medicine 02/06/25
--- OUTSIDE RECORDS SUMMARY | 2025-03-15 14:11 | XMS_ITS | Clinical Summary ---
Author Organization [facility] Address [address] [place] [address] Care Team Providers Care Invoice Classification Clerk Name Role Phone Elan Gross MD Primary Care Provider [phone] Source Comments [facility],non-owned Affiliates and Associated Physician Practices is amultiple site organization consisting of ambulatory clinics and hospital sitesin [place], [place], [place] and [place]. This disclosure is being madepursuant to the Care Everywhere program and may not contain all information available regarding this patient. Last updated 18.[facility] Allergies No known active allergies Medications * [...] on file Legal Sex Male 4:58 PM PET SITTER Gender Identity Not on file Sexual Orientation [...] 7 - 26 mg/dL 03/05/2021 4:09 PM [facility] Creatinine 0.93 0.71 - 1.16 mg/dL 03/05/2021 4:09 PM [facility] Sodium 139 136 - 145 mmol/L 03/05/2021 4:09 PM [facility] Potassium 4.1 3.5 - 4.5 mmol/L 03/05/2021 4:09 PM [facility] Chloride 103 98 - 107 mmol/L 03/05/2021 4:09 PM [facility] CO2 24 22 - 29 mmol/L 03/05/2021 4:09 PM [facility] Glucose 92 70 - 115 mg/dL 03/05/2021 4:09 PM [facility] Calcium 9.6 8.4 - 10.2 mg/dL 03/05/2021 4:09 PM [facility] Protein Total 7.4 6.0 - 8.3 g/dL 03/05/2021 4:09 PM [facility] Albumin 4.4 3.4 - 5.0 g/dL 03/05/2021 4:09 PM [facility] Bilirubin Total 0.7 0.2 - 1.2 mg/dL 03/05/2021 4:09 PM [facility] Alkaline Phosphatase 74 40 - 150 U/L 03/05/2021 4:09 PM [facility] ALT 14 5 - 55 U/L 03/05/2021 4:09 PM [facility] AST 18 5 - 34 U/L 03/05/2021 4:09 PM [facility] Anion Gap 16 8 - 18 03/05/2021 4:09 PM [facility] BUN/Creatinine Ratio 14 7 - 23 03/05/2021 4:09 PM [facility] Osmolality Calculated 288 270 - 300 mOsm/kg 03/05/2021 4:09 PM [facility] Albumin/Globulin Ratio 1.5 1.1 - 2.3 03/05/2021 4:09 PM [facility] eGFR by CKD-EPI 85(L) >=90 mL/min/1.7 3 m2 03/05/2021 4:09 PM [facility] Blood BLOOD SPECIMEN / Unknown Lab Venipuncture / Unknown 03/05/2021 3:12 PM CDT 03/05/2021 3:39 PM [facility] Lokesh Pennington MD LAB - CHEMI STRY ORDERABLES Final Result [facility] [address] [place] [address], [place] [phone] from Last 3 Months or Most Recently Relevant to Health Maintenance Insurance [place] [id number] MANAGED MEDICARE ADV Care Teams Invoice Classification Clerk Relationship Specialty Start Date End Date Elan Gross MD [address] [place] [address] PCP - General 02/26/21
--- NOTE | 2025-03-15 14:30 | PC.NURSE ---
1415--Patient and unhappy that patient has not been seen by MD yet-reassured, left hand wound s cleaned and dressed. Patient used urinal. Patient continues to complain of pain to left side of face and head and left ribs
--- NOTE | 2025-03-15 14:45 | ED.FALL ---
HPI - Fall General Chief Complaint: Fall Stated Complaint: fall Time Seen by Provider: 03/15/25 13:49 Source: patient and family Mode of arrival: EMS History of Present Illness HPI Narrative: Patient presents after reportedly falling this morning. This fall was not witnessed by family members. He was found down, unknown for how long. Patient is alert oriented x3 at baseline and today. History of Alzheimer's and Parkinson's disease. Patient falls not infrequently but typically does not have any complaints. Today however, he is complaining of left cheek pain and but his left ribs are hurting. No pain medications taken prior to arrival. He does report feeling a little short of breath. He has some abrasions on his left digits 3 4 and 5 which were cleaned by the nurse prior to my assessment. Patient also had been complaining of left knee pain to his . In general he has been weak and he reported that he fell over his walker verses with his feet slipped. Not on anticoagulation by report. Related Data Home Medications ?Medication ?Instructions ?Recorded ?Confirmed ?Last Taken ?Type cholecalciferol (vitamin D3) 25 25 mcg PO DAILY 01/26/24 03/05/25 01/21/25 History mcg (1,000 unit) capsule docusate sodium 100 mg capsule 100 mg PO BID 01/22/25 03/05/25 01/21/25 History (Dulcolax Stool Softener (docusate)) Allergies Allergy/AdvReac Type Severity Reaction Status Date / Time No Known Allergies Allergy Unknown Verified 03/05/25 07:26 [facility] Past Medical History Medical History (Updated 03/16/25 @ 00:01 by Serene Martinez) Dysesthesia Chronic schizophrenia Encephalopathy acute Drug-induced Parkinson's disease Dementia Dysuria Microhematuria Constipation Prostatitis Chronic daily headache Dementia of the Alzheimer's type Essential tremor Memory deficit Dyspnea on exertion Parasagittal meningioma Elevated fasting glucose Abnormal RBC Elevated ALT measurement Erectile dysfunction HSV-2 infection Hepatitis Weight loss Anxiety Colon cancer screening Mood disorder CARIE on CPAP Screening for prostate cancer Elevated CK Essential hypertension Mixed hyperlipidemia Surgical History Surgical History H/O cervical spine surgery History of knee surgery Right History of hip surgery Hx of colonoscopy Family History Family History Sibling Diabetes mellitus Family history of obesity Hypertension Family history of type 2 diabetes mellitus Mother Depression Hypertension Bipolar 1 disorder Father Abscess of internal cheek Septicemia Rheumatoid arthritis Other Family history of arthritis Family history of malignant neoplasm Social History Social History (Updated 03/05/25 @ 11:10 by Mckenzie Barrientos [facility]) Smoking status: Never smoker Smokeless tobacco user: other Second hand tobacco smoke exposure: Yes Alcohol intake: never Alcohol use details: socially, infrequently Substance use: never Substance use type: marijuana Other substance usage details: gummies for anxiety Do You Feel Safe in your Home?: Yes Lack of Transportation: No Lack of Food: Never True Current Housing: I Have Housing Concerned About Future Housing: No Difficulty Paying Gas/Electric Bills: No Difficulty Paying for Meds: No Currently Unemployed: No Education: High School Diploma/GED Difficulty w/ Childcare or Family Care: No Living arrangements: with friend(s) Additional living arrangements comments: [place] Occupation/Education: retired 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 HEAD: Normocephalic, atraumatic. EYES: Non injected, non icteric. ENT: Nares clear, no rhinorrhea or epistaxis. Gross auditory acuity intact. Left cheek erythematous. NECK: Supple. No meningismus. Trachea midline. CHEST: Speaking in full sentences. No respiratory distress. Diminished lung sounds throughout, likely due to poor effort. Mild tenderness to palpation along left lower ribs but without obvious bony deformity or crepitus/subcutaneous emphysema. HEART: Regular rate and rhythm. . ABDOMEN: Soft, nondistended. No rigidity or guarding. Not peritoneal. EXTREMITIES: Bandaids currently covering L digits 3 4 and 5 , abrasions underlying but no strike through on bandage. Left knee without abrasion though patient does have it flexed and extremity is notable for bony prominence. Right knee with well healing surgical scar. SKIN: Warm, dry, no rash. NEURO: Alert and oriented. Answering questions. Following commands. Normal speech without aphasia or dysarthria. Parkinsonian facies. PSYCH: Congruent mood and affect. Course Vital Signs Vital signs: Vital Signs Temperature 97.7 F 03/15/25 11:18 Pulse Rate 57 L 03/15/25 11:18 Respiratory Rate 20 03/15/25 11:18 Blood Pressure 135/95 H 03/15/25 11:18 Pulse Oximetry 100 03/15/25 11:18 Oxygen Delivery Room Air 03/15/25 11:18 Temperature 97.9 F 03/15/25 16:40 Pulse Rate 71 03/15/25 16:40 Respiratory Rate 18 03/15/25 16:40 Blood Pressure 103/81 03/15/25 16:40 Pulse Oximetry 98 03/15/25 16:40 Oxygen Delivery Room Air 03/15/25 11:18 MDM - Fall MDM Narrative Medical decision making narrative: Patient presents after a fall this morning. Complaining of left cheek pain, left rib pain, and left knee pain. In the emergency department he is afebrile with vital signs notable for mild bradycardia. Blood pressure is acceptable although diastolic blood pressure is elevated. Basic labs and imaging ordered as is [place] for pain. He has a leukocytosis. Urine with microscopic hematuria. CT chest abdomen pelvis without acute process including no noted fractures. Troponin normal. Discussed with patient and his partner the reassuring workup but expected pain over the next 2 days and the recommendation prescriptions for multimodal pain management. They verifies understanding and are in agreement. Discussed the incidental finding of the vertebral lesion. Spouse makes note of this and will follow-up with patient's PCP regarding this. Otherwise stable for discharge. Differential Diagnosis Differential diagnosis: Likely syncope, compression fracture, concussion with loss of consciousness, concussion without loss of consciousness and other (Facial fracture, nasal bone fracture, C-spine fracture, intracranial hemorrhage, rib fracture, pneumothorax, splenic injury knee injury) Lab Data 03/15/25 14:53 03/15/25 14:53 Labs: Lab Results 03/15/25 Range/Units 14:53 WBC 13.2 H (4.5-10.0) K/mm3 RBC 4.53 L (4.6-6.20) M/mm3 Hgb 13.8 L (14.0-18.0) g/dL Hct 42.1 (42.0-52.0) % MCV 92.9 (80-100) fl MCH 30.5 (26-34) pg MCHC 32.8 (32-36) g/dl RDW 13.1 (11.5-14.5) % Plt Count 223 (150-375) k/mm3 MPV 11.0 H (7.4-10.4) fl Immature Gran % (Auto) 0.7 H (0-0.5) % Neut % (Auto) 72.6 (45.5-73.1) % Lymph % (Auto) 18.5 (18.3-44.2) % [place] % (Auto) 7.4 (2.6-8.5) % Eos % (Auto) 0.3 (0-4.4) % Baso % (Auto) 0.5 (0.2-1.2) % Lymph # (Auto) 2.43 (0.9-3.2) K/mm3 [place] # (Auto) 1.0 H (0.1-0.6) K/mm3 Eos # (Auto) 0.0 (0-0.3) K/mm3 Baso # (Auto) 0.1 (0.0-0.1) K/mm3 Abs Immat Gran (auto) 0.09 H (0.00-0.031) K/mm3 Absolute Neuts (auto) 9.6 H (1.3-6.7) K/mm3 Absolute Nucleated RBC 0.000 (0.0-0.012) K/mm3 Nucleated RBC % 0.0 (0.0-0.2) % Sodium 138 (137-145) mmol/L Potassium 3.5 (3.4-5.0) mmol/L Chloride 103 (98-107) mmol/L Carbon Dioxide 28 (22-30) mmol/L Anion Gap 7 (4-12) mmol/L BUN 20 (9-20) mg/dL Creatinine 0.79 (0.7-1.3) mg/dL Estim Creat Clear Calc 76 ml/min Estimated GFR > 60 (59 - ) Glucose 89 (65-110) mg/dL Calcium 9.3 (8.4-10.2) mg/dL Total Bilirubin 0.7 (0.2-1.3) mg/dL AST 23 (17-59) U/L ALT 42 (6-50) U/L Alkaline Phosphatase 85 (38-126) U/L Total Creatine Kinase 77 (55-170) U/L Troponin I < 0.012 (0.000-0.034) ng/mL Total Protein 7.1 (6.3-8.2) g/dL Albumin 4.3 (3.5-5.1) g/dL Urine Color Yellow (Yellow) Urine Appearance Clear (Clear) Urine pH 5.5 (5.0-9.0) Ur Specific [place] 1.024 (1.001-1.035) Urine Protein Negative (Negative) mg/dL Urine Glucose (UA) Negative (Negative) mg/dL Urine Ketones Trace H (Negative) mg/dL Ur Blood (Man) 1+ H (Negative) Urine Nitrate Negative (Negative) Urine Bilirubin Negative (Negative) Urine Urobilinogen 0.2 (<2.0) mg/dL Leukocyte Esterase Rfl Negative (Negative) [place]/UL Urine RBC 3-5 H (0-2) /hpf Urine WBC 0-5 (0-3) /hpf Ur Squamous Epith Cells None seen (Few) /hpf Urine Bacteria None seen /hpf Urine Casts 0-2 Imaging Data Radiologist's impression: IMPRESSION: 1. No evidence for acute intracranial hemorrhage or calvarial fracture. 2. No evidence for cervical spine fracture or traumatic subluxation. 3. No CT evidence of a facial injury. 4. Multilevel degenerative changes of the cervical spine. IMPRESSION: 1. No evidence for acute intracranial hemorrhage or calvarial fracture. 2. No evidence for cervical spine fracture or traumatic subluxation. 3. No CT evidence of a facial injury. 4. Multilevel degenerative changes of the cervical spine. IMPRESSION: 1. No acute abnormality of the chest, abdomen or pelvis. 2: Cholelithiasis. ADDENDUMCorrection: Lytic defect is identified in T5 not C5. Considerations include multiple myeloma and a static disease. Impression: 1: Mild patellofemoral compartment osteoarthritis. ECG Data EKG #1: Attestation: I personally reviewed and interpreted this ECG as follows: ECG completion date: 03/15/25 ECG completion time: 15:58 Interpretation: Sinus bradycardia at a rate of 48 beats per minute. VT interval 157. QRS 84. QT/QTC 408/374. Good R-wave progression across the precordial leads. T-wave flattening in 3 but otherwise appears upright although low amplitude in contiguous inferior leads. No other T-wave inversions. Discharge Plan Discharge Clinical Impression: Fall, Acute pain of left knee, Pain of cheek, Leukocytosis, Hematuria, microscopic, Cholelithiasis, Left-sided chest wall pain, Osteoarthritis of left patellofemoral joint Patient Disposition: Home Condition: Stable Instructions: Antibiotic Form, Gallstones (ED), Osteoarthritis (ED), Leukocytosis (ED), Knee Pain (ED), Fall Prevention (ED), Chest Wall Pain (ED) Additional Instructions: No bleeding in the brain, broken bones in neck or facial bones, no rib fractures or internal bleeding. Otherwise labs and work up reassuring. You are likely to continue to have pain over the next several days. Acetaminophen/Tylenol (maximum 4000 mg per day) is safe to take with NSAIDs (ibuprofen/Motrin) for pain relief. Take as directed. Lidocaine patches may also help. Of note, a lytic defect was seen on thoracic spine/vertebra #5. Follow-up with primary care physician. Return to the emergency department with any new or worsening symptoms. Patient Language: Malay Prescriptions: New acetaminophen 500 mg capsule 1,000 mg PO Q6H PRN (Reason: pain) Qty: 30 0RF lidocaine 4 % adhesive patch,medicated 1 patch topical DAILY PRN (Reason: pain) Qty: 10 0RF ibuprofen 600 mg tablet 600 mg PO TID PRN (Reason: pain) Qty: 30 0RF No Action ibuprofen 800 mg tablet 800 mg PO TID PRN (Reason: pain) Qty: 270 0RF cholecalciferol (vitamin D3) 25 mcg (1,000 unit) capsule 25 mcg PO DAILY docusate sodium [Dulcolax Stool Softener (dss)] 100 mg capsule 100 mg PO BID omeprazole 20 mg capsule,delayed release(DR/EC) See Rx Instructions .ROUTE .COMPLEX Qty: 90 2RF Dose Instruction: TAKE 1 CAPSULE BY MOUTH DAILY Rx Instructions: TAKE 1 CAPSULE BY MOUTH DAILY gabapentin 100 mg Capsule 100 mg PO TID Qty: 90 0RF levothyroxine 75 mcg tablet 75 mcg PO DAILY Qty: 30 0RF sertraline [Zoloft] 25 mg tablet 50 mg PO DAILY Qty: 30 0RF mirtazapine [Remeron] 15 mg tablet 15 mg PO HS Qty: 30 0RF Rx Instructions: psych carbidopa-levodopa [Sinemet] 25-100 mg Tablet 1 tablet PO TID Qty: 90 0RF ezetimibe [Zetia] 10 mg tablet 10 mg PO DAILY Qty: 30 0RF rosuvastatin 20 mg tablet 20 mg PO DAILY Qty: 30 0RF memantine 10 mg tablet 10 mg PO BID Qty: 60 0RF Rexulti 2 mg tablet 2 mg PO DAILY Qty: 21 0RF Ingrezza 40 mg capsule 40 mg PO QPM Qty: 24 0RF Follow-up/Referrals: Elan Gross MD [Primary Care Provider, Family Practice] Time of Disposition: 16:12
[2025-03-15] MEDS: HYDROcodone/acetaminophen (*CRX) 5-325 MG TABLET 1 TAB PO (14:58)
[2025-03-15 15:02] LABS: Hematocrit 42.1 % (42.0-52.0); Hemoglobin 13.8 g/dL (14.0-18.0); Immature Granulocyte Percent A 0.7 % (0-0.5); Lymphocytes Absolute Auto 2.43 K/mm3 (0.9-3.2); Mean Corpuscular HGB Conc 32.8 g/dl (32-36); Mean Corpuscular Hemoglobin 30.5 pg (26-34); Mean Corpuscular Volume 92.9 fl (80-100); Nucleated Red Blood Cells Absolute Auto 0.000 K/mm3 (0.0-0.012); Nucleated Red Blood Cells Perc 0.0 % (0.0-0.2); Platelet Count Result 223 k/mm3 (150-375); Red Blood Count 4.53 M/mm3 (4.6-6.20); White Blood Count 13.2 K/mm3 (4.5-10.0)
--- NOTE | 2025-03-15 15:11 | ECG_ITS ---
Test Date: 2025-03-15 15:58:39 Measurements Intervals [place] Rate: 48 P: 58 WV: 157 QRS: -11 QRSD: 84 T: 25 QT: 408 QTc: 366 Interpretive Statements SINUS BRADYCARDIA NONSPECIFIC T-WAVE ABNORMALITY Compared to ECG 01/22/2025 12:46:50 T-wave abnormality now present Electronically Signed On 03-16-2025 10:42:22 CDT by Chandler Quezada M.D.
[2025-03-15 15:15] LABS: Alanine Aminotransferase 42 U/L (6-50); Albumin Level 4.3 g/dL (3.5-5.1); Alkaline Phosphatase 85 U/L (38-126); Anion Gap 7 mmol/L (4-12); Aspartate Amino Transferase 23 U/L (17-59); Bilirubin,Total 0.7 mg/dL (0.2-1.3); Blood Urea Nitrogen 20 mg/dL (9-20); Calcium 9.3 mg/dL (8.4-10.2); Carbon Dioxide 28 mmol/L (22-30); Chloride 103 mmol/L (98-107); Creatine Kinase 77 U/L (55-170); Estimated CRCL calculation 76 ml/min; Estimated Glomerular Filt Rate > 60; Glucose 89 mg/dL (65-110); Potassium 3.5 mmol/L (3.4-5.0); Sodium 138 mmol/L (137-145); Total Protein 7.1 g/dL (6.3-8.2)
[2025-03-15 15:21] LABS: Add Urine Microscopic? YES; Appearance Urine Clear (Clear); Glucose Urine UA Negative (Negative); Leukocyte Esterase Ur Negative LEU/UL (Negative); Nitrate Urine Negative (Negative); Non Pathogenic Casts 0-2; Specific Grav Ur 1.024 (1.001-1.035)
[2025-03-15 15:43] LABS: Troponin I < 0.012 ng/mL (0.000-0.034)
[2025-03-15] MEDS: KETOROLAC 15 MG/ML VIAL (*BKC) IV PUSH (16:20)
[2025-03-15] MEDS: LIDOCAINE 5% PATCH 1 PATCH TRANSDERM (16:22)
== END 2025-03-15 16:50 | disposition home or self-care (01) ==
PROVIDERS: Emergency Provider Student in an Organized Health Care Education/Training Program; PCP Family Medicine
DX: R07.89 Other chest pain (principal); S09.93XA Unspecified injury of face, initial encounter; S89.92XA Unspecified injury of left lower leg, initial encounter; M17.12 Unilateral primary osteoarthritis, left knee; K80.20 Calculus of gallbladder without cholecystitis without obstruction; R31.29 Other microscopic hematuria; G30.9 Alzheimer's disease, unspecified; F02.80 Dementia in other diseases classified elsewhere, unspecified severity, without behavioral disturbance, psychotic disturbance, mood disturbance, and anxiety; G20.A1 Parkinson's disease without dyskinesia, without mention of fluctuations; I10 Essential (primary) hypertension; E78.2 Mixed hyperlipidemia; G47.33 Obstructive sleep apnea (adult) (pediatric); F20.9 Schizophrenia, unspecified; F41.9 Anxiety disorder, unspecified; Z77.22 Contact with and (suspected) exposure to environmental tobacco smoke (acute) (chronic); R94.31 Abnormal electrocardiogram [ECG] [EKG]; R00.1 Bradycardia, unspecified; W19.XXXA Unspecified fall, initial encounter; Z79.899 Other long term (current) drug therapy; R93.7 Abnormal findings on diagnostic imaging of other parts of musculoskeletal system
CPT/HCPCS: 36415; 70450; 70486; 71250; 72125; 73560; 74176; 80053; 81001; 82550; 84484; 85025; 93005; 96374; 99284; A9270; J1885

== ENCOUNTER 2025-03-28 10:50 | Outpatient (CLI) | payer MEDICARE, SELFPAY ==
--- OUTSIDE RECORDS SUMMARY | 2025-03-27 14:30 | XMS_ITS | Encounter Summary ---
Author Organization [facility] Address [address] [place] [address] Phone Care Team Providers Care Web Content Coordinator Name Role Phone Elan Gross MD Primary Care Provider [phone] Reason for Visit * Auth/Cert (Routine) Specialty Diagnoses / Procedures Referred By Columba t Referred To Contact Referral ID Status Reason Start Date Expiration Date Visits Re quested Visits Authorized [id number] 1 1 Encounter Details Date Type Department Care Team (Late Contact Info) Description 03/27/2025 2:30 PM CDT [facility] [address] [place] [address] Regla Kinney, BENCH HAND-SPEECH LANGUAGE PATHOLOGIST DC BENCH HAND - HOME VISIT Social History Tobacco Use Types Packs/Day Years Used Date Smoking Tobacco: Never Assessed Sex and Gender Information Value Date Recorded Sex Assigned at Not on file Legal Sex Male 9:36 AM CDT Gender Identity Not on file Sexual Orientation Not on file documented as of this encounter Last Filed Vital Signs Vital Sign Reading Time Taken Comments Blood Pressure 110/70 03/27/2025 2:32 PM CDT Pulse 51 03/27/2025 2:32 PM CDT Temperature 36.4 C (97.6 F) 03/27/2025 2:32 PM CDT Respiratory Rate 18 03/27/2025 2:32 PM CDT Oxygen Saturation 99% 03/27/2025 2:32 PM CDT Inhaled Oxygen Concentration - - Weight - - Height - - Body Mass Index - - documented in this encounter Plan of Treatment Upcoming Encounters Date Type Department Care Team (Late Contact Info) Description 03/28/2025 1:15 PM CDT Home [facility] Visit [facility] [address] [place] [address] Regla Kinney, BENCH HAND-SPEECH LANGUAGE PATHOLOGIST [place] 04/01/2025 1:00 AM CDT [facility] [address] [place] [address] Regla Kinney, BENCH HAND-SPEECH LANGUAGE PATHOLOGIST [place] 04/03/2025 1:00 AM CDT [facility] [address] [place] [address] Regal Kinney, BENCH HAND-SPEECH LANGUAGE PATHOLOGIST DC documented as of this encounter Visit Diagnoses Not on filedocumented in this encounter Home Health Visit - Care Plan Visit Details Visit Type -BENCH HAND - HOME VISIT Discipline -Speech Language Pathology Problems Problem Description Start Date Status Goals Interve ntions ST DM VOICE Disciplines: Speech Language Pathology 02/20/2025 Active 1 goal linked to scheduled/documente d intervention 1 goal intervention scheduled/documente d in this visit ST DM COGNITION Disciplines: Speech Language Pathology 02/20/2025 Active 2 goals linked to scheduled/documente d interventions 2 goal interventions scheduled/documente d in this visit Goals Goal Associated Problem Outcome Goal Met? Visit Notes ST Voice Tasks Description: Short Term Goal: Patient will complete voice intensity exercises and structured sentence level voice tasks targeting vocal intensity with 70% accuracy with moderate verbal and visual feedback as needed, to support functional communication. To be met b y 03/16/25 GOAL MET Fci Goal Patient will complete voice intensity exercises and structured sentence level voice tasks targeting vocal intensity with 80% accuracy with moderate verbal and visual feedback as needed, to support functional communi cation. To be met by 03/09/25 ONGOING The patient will exhibit improved The Consensus Auditory-Perceptual Evaluation of Voice (CAPE-V) severity ratings for vocal intensity overall severity decreasing from severely to moderately deviant, as measured by clinician judgment over structured and conversational tasks. To be met by 04/09/[address] DM VOICE No ST Short-Term Memory Description: Short Term Goal Patient will complete short-term memory tasks utilizing trained internal and/or external memory strategies/compensatory aides with 70 % accuracy with moderate visual/verbal cues in order to improve safety and independence in the home. T o be met by 03/16/25 GOAL MET Quencher Operator Goal Patient will complete short-term memory tasks utilizing trained internal and/or external memory strategies/compensatory aides with 80 % accuracy with min visual/verbal cues in order to improve safety and ind ependence in the home. To be met by 03/23/25 Extend to 04/06/25 ST DM COGNITION No ST Dementia Education Description: Fci Goal: Caregiver will independently teach back trained dementia education in order to improve daily function. To be met by 03/23/25. Extend to 04/06/25 ST DM COGNITION No Interventions Intervention Associated Problem/Goal Status Variance Visit Notes ST Voice Tasks Description: Vocal intensity exercise, structured voice tasks Problem:ST DM VOICE Goal:ST Voice Tasks Performed Speech therapist provided laminated home exercise program sheets containing 20 3 0 functional phrases and sentences targeting daily wants/needs, comments, endearments, and greetings. Training in use of the program was facilitated with moderate cueing requ ired for successful participation. Caregiver trained as well. ST Short-Term Memory Description: Instruct on short-term memory strategies. Problem:ST DM COGNITION Goal:ST Short-Term Memory Performed Skilled intervention targeting cognitive linguistic decline targeted the area of memory. ST developed, implemented, and trained EXTERNAL memory aids to assist recall of functional information for fall prevention and increased independence. Memory aids implemented/trained today include: * White dry erase board for recall of daily/weekly activities/apts * External memory aid: sign for recall of: using walker 100% of the time * External memory aid: Cheat sheet laminated for recall of: Family members names Patient completed short-term memory tasks with 75 % accuracy with moderate-min visual/verbal cues. Skilled interventions utilized in this session include: [ X ] Fading cueing hierarchy [ X ] Errorless learning [ X ] External Memory Aids [ X ] Use of spaced retrieval technique [ X ] Functional/relevant tasks to increase activity/participation [ X ] Verbal reinforcement/feedback [ X ] Training compensatory strategies [ X ] Caregiver training to promote carryover ST Dementia Education Description: Provide dementia education. Problem:ST DM COGNITION Goal:ST Dementia Education Performed Caregiver and pateint trained in dementia education for Parkinson's disease documented in this encounter Care Teams Web Content Coordinator Relationship Specialty Start Date End Date Elan Gross MD [address] [address] PCP - General Family Medicine 02/06/25 documented as of this encounter
--- OUTSIDE RECORDS SUMMARY | 2025-03-28 11:30 | XMS_ITS | Clinical Summary ---
Author Organization [facility] Address [address] [place] [address] Care Team Providers Care Prototype Fabricator Name Role Phone Elan Gross MD Primary Care Provider Source Comments [facility],non-owned Affiliates and Associated Physician Practices is amultiple site organization consisting of ambulatory clinics and hospital sitesin [place], [place], [place] and [place]. This disclosure is being madepursuant to the Care Everywhere program and may not contain all information available regarding this patient. Last updated 18.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 Creatinine 0.93 0.71 - 1.16 mg/dL 03/05/2021 4:09 PM [facility] Sodium 139 136 - 145 mmol/L 03/05/2021 4:09 PM [facility] Potassium 4.1 3.5 - 4.5 mmol/L 03/05/2021 4:09 PM [facility] Chloride 103 98 - 107 mmol/L 03/05/2021 4:09 PM [facility] CO2 24 22 - 29 mmol/L 03/05/2021 4:09 PM [facility] Glucose 92 70 - 115 mg/dL 03/05/2021 4:09 PM [facility] Calcium 9.6 8.4 - 10.2 mg/dL 03/05/2021 4:09 PM [facility] Protein Total 7.4 6.0 - 8.3 g/dL 03/05/2021 4:09 PM [facility] Albumin 4.4 3.4 - 5.0 g/dL 03/05/2021 4:09 PM [facility] Bilirubin Total 0.7 0.2 - 1.2 mg/dL 03/05/2021 4:09 PM [facility] Alkaline Phosphatase 74 40 - 150 U/L 03/05/2021 4:09 PM [facility] ALT 14 5 - 55 U/L 03/05/2021 4:09 PM [facility] AST 18 5 - 34 U/L 03/05/2021 4:09 PM [facility] Anion Gap 16 8 - 18 03/05/2021 4:09 PM [facility] BUN/Creatinine Ratio 14 7 - 23 03/05/2021 4:09 PM [facility] Osmolality Calculated 288 270 - 300 mOsm/kg 03/05/2021 4:09 PM [facility] Albumin/Globulin Ratio 1.5 1.1 - 2.3 03/05/2021 4:09 PM [facility] eGFR by CKD-EPI 85(L) >=90 mL/min/1.7 3 m2 03/05/2021 4:09 PM [facility] Blood BLOOD SPECIMEN / Unknown Lab Venipuncture / Unknown 03/05/2021 3:12 PM CDT 03/05/2021 3:39 PM [facility] Lokesh Pennington MD LAB - CHEMI STRY ORDERABLES Final Result [facility] [address] [place] [address], [place] [phone] from Last 3 Months or Most Recently Relevant to Health Maintenance Insurance [place] [id number] MANAGED MEDICARE ADV Care Teams Prototype Fabricator Relationship Specialty Start Date End Date Elan Gross MD [address] [place] [address] PCP - General 02/26/21
--- OUTSIDE RECORDS SUMMARY | 2025-03-28 11:30 | XMS_ITS | Clinical Summary ---
Author Organization [facility] Address [address] [place] [address] Care Team Providers Care Inventory Analyst Name Role Phone Elan Gross MD Primary Care Provider [phone] Allergies No known active allergies Medications ALPRAZolam [...] 10/05/2017 Surgical History Surgery Date Site/Laterality Comments NV ARTHRP ACETBLR/PROX FEM PROSTC AGRFT/ALGRFT Total Hip Replacement Left - (Added by TW Conv) NV NEUROPLASTY &/TRANSPOS MEDIAN NRV CARPAL TUNNE Neuroplasty Decompression Median Nerve At Carpal Tunnel - (Added by TW Conv) NV ARTHRP ACETBLR/PROX FEM PROSTC AGRFT/ALGRFT Total Knee [...] on file 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
--- OUTSIDE RECORDS SUMMARY | 2025-03-28 11:30 | XMS_ITS | Clinical Summary ---
Author Organization [facility] Address [address] [place] [address] Phone Care Team Providers Care Shirt Marker Name Role Phone Elan Gross MD Primary Care Provider [phone] Allergies No known active allergies Medications ibuprofen [...] Encounters Date Type Department Care Team Description 03/27/2025 2:30 PM CDT Home Care Visit [address] [address] Regla Kinney, PRODUCT SAFETY LEAD-SPEECH LANGUAGE PATHOLOGIST PRODUCT SAFETY LEAD - HOME VISIT 03/26/2025 Home Care Visit [address] [address] Lashay Kim OT OT - DISCHARGE SUMMARY 03/22/2025 12:30 PM CDT Home Care Visit [address] [address] Maryellen Lewis, SARA OT - DISCIPLINE DISCHARGE 03/22/2025 Home Care Visit [address] [address] Maryellen Lewis, SARA CASE COMMUNICATION 03/21/2025 2:30 PM CDT Home Care Visit [address] [address] Regla Kinney, PRODUCT SAFETY LEAD-SPEECH LANGUAGE PATHOLOGIST PRODUCT SAFETY LEAD - HOME VISIT 03/21/2025 Home Care Visit [address] [address] Maryellen Lewis, SARA CASE COMMUNICATION 03/20/2025 3:00 PM CDT Home Care Visit [address] [address] Regla Kinney, PRODUCT SAFETY LEAD-SPEECH LANGUAGE PATHOLOGIST PRODUCT SAFETY LEAD - REASSESSMENT 03/20/2025 12:00 PM CDT Home Care Visit [address] [address] Maryellen Lewis OTA OT - HOME VISIT 03/19/2025 3:00 PM CDT Home Care Visit [address] [address] Mckenzie Waldron RN SN - DISCIPLINE DISCHARGE 03/14/2025 4:00 PM CDT Home Care Visit [address] [address] Mckenzie Waldron RN SN - HOME VISIT 03/14/2025 2:00 PM CDT Home Care Visit [address] [address] Regla Kinney, PRODUCT SAFETY LEAD-SPEECH LANGUAGE PATHOLOGIST PRODUCT SAFETY LEAD - HOME VISIT 03/14/2025 1:00 PM CDT Home Care Visit [address] [address] Maryellen Lewis, SARA OT - HOME VISIT 03/13/2025 2:30 PM CDT Home Care Visit [address] [address] Regla Kinney, PRODUCT SAFETY LEAD-SPEECH LANGUAGE PATHOLOGIST PRODUCT SAFETY LEAD - HOME VISIT 03/12/2025 2:00 PM CDT Home Care Visit [address] [address] Crystal Perez, PT PT - DISCIPLINE DISCHARGE 03/12/2025 10:30 AM CDT Home Care Visit [address] [address] Lashay Kim OT OT - REASSESSMENT 03/08/2025 11:00 AM CDT Home Care Visit [address] [address] Teresa Brown, JOSEFINA SN - HOME VISIT 03/07/2025 12:00 PM CDT Home Care Visit [address] [address] Maryellen Lewis SARA OT - HOME VISIT 03/07/2025 11:30 AM CDT Home Care Visit [address] [address] Rose Cason, METAL DRILL OPERATOR PT - HOME VISIT 03/06/2025 2:00 PM CDT Home Care Visit [address] [address] Regla Kinney, PRODUCT SAFETY LEAD-SPEECH LANGUAGE PATHOLOGIST PRODUCT SAFETY LEAD - HOME VISIT 03/05/2025 12:30 PM CDT Home Care Visit [address] [address] Maryellen Lewis, CONTINUOUS WAVE OPERATOR OT - HOME VISIT 03/05/2025 12:00 PM CDT Home Care Visit [address] [address] Rose Cason, METAL DRILL OPERATOR PT - HOME VISIT 03/04/2025 2:15 PM CDT Home Care Visit [address] [address] Regla Kinney, PRODUCT SAFETY LEAD-SPEECH LANGUAGE PATHOLOGIST PRODUCT SAFETY LEAD - HOME VISIT 03/01/2025 12:00 PM CDT Home Care Visit [address] [address] Veronica Blackburn LPN SN - HOME VISIT 03/01/2025 10:30 AM CDT Home Care Visit [address] [address] Maryellen Lewis, SARA OT - HOME VISIT 02/28/2025 12:00 PM CDT Home Care Visit [address] [address] Rose Cason, METAL DRILL OPERATOR PT - HOME VISIT 02/27/2025 2:30 PM CDT Home Care Visit [address] [address] Regla Kinney, PRODUCT SAFETY LEAD-SPEECH LANGUAGE PATHOLOGIST PRODUCT SAFETY LEAD - HOME VISIT 02/27/2025 12:30 PM CDT Home Care Visit [address] [address] Maryellen Lewis, CONTINUOUS WAVE OPERATOR OT - HOME VISIT 02/26/2025 1:30 PM CDT Home Care Visit [address] [address] Rose Cason, METAL DRILL OPERATOR PT - HOME VISIT 02/26/2025 Home Care Visit [address] [address] Nicole Abarca, RN CARE CONFERENCE 02/25/2025 2:30 PM CDT Home Care Visit [facility] [address] Regla Kinney, PRODUCT SAFETY LEAD-SPEECH LANGUAGE PATHOLOGIST PRODUCT SAFETY LEAD - HOME VISIT 02/25/2025 Home Care Visit [facility] [address] Rose Cason, METAL DRILL OPERATOR TELEPHONE ENCOUNTER 02/25/2025 Home Care Visit [address] [address] Risa Woods, HR SYSTEMS ANALYST TELEPHONE ENCOUNTER 02/22/2025 11:00 AM CDT Home Care Visit [address] [address] Mckenzie Waldron, RN SN - HOME VISIT 02/21/2025 1:00 PM CDT Home Care Visit [address] [address] Rose Cason, METAL DRILL OPERATOR PT - HOME VISIT 02/21/2025 12:30 PM CDT Home Care Visit [address] [address] Maryellen Lewis, SARA OT - HOME VISIT 02/21/2025 11:30 AM CDT Home Care Visit [address] [address] Risa Woods HR SYSTEMS ANALYST HR SYSTEMS ANALYST - INITIAL EVALUATION 02/21/2025 Home Care Visit [address] [address] Risa Woods, HR SYSTEMS ANALYST TELEPHONE ENCOUNTER 02/20/2025 9:30 AM CDT Home Care Visit [address] [address] Regla Kinney, PRODUCT SAFETY LEAD-SPEECH LANGUAGE PATHOLOGIST PRODUCT SAFETY LEAD - INITIAL EVALUATION 02/19/2025 3:30 PM CDT Home Care Visit [address] [address] Lashay Kim OT OT - INITIAL EVALUATION 02/19/2025 10:00 AM CDT Home Care Visit [address] [address] Crystal Perez PT PT - INITIAL EVALUATION 02/16/2025 9:00 AM CDT Home Care Visit [address] [address] Nicole Abarca, RN SN - OASIS START OF CARE 02/16/2025 Plan of Care Documentation [address] [address] 02/15/2025 Travel from Last 3 Months Social [...] Care Team (Late st Contact Info) Description 03/28/2025 1:15 PM CDT Home Care Visit [address] [address] Regla Kinney, PRODUCT SAFETY LEAD-SPEECH LANGUAGE PATHOLOGIST [place] 04/01/2025 1:00 AM CDT Home Care Visit [address] [address] Regla Kinney, PRODUCT SAFETY LEAD-SPEECH LANGUAGE PATHOLOGIST [place] 04/03/2025 1:00 AM CDT Appointment [facility] [address] [place] [address] Regla Kinney, PRODUCT SAFETY LEAD-SPEECH LANGUAGE PATHOLOGIST [place] Health Maintenance Due Date Last Done Comments [...] to complete this topic Insurance MEDICARE [facility] Advance Directives * Full Code (Latest Code Status on File) Date Activated Date Inactivated Comments 02/16/2025 10:29 PM Care Teams Shirt Marker Relationship Specialty Start Date End Date Elan Gross MD [address] [place] [address] PCP - General Family Medicine 02/06/25
[2025-03-28 11:32] LABS: Hematocrit 45.8 % (42.0-52.0); Hemoglobin 15.2 g/dL (14.0-18.0); Immature Granulocyte Percent A 0.2 % (0-0.5); Lymphocytes Absolute Auto 1.84 K/mm3 (0.9-3.2); Mean Corpuscular HGB Conc 33.2 g/dl (32-36); Mean Corpuscular Hemoglobin 30.8 pg (26-34); Mean Corpuscular Volume 92.7 fl (80-100); Nucleated Red Blood Cells Absolute Auto 0.000 K/mm3 (0.0-0.012); Nucleated Red Blood Cells Perc 0.0 % (0.0-0.2); Platelet Count Result 212 k/mm3 (150-375); Red Blood Count 4.94 M/mm3 (4.6-6.20); White Blood Count 8.2 K/mm3 (4.5-10.0)
[2025-03-28 11:53] LABS: Anion Gap 4 mmol/L (4-12); Blood Urea Nitrogen 19 mg/dL (9-20); Calcium 9.5 mg/dL (8.4-10.2); Carbon Dioxide 34 mmol/L (22-30); Chloride 103 mmol/L (98-107); Estimated Glomerular Filt Rate > 60; Glucose 97 mg/dL (65-110); Potassium 4.6 mmol/L (3.4-5.0); Sodium 141 mmol/L (137-145)
== END 2025-03-28 10:51 | disposition home or self-care (01) ==
PROVIDERS: PCP Family Medicine; Visit Provider Family Medicine
DX: D72.829 Elevated white blood cell count, unspecified (principal); I10 Essential (primary) hypertension
CPT/HCPCS: 36415; 80048; 85025

== ENCOUNTER 2025-05-06 10:04 | Outpatient (CLI) | payer MEDICARE, SELFPAY ==
--- NOTE | ~2025-05-06 | MR_ITS ---
EXAMINATION: MR thoracic spine wo con DATE: 05/06/2025 10:52 INDICATION: Lytic lesion of T5. TECHNIQUE: Magnetic resonance imaging (MRI) of the thoracic spine was performed without intravenous contrast. COMPARISON: CT 03/15/2025 FINDINGS: There are changes of anterior fusion procedure from C5 to C7 with anterior plate and screws. There is mild chronic anterior wedging of T1, T10, T11, and T12 vertebral bodies. There is a hemangioma in T5 vertebral body. There is mildly decreased disc height at multiple levels. There is moderately decreased disc height at T3-T4, T4-T5, and T5-T6. At T2-T3, there is a right central protrusion with mild central canal stenosis. At T7-T8, there is a central extrusion with mild central canal stenosis. At T8-T9, there is a right central extrusion with mild central canal stenosis. There is multilevel facet joint osteoarthritis, severe at multiple levels. There is mild neural foraminal stenosis at multiple levels on either side. The spinal cord signal intensity is normal. The conus medullaris is at T12-L1. IMPRESSION: 1. Hemangioma in T5 vertebral body. 2. Moderate thoracic spondylosis. Reviewed, dictated and finalized at location E.
== END 2025-05-06 10:05 | disposition home or self-care (01) ==
LOC: MICIMG 10:05
PROVIDERS: PCP Family Medicine; Visit Provider Family Medicine
DX: D16.6 Benign neoplasm of vertebral column (principal); M47.814 Spondylosis without myelopathy or radiculopathy, thoracic region; M89.8X9 Other specified disorders of bone, unspecified site
CPT/HCPCS: 72146

== ENCOUNTER 2025-05-27 13:16 | Emergency (ER) | payer MEDICARE, SELFPAY ==
--- NOTE | ~2025-05-27 | CT_ITS ---
EXAMINATION: CT brain wo con DATE: 05/27/2025 19:39 INDICATION: Headache. TECHNIQUE: Computed tomography (CT) of the head was performed without intravenous contrast. The mA was adjusted according to patient size. Iterative reconstruction technique was employed. The dose-length product was 681.00 mGy-cm. COMPARISON: CT head dated 03/15/2025. FINDINGS: No acute intracranial bleed or extra-axial collections. No ventriculomegaly or midline shift. No evidence of effacement of sulci. No acute cranial fractures are seen. Calcified right parasagittal meningioma frontal region is stable, measuring 9 mm in diameter. IMPRESSION: 1. No acute findings in the limited noncontrast CT head. No acute bony lesions. 2. Stable calcified meningioma in the right parasagittal location in the frontal region. Reviewed, dictated and finalized at location T. NG MAN IMPRESSION: 1. No acute findings in the limited noncontrast CT head. No acute bony lesions. 2. Stable calcified meningioma in the right parasagittal location in the fronta l region.
--- NOTE | ~2025-05-27 | CT_ITS ---
EXAMINATION: DATE: INDICATION: CT facial bones with contrast: TECHNIQUE: CT was performed with 100 cc of IV contrast and reviewed in multiple projections. COMPARISON: CT facial bones dated 03/15/2025. FINDINGS: The frontal sinuses, ethmoid sinuses, sphenoid sinus and maxillary sinus are normal. No acute bony lesions of the facial bones are seen. No abnormal enhancement is noted. Mastoids, middle ear cavity are normal on both sides. IMPRESSION: 1. No acute or focal abnormalities of the facial bones. 2. Evaluation of mandible is limited due to motion artifacts and artifacts from the dentures. Reviewed, dictated and finalized at location T. TE OPERATIONS PRODUCER
[2025-05-27 13:34] VITALS: BP 119/77; PULSE 63; RESP 22; TEMP 36.4; O2SAT 100
[2025-05-27 16:23] VITALS: BP 135/91; PULSE 61; RESP 22; TEMP 36.4; O2SAT 100
--- NOTE | 2025-05-27 17:21 | ED.EAR ---
HPI - Ear Problem General Chief complaint: Ear Stated complaint: THOMPSON Time Seen by Provider: 05/27/25 17:20 Source: patient and family Mode of arrival: ambulatory Limitations: no limitations History of Present Illness HPI Narrative: PATIENT CAME TO THE ED WITH LEFT EAR PAIN FOR OVER 1 MONTH. WAS SEEN BY HIS FAMILY PHYSICIAN AND WAS SEEN AT EMERGENCY ROOM AT [facility] AND WAS STARTED ON ANTIBIOTIC AND STEROID WITHOUT ANY IMPROVEMENT. WAS SEEN BY HIS FAMILY PHYSICIAN AGAIN TODAY WHO REFERRED HIM TO THE EMERGENCY ROOM. HISTORY OF DEMENTIA, PARKINSON DISEASE. Related Data Home Medications ?Medication ?Instructions ?Recorded ?Confirmed ?Last Taken ?Type cholecalciferol (vitamin D3) 25 25 mcg PO DAILY 01/26/24 05/27/25 01/21/25 History mcg (1,000 unit) capsule docusate sodium 100 mg capsule 100 mg PO BID 01/22/25 05/27/25 01/21/25 History (Dulcolax Stool Softener (docusate)) pimavanserin 34 mg capsule 34 mg PO DAILY 04/11/25 05/27/25 Unknown History (Nuplazid) [id number] 3.5 1 drp EACH EYE Q4H 05/27/25 05/27/25 Unknown History mg/mL-10,000 unit/mL-0.1% eye drops prednisone 20 mg tablet mg PO 05/27/25 05/27/25 Unknown History Allergies Allergy/AdvReac Type Severity Reaction Status Date / Time No Known Allergies Allergy Unknown Verified 05/27/25 15:26 Review of Systems Review of Systems: All systems reviewed & are unremarkable except as noted in HPI and below PMFSH Past Medical History Medical History Shortness of breath Fall at home Otitis media of both ears Acute bacterial sinusitis Skin lesion of back Skin lesion Furuncle [place] Open comedone Furuncle of upper back excluding scapular region Cholelithiasis Dysesthesia Chronic schizophrenia Encephalopathy acute Drug-induced Parkinson's disease Dementia Dysuria Microhematuria Constipation Prostatitis Chronic daily headache Dementia of the Alzheimer's type Essential tremor Memory deficit Dyspnea on exertion Parasagittal meningioma Elevated fasting glucose Abnormal RBC Elevated ALT measurement Erectile dysfunction HSV-2 infection Hepatitis Weight loss Anxiety Colon cancer screening Mood disorder CARIE on CPAP Screening for prostate cancer Elevated CK Essential hypertension Mixed hyperlipidemia Surgical History Surgical History H/O cervical spine surgery History of knee surgery Right History of hip surgery Hx of colonoscopy Family History Family History Sibling Diabetes mellitus Family history of obesity Hypertension Family history of type 2 diabetes mellitus Mother Depression Hypertension Bipolar 1 disorder Father Abscess of internal cheek Septicemia Rheumatoid arthritis Other Family history of arthritis Family history of malignant neoplasm Social History Social History Smoking status: Unknown if ever smoked Smokeless tobacco user: other Second hand tobacco smoke exposure: Yes Alcohol intake: never Alcohol use details: socially, infrequently Substance use: never Substance use type: marijuana Lack of Transportation: No Lack of Food: Never True Current Housing: I Have Housing Concerned About Future Housing: No Difficulty Paying Gas/Electric Bills: No Difficulty Paying for Meds: No Currently Unemployed: No Education: High School Diploma/GED Difficulty w/ Childcare or Family Care: No Living arrangements: with family Additional living arrangements comments: [place] Occupation/Education: retired 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 MUSCULOSKELETAL: NORMAL RANGE OF MOTION, NONTENDER BACK NEUROLOGIC: ALERT AND ORIENTED ?3, CASKET COVERER IS NORMAL TESTED, NO GROSS MOTOR DEFICIT Course Vital Signs Vital signs: Vital Signs Temperature 36.4 C 05/27/25 13:34 Pulse Rate 63 05/27/25 13:34 Respiratory Rate 22 H 05/27/25 13:34 Blood Pressure 119/77 05/27/25 13:34 Pulse Oximetry 100 05/27/25 13:34 Oxygen Delivery Room Air 05/27/25 13:34 Temperature 36.2 C L 05/27/25 20:54 Pulse Rate 44 L 05/27/25 20:54 Respiratory Rate 22 H 05/27/25 20:54 Blood Pressure 127/80 05/27/25 20:54 Pulse Oximetry 100 05/27/25 20:54 Oxygen Delivery Room Air 05/27/25 13:34 Medical Decision Making MDM Narrative Medical decision making narrative: PATIENT PRESENTS WITH LEFT EAR PAIN FOR OVER 1 MONTH VITAL SIGNS ARE STABLE PHYSICAL EXAMINATION SHOWING LEFT EAR WITHIN NORMAL LIMIT, TENDERNESS TMJ DIFFERENTIAL DIAGNOSIS INTRACRANIAL ABNORMALITY, TMJ, PAROTIDITIS BLOOD WORKUP TODAY INCLUDES CBC, CMP, SHOWED WBC 11.4, POTASSIUM 3.2, OTHERWISE WITHIN NORMAL LIMIT CT HEAD WITHOUT CONTRAST SHOWED NO ACUTE ABNORMALITY, CT FACE WITH IV CONTRAST SHOWED NO ACUTE ABNORMALITY DIAGNOSIS LEFT EAR PAIN, TMJ DISCHARGED ON AUGMENTIN AND DICLOFENAC THE PT WAS DISCHARGED TO HOME.THE PT,S CONDITION UPON DISCHARGE WAS FAIR,EDUCATION WAS PROVIDED TO THE PT IN REFERENCE TO THE FINAL IMPRESSION,DISCHARGE STUDY RESULTS,TREATMENT,PROGNOSIS AND NEED FOR FOLLOW UP . Vital Signs Vital Signs: Vital Signs Temperature 36.4 C 05/27/25 13:34 Pulse Rate 63 05/27/25 13:34 Respiratory Rate 22 H 05/27/25 13:34 Blood Pressure 119/77 05/27/25 13:34 Pulse Oximetry 100 05/27/25 13:34 Oxygen Delivery Room Air 05/27/25 13:34 Temperature 36.2 C L 05/27/25 20:54 Pulse Rate 44 L 05/27/25 20:54 Respiratory Rate 22 H 05/27/25 20:54 Blood Pressure 127/80 05/27/25 20:54 Pulse Oximetry 100 05/27/25 20:54 Oxygen Delivery Room Air 05/27/25 13:34 Lab Data 05/27/25 17:56 05/27/25 17:56 Labs: Lab Results 05/27/25 Range/Units 17:56 WBC 11.4 H (4.5-10.0) K/mm3 RBC 4.75 (4.6-6.20) M/mm3 Hgb 14.7 (14.0-18.0) g/dL Hct 42.5 (42.0-52.0) % MCV 89.5 (80-100) fl MCH 30.9 (26-34) pg MCHC 34.6 (32-36) g/dl RDW 13.1 (11.5-14.5) % Plt Count 274 (150-375) k/mm3 MPV 11.0 H (7.4-10.4) fl Immature Gran % (Auto) 0.5 (0-0.5) % Neut % (Auto) 65.1 (45.5-73.1) % Lymph % (Auto) 27.2 (18.3-44.2) % [place] % (Auto) 5.8 (2.6-8.5) % Eos % (Auto) 0.6 (0-4.4) % Baso % (Auto) 0.8 (0.2-1.2) % Lymph # (Auto) 3.10 (0.9-3.2) K/mm3 [place] # (Auto) 0.7 H (0.1-0.6) K/mm3 Eos # (Auto) 0.1 (0-0.3) K/mm3 Baso # (Auto) 0.1 (0.0-0.1) K/mm3 Abs Immat Gran (auto) 0.06 H (0.00-0.031) K/mm3 Absolute Neuts (auto) 7.4 H (1.3-6.7) K/mm3 Absolute Nucleated RBC 0.000 (0.0-0.012) K/mm3 Nucleated RBC % 0.0 (0.0-0.2) % Sodium 140 (137-145) mmol/L Potassium 3.2 L (3.4-5.0) mmol/L Chloride 110 H (98-107) mmol/L Carbon Dioxide 13 L (22-30) mmol/L Anion Gap 17 H (4-12) mmol/L BUN 27 H (9-20) mg/dL Creatinine 0.99 (0.7-1.3) mg/dL Estim Creat Clear Calc 58 ml/min Estimated GFR > 60 (59 - ) Glucose 79 (65-110) mg/dL Calcium 9.4 (8.4-10.2) mg/dL Total Bilirubin 1.0 (0.2-1.3) mg/dL AST 25 (17-59) U/L ALT 23 (6-50) U/L Alkaline Phosphatase 92 (38-126) U/L C-Reactive Protein < 0.5 (<1.0) mg/dL Total Protein 7.5 (6.3-8.2) g/dL Albumin 4.7 (3.5-5.1) g/dL Imaging Data Radiologist's impression: Impressions Head CT 05/27/25 19:41 IMPRESSION: 1. No acute findings in the limited noncontrast CT head. No acute bony lesions. 2. Stable calcified meningioma in the right parasagittal location in the frontal region. Face CT 05/27/25 19:47 IMPRESSION: 1. No acute or focal abnormalities of the facial bones. 2. Evaluation of mandible is limited due to motion artifacts and artifacts from the dentures. Critical Care Time Critical Care Time Critical Care Time: No Discharge Plan Discharge Clinical Impression: Acute otalgia, TMJ (dislocation of temporomandibular joint) Patient Disposition: Home Condition: Stable Instructions: Antibiotic Form, Temporomandibular Disorder (ED), Earache (ED) Additional Instructions: RETURN IF SYMPTOMS ARE WORSENING , CALL ENT FOR APPOINTMENT, TAKE TYLENOL NEEDED FOR ACHES AND PAIN, CONTINUE HOME MEDICATIONS. Patient Language: Namibian Prescriptions: New diclofenac sodium 75 mg tablet,delayed release (DR/EC) 75 mg PO BID PRN (Reason: pain) Qty: 20 0RF amoxicillin-pot clavulanate [Augmentin] 500-125 mg tablet 1 tablet PO Q8H Qty: 30 0RF No Action ibuprofen 800 mg tablet 800 mg PO TID PRN (Reason: pain) Qty: 270 0RF omeprazole 40 mg capsule,delayed release(DR/EC) 40 mg PO DAILY Qty: 30 2RF Patient Comments: taking 20mg daily azithromycin 250 mg tablet See Rx Instructions PO .COMPLEX Qty: 6 0RF Rx Instructions: For 250 mg dose pack: take 500 mg today (day 1), then 250 mg for 4 days (days 2-5) PO prednisone 20 mg tablet PO neomycin-polymyxin B-dexameth 3.5mg/mL-10,000 unit/mL-0.1 % drops,suspension 1 drp EACH EYE Q4H cholecalciferol (vitamin D3) 25 mcg (1,000 unit) capsule 25 mcg PO DAILY acetaminophen 500 mg capsule 1,000 mg PO Q6H PRN (Reason: pain) Qty: 30 0RF docusate sodium [Dulcolax Stool Softener (dss)] 100 mg capsule 100 mg PO BID Nuplazid 34 mg capsule 34 mg PO DAILY rosuvastatin 20 mg tablet See Rx Instructions .ROUTE .COMPLEX Qty: 90 2RF Dose Instruction: TAKE 1 TABLET BY MOUTH DAILY Rx Instructions: TAKE 1 TABLET BY MOUTH DAILY gabapentin 100 mg Capsule 100 mg PO TID Qty: 90 0RF levothyroxine 75 mcg tablet 75 mcg PO DAILY Qty: 30 0RF sertraline [Zoloft] 25 mg tablet 50 mg PO DAILY Qty: 30 0RF Patient Comments: increased to 100mg mirtazapine [Remeron] 15 mg tablet 15 mg PO HS Qty: 30 0RF Rx Instructions: psych carbidopa-levodopa [Sinemet] 25-100 mg Tablet 1 tablet PO TID Qty: 90 0RF ezetimibe [Zetia] 10 mg tablet 10 mg PO DAILY Qty: 30 0RF memantine 10 mg tablet 10 mg PO BID Qty: 60 0RF Ingrezza 40 mg capsule 40 mg PO QPM Qty: 24 0RF Follow-up/Referrals: Joseph Tirado MD [Physician, Ear, Nose, Throat] - 05/30/25 Elan Gross MD [Primary Care Provider, Family Practice]
[2025-05-27] MEDS: ONDANSETRON HCL ODT 4 MG TABLET PO (17:56)
[2025-05-27] MEDS: IBUPROFEN 600 MG TABLET PO (17:56)
[2025-05-27] MEDS: HYDROmorphone HCL INJ (*CRX) 1 MG/ML SYR IM (17:56)
[2025-05-27 18:07] LABS: Hematocrit 42.5 % (42.0-52.0); Hemoglobin 14.7 g/dL (14.0-18.0); Immature Granulocyte Percent A 0.5 % (0-0.5); Lymphocytes Absolute Auto 3.10 K/mm3 (0.9-3.2); Mean Corpuscular HGB Conc 34.6 g/dl (32-36); Mean Corpuscular Hemoglobin 30.9 pg (26-34); Mean Corpuscular Volume 89.5 fl (80-100); Nucleated Red Blood Cells Absolute Auto 0.000 K/mm3 (0.0-0.012); Nucleated Red Blood Cells Perc 0.0 % (0.0-0.2); Platelet Count Result 274 k/mm3 (150-375); Red Blood Count 4.75 M/mm3 (4.6-6.20); White Blood Count 11.4 K/mm3 (4.5-10.0)
[2025-05-27 18:21] LABS: Alanine Aminotransferase 23 U/L (6-50); Albumin Level 4.7 g/dL (3.5-5.1); Alkaline Phosphatase 92 U/L (38-126); Anion Gap 17 mmol/L (4-12); Aspartate Amino Transferase 25 U/L (17-59); Bilirubin,Total 1.0 mg/dL (0.2-1.3); Blood Urea Nitrogen 27 mg/dL (9-20); CRP < 0.5 mg/dL (<1.0); Calcium 9.4 mg/dL (8.4-10.2); Carbon Dioxide 13 mmol/L (22-30); Chloride 110 mmol/L (98-107); Estimated CRCL calculation 58 ml/min; Estimated Glomerular Filt Rate > 60; Glucose 79 mg/dL (65-110); Potassium 3.2 mmol/L (3.4-5.0); Sodium 140 mmol/L (137-145); Total Protein 7.5 g/dL (6.3-8.2)
[2025-05-27 20:54] VITALS: BP 127/80; PULSE 44; RESP 22; TEMP 36.2; O2SAT 100
--- NOTE | 2025-05-27 21:00 | PC.NURSE ---
Pt is currently asymptomatically bradycardic at [address] Wolff was made aware. No new orders given.
[2025-05-27] MEDS: POTASSIUM CHLORIDE 20 MEQ ER TABLET 40 MEQ PO (21:48)
[2025-05-27 22:21] VITALS: BP 138/95; PULSE 49; RESP 20; O2SAT 100
== END 2025-05-27 22:32 | disposition home or self-care (01) ==
PROVIDERS: Emergency Provider Emergency Medicine; PCP Family Medicine
DX: H92.02 Otalgia, left ear (principal); M26.602 Left temporomandibular joint disorder, unspecified; I10 Essential (primary) hypertension; E78.2 Mixed hyperlipidemia; G20.A1 Parkinson's disease without dyskinesia, without mention of fluctuations; G30.9 Alzheimer's disease, unspecified; G47.33 Obstructive sleep apnea (adult) (pediatric); F02.80 Dementia in other diseases classified elsewhere, unspecified severity, without behavioral disturbance, psychotic disturbance, mood disturbance, and anxiety; F41.9 Anxiety disorder, unspecified; F20.9 Schizophrenia, unspecified; Z79.899 Other long term (current) drug therapy
CPT/HCPCS: 36415; 70450; 70487; 80053; 85025; 86140; 96372; 99284; A9270; J1171; Q9967

== ENCOUNTER 2025-05-29 10:57 | Outpatient (CLI) | payer MEDICARE, SELFPAY ==
--- OUTSIDE RECORDS SUMMARY | 2004-11-25 07:30 | XMS_ITS | Continuity of Care Document ---
Author Organization [facility] Address [address] [place] [address] [place] [address] Phone Care Team Providers Care Vp Security Name Role Phone Naveen Coulter MD Unavailable Unavailable Advance Directives Directive Yes / No Effective Date File Name No Information Encounters Encounter Description Practice Location Reason(s) For Visit Diagnoses Date Provider Providers Copied on Encounter [facility], [id number] [place] [address] [address], [place], [place], [id number], [place] tel:[phone] [facility] No Information [address] [facility] [address], [place], [place], [id number], [place]. tel:[phone] Family History Family Member Type Diagnosis Age At Onset No Information Payers Payer name Insurance type Covered republican ID Authoriza tion(s) No Information Social History Type Description Quantity Date Captured Comments Sex Male Smoking Status No Information Chief Complaint And Reason For Visit No Information Reason For Referral Reason For Referral No Information History Of Present Illness Encounter Date Complaint History Of Prese nt Illness No Information Functional Status Date Functional Assessmen t No Information Instructions Date Instruction Additional Infor mation No Information Assessments Type Assessment Date No Information Patient Care Teams Name Effective Dates (start - stop) Status Members No Information
--- OUTSIDE RECORDS SUMMARY | 2004-11-25 07:30 | XMS_ITS | Continuity of Care Document ---
Author Organization [facility] Address [address] [place] [address] [place] [address] Phone Care Team Providers Care Blender Conveyor Operator Name Role Phone Naveen Coulter MD Unavailable Unavailable Advance Directives Directive Yes / No Effective Date File Name No Information Encounters Encounter Description Practice Location Reason(s) For Visit Diagnoses Date Provider Providers Copied on Encounter Located within [facility], [id number] [place] [address] [address], [place], [place], [id number], [place] tel:[phone] [facility] No Information [address] [facility] [address], [place], [place], [id number], [place]. tel:[phone] Family History Family Member Type Diagnosis Age At Onset No Information Payers Payer name Insurance type Covered constitution party ID Authoriza tion(s) No Information Social History [...]
--- OUTSIDE RECORDS SUMMARY | 2004-11-25 07:30 | XMS_ITS | Continuity of Care Document ---
Author Organization [facility] Address [address] [place] [address] [place] [address] Phone Care Team Providers Care Home Help Aide Name Role Phone Naveen Coulter MD Unavailable Unavailable Advance Directives Directive Yes / No Effective Date File Name No Information Encounters Encounter Description Practice Location Reason(s) For Visit Diagnoses Date Provider Providers Copied on Encounter [facility], [id number] [place] [address] [address], [place], [place], [id number], [place] tel:[phone] [facility] No Information [address] [facility] [address], [place], [place], [address], [place]. tel:[phone] Family History Family Member Type Diagnosis Age At Onset No Information Payers Payer name Insurance type Covered green party ID Authoriza tion(s) No Information Social [...]
--- OUTSIDE RECORDS SUMMARY | 2004-11-25 07:30 | XMS_ITS | Continuity of Care Document ---
Author Organization [facility] Address [address] [place] [address] [place] [address] Phone Care Team Providers Care Service Center Technician Name Role Phone Naveen Coulter MD Unavailable Unavailable Advance Directives Directive Yes / No Effective Date File Name No Information Encounters Encounter Description Practice Location Reason(s) For Visit Diagnoses Date Provider Providers Copied on Encounter [facility], [address] [place] [address] [address], [place], [place], [id number], [place] tel:[phone] [facility] No Information [address] [facility] [address], [place], [place], [address], [place]. tel:[phone] Family History Family Member Type Diagnosis Age At Onset No Information Payers Payer name Insurance type Covered alliance party ID Authoriza tion(s) No Information Social [...]
--- OUTSIDE RECORDS SUMMARY | 2004-11-25 07:30 | XMS_ITS | Continuity of Care Document ---
Author Organization [facility] Address [address] [place] [address] [place] [address] Phone Care Team Providers Care Soil Expert Name Role Phone Naveen Coulter MD Unavailable Unavailable Advance Directives Directive Yes / No Effective Date File Name No Information Encounters Encounter Description Practice Location Reason(s) For Visit Diagnoses Date Provider Providers Copied on Encounter [facility], [address] [place] [address] [address], [place], [place], [id number], [place] tel:[phone] [facility] No Information [address] [facility] [address], [place], [place], [address], [place]. tel:[phone] Family History Family Member Type Diagnosis Age At Onset No Information Payers Payer name Insurance type Covered democrat ID Authoriza tion(s) No Information Social History [...]
--- NOTE | ~2025-05-29 | XR_ITS ---
Examination: XR chest 2V Clinical History: R06.82 - Tachypnea, not elsewhere classified Comparison: 01/22/2025 Technique: PA and Lateral Findings: Cardiomediastinal silhouette normal size and configuration. Lungs clear. No acute bony abnormality. IMPRESSION: 1. No acute cardiopulmonary findings. Reviewed, dictated and finalized at location R. P MACHINE OPERATOR AUTOMATIC
--- OUTSIDE RECORDS SUMMARY | 2025-05-29 16:03 | XMS_ITS | Encounter Summary ---
Author Organization [facility] Address [address] [place] [address] Phone Care Team Providers Care Pulley Worker Name Role Phone Elan Gross MD Primary Care Provider [phone] Reason for Referral * PT/OT/ST (Routine) - Authorized Specialty Diagnoses / Procedures Referred By Columba melendez Referred To Contact Speech Therapy Diagnoses Parkinson's disease without dyskinesia, unspecified whether manifestations fluctuate Weakness Dysarthria and anarthria Elan Gross MD [address] [address] Phone: tel: fax: [facility] at [address] [address] Phone: tel: fax: Referral ID Status Reason Start Date Expiration Date V isits Requested Visits Authorized [id number] Authorized 04/03/2025 100 9 Scheduling Instructions * PT/OT/ST (Routine) - Authorized Specialty Diagnoses / Procedures Referred By Columba melendez Referred To Contact Occupational Therapy Diagnoses Parkinson's disease without dyskinesia, unspecified whether manifestations fluctuate Weakness Elan Gross MD [address] [address] Phone: tel: fax: [facility] at [address], [address] [address] Phone: tel: fax: Referral ID Status Reason Start Date Expiration Date V isits Requested Visits Authorized [id number] Authorized 04/03/2025 100 17 Scheduling Instructions * PT/OT/ST (Routine) - Pending Review Specialty Diagnoses / Procedures Referred By Contac t Referred To Contact Physical Therapy Diagnoses Parkinson's disease without dyskinesia, unspecified whether manifestations fluctuate Weakness Elan Gross MD [address] [address] Phone: tel: fax: [facility] [address] [facility], [address] [address] Phone: tel: fax: Referral ID Status Reason Start Date Expiration Date V isits Requested Visits Authorized [id number] Pending Review 04/03/2025 100 100 Scheduling Instructions Encounter Details Date Type Department Care Team (Late st Contact Info) Description 04/03/2025 Transcribe Orders [facility] [address] [place] [address] Elan Gross MD [address] [address] Parkinson's disease without dyskinesia, unspecified whether manifestations fluctuate (HCC) (Primary Dx); Weakness; Dysarthria and anarthria Social History Tobacco Use Types Packs/Day Years Used Date Smoking Tobacco: Never Assessed Sex and Gender Information Value Date Recorded Sex Assigned at Not on file Legal Sex Male 9:36 AM CDT Gender Identity Not on file Sexual Orientation Not on file documented as of this encounter Functional Status * BP Answer Date of Assessment Author 98/64 04/03/2025 3:06 PM CDT Regla Kinney, TRADITIONAL CHINESE HERBALIST-SPEECH LANGUAGE PATHOLOGIST * Temp Answer Date of Assessment Author 97.9 04/03/2025 3:06 PM CDRgela Pastrana, TRADITIONAL CHINESE HERBALIST-SPEECH LANGUAGE PATHOLOGIST * Pulse Answer Date of Assessment Author 64 04/03/2025 3:06 PM CDT Regla Kinney, TRADITIONAL CHINESE HERBALIST-SPEECH LANGUAGE PATHOLOGIST * Resp Answer Date of Assessment Author 18 04/03/2025 3:06 PM CDT Regla Kinney, TRADITIONAL CHINESE HERBALIST-SPEECH LANGUAGE PATHOLOGIST * SpO2 Answer Date of Assessment Author 90 04/03/2025 3:06 PM CDRegla Pastrana TRADITIONAL CHINESE HERBALIST-SPEECH LANGUAGE PATHOLOGIST documented as of this encounter Mental Status * BP Answer Entry Date Author Kaleigh/64 04/03/2025 3:06 PM CDRegla Pastrana TRADITIONAL CHINESE HERBALIST-SPEECH LANGUAGE PATHOLOGIST * Temp Answer Entry Date Author 97.9 04/03/2025 3:06 PM CDRegla Pastrana, TRADITIONAL CHINESE HERBALIST-SPEECH LANGUAGE PATHOLOGIST * Pulse Answer Entry Date Author 64 04/03/2025 3:06 PM Regla Taylor TRADITIONAL CHINESE HERBALIST-SPEECH LANGUAGE PATHOLOGIST * SpO2 Answer Entry Date Author 90 04/03/2025 3:06 PM Regla Taylor, TRADITIONAL CHINESE HERBALIST-SPEECH LANGUAGE PATHOLOGIST documented in this encounter Plan of Treatment Upcoming Encounters Date Type Department Care Team (Late st Contact Info) Description 05/30/2025 10:30 AM DUST BRUSH ASSEMBLER Speech Therapy [facility] [address] [facility], [place] [address] [address] Elan Gross MD [address] [address] Jessi Bruce CCC-TRADITIONAL CHINESE HERBALIST [place] 05/30/2025 11:30 AM DUST BRUSH ASSEMBLER Occupational Therapy [facility] [address], [address] [place] [address] Elan Gross MD [address] [address] Elise Mack OT [place] 06/04/2025 9:45 AM DUST BRUSH ASSEMBLER Speech Therapy [facility] [address], [address] [place] [phone] Elan Gross, [address] [place] [address] Jessi Bruce [facility]-TRADITIONAL CHINESE HERBALIST [place] 06/04/2025 10:30 AM DUST BRUSH ASSEMBLER Occupational Therapy [facility] [address], [address] [place] [phone] Elan Gross MD [address] [place] [address] Elise Mack OT [place] 06/07/2025 11:30 AM DUST BRUSH ASSEMBLER Occupational Therapy [facility] [address], [address] [place] [phone] Elan Gross, [address] [place] [address] Elise Mack OT [place] 06/11/2025 9:45 AM DUST BRUSH ASSEMBLER Occupational Therapy [facility] [address], [address] [place] [phone] Elan Gross MD [address] [place] [address] Elise Mack OT [place] 06/13/2025 10:45 AM DUST BRUSH ASSEMBLER Occupational Therapy [facility] [address], [address] [place] [address] Elan Gross MD [address] [address] Elise Mack OT [place] 06/19/2025 10:30 AM DUST BRUSH ASSEMBLER Occupational Therapy [facility] [address] [facility], [address] [place] [address] Elan Gross MD [address] [address] Elise Mack OT [place] 06/21/2025 11:30 AM DUST BRUSH ASSEMBLER Occupational Therapy [facility] [address], [place] [address] [address] Elan Gross MD [address] [address] Elise Mack OT [place] 06/25/2025 10:30 AM DUST BRUSH ASSEMBLER Occupational Therapy [facility] [address], [place] [address] [address] Elan Gross MD [address] [address] Elise Mack OT [place] 06/27/2025 10:00 AM DUST BRUSH ASSEMBLER Occupational Therapy [facility] [address], [address] [address] [address] Elan Gross MD [address] [address] Elise Mack OT [place] 07/02/2025 11:15 AM DUST BRUSH ASSEMBLER Occupational Therapy [facility] [address], [address] [place] [address] Elan Gross MD [address] [address] Elise Mack, OT [place] Scheduled Referrals Name Type Priority Associated Diagnoses [...] anarthria documented in this encounter Care Teams Pulley Worker Relationship Specialty Start Date End Date Elan Gross MD [address] [place] [address] PCP - General Family Medicine 02/06/25 documented as of this encounter
--- OUTSIDE RECORDS SUMMARY | 2025-05-29 16:03 | XMS_ITS | Encounter Summary ---
Author Organization [facility] Address [address] [place] [address] Phone Care Team Providers Care Stretcher Leveler Operator Name Role Phone Elan Gross MD Primary Care Provider [phone] Reason for Visit * Reason Onset Date Comments Appointment 05/28/2025 Patient or spous e called and LVM to cancel all appointments for today. Reason for cancellation was not provided. PAS got the voicemail. Encounter Details Date Type Department Care Team (Late st Contact Info) Description 05/28/2025 Telephone [facility] [address], [address] [place] [address] Elise Mack OT [place] Appointment (Patient or spouse called and LVM to cancel all appointments for today. Reason for cancellation was not provided. PAS got the voicemail. ) Social History Tobacco Use Types Packs/Day Years Used Date Smoking Tobacco: Never Assessed Sex and Gender Information Value Date Recorded Sex Assigned at Not on file Legal Sex Male 9:36 AM CDT Gender Identity Not on file Sexual Orientation Not on file documented as of this encounter Miscellaneous Notes * Telephone Encounter - Elise Mack OT - 05/28/2025 10:05 AM CST ----- Message from Christel sent at 05/28/2025 9:05 AM MOTOR TEACHER ----- Regarding: cdx left voicemail saying to cancel appointments today R TEACHER documented in this encounter Plan of Treatment Upcoming Encounters Date Type Department Care Team (Late st Contact Info) Description 05/30/2025 10:30 AM MOTOR TEACHER Speech Therapy [facility] [address], [address] [place] [address] Elan Gross MD [address] [place] [address] Jessi Bruce CCC-FACILITIES MAINTENANCE SUPERVISOR [place] 05/30/2025 11:30 AM MOTOR TEACHER Occupational Therapy [facility] [address], [address] [place] [address] Elan Gross MD [address] [address] Elise Mack, OT [place] 06/04/2025 9:45 AM MOTOR TEACHER Speech Therapy [facility] [address], [address] [place] [address] Elan Gross MD [address] [address] Jessi Bruce CCC-FACILITIES MAINTENANCE SUPERVISOR [place] 06/04/2025 10:30 AM MOTOR TEACHER Occupational Therapy [facility] [address], [address] [place] [address] Elan Gross MD [address] [place] [address] Elise Mack OT [place] 06/07/2025 11:30 AM MOTOR TEACHER Occupational Therapy [facility] [address], [address] [place] [address] Elan Gross MD [address] [address] Elise Mack OT [place] 06/11/2025 9:45 AM MOTOR TEACHER Occupational Therapy [facility] [address], [address] [place] [address] Elan Gross MD [address] [address] Elise Mack OT [place] 06/13/2025 10:45 AM MOTOR TEACHER Occupational Therapy [facility] [address] [facility], [address] [place] [address] Elan Gross MD [address] [address] Elise Mack OT [place] 06/19/2025 10:30 AM MOTOR TEACHER Occupational Therapy [facility] [address] [facility], [address] [place] [address] Elan Gross MD [address] [address] Elise Mack OT [place] 06/21/2025 11:30 AM MOTOR TEACHER Occupational Therapy [facility] [address] [facility], [address] [place] [address] Elan Gross MD [address] [address] Elise Mack OT [place] 06/25/2025 10:30 AM MOTOR TEACHER Occupational Therapy [facility] [address], [address] [place] [address] Elan Gross MD [address] [address] Elise Mack OT [place] 06/27/2025 10:00 AM MOTOR TEACHER Occupational Therapy [facility] [address], [address] [place] [address] Elan Gross MD [address] [address] Elise Mack OT [place] 07/02/2025 11:15 AM MOTOR TEACHER Occupational Therapy [facility] at [address], [address] [place] [address] Elan Gross MD [address] [place] [address] Elise Mack, BRAVO [place] documented as of this encounter Visit Diagnoses Not on filedocumented in this encounter Care Teams Stretcher Leveler Operator Relationship Specialty Start Date End Date Elan Gross MD [address] [place] [address] PCP - General Family Medicine 02/06/25 documented as of this encounter
--- OUTSIDE RECORDS SUMMARY | 2025-05-29 16:03 | XMS_ITS | Data Portability ---
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 april Not available 01/17/2023 11:13:23 Plan of Treatment Reminders Order Date Submit Date Provider Last Modified By Organization Details Last Modified Time Details Appointments None recorded. Lab None recorded. Referral None recorded. Procedures None recorded. Surgeries None recorded. Imaging XR, knee 2022 023 [email or web address] [facility] [place], [address], [place], [address], 11:49:22 XR, hip + pelvis, unilateral 2022 023 [email or web address] [facility] [place], [address], [place], [address], 11:36:44 Medication Orders None recorded. Patient TargetsNo targets recorded. Patient InstructionsNo instructions recorded. Reason for Referral None Reported. Results Created Date Observation Date Name Description Value Unit Range Abnormal Flag Note LastModifiedBy Organization Detail LastModifiedTime 01/18/20 23 XR, hip + pelvi s, unila teral No observ ation record ed. [email or web address] [facility] [place] [address], [place], [address], 01/17/2023 11:12:24 01/18/20 23 XR, knee No observ ation record ed. [email or web address] [facility] [place] [address], [place], [address], 01/17/2023 11:49:21 Result Notes None recorded. Problems Name Problem SNOMED Code Status Onset Date Resolution Date Notes Provider Name and Address Organization Details Recorded Time Disorder of shoulder 226288273 Active Not Available [facility] 3 12:49:23 Localized, primary osteoarthr itis of the pelvic region and thigh 430164358 Active Not Available [facility] 3 12:49:23 Pain of joint of wrist 772265998 Active Not Available [facility] 3 12:49:23 Osteoarthr itis of knee 916129995 Active Not Available [facility] 3 12:49:23 Knee pain Active Not Available [facility] 3 12:49:23 Localized, primary osteoarthr itis of the wrist 025248515 Active Not Available [facility] 3 12:49:23 Osteoarthr itis 595727993 Active Not Available [facility] 3 12:49:23 Pain of hip region 51505812 Active Not Available [facility] 3 12:49:23 Pain of right hip joint 8918228130108 02 Active 2022 ARTIE Skaggs, [facility] 3 10:11:53 Pain of right knee joint 7001641690678 00 Active 2022 ARTIE Skaggs, [facility] 10:12:10 Problem Notes None recorded. Medical Equipment None Reported. Allergies No known drug allergies Medications Name Sig Start Date Stop Date Status Note LastModified by Organization Details LastModified Time losartan 50 mg tablet Take 1 tablet every day by oral route. active Not Available Not Available No t Available quetiapine 25 mg tablet 01/17 completed Not Available Not Available Not Available fluoxetine 40 mg capsule Take 1 capsule every day by oral route. active Not Available Not Available No t Available cyclobenzap rine 10 mg tablet 01/17 completed Not Available Not Available Not Available diclofenac sodium (bulk) 100% powder 01/17 completed Not Available Not Available Not Available bupropion HCl SR 150 mg tablet,12 hr sustained-r elease 01/17 completed Not Available Not Available Not Available oxcarbazepi ne 150 mg tablet TAKE 1 TABLET BY MOUTH EVERY DAY 01/17 completed Not Available Not Available Not Available prednisone 10 mg tablet 01/17 completed Not Available Not Available Not Available donepezil 5 mg tablet 01/17 completed Not Available Not Available Not Available trazodone 50 mg tablet 01/17 completed Not Available Not Available Not Available ibuprofen 800 mg tablet TAKE 1 TABLET BY MOUTH THREE TIMES DAILY NEEDED FOR PAIN 01/17 completed Not Available Not Available Not Available tizanidine 4 mg tablet 01/17 completed Not Available Not Available Not Available benzonatate 200 mg capsule 01/17 completed Not Available Not Available Not Available hydrocodone 5 mg-acetamin ophen 325 mg tablet 01/17 completed Not Available Not Available Not Available Nystop 100,000 unit/gram topical powder APPLY TWICE DAILY 01/17 completed Not Available Not Available Not Available donepezil 10 mg tablet 01/17 completed Not Available Not Available Not Available olanzapine 5 mg tablet 01/17 completed Not Available Not Available Not Available amlodipine 2.5 mg tablet 01/17 completed Not Available Not Available Not Available Diovan 80 mg tablet 01/17 completed Not Available Not Available Not Available sildenafil 100 mg tablet TAKE 1 TAB BY MOUTH DAILY NEEDED FOR SEXUAL ACTIVITY TAKE 30 MINUTES TO 4 HOURS BEFORE SEXUAL ACTIVITY active Not Available Not Available No t Available levothyroxi ne 75 mcg tablet Take 1 tablet every day by oral route. active Not Available Not Available No t Available oxycodone-a cetaminophe n 5 mg-325 mg tablet 01/17 completed Not Available Not Available Not Available terbinafine HCl 250 mg tablet 01/17 completed Not Available Not Available Not Available alprazolam 0.25 mg tablet 01/17 completed Not Available Not Available Not Available amitriptyli ne 10 mg tablet 01/17 completed Not Available Not Available Not Available hydrocodone 7.5 mg-acetamin ophen 325 mg tablet 01/17 completed Not Available Not Available Not Available buspirone 10 mg tablet TAKE 1 TABLET BY MOUTH TWICE DAILY 01/17 completed Not Available Not Available Not Available hydrocodone 7.5 mg-acetamin ophen 750 mg tablet 01/17 completed Not Available Not Available Not Available fluoxetine 10 mg capsule 01/17 completed Not Available Not Available Not Available omeprazole 20 mg capsule,del ayed release Take 1 capsule every day by oral route. active Not Available Not Available No t Available mupirocin 2 % topical ointment 01/17 completed Not Available Not Available Not Available zolpidem 5 mg tablet 01/17 completed Not Available Not Available Not Available mirtazapine 15 mg tablet Take 1 tablet every day by oral route. active Not Available Not Available No t Available irbesartan 150 mg tablet 01/17 completed Not Available Not Available Not Available testosteron e cypionate 200 mg/mL intramuscul ar oil 01/17 completed Not Available Not Available Not Available levofloxaci n 500 mg tablet 01/17 completed Not Available Not Available Not Available zolpidem 10 mg tablet 01/17 completed Not Available Not Available Not Available Vitamin D2 1,250 mcg (50,000 unit) capsule 01/17 completed Not Available Not Available Not Available ketoconazol e 2 % topical cream 01/17 completed Not Available Not Available Not Available fluoxetine 20 mg capsule 01/17 completed Not Available Not Available Not Available Bactroban Nasal 2 % ointment 01/17 completed Not Available Not Available Not Available enoxaparin 30 mg/0.3 mL subcutaneou s syringe 01/17 completed Not Available Not Available Not Available escitalopra m 10 mg tablet 01/17 completed Not Available Not Available Not Available ezetimibe 10 mg tablet TAKE 1 TABLET BY MOUTH DAILY active Not Available Not Available No t Available rosuvastati n 5 mg tablet TAKE 1 TABLET BY MOUTH EVERY DAY 01/17 completed Not Available Not Available Not Available rosuvastati n 20 mg tablet TAKE 1 TABLET BY MOUTH DAILY active Not Available Not Available No t Available bupropion HCl XL 300 mg 24 hr tablet, extended release 01/17 completed Not Available Not Available Not Available bupropion HCl XL 150 mg 24 hr tablet, extended release 01/17 completed Not Available Not Available Not Available Cymbalta 60 mg capsule,del ayed release 01/17 completed Not Available Not Available Not Available aripiprazol e 2 mg tablet TAKE 1 TABLET BY MOUTH EVERY DAY active Not Available Not Available No t Available sodium hyaluronate (bulk) 94 % powder 01/17 completed Not Available Not Available Not Available cetyl myristoleat e (bulk) 20 % powder 01/17 completed Not Available Not Available Not Available Xarelto 10 mg tablet 01/17 completed Not Available Not Available Not Available Fluvirin (PF) 45 mcg (15 mcg x 3)/0.5 mL intramuscul ar syringe ADM 0.5ML IM UTD 01/17 completed Not Available Not Available Not Available BinaxNOW COVID-19 Ag Self Test kit Use as Directed on the Package 01/17 completed Not Available Not Available Not Available Vitals Date Recorded Body height Body mass index (BMI) Body weight Provider Name and Address Organization Details Last Updated DateTime 01/17/2023 170.18 cm 33.7 kg/m2 92036.36 ARTIE Rg [place] [email or web address] [facility] 01/17/2023 10:02:01 Social History None recorded. Functional Status Question Answer Note LastModified by Organizat ion Details LastModified Time What is your level of alcohol consumption? Occasional [email or web address] Information not available 01/17/2023 Mental Status None recorded. Family History Nothing Reported. Medical History Condition Response ARTHRITIS Y Past Encounters Encounter ID Performer Location Encounter Start Date Encounter Closed Date Diagnosis/Indication Diagnosis SNOMED-CT Code Diagnosis ICD10 Code Diagnosis IMO Codes Diagnosis Note [id number] Nirav Nation MD [facility] [place] [address] [place] [address] 01/17/2023 09:07:27 01/17/2023 11:36:44 Pain of right hip joint 2273528332 88156 M25.551 Pain of ri ght knee joint 4404901191 90229 M25.561 History of right total knee replacement 7486426263 106476 Z96.651 History of total replacement of bilateral hip joints 3230856989 956428 Z96.643 Health Concerns Section Related Observation LastModified by Organization Detai ls LastModified Time None Recorded Concern Status LastModified by Organization Details LastModified Time None Recorded Advance Directives Directive None Recorded Payers Insurance Date Sequence Insurance Name Policy Number Policy Aguiar Covered Member ID Aguiar Member ID Guarantor Name 01/17/2023 1 [facility] [id number] Brendan Ling [id number] Brendan Ling 03/28/2025 1 [facility] (MEDICARE REPLACEMENT/A DVANTAGE - POS) [id number] Brendan Ling [id number] Brendan Ling Notes Date Note Type Note Provider Name and Address Organization Details Recorded Time 01/17/2023 text/html Patient returns he has had bilateral knee hip replacements done and a right knee replacement overall he is doing fine. Calves says he gets occasional twinges but nothing severe he is 6 years out +on his joints. Nirav Nation MD [address] [place] [address] [address], [place], [address], [place] [email or web address] [facility] 01/17/2023 11:49:26
--- OUTSIDE RECORDS SUMMARY | 2025-05-29 16:03 | XMS_ITS | Encounter Summary ---
Author Organization [facility] Address [address] [place] [address] Phone Care Team Providers Care Director Account Management Name Role Phone Elan Gross MD Primary Care Provider [phone] Reason for Visit * Reason Onset Date Comments Appointment 05/28/2025 Encounter Details Date Type Department Care Team ([facility] Contact Info) Description 05/28/2025 [facility]phone [facility] [address], [address] [place] [address] Jessi Bruce CCC-TEXTILE BROKER [place] Appointment Social History Tobacco Use Types Packs/Day Years Used Date Smoking Tobacco: Never Assessed Sex and Gender Information Value Date Recorded Sex Assigned at Not on file Legal Sex Male 9:36 AM CDT Gender Identity Not on file Sexual Orientation Not on file documented as of this encounter Miscellaneous Notes * Telephone Encounter - Jessi Bruce CCC-TEXTILE BROKER - 05/28/2025 9:06 AM OPERATIONS AND INTELLIGENCE ASSISTANT ----- Message from Christel sent at 05/28/2025 9:05 AM OPERATIONS AND INTELLIGENCE ASSISTANT ----- Regarding: cdx left voicemail saying to cancel appointments today ATIONS AND INTELLIGENCE ASSISTANT documented in this encounter Plan of Treatment Upcoming Encounters Date Type Department Care Team (Late Contact Info) Description 05/30/2025 10:30 AM OPERATIONS AND INTELLIGENCE ASSISTANT Speech Therapy [facility] [address], [address] [place] [address] Elan Gross MD [address] [place] [address] Jessi Bruce CCC-TEXTILE BROKER [place] 05/30/2025 11:30 AM OPERATIONS AND INTELLIGENCE ASSISTANT Occupational Therapy [facility] at [address], [address] [address] Elan Gross MD [address] [place] [address] Elise Mack, OT [place] 06/04/2025 9:45 AM OPERATIONS AND INTELLIGENCE ASSISTANT Speech Therapy [facility] at [address], [address] [address] Elan Gross MD [address] [place] [address] Jessi Bruce CCC-TEXTILE BROKER [place] 06/04/2025 10:30 AM OPERATIONS AND INTELLIGENCE ASSISTANT Occupational Therapy [facility] at [address], [address] [address] Elan Gross MD [address] [place] [address] Elise Mack, OT [place] 06/07/2025 11:30 AM OPERATIONS AND INTELLIGENCE ASSISTANT Occupational Therapy [facility] [address] [facility], [address] [place] [address] Elan Gross MD [address] [place] [address] Elise Mack, OT [place] 06/11/2025 9:45 AM OPERATIONS AND INTELLIGENCE ASSISTANT Occupational Therapy [facility] [address] [facility], [address] [place] [address] Elan Gross MD [address] [address] Elise Mack OT [place] 06/13/2025 10:45 AM OPERATIONS AND INTELLIGENCE ASSISTANT Occupational Therapy [facility] at [address], [address] [place] [address] Elan Gross MD [address] [place] [address] Elise Mack OT [place] 06/19/2025 10:30 AM OPERATIONS AND INTELLIGENCE ASSISTANT Occupational Therapy [facility] at [address], [address] [place] [address] Elan Gross MD [address] [place] [address] Elise Mack OT [place] 06/21/2025 11:30 AM OPERATIONS AND INTELLIGENCE ASSISTANT Occupational Therapy [facility] at [address], [address] [place] [address] Elan Gross MD [address] [place] [address] Elise Mack OT [place] 06/25/2025 10:30 AM OPERATIONS AND INTELLIGENCE ASSISTANT Occupational Therapy [facility] [address] [place] [address] Elan Gross MD [address] [place] [address] Elise Mack OT [place] 06/27/2025 10:00 AM OPERATIONS AND INTELLIGENCE ASSISTANT Occupational Therapy [facility] at [facility] [address], [address] [place] [address] Elan Gross MD [address] [place] [address] Elise Mack OT [place] 07/02/2025 11:15 AM OPERATIONS AND INTELLIGENCE ASSISTANT Occupational Therapy [facility] [address], [address] [place] [address] Elan Gross MD [address] [facility] [address] Elise Mack OT [place] documented as of this encounter Visit Diagnoses Not on filedocumented in this encounter Care Teams Director Account Management Relationship Specialty Start Date End Date Elan Gross MD [address] [facility] [place] [address] PCP - General Family Medicine 02/06/25 documented as of this encounter
--- OUTSIDE RECORDS SUMMARY | 2025-05-29 16:04 | XMS_ITS | Clinical Summary ---
Author Organization [facility] Address [address] [place] [address] Phone Care Team Providers Care Control Tower Radio Operator Name Role Phone Elan Gross MD Primary Care Provider Allergies No known active allergies Medications ibuprofen [...] Encounters Date Type Department Care Team Description 05/28/2025 Telephone [facility] [address], [address] [place] [phone] Elise Mack, BRAVO Appointment (Patient or spouse called and LVM to cancel all appointments for today. Reason for cancellation was not provided. PAS got the voicemail. ) 05/28/2025 Telephone [facility] [address], [address] [place] [phone] Jessi Bruce, CCC-HYDRAMATIC SPECIALIST Appointment 05/23/2025 10:45 AM REGISTERED PHLEBOTOMIST PART TIME Occupational Therapy [facility] [address], [place] [address] Elan Gross, Elise Kirby, OT Parkinson's disease without dyskinesia, unspecified whether manifestations fluctuate (Primary Dx); Weakness; Impaired functional mobility, balance, gait, and endurance Discharge Disposition: Discharged to home or Selfcare 05/20/2025 10:30 AM REGISTERED PHLEBOTOMIST PART TIME Speech Therapy [facility] [address], [address] [place] [phone] Ealn Gross MD Brim, Ashley E, CCC-HYDRAMATIC SPECIALIST Dysarthria (Primary Dx); Weakness; Parkinson's disease without dyskinesia, unspecified whether manifestations fluctuate; Dysarthria and anarthria Discharge Disposition: Discharged to home or Selfcare 05/20/2025 Travel 05/16/2025 Telephone [facility] [address], [address] [place] [phone] Jessi Bruce CCC-HYDRAMATIC SPECIALIST Appointment (Illness ) 05/16/2025 Telephone [facility] [address], [address] [place] [address] Elise Mack, OT Appointment (Patient's significant other called to cancel patient's appointment due to patient illness. PAS took the phone call. ) 05/14/2025 Telephone [facility] [address], [address] [place] [address] Jessi Bruce, SHAISTA-HYDRAMATIC SPECIALIST Appointment 05/14/2025 Telephone [facility] [address], [address] [place] [address] Elise Mack, OT Appointment (Patient's significant other called to cancel due to up all night. PAS took the phone call. ) 05/10/2025 12:15 PM CDT Speech Therapy [facility] [address], [place] [address] [place] [address] Elan Gross, Jessi Dominguez, SHAISTA-HYDRAMATIC SPECIALIST Dysarthria (Primary Dx); Weakness; Parkinson's disease without dyskinesia, unspecified whether manifestations fluctuate; Dysarthria and anarthria Discharge Disposition: Discharged to home or Selfcare 05/10/2025 10:45 AM CDT Occupational Therapy [facility] [address], [place] [address] Elan Gross, Elise Kirby, OT Parkinson's disease without dyskinesia, unspecified whether manifestations fluctuate (Primary Dx); Weakness; Impaired functional mobility, balance, gait, and endurance Discharge Disposition: Discharged to home or Selfcare 05/10/2025 Travel 05/07/2025 Telephone [facility] [address], [address] [place] [address] Jessi Bruce, CCC-HYDRAMATIC SPECIALIST No Show (x1) 05/07/2025 Telephone [facility] [address], [address] [place] [address] Elise Mack OT No Show (Patient was a no call/no show for his appointment. Therapist called and LVM indicating missed appointment, next appt date/time, as well as Speech Therapy appointment at 10:30 this date. PAS notified.) 04/23/2025 9:45 AM CDT Speech Therapy [facility] [address] [facility], [address] [place] [address] Elan Gross, Jessi Dominguez, [facility]-HYDRAMATIC SPECIALIST Dysarthria (Primary Dx); Parkinson's disease without dyskinesia, unspecified whether manifestations fluctuate; Weakness; Dysarthria and anarthria Discharge Disposition: Discharged to home or Selfcare 04/23/2025 9:00 AM CDT Occupational Therapy [facility] [address] [facility], [address] [place] [address] Elan Gross, Elise Kirby, OT Impaired functional mobility, balance, gait, and endurance (Primary Dx); Parkinson's disease without dyskinesia, unspecified whether manifestations fluctuate; Weakness Discharge Disposition: Discharged to home or Selfcare 04/23/2025 Plan of Care Documentation [facility] [address] [facility], [address] [place] [address] 04/23/2025 Plan of Care Documentation [facility] [address], [address] [place] [address] 04/23/2025 Travel 04/03/2025 2:00 PM CDT Home Care Visit [address] [address] Regla Kinney, HYDRAMATIC SPECIALIST-SPEECH LANGUAGE PATHOLOGIST HYDRAMATIC SPECIALIST - OASIS DISCHARGE 04/03/2025 Transcribe Orders [facility] [address] [place] [address] Elan Gross MD Parkinson's disease without dyskinesia, unspecified whether manifestations fluctuate (HCC) (Primary Dx); Weakness; Dysarthria and anarthria 04/01/2025 1:30 PM CDT Home Care Visit [address] [address] Regla Kinney, HYDRAMATIC SPECIALIST-SPEECH LANGUAGE PATHOLOGIST HYDRAMATIC SPECIALIST - HOME VISIT 03/28/2025 1:15 PM CDT Home Care Visit [address] [address] Regla Kinney, HYDRAMATIC SPECIALIST-SPEECH LANGUAGE PATHOLOGIST HYDRAMATIC SPECIALIST - HOME VISIT 03/27/2025 2:30 PM CDT Home Care Visit [address] [address] Regla Kinney, HYDRAMATIC SPECIALIST-SPEECH LANGUAGE PATHOLOGIST HYDRAMATIC SPECIALIST - HOME VISIT 03/26/2025 Home Care Visit [address] [address] Lashay Kim OT OT - DISCHARGE SUMMARY 03/22/2025 12:30 PM CDT Home Care Visit [address] [address] Maryellen Lewis, SARA OT - DISCIPLINE DISCHARGE 03/22/2025 Home Care Visit [address] [address] Maryellen Lewis, SARA CASE COMMUNICATION 03/21/2025 2:30 PM CDT Home Care Visit [address] [address] Regla Kinney, HYDRAMATIC SPECIALIST-SPEECH LANGUAGE PATHOLOGIST HYDRAMATIC SPECIALIST - HOME VISIT 03/21/2025 Home Care Visit [address] [address] Maryellen Lewis, DIGITAL FORENSICS INVESTIGATOR CASE COMMUNICATION 03/20/2025 3:00 PM CDT Home Care Visit [address] [address] Regla Kinney, HYDRAMATIC SPECIALIST-SPEECH LANGUAGE PATHOLOGIST HYDRAMATIC SPECIALIST - REASSESSMENT 03/20/2025 12:00 PM CDT Home Care Visit [address] [address] Maryellen Lewis, SARA OT - HOME VISIT 03/19/2025 3:00 PM CDT Home Care Visit [address] [address] Mckenzie Waldron, RN SN - DISCIPLINE DISCHARGE 03/14/2025 4:00 PM CDT Home Care Visit [address] [address] Mckenzie Waldron, RN SN - HOME VISIT 03/14/2025 2:00 PM CDT Home Care Visit [address] [address] Regla Kinney, HYDRAMATIC SPECIALIST-SPEECH LANGUAGE PATHOLOGIST HYDRAMATIC SPECIALIST - HOME VISIT 03/14/2025 1:00 PM CDT Home Care Visit [address] [address] Maryellen Lewis OTA OT - HOME VISIT 03/13/2025 2:30 PM CDT Home Care Visit [address] [address] Regla Kinney, HYDRAMATIC SPECIALIST-SPEECH LANGUAGE PATHOLOGIST HYDRAMATIC SPECIALIST - HOME VISIT 03/12/2025 2:00 PM CDT Home Care Visit [address] [address] Crystal Perez, PT PT - DISCIPLINE DISCHARGE 03/12/2025 10:30 AM CDT Home Care Visit [address] [address] Lashay Kim OT OT - REASSESSMENT 03/08/2025 11:00 AM CDT Home Care Visit [address] [address] Teresa Brown, RN SN - HOME VISIT 03/07/2025 12:00 PM CDT Home Care Visit [address] [address] Maryellen Lewis, SARA OT - HOME VISIT 03/07/2025 11:30 AM CDT Home Care Visit [address] [address] Rose Cason, [employer] PT - HOME VISIT 03/06/2025 2:00 PM CDT Home Care Visit [address] [address] Relga Kinney, HYDRAMATIC SPECIALIST-SPEECH LANGUAGE PATHOLOGIST HYDRAMATIC SPECIALIST - HOME VISIT 03/05/2025 12:30 PM CDT Home Care Visit [address] [address] Maryellen Lewis, SARA OT - HOME VISIT 03/05/2025 12:00 PM CDT Home Care Visit [address] [address] Rose Cason, [employer] PT - HOME VISIT 03/04/2025 2:15 PM CDT Home Care Visit [address] [address] Regla Kinney, HYDRAMATIC SPECIALIST-SPEECH LANGUAGE PATHOLOGIST HYDRAMATIC SPECIALIST - HOME VISIT 03/01/2025 12:00 PM CDT Home Care Visit [address] [address] Veronica Blackburn LPN SN - HOME VISIT 03/01/2025 10:30 AM CDT Home Care Visit [address] [address] Maryellen Lewis, SARA OT - HOME VISIT 02/28/2025 12:00 PM CDT Home Care Visit [address] [address] Rose Cason, [employer] PT - HOME VISIT 02/27/2025 2:30 PM CDT Home Care Visit [address] [address] Regla Kinney, HYDRAMATIC SPECIALIST-SPEECH LANGUAGE PATHOLOGIST HYDRAMATIC SPECIALIST - HOME VISIT 02/27/2025 12:30 PM CDT Home Care Visit [facility] [address] [place] [address] Mrayellen Lewis OTA OT - HOME VISIT 02/26/2025 1:30 PM CDT [facility] [address] [place] [address] Roes Cason, [employer] PT - HOME VISIT 02/26/2025 Home Care Visit [facility] [address] [place] [address] Nicole Abarca, RN CARE CONFERENCE from Last 3 Months Social History Tobacco [...] st Contact Info) Description 05/30/2025 10:30 AM REGISTERED PHLEBOTOMIST PART TIME Speech Therapy [facility] [address], [address] [place] [address] Elan Gross MD [address] [place], [place] [phone] Jessi Bruce CCC-HYDRAMATIC SPECIALIST [place] 05/30/2025 11:30 AM REGISTERED PHLEBOTOMIST PART TIME Occupational Therapy [facility] [address], [place] [place] [address] Elan Gross MD [address] [address] Elise Mack OT [place] 06/04/2025 9:45 AM REGISTERED PHLEBOTOMIST PART TIME Speech Therapy [facility] [address], [address] [place] [address] Elan Gross MD [address] [address] Jessi Bruce CCC-HYDRAMATIC SPECIALIST [place] 06/04/2025 10:30 AM REGISTERED PHLEBOTOMIST PART TIME Occupational Therapy [facility] [address], [address] [place] [address] Elan Gross MD [address] [address] Elise Mack OT [place] 06/07/2025 11:30 AM REGISTERED PHLEBOTOMIST PART TIME Occupational Therapy [facility] [address], [place] [address] [place] [address] Elan Gross MD [address] [place] [address] Elise Mack OT [place] 06/11/2025 9:45 AM REGISTERED PHLEBOTOMIST PART TIME Occupational Therapy [facility] [address], [address] [place] [address] Elan Gross MD [address] [address] Elise Mack OT [place] 06/13/2025 10:45 AM REGISTERED PHLEBOTOMIST PART TIME Occupational Therapy [facility] [address], [address] [place] [address] Elan Gross, [address] [address] Elise Mack OT [place] 06/19/2025 10:30 AM REGISTERED PHLEBOTOMIST PART TIME Occupational Therapy [facility] [address], [address] [place] [address] Elan Gross MD [address] [place] [address] Elise Mack OT [place] 06/21/2025 11:30 AM REGISTERED PHLEBOTOMIST PART TIME Occupational Therapy [facility] [address], [address] [place] [address] Elan Gross MD [address] [place] [address] Elise Mack OT [place] 06/25/2025 10:30 AM REGISTERED PHLEBOTOMIST PART TIME Occupational Therapy [facility] [address], [address] [place] [address] Elan Gross MD [address] [place] [address] Elise Mack OT [place] 06/27/2025 10:00 AM REGISTERED PHLEBOTOMIST PART TIME Occupational Therapy [facility] [address], [address] [place] [address] Elan Gross MD [address] [address] Elise Mack OT [place] 07/02/2025 11:15 AM REGISTERED PHLEBOTOMIST PART TIME Occupational Therapy [facility] [address], [address] [place] [address] Elan Gross MD [address] [place] [address] Elise Mack OT [place] Health Maintenance Due Date Last Done Comments Hepatitis C Virus (HCV) Screening 1955 TdaP Immunization 1954 Varicella Immunization (1 of 2 - 13+ 2-dose series) 1967 Cologuard 1999 Colonoscopy 1999 Colorectal Cancer Screening 1999 Immunochemical Fecal Occult Blood 1999 Pneumococcal Immunization (50+ years) (1 of 1 - PCV) 01/15/2004 Zoster Immunization (2 of 3) 11/30/2017 10/05/2017 Welcome to Medicare (IPPE) [id number] 08/11/2024 SARS-COV-2 Immunization ( season) 2025 04/14/2024, 07/22/2023, 06/05/2021, Additional history exists Respiratory Syncytial Virus (RSV) Immunization (Adult) Completed 07/22/2023 Influenza Immunization Completed , 04/14/2024, 02/26/2022, Additional history exists Hepatitis B Immunization Aged Out No longer [...] to complete this topic Insurance MEDICARE C [facility] Advance Directives * Full Code (Latest Code Status on File) Date Activated Date Inactivated Comments 02/16/2025 10:29 PM Care Teams Control Tower Radio Operator Relationship Specialty Start Date End Date Elan Gross MD [address] [address] PCP - General Family Medicine 02/06/25
== END 2025-05-29 10:58 | disposition home or self-care (01) ==
PROVIDERS: PCP Family Medicine; Visit Provider Nurse Practitioner Family
DX: I73.9 Peripheral vascular disease, unspecified (principal); R06.09 Other forms of dyspnea; R05.3 Chronic cough
CPT/HCPCS: 36415; 71046; 85380

== ENCOUNTER 2025-05-30 14:24 | Emergency (ER) | payer MEDICARE, SELFPAY ==
[2025-05-30 14:27] VITALS: BP 141/98; PULSE 85; RESP 26; TEMP 37.2; O2SAT 100
--- NOTE | 2025-05-30 16:28 | PC.NURSE ---
Pt's son, Margarito, and [id number] came to ED to be with patient as well. Margarito spoke with this RN extensively about pt's history and most recent medical concerns/visits. Son states that patient is now at his baseline, with obvious improvements of his respirations and anxiety. Family reports that they do not feel like pt needs to be evaluated in the ED today. Son was made aware of pt's brief statement that he did not feel safe with his . Son states that he has made a couple of similar comments recently, that he is aware of this and continues to express no concern for patient's safety at home. Upon arrival to ED, pt well-dressed and well-groomed, pt sat next to for hours in waiting room with no signs of discomfort with her, calm and helpful with pt's care. Pt's son wanting to take him home at this time, reports he is consistently involved in patients care as well, and does not feel that there is any concern for pt's safety at home. Pt wheeled out in wheelchair by son at this time.
--- OUTSIDE RECORDS SUMMARY | 2025-05-30 17:30 | XMS_ITS | Encounter Summary ---
Author Organization [facility] Address [address] [facility] [place] [address] Care Team Providers Care Platform Stapler Name Role Phone Elan Gross MD Primary Care Provider [phone] Encounter Details Date Type Department Care Team (Late st Contact Info) Description 05/08/2025 Lab Requisition [facility] - DermPath Lab [address] [place] [phone] Elan Gross MD [address] [place] [address] Social History Tobacco Use Types Packs/Day Years Used Date Smoking Tobacco: Never Smokeless Tobacco: Never Alcohol Use Standard Drinks/Week Comments Yes 0 (1 standard drink = 0.6 oz pur e alcohol) very occasionally Sex and Gender Information Value Date Recorded Sex Assigned at Not on file 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 Gender Identity Not on file Sexual Orientation Not on file documented as of this encounter Plan of Treatment Not on file documented as of this encounter Procedures Procedure Name Priority Date/Time Associated Diagnosis Comments DERMATOPATHOLOGY Routine 05/07/2025 12:0 0 AM CDT documented in this encounter Results * DERMATOPATHOLOGY (05/07/2025 12:00 AM CDT) Case Report Dermatopathology Report Case: [id number] Authorizing Provider: Elan Gross MD Collected: 05/07/2025 12:00 AM Ordering Location: [facility] - Received: 05/08/2025 01:07 PM DermPath Lab Pathologist: Ekaterina Eduardo MD Specimen: Skin, right upper back 1:02 PM CDT DERMATOPATHOLOGY LABORATORY Final Diagnosis Specimen A. SKIN, right upper back: BASAL CELL CARCINOMA, NODULAR TYPE ([id number]) NOT PRESENT AT SAMPLED MARGIN (see microscopic description) 1:02 PM CDT DERMATOPATHOLOGY LABORATORY at 1301 CDT Clinical History Changing Lesion Please check margins 1:02 PM CDT DERMATOPATHOLOGY LABORATORY Gross Description Specimen A: Received is one formalin filled container labeled with the patient's name and designated right upper back. The specimen consists of a 10x7x2 mm piece of skin. The margin is inked green. The specimen is bisected lengthwise and submitted in 1 cassette. Jar 0. 1:02 PM CDT DERMATOPATHOLOGY LABORATORY Microscopic Description Specimen A. SKIN, right upper back: Within the dermis there are aggregates of basaloid cells with a high nuclear to cytoplasmic ratio and peripheral palisading. Many keratinocytes have marked nuclear pleomorphism. This lesion is not present at the sampled margin of the specimen. Additional deeper sections were obtained and reviewed. 1:02 PM CDT DERMATOPATHOLOGY LABORATORY Disclaimer An external and internal positive and negative controls are appropriate for the histochemical, immunohistochemical and immunofluorescence stain(s) in this case (if any), except where stated explicitly. The performance characteristics of the stain(s) cited in this report were developed and its performance characteristic determined by the Dermatopathology Laboratory at [facility], directed by Dr. Yannick Montalvo. These tests need not be, and therefore are not, approved by the [place] Food and Drug Administration. The tests are used for clinical purposes. Billing Codes Specimen Charges Stain Charges 02697 1 1:02 PM CDT DERMATOPATHOLOGY LABORATORY Embedded Images 1:02 PM CDT DERMATOPATHOLOGY LABORATORY Pathology/Cytolog y TISSUE SPECIMEN FROM SKIN / Unknown 05/07/2025 05/08/2025 1:07 PM CDT us Elan F Schueler MD LAB - PATHOLOGY/CYTOLOGY REMI WILLIAM Final Result DERMATOPATHOLOGY LABORATORY [facility] - Department of Dermatology [address], [address] [phone] documented in this encounter Visit Diagnoses Not on filedocumented in this encounter Care Teams Platform Stapler Relationship Specialty Start Date End Date Elna Gross MD [address] [place] [address] PCP - General 02/26/21 documented as of this encounter
--- OUTSIDE RECORDS SUMMARY | 2025-05-30 17:30 | XMS_ITS | Clinical Summary ---
Author Organization [facility] Address [address] [place] [address] Care Team Providers Care Manager Employee Benefits Name Role Phone Elan Gross MD Primary Care Provider [phone] Allergies No known active allergies Medications ALPRAZolam [...] 10/05/2017 Surgical History Surgery Date Site/Laterality Comments DC ARTHRP ACETBLR/PROX FEM PROSTC AGRFT/ALGRFT Total Hip Replacement Left - (Added by TW Conv) DC NEUROPLASTY &/TRANSPOS MEDIAN NRV CARPAL TUNNE Neuroplasty Decompression Median Nerve At Carpal Tunnel - (Added by TW Conv) DC ARTHRP ACETBLR/PROX FEM PROSTC AGRFT/ALGRFT Total Knee [...] on file 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
--- OUTSIDE RECORDS SUMMARY | 2025-05-30 17:30 | XMS_ITS | Data Portability ---
Author Organization [place] [employer], Main Office Address [address] [place] [address] Care Team Providers Care Community Relations Liaison Name Role Phone BOAZ ARTIS Primary Care Provider BOAZ ARTIS Referring Provider [phone] Assessment Encounter Date Assessment Date Assessment LastModified [...] knee 2022 023 [email or web address] [facility] [place], [address], [place], [address], 11:49:22 XR, hip + pelvis, unilateral 2022 023 [email or web address] [facility] [place], [address], [place], [address], 11:36:44 Medication Orders None recorded. Patient TargetsNo targets recorded. Patient InstructionsNo instructions recorded. Reason for Referral None Reported. Results Created Date Observation Date Name Description Value Unit Range Abnormal Flag Note LastModifiedBy Organization Detail LastModifiedTime 01/18/20 23 XR, hip + pelvi s, unila teral No observ ation record ed. [email or web address] [facility] [place] [address], [place], [address], 01/17/2023 11:12:24 01/18/20 23 XR, knee No observ ation record ed. [email or web address] [facility] [place] [address], [place], [address], 01/17/2023 11:49:21 Result Notes None recorded. Problems Name Problem SNOMED Code Status Onset Date Resolution Date Notes Provider Name and Address Organization Details Recorded Time Disorder of shoulder 405404967 Active Not Available [facility] 3 12:49:23 Localized, primary osteoarthr itis of the pelvic region and thigh 031243506 Active Not Available [facility] 3 12:49:23 Pain of joint of wrist 514580785 Active Not Available [facility] 3 12:49:23 Osteoarthr itis of knee 722072996 Active Not Available [facility] 3 12:49:23 Knee pain Active Not Available [facility] 3 12:49:23 Localized, primary osteoarthr itis of the wrist 986476896 Active Not Available [facility] 3 12:49:23 Osteoarthr itis 151665876 Active Not Available [facility] 3 12:49:23 Pain of hip region 68233904 Active Not Available [facility] 3 12:49:23 Pain of right hip joint 5327344200452 02 Active 2022 ARTIE Skaggs, [facility] 3 10:11:53 Pain of right knee joint 5481257172101 00 Active 2022 ARTIE Skaggs, [facility] 10:12:10 Problem Notes [...] Updated DateTime 01/17/2023 170.18 cm 33.7 kg/m2 43276.36 ARTIE Rg [place] [employer] [facility] 01/17/2023 10:02:01 Social History None recorded. Functional Status Question Answer Note LastModified by Organizat ion Details LastModified Time What is your level of alcohol consumption? Occasional [email or web address] Information not available 01/17/2023 Mental Status None recorded. Family History Nothing Reported. Medical History Condition Response ARTHRITIS Y Past Encounters Encounter ID Performer Location Encounter Start Date Encounter Closed Date Diagnosis/Indication Diagnosis SNOMED-CT Code Diagnosis ICD10 Code Diagnosis IMO Codes Diagnosis Note [id number] Nirav Nation MD [facility] [place] [address] [facility] [address] [address] [place] [address] 01/17/2023 09:07:27 01/17/2023 11:36:44 Pain of right hip joint 4075775958 60812 M25.551 Pain of ri ght knee joint 1089228735 64641 M25.561 History of right total knee replacement 4866599528 714349 Z96.651 History of total replacement of bilateral hip joints 4805246047 111921 Z96.643 Health Concerns Section Related Observation LastModified by Organization Detai ls LastModified Time None Recorded Concern Status LastModified by Organization Details LastModified Time None Recorded Advance Directives Directive None Recorded Payers Insurance Date Sequence Insurance Name Policy Number Policy Aguiar Covered Member ID Aguiar Member ID Guarantor Name 01/17/2023 1 [facility] [id number] Brendan Ling [id number] Brendan Ling 03/28/2025 1 [facility] (MEDICARE REPLACEMENT/A DVANTAGE - POS) [id number] Brendan Ling [id number] Brendan Ling Notes Date Note Type Note Provider Name and Address Organization Details Recorded Time 01/17/2023 text/html Patient returns he has had bilateral knee hip replacements done and a right knee replacement overall he is doing fine. Calves says he gets occasional twinges but nothing severe he is 6 years out +on his joints. Nirav Nation MD [address] [place] [address] [address], [place], [address], [place] [employer] [facility] 01/17/2023 11:49:26
--- OUTSIDE RECORDS SUMMARY | 2025-05-30 17:30 | XMS_ITS | Clinical Summary ---
Author Organization [facility] Address [address] [place] [address] Care Team Providers Care Viner Operator Name Role Phone Elan Gross MD Primary Care Provider [phone] Source Comments [facility],non-owned Affiliates and Associated Physician Practices is amultiple site organization consisting of ambulatory clinics and hospital sitesin [place], [place], [place]. This disclosure is being madepursuant to the Care Everywhere program and may not contain all information available regarding this patient. 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 Gender Identity Not on file Sexual Orientation [...] DIABETES 03/05/2024 , 03/05/2021 DEPRESSION SCREENING 07/11/2024 MEDICARE AWV CALENDAR YEAR 2024 COVID-19 VACCINE (3 - 2024-2 6 season) [...] DERMATOPATHOLOGY Routine 05/07/2025 12:0 0 AM CDT COMPREHENSIVE METABOLIC PANEL Routine 03/05/2021 3:12 PM CDT Myopathy from Last 3 Months or Most Recently Relevant to Health Maintenance Results * DERMATOPATHOLOGY (05/07/2025 12:00 AM CDT) Case Report Dermatopathology Report Case: [id number] Authorizing Provider: Elan Gross MD Collected: 05/07/2025 12:00 AM Ordering Location: [facility] - Received: 05/08/2025 01:07 PM [...] characteristic determined by the Dermatopathology Laboratory at [facility], directed by Dr. Yannick Montalvo. These tests need not be, and therefore are not, approved by the [place] Food and Drug Administration. The tests are used for clinical purposes. Billing Codes Specimen Charges Stain Charges 44200 1 1:02 PM CDT DERMATOPATHOLOGY LABORATORY Embedded Images 1:02 PM CDT DERMATOPATHOLOGY LABORATORY Pathology/Cytolog y TISSUE SPECIMEN FROM SKIN / Unknown 05/07/2025 05/08/2025 1:07 PM CDT us Elandequan Gross MD LAB - PATHOLOGY/CYTOLOGY FORRESTE NATALIIA Final Result DERMATOPATHOLOGY LABORATORY [facility] - Department of Dermatology [facility] Medicine [address] [place] [address], [address]rd Floor [address] [phone] * (ABNORMAL) COMPREHENSIVE METABOLIC PANEL (03/05/2021 3:12 PM [facility] BUN 13 7 - 26 mg/dL 03/05/2021 4:09 PM [facility] Creatinine 0.93 0.71 - 1.16 mg/dL 03/05/2021 4:09 PM [facility] Sodium 139 136 - 145 mmol/L 03/05/2021 4:09 PM [facility] Potassium 4.1 3.5 - 4.5 mmol/L 03/05/2021 4:09 PM [facility] Chloride 103 98 - 107 mmol/L 03/05/2021 4:09 PM [facility] CO2 24 22 - 29 mmol/L 03/05/2021 4:09 PM [facility] Glucose 92 70 - 115 mg/dL 03/05/2021 4:09 PM [facility] Calcium 9.6 8.4 - 10.2 mg/dL 03/05/2021 4:09 PM [facility] Protein Total 7.4 6.0 - 8.3 g/dL 03/05/2021 4:09 PM [facility] Albumin 4.4 3.4 - 5.0 g/dL 03/05/2021 4:09 PM [facility] Bilirubin Total 0.7 0.2 - 1.2 mg/dL 03/05/2021 4:09 PM [facility] Alkaline Phosphatase 74 40 - 150 U/L 03/05/2021 4:09 PM [facility] ALT 14 5 - 55 U/L 03/05/2021 4:09 PM [facility] AST 18 5 - 34 U/L 03/05/2021 4:09 PM [facility] Anion Gap 16 8 - 18 03/05/2021 4:09 PM [facility] BUN/Creatinine Ratio 14 7 - 23 03/05/2021 4:09 PM [facility] Osmolality Calculated 288 270 - 300 mOsm/kg 03/05/2021 4:09 PM CDT [facility] Albumin/Globulin Ratio 1.5 1.1 - 2.3 03/05/2021 4:09 PM CDT [facility] eGFR by CKD-EPI 85(L) >=90 mL/min/1.7 3 m2 03/05/2021 4:09 PM CDT [facility] Blood BLOOD SPECIMEN / Unknown Lab Venipuncture / Unknown 03/05/2021 3:12 PM CDT 03/05/2021 3:39 PM CDT Lokesh Pennington MD LAB - CHEMI STRY ORDERABLES Final Result [facility] [address] [place] [address], [facility] [phone] from Last 3 Months or Most Recently Relevant to Health Maintenance Insurance MANAGED MEDICARE ADV MANAGED MEDICARE ADV Care Teams Viner Operator Relationship Specialty Start Date End Date Elan Gross MD [address] [place] [address] PCP - General 02/26/21
--- OUTSIDE RECORDS SUMMARY | 2025-05-30 18:24 | XMS_ITS | Clinical Summary ---
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
--- OUTSIDE RECORDS SUMMARY | 2025-05-30 18:24 | XMS_ITS | Encounter Summary ---
Author Organization [facility] Address [address] [place] [address] Phone Care Team Providers Care Press Set Up Person Name Role Phone Elan Gross MD Primary Care Provider [phone] Reason for Referral * PT/OT/ST (Routine) - Closed Specialty Diagnoses / Procedures Referred By Columba melendez Referred To Contact Speech Therapy Diagnoses Parkinson's disease without dyskinesia, unspecified whether manifestations fluctuate Weakness Dysarthria and anarthria Elan Gross MD [address] [place] [address] Phone: tel: fax: [facility] at [address] [address] Phone: tel: fax: Referral ID Status Reason Start Date Expiration Date Visits Re quested Visits Authorized [id number] Closed 04/03/2025 100 9 Scheduling Instructions * PT/OT/ST (Routine) - Closed Specialty Diagnoses / Procedures Referred By Columba melendez Referred To Contact Occupational Therapy Diagnoses Parkinson's disease without dyskinesia, unspecified whether manifestations fluctuate Weakness Elan Gross MD [address] [place] [address] Phone: tel: fax: [facility] at [address], [place] [address] [address] Phone: tel: fax: Referral ID Status Reason Start Date Expiration Date Visits Re quested Visits Authorized [id number] Closed 04/03/2025 100 17 Scheduling Instructions * PT/OT/ST (Routine) - Pending Review Specialty Diagnoses / Procedures Referred By Contac t Referred To Contact Physical Therapy Diagnoses Parkinson's disease without dyskinesia, unspecified whether manifestations fluctuate Weakness Elan Gross MD [address] [place] [address] Phone: tel: fax: [facility] [address] [facility], [address] [address] Phone: tel: fax: Referral ID Status Reason Start Date Expiration Date V isits Requested Visits Authorized [id number] Pending Review 04/03/2025 100 100 Scheduling Instructions Encounter Details Date Type Department Care Team (Late st Contact Info) Description 04/03/2025 Transcribe Orders [facility] [address] [place] [address] Elan Gross MD [address] [place] [address] Parkinson's disease without dyskinesia, unspecified whether manifestations [...] * BP Answer Date of Assessment Author Kaleigh/64 04/03/2025 3:06 PM CDRegla Pastrana, BALANCE BRIDGE INSPECTOR-SPEECH LANGUAGE PATHOLOGIST * Temp Answer Date of Assessment Author 97.9 04/03/2025 3:06 PM Regla Taylor, BALANCE BRIDGE INSPECTOR-SPEECH LANGUAGE PATHOLOGIST * Pulse Answer Date of Assessment Author 64 04/03/2025 3:06 PM CDRegla Pastrana, BALANCE BRIDGE INSPECTOR-SPEECH LANGUAGE PATHOLOGIST * Resp Answer Date of Assessment Author 18 04/03/2025 3:06 PM CDRegla Pastrana, BALANCE BRIDGE INSPECTOR-SPEECH LANGUAGE PATHOLOGIST * SpO2 Answer Date of Assessment Author 90 04/03/2025 3:06 PM Regla Taylor, BALANCE BRIDGE INSPECTOR-SPEECH LANGUAGE PATHOLOGIST documented as of this encounter Mental Status * BP Answer Entry Date Author Kaleigh/Guanaco 04/03/2025 3:06 PM Regla Taylor, BALANCE BRIDGE INSPECTOR-SPEECH LANGUAGE PATHOLOGIST * Temp Answer Entry Date Author 97.9 04/03/2025 3:06 PM Regla Taylor, BALANCE BRIDGE INSPECTOR-SPEECH LANGUAGE PATHOLOGIST * Pulse Answer Entry Date Author 64 04/03/2025 3:06 PM Regla Taylor BALANCE BRIDGE INSPECTOR-SPEECH LANGUAGE PATHOLOGIST * SpO2 Answer Entry Date Author 90 04/03/2025 3:06 PM Regla Taylor, BALANCE BRIDGE INSPECTOR-SPEECH LANGUAGE PATHOLOGIST documented in this encounter Plan of Treatment Scheduled Referrals Name Type Priority Associated Diagnoses [...] anarthria documented in this encounter Care Teams Press Set Up Person Relationship Specialty Start Date End Date Elan Gross MD [address] [address] PCP - General Family Medicine 02/06/25 documented as of this encounter
--- OUTSIDE RECORDS SUMMARY | 2025-05-30 18:24 | XMS_ITS | Clinical Summary ---
Author Organization [facility] Address [address] [place] [address] Care Team Providers Care Wool Sorter Name Role Phone Tresa Mancilla SAFETY ENGINEER [employer]URE [employer]SELS Primary Care Provider Social History Tobacco Use [...] Wellness Visit 2019 COVID-19 Vaccine (1 - 2024-2 6 season) 2025 Influenza Adult (#1) 2025 RSV Immunization or 60+ Years (1 - 1-dose 75+ series) 2029 Hepatitis A Vaccines Aged Out No long er eligible based on patient's age to complete this topic Meningococcal B Vaccine Aged Out No l onger eligible based on patient's age to complete this topic Meningococcal Vaccine Aged Out No iain emily eligible based on patient's age to complete this topic RSV Immunizations Under 20 Months Aged Out No longer eligible based on patient's age to complete this topic Insurance [facility] MEDICARE Member Subscriber Plan / Payer (Ef fective 2019-Present) Name:Brendan Ling Relation to Subscriber:Self Name:Brendan Ling Payer ID:[id number] (NAIC) Type:Not on file Address: [place] [phone] Care Teams Wool Sorter Relationship Specialty Start Date End Date Tresa Mancilla NP [address] [place] [address] PCP - General NURSE PRACTITIONER 12/09/21
--- OUTSIDE RECORDS SUMMARY | 2025-05-30 18:24 | XMS_ITS | Encounter Summary ---
Author Organization [facility] Address [address] [place] [address] Phone Care Team Providers Care Sensor Technician Name Role Phone Elan Gross MD Primary Care Provider [phone] Reason for Visit * Reason Onset Date Comments No Show 05/30/2025 Patient was a no call/no show for the second time this date. Therapist called and LVM regarding attendance policy and discharge. PAS notified. Encounter Details Date Type Department Care Team (Late st Contact Info) Description 05/30/[address] [facility] [address], [address] [place] [address] Elise Mack, OT [place] No Show (Patient was a no call/no show for the second time this date. Therapist called and LVM regarding attendance policy and discharge. PAS notified.) Social History Tobacco Use Types Packs/Day Years Used Date Smoking Tobacco: Never Assessed Sex and Gender Information Value Date Recorded Sex Assigned at Not on file Legal Sex Male 9:36 AM CDT Gender Identity Not on file Sexual Orientation Not on file documented as of this encounter Plan of Treatment Not on file documented as of this encounter Visit Diagnoses Not on filedocumented in this encounter Care Teams Sensor Technician Relationship Specialty Start Date End Date Elan Gross MD [address] [address] PCP - General Family Medicine 02/06/25 documented as of this encounter
--- OUTSIDE RECORDS SUMMARY | 2025-05-30 18:24 | XMS_ITS | Clinical Summary ---
Author Organization [facility] Address [address] [place] [address] Phone Care Team Providers Care Electrical Design Technologist Name Role Phone Elan Gross MD Primary Care Provider [phone] Allergies No known active allergies Medications ibuprofen [...] Encounters Date Type Department Care Team Description 05/30/2025 Telephone [facility] at [address], [address] [place] [address] Elise Mack, OT No Show (Patient was a no call/no show for the second time this date. Therapist called and LVM regarding attendance policy and discharge. PAS notified.) 05/30/2025 Telephone [facility] [address], [place] [address] [place] [address] Jessi Bruce CCC-TRANSLITERATOR No Show (x2) 05/28/2025 Telephone [facility] at [facility] [address], [address] [place] [address] Elise Mack, BRAVO Appointment (Patient or spouse called and LVM to cancel all appointments for today. Reason for cancellation was not provided. PAS got the voicemail. ) 05/28/2025 Telephone [facility] at [address], [place] [address] [place] [address] eJssi Bruce, CCC-TRANSLITERATOR Appointment 05/23/2025 10:45 AM FACILITY SALES AND ADMIN Occupational Therapy [facility] at [address], [place] [address] [place] [address] Elan Gross MD Kallal, Meagan K, OT Parkinson's disease without dyskinesia, unspecified whether manifestations fluctuate (Primary Dx); Weakness; Impaired functional mobility, balance, gait, and endurance Discharge Disposition: Discharged to home or Selfcare 05/20/2025 10:30 AM FACILITY SALES AND ADMIN Speech Therapy [facility] at [facility] [address], [place] [phone] SchuelElan raza MD Brim, Ashley E, CCC-TRANSLITERATOR Dysarthria (Primary Dx); Weakness; Parkinson's disease without dyskinesia, unspecified whether manifestations fluctuate; Dysarthria and anarthria Discharge Disposition: Discharged to home or Selfcare 05/20/2025 Travel 05/16/2025 Telephone [facility] [address], [address] [place] [address] Jessi Bruce CCC-TRANSLITERATOR Appointment (Illness ) 05/16/2025 [facility]phone [facility] [address], [address] [place] [address] Elise Mack, OT Appointment (Patient's significant other called to cancel patient's appointment due to patient illness. PAS took the phone call. ) 05/14/2025 Telephone [facility] [address], [place] [place] [address] Jessi Bruce CCC-TRANSLITERATOR Appointment 05/14/2025 Telephone [facility] [address], [place] [place] [address] Elise Mack, OT Appointment (Patient's significant other called to cancel due to up all night. PAS took the phone call. ) 05/10/2025 12:15 PM CDT Speech Therapy [facility] [address], [place] [place] [phone] Elan Gross MD Brim, Ashley E, CCC-TRANSLITERATOR Dysarthria (Primary Dx); Weakness; Parkinson's disease without dyskinesia, unspecified whether manifestations fluctuate; Dysarthria and anarthria Discharge Disposition: Discharged to home or Selfcare 05/10/2025 10:45 AM CDT Occupational Therapy [facility] [address], [place] [address] [place] [address] Elan Gross, Elise Kirby, OT Parkinson's disease without dyskinesia, unspecified whether manifestations fluctuate (Primary Dx); Weakness; Impaired functional mobility, balance, gait, and endurance Discharge Disposition: Discharged to home or Selfcare 05/10/2025 Travel 05/07/2025 Telephone [facility] [address] [facility], [place] [address] [place] [address] Jessi Bruce, CCC-TRANSLITERATOR No Show (x1) 05/07/2025 Telephone [facility] at [address], [place] [address] [place] [address] Elise Mack, BRAVO No Show (Patient was a no call/no show for his appointment. Therapist called and LVM indicating missed appointment, next appt date/time, as well as Speech Therapy appointment at 10:30 this date. PAS notified.) 04/23/2025 9:45 AM CDT Speech Therapy [facility] [address], [place] [address] [place] [address] Elan Gross, Jessi Dominguez, CCC-TRANSLITERATOR Dysarthria (Primary Dx); Parkinson's disease without dyskinesia, unspecified whether manifestations fluctuate; Weakness; Dysarthria and anarthria Discharge Disposition: Discharged to home or Selfcare 04/23/2025 9:00 AM CDT Occupational Therapy [facility] [address], [place] [address] [place] [address] Elan Gross, Elise Kirby, OT Impaired functional mobility, balance, gait, and endurance (Primary Dx); Parkinson's disease without dyskinesia, unspecified whether manifestations fluctuate; Weakness Discharge Disposition: Discharged to home or Selfcare 04/23/2025 Plan of Care Documentation [facility] [address], [place] [address] [address] 04/23/2025 Plan of Care Documentation [facility] at [facility] [address], [address] [place] [address] 04/23/2025 Travel 04/03/2025 2:00 PM CDT Home Care Visit [address] [address] Regla Kinney, TRANSLITERATOR-SPEECH LANGUAGE PATHOLOGIST TRANSLITERATOR - OASIS DISCHARGE 04/03/2025 Transcribe Orders [facility] [address] [place] [phone] Elan Gross MD Parkinson's disease without dyskinesia, unspecified whether manifestations fluctuate (HCC) (Primary Dx); Weakness; Dysarthria and anarthria 04/01/2025 1:30 PM CDT Home Care Visit [address] [address] Regla Kinney, TRANSLITERATOR-SPEECH LANGUAGE PATHOLOGIST TRANSLITERATOR - HOME VISIT 03/28/2025 1:15 PM CDT Home Care Visit [address] [address] Regla Kinney, TRANSLITERATOR-SPEECH LANGUAGE PATHOLOGIST TRANSLITERATOR - HOME VISIT 03/27/2025 2:30 PM CDT Home Care Visit [address] [address] Regla Kinney, TRANSLITERATOR-SPEECH LANGUAGE PATHOLOGIST TRANSLITERATOR - HOME VISIT 03/26/2025 Home Care Visit [address] [address] Lashay Kim OT OT - DISCHARGE SUMMARY 03/22/2025 12:30 PM CDT Home Care Visit [address] [address] Maryellen Lewis OTA OT - DISCIPLINE DISCHARGE 03/22/2025 [place] [place] [address] Maryellen Lewis, SARA CASE COMMUNICATION 03/21/2025 2:30 PM CDT Home Care Visit [address] [address] Regla Kinney, TRANSLITERATOR-SPEECH LANGUAGE PATHOLOGIST TRANSLITERATOR - HOME VISIT 03/21/2025 Home Care Visit [address] [address] Maryellen Lewis, SARA CASE COMMUNICATION 03/20/2025 3:00 PM CDT Home Care Visit [address] [address] Regla Kinney, TRANSLITERATOR-SPEECH LANGUAGE PATHOLOGIST TRANSLITERATOR - REASSESSMENT 03/20/2025 12:00 PM CDT Home Care Visit [address] [address] Maryellen Lewis, SARA OT - HOME VISIT 03/19/2025 3:00 PM CDT Home Care Visit [address] [address] Mckenzie Waldron RN SN - DISCIPLINE DISCHARGE 03/14/2025 4:00 PM CDT Home Care Visit [address] [address] Mckenzie Waldron RN SN - HOME VISIT 03/14/2025 2:00 PM CDT Home Care Visit [address] [address] Regla Kinney, TRANSLITERATOR-SPEECH LANGUAGE PATHOLOGIST TRANSLITERATOR - HOME VISIT 03/14/2025 1:00 PM CDT Home Care Visit [address] [address] Maryellen Lewis, SARA OT - HOME VISIT 03/13/2025 2:30 PM CDT Home Care Visit [address] [address] Regla Kinney, TRANSLITERATOR-SPEECH LANGUAGE PATHOLOGIST TRANSLITERATOR - HOME VISIT 03/12/2025 2:00 PM CDT Home Care Visit [address] [address] Crystal Perez, PT PT - DISCIPLINE DISCHARGE 03/12/2025 10:30 AM CDT Home Care Visit [address] [address] Lashay Kim OT OT - REASSESSMENT 03/08/2025 11:00 AM CDT Home Care Visit [address] [address] Teresa Brown, RN SN - HOME VISIT 03/07/2025 12:00 PM CDT Home Care Visit [address] [address] Maryellen Lewis, SARA OT - HOME VISIT 03/07/2025 11:30 AM CDT Home Care Visit [address] [address] Rose Cason, FIRE PATROLLER PT - HOME VISIT 03/06/2025 2:00 PM CDT Home Care Visit [address] [address] Regla Kinney, TRANSLITERATOR-SPEECH LANGUAGE PATHOLOGIST TRANSLITERATOR - HOME VISIT 03/05/2025 12:30 PM CDT Home Care Visit [address] [address] Maryellen Lewis SARA OT - HOME VISIT 03/05/2025 12:00 PM CDT Home Care Visit [address] [address] Rose Cason, FIRE PATROLLER PT - HOME VISIT 03/04/2025 2:15 PM CDT Home Care Visit [address] [address] Regla Kinney, TRANSLITERATOR-SPEECH LANGUAGE PATHOLOGIST TRANSLITERATOR - HOME VISIT 03/01/2025 12:00 PM CDT Home Care Visit [address] [address] Veronica Blackburn LPN SN - HOME VISIT 03/01/2025 10:30 AM CDT Home Care Visit [address] [address] Maryellen Lewis OTA OT - HOME VISIT 02/28/2025 12:00 PM CDT Home Care Visit [address] [address] Rose Cason, FIRE PATROLLER PT - HOME VISIT 02/27/2025 2:30 PM CDT Home Care Visit [address] [address] Regla Kinney, TRANSLITERATOR-SPEECH LANGUAGE PATHOLOGIST TRANSLITERATOR - HOME VISIT 02/27/2025 12:30 PM CDT Home Care Visit [address] [address] Maryellen Lewis OTA OT - HOME VISIT from Last 3 Months Social History Tobacco [...] 02/19/2025 10:13 AM CDT Plan of Treatment Health Maintenance Due [...] to complete this topic Insurance MEDICARE C [facility] Advance Directives * Full Code (Latest Code Status on File) Date Activated Date Inactivated Comments 02/16/2025 10:29 PM Care Teams Electrical Design Technologist Relationship Specialty Start Date End Date Elan Gross MD [address] [address] PCP - General Family Medicine 02/06/25
--- OUTSIDE RECORDS SUMMARY | 2025-05-30 18:24 | XMS_ITS | Encounter Summary ---
Author Organization [facility] Address [address] [facility] [place] [address] Care Team Providers Care Medical Research Scientist Name Role Phone Elan Gross MD Primary Care Provider [phone] Encounter Details Date Type Department Care Team (Late st Contact Info) Description 05/08/[address] 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 - Received: 05/08/2025 01:07 PM [...] characteristic determined by the Dermatopathology Laboratory at [facility], directed by Dr. Yannick Montalvo. These tests need not be, and therefore are not, approved by the [place] Food and Drug Administration. The tests are used for clinical purposes. Billing Codes Specimen Charges Stain Charges 75581 1 1:02 PM CDT DERMATOPATHOLOGY LABORATORY Embedded Images 1:02 PM CDT DERMATOPATHOLOGY LABORATORY Pathology/Cytolog y TISSUE SPECIMEN FROM SKIN / Unknown 05/07/2025 05/08/2025 1:07 PM CDT us Elan F Schueler MD LAB - PATHOLOGY/CYTOLOGY REMI WILLIAM Final Result DERMATOPATHOLOGY LABORATORY [facility] - Department of Dermatology [address], [address] [phone] documented in this encounter Visit Diagnoses Not on filedocumented in this encounter Care Teams Medical Research Scientist Relationship Specialty Start Date End Date Elan Gross MD [address] [place] [address] PCP - General 02/26/21 documented as of this encounter
--- OUTSIDE RECORDS SUMMARY | 2025-05-30 18:24 | XMS_ITS | Encounter Summary ---
Author Organization [facility] Address [address] [place] [address] Phone Care Team Providers Care Skin Lap Bonder Name Role Phone Elan Gross MD Primary Care Provider [phone] Reason for Visit * Reason Onset Date Comments No Show 05/30/2025 x2 Encounter Details Date Type Department Care Team (Late st Contact Info) Description 05/30/[address] 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 Patient cancelled Tuesday appointments and it is unclear if only Tuesday appointments were meant to be cancelled or if appointments were meant to be cancelled. Due to this, referral willbe left open for an additional week for patient or spouse to call office if an error had been made. Past this time, period referral will be closed and patient will be discharged from Speech therapy services. Jessi Bruce MS. CCC-ELL TEACHER Speech Language Pathologist MIRROR DEPARTMENT SUPERVISOR documented in this encounter Plan of Treatment Not on file documented as of this encounter Visit Diagnoses Not on filedocumented in this encounter Care Teams Skin Lap Bonder Relationship Specialty Start Date End Date Elan Gross MD [address] [place] [address] PCP - General Family Medicine 02/06/25 documented as of this encounter
--- OUTSIDE RECORDS SUMMARY | 2025-05-30 18:24 | XMS_ITS | Clinical Summary ---
Author Organization [facility] Address [address] [place] [address] Care Team Providers Care Caseworker Protective Services Name Role Phone Elan Gross MD Primary Care Provider [phone] [facility],non-owned Affiliates and Associated Physician Practices is amultiple site organization consisting of ambulatory clinics and hospital sitesin [place], [place], [place] and [place]. This disclosure is being madepursuant to the Care Everywhere program and may not contain all information available regarding this patient. Last updated 18.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 Yannick Montalvo. These tests need not be, and therefore are not, approved by the [place] Food and Drug Administration. The tests are used for clinical purposes. Billing Codes Specimen Charges Stain Charges 89754 1 1:02 PM CDT DERMATOPATHOLOGY LABORATORY Embedded Images 1:02 PM CDT DERMATOPATHOLOGY LABORATORY Pathology/Cytolog y TISSUE SPECIMEN FROM SKIN / Unknown 05/07/2025 05/08/2025 1:07 PM CDT us Elandequan Gross MD LAB - PATHOLOGY/CYTOLOGY FORRESTE NATALIIA Final Result DERMATOPATHOLOGY LABORATORY [facility] - Department of Dermatology [facility] Medicine [address] [place] [address], [address] [phone] * (ABNORMAL) COMPREHENSIVE METABOLIC PANEL (03/05/2021 3:12 PM [facility]) BUN 13 7 - 26 mg/dL 03/05/2021 4:09 PM [facility] Creatinine 0.93 0.71 - 1.16 mg/dL 03/05/2021 4:09 PM [facility] Sodium 139 136 - 145 mmol/L 03/05/2021 4:09 PM [facility] Potassium 4.1 3.5 - 4.5 mmol/L 03/05/2021 4:09 PM [facility] Chloride 103 98 - 107 mmol/L 03/05/2021 4:09 PM [facility] CO2 24 22 - 29 mmol/L 03/05/2021 4:09 PM [facility] Glucose 92 70 - 115 mg/dL 03/05/2021 4:09 PM [facility] Calcium 9.6 8.4 - 10.2 mg/dL 03/05/2021 4:09 PM [facility] Protein Total 7.4 6.0 - 8.3 g/dL 03/05/2021 4:09 PM [facility] Albumin 4.4 3.4 - 5.0 g/dL 03/05/2021 4:09 PM [facility] Bilirubin Total 0.7 0.2 - 1.2 mg/dL 03/05/2021 4:09 PM [facility] Alkaline Phosphatase 74 40 - 150 U/L 03/05/2021 4:09 PM [facility] ALT 14 5 - 55 U/L 03/05/2021 4:09 PM [facility] AST 18 5 - 34 U/L 03/05/2021 4:09 PM [facility] Anion Gap 16 8 - 18 03/05/2021 4:09 PM [facility] BUN/Creatinine Ratio 14 7 - 23 03/05/2021 4:09 PM [facility] Osmolality Calculated 288 270 - 300 mOsm/kg 03/05/2021 4:09 PM CDT [facility] Albumin/Globulin Ratio 1.5 1.1 - 2.3 03/05/2021 4:09 PM CDT [facility] eGFR by CKD-EPI 85(L) >=90 mL/min/1.7 3 m2 03/05/2021 4:09 PM CDT [facility] Blood BLOOD SPECIMEN / Unknown Lab Venipuncture / Unknown 03/05/2021 3:12 PM CDT 03/05/2021 3:39 PM CDT Lokesh Pennington MD LAB - CHEMI STRY ORDERABLES Final Result [facility] [address] [place] [address], [facility] [phone] from Last 3 Months or Most Recently Relevant to Health Maintenance Insurance MANAGED MEDICARE ADV MANAGED MEDICARE ADV Care Teams Caseworker Protective Services Relationship Specialty Start Date End Date Elan Gross MD [address] [place] [address] PCP - General 02/26/21
--- OUTSIDE RECORDS SUMMARY | 2025-05-30 18:24 | XMS_ITS | Patient Health Record ---
Author Organization [facility] [employer] [facility] Address [address] [place] [address] Care Team Providers Care Folder Hand Name Role Phone Renato VERMA, Elan Primary Care Provider Elodia Medina Unavailable [phone] Allergies Allergen (clinical drug ingredient) Drug/Non Drug Allergy documented on EMR Reaction Allergy Type Onset Date Status Seasonale Unknown Drug Allergy Active Reason For Referral No Information Medications Medication SIG (Take, Route, Frequency, Duration) Notes Start Date End Date Status amLODIPine Besylate 2.5 MG Tablet TAKE 1 TABLET BY MOUTH EVERY MORNING Oral; Duration: 100 Days Active Vitamin D 50 MCG (1999) Tablet 1 tablet Orally Once a day Active Mirtazapine 15 MG Tablet 1 tablet at bedtime Oral Once a day; Duration: 30 days Not-Taking Memantine HCl 10 MG Tablet 1 tablet Orally twice a day Active Sertraline HCl 100 MG Tablet TAKE 1 TABLET BY MOUTH DAILY; Duration: 90 Active Levothyroxine Sodium 75 MCG Tablet Oral; Duration: 100 Days Active Rexulti 2 MG Tablet TAKE 1 TABLET BY MOUTH DAILY; Duration: 30 Not-Taking Ezetimibe 10 MG Tablet Oral; Duration: 1 00 Days Active Sertraline HCl 50 MG Tablet 1 tablet Orally Once a day; Duration: 30 days Not-Taking Rosuvastatin Calcium 20 MG Tablet TAKE 1 TABLET BY MOUTH DAILY Oral; Duration: 90 Days Active Mirtazapine 15 MG Tablet 1 tablet at bedtime Oral Once a day; Duration: 30 days 05/08/2025 Active Omeprazole 20 MG Capsule Delayed Release Oral; Duration: 100 Days Active Carbidopa-Levodopa 25-100 MG Tablet Oral; Duration: 90 Days Active Gabapentin 100 MG Capsule TAKE 1 CAPSULE BY MOUTH THREE TIMES DAILY Oral; Duration: 30 Days Active Nuplazid 34 MG Capsule 1 capsule Orally Once a day; Duration: 30 days PA approved 05/09/2025 Active Nuplazid 34 MG Capsule 1 capsule Orally Once a day; Duration: 30 day(s) 05/16/2025 Active Sertraline HCl 100 MG Tablet 1 tablet Orally Once a day; Duration: 30 days 05/08/2025 Active Immunizations Vaccine Route Administration Date Status [...] Do you have a medical power of experimental machining lab manager?: No High number of sexual partners: No [...] Do you have a medical power of experimental machining lab manager?: No High number of sexual partners: No [...] Do you have a medical power of experimental machining lab manager?: No High number of sexual partners: No [...] Do you have a medical power of experimental machining lab manager?: No High number of sexual partners: No [...] Do you have a medical power of experimental machining lab manager?: No High number of sexual partners: No [...] Do you have a medical power of experimental machining lab manager?: No High number of sexual partners: No History of inconsistent/no condom use: Yes Marital status: Domestic Partner Gender Identity and LGBTQ Identity Gender identity: Identifies as Male Assigned sex at : Male First name used: BILL Sexual orientation: Straight or heterosexual Problems Problem Type SNOMED Code ICD Code Onset Dates Problem Status W/U Status Risk Notes Problem Mild recurrent major depression (87000495) Major depressive disorder, recurrent, mild (F33.0) 4 Active confirmed Problem Generalized anxiety disorder (49713729) Generalized anxiety disorder (F41.1) 4 Active confirmed Problem Dementia in other diseases classified elsewhere, unspecified severity, 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) Active confirmed Problem Tardive dyskinesia (890576658) Tardive dyskinesia (G24.01) Active confirmed Problem Parkinson's disease (disorder) (75140153) Parkinson disease, symptomatic (G20.A1) Active confirmed Vital Signs Heart Rate 75 /min 05/08/2025 Height-cm 170.18 cm 05/08/2025 Blood pressure diastolic 78 mm Hg 05/08/2025 Weight-kg 83.01 kg 05/08/2025 Height 67.00 in 05/08/2025 Blood pressure systolic 120 mm Hg 05/08/2025 Weight 183 lbs 05/08/2025 BMI 28.66 kg/m2 05/08/2025 Encounters Encounter Location Date Provider Diagnosis [facility] [address] [facility] [address] [address] 05/31/2024 Elodia Schwab Major depressive disorder, recurrent severe without psychotic features F33.2 ; Generalized anxiety disorder F41.1 and Unspecified dementia, unspecified severity, with mood disturbance F03.93 [facility] [place] [address] [facility] [address] [address] 07/13/2024 Elodia Schwab Major depressive disorder, recurrent, mild F33.0 ; Generalized anxiety disorder F41.1 ; Unspecified dementia, unspecified severity, with mood disturbance F03.93 ; Tardive dyskinesia G24.01 and Hypertension I10 [facility] [address] [address] 08/13/2024 Elodia Schwab [facility] [place] [address] [address] 09/03/2024 Elodia Schwab Major depressive disorder, recurrent, mild F33.0 ; Generalized anxiety disorder F41.1 ; Unspecified dementia, unspecified severity, with mood disturbance F03.93 ; Tardive dyskinesia G24.01 and Benign essential HTN I10 [place] [address] [address] 10/01/2024 Elodia Schwab Major depressive disorder, recurrent, mild F33.0 ; Generalized anxiety disorder F41.1 ; Tardive dyskinesia G24.01 ; Unspecified dementia, unspecified severity, with mood disturbance F03.93 and Benign essential HTN I10 [place] [address] [address] 11/12/2024 Elodia Schwab [place] [address] [address] 12/06/2024 [facility] [place] [address] [address] 12/18/2024 Elodia Schwab Major depressive disorder, recurrent, mild F33.0 ; Generalized anxiety disorder F41.1 ; Tardive dyskinesia G24.01 ; Unspecified dementia, unspecified severity, with mood disturbance F03.93 ; Benign essential HTN I10 and Encounter for screening for depression Z13.31 [place] [address] [address] 04/05/2025 Elodia Schwab Major depressive disorder, recurrent, mild F33.0 ; Dementia in other diseases classified elsewhere, unspecified severity, with psychotic disturbance F02.82 ; Parkinson disease, symptomatic G20.A1 ; Generalized anxiety disorder F41.1 and Tardive dyskinesia G24.01 [place] [address] [address] 05/08/2025 Elodia Schwab Major depressive disorder, recurrent, mild F33.0 ; Dementia in other diseases classified elsewhere, unspecified severity, with psychotic disturbance F02.82 ; Generalized anxiety disorder F41.1 ; Parkinson disease, symptomatic G20.A1 and Tardive dyskinesia G24.01 [place] [address] [facility] [address] [place] [address] 10/04/2024 Elodia Schwab [facility], [place] [address] [address] 10/16/2024 Elodia Schwab [facility], [facility] [address] [place] [address] 11/12/2024 Elodia Schwab Major depressive disorder, recurrent, mild F33.0 [place] [address] [facility] [address] [place] [address] 12/04/2024 Elodia Schwab Generalized anxiety disorder F41.1 [place] [address] [facility] [address] [place] [address] 12/13/2024 Elodia Schwab Tardive dyskinesia G24.01 [place] [address] [facility] [address] [place] [address] 05/02/2025 Elodia Schwab [facility] [address] [facility] [address] [place] [address] 05/09/2025 Elodia Schwab [place] [address] [address] 05/16/2025 Elodia Schwab Dementia in other diseases classified elsewhere, unspecified severity, with psychotic disturbance F02.82 [place] [address] [facility] [address] [place] [address] 09/11/2024 Elodia Schwab [place] [address] [address] 10/04/2024 Elodia Schwab Assessments Encounter Date Diagnosis (ICD Code) Assessment Notes Treatment Notes Treatment Clinical Notes Section Notes 05/16/2025 Dementia in other diseases classified elsewhere, unspecified severity, with psychotic disturbance (ICD-10 - F02.82) 05/08/2025 Major depressive disorder, recurrent, mild (ICD-10 - F33.0) 04/05/2025 Major depressive disorder, recurrent, mild (ICD-10 - F33.0) 04/05/2025 Dementia in other diseases classified elsewhere, unspecified severity, with psychotic disturbance (ICD-10 - F02.82) 05/31/2024 Major depressive disorder, recurrent severe without [...] mild (ICD-10 - F33.0) receives rexulti from [employer] patient assistance 12/18/2024 Generalized anxiety disorder (ICD-10 - F41.1) 10/01/2024 Tardive dyskinesia (ICD-10 - G24.01) Electronic [...] 6 weeks, sooner if concerns arise 12/18/2024 Tardive dyskinesia (ICD-10 - G24.01) 05/08/2025 Generalized anxiety disorder (ICD-10 - F41.1) 05/08/2025 Dementia in other diseases classified elsewhere, unspecified severity, with psychotic disturbance (ICD-10 - F02.82) Electronic Prior Authorization was requested for Nuplazid 34 MG Capsule. Provider can order medication once approval received. on memantine and aricept through neuro 04/05/2025 Parkinson disease, symptomatic (ICD-10 - G20.A1) 05/08/2025 Parkinson disease, symptomatic (ICD-10 - G20.A1) on Carbidopa-levodop a through neuro 12/18/2024 Unspecified dementia, unspecified severity, with mood disturbance (ICD-10 - F03.93) 04/05/2025 Generalized anxiety disorder (ICD-10 - F41.1) 07/13/2024 Tardive dyskinesia (ICD-10 - G24.01) Assessment [...] 6 weeks, sooner if concerns arise 10/01/2024 Benign essential HTN (ICD-10 - I10) Jabari Norris presents with excessive daytime sleepiness, [...] Patient Assistance Program paperwork to next appointment 04/05/2025 Tardive dyskinesia (ICD-10 - G24.01) 12/18/2024 Benign essential HTN (ICD-10 - I10) 05/08/2025 Tardive dyskinesia (ICD-10 - G24.01) 12/18/2024 Encounter for screening for depression (ICD-10 - Z13.31) 12/18/2024 Ninoska Norris, an older male patient [...] - Encourage adequate nutrition and appetite stimulation 04/05/2025 Other Jabari Norris, male patient with Parkinson's disease and dementia, presenting with anxiety, depression, and visual hallucinations. Parkinson's Disease Assessment: Patient was diagnosed with Parkinson's disease approximately 2.5 months ago, but symptoms likely present for at least 3 years. Recently hospitalized for 12 days due to sudden onset of inability to stand or speak. Patient has experienced falls and requires assistance for mobility, using a walker. Physical therapy and occupational therapy ongoing with reported improvement. Plan: - Continue physical therapy and occupational therapy - Advise against being alone due to fall risk - Monitor use of mirtazapine and sedation risk with worsneing fall risk - Plan to stop Ingrezza next visit, will hold off at this visit to allow body to adjust to carbidopa-levodop a and Nuplazid fully and avoid rebound dopamine release exacerbating symptoms (could experience worsening psychiatric, motor, automonic effects) Depression and Anxiety Assessment: Patient reports feeling down and anxious. Currently on mirtazapine and sertraline for management. Previously on Rexulti for anxiety and depression, which was discontinued about a month ago. Patient describes persistent anxiety and occasional irritability. Plan: - Continue mirtazapine - Increase sertraline to 100 mg PO daily - Follow up in 4 weeks Visual Hallucinations Assessment: Patient reports experiencing visual hallucinations, with a recent episode in the bedroom. Plan: - Initiate Nuplazid (pimavanserin) at bedtime. samples given - Safer option for mood and psychosis symptoms in Parkinson's disease - Minimal risk of worsening movement or cognitive symptoms Medical Decision Making Jabari Norris is a male patient with a history of Parkinson's disease, dementia, and recent hospitalizations, presenting with ongoing anxiety, depression, and visual hallucinations. The patient's recent discontinuation of Rexulti, which was previously prescribed for anxiety and depression, may be contributing to his current mood symptoms. The clinician is considering restarting an antipsychotic medication, specifically Nuplazid, due to its safer profile in Parkinson's patients and reduced risk of worsening movement symptoms. The decision to try Nuplazid is based on the patient's complex presentation of Parkinson's disease, mood symptoms, and cognitive impairment. The clinician notes that despite the patient's dementia diagnosis, his short-term memory appears to be functioning better than expected. The patient's recent falls and need for constant supervision indicate progression of his Parkinson's symptoms, which are being managed with carbidopa-levodop a initiated by a neurologist during a recent hospitalization. The clinician notes stopping Ingrezza may be warranted, with the oppositional mechanisms with carbidopa-levodop a and risk of worsening parkinsonism or reduced levodopa efficacy. However notes this change can wait until next follow-up, as waiting can allow for adjustment to carbidopa-levodop a and Nuplazid fully and avoid rebound dopamine release exacerbating symptoms (could experience worsening psychiatric, motor, automonic effects). 05/08/2025 Ninoska Norris is a patient with Parkinson's disease presenting for medication management. Depression and anxiety Assessment: Patient reports his mood as not really good with mild irritability but denies significant depression. His anxiety levels are manageable. Patient recently lost a friend to cancer which may be contributing to his current mood state. Sleep remains adequate and appetite is good. Previously transitioned from Prozac to sertraline, with recent increase to 100 mg from 50 mg. Mirtazapine was increased to 15 mg at bedtime. Started Nuplazid as replacement for Rexulti, which is specifically designed for Parkinson's patients to avoid dopamine-related interactions while providing mood support. Plan: - Continue sertraline 100 mg - Continue mirtazapine 15 mg at bedtime - No medication changes planned for mood medications at this visit Parkinson's disease and Tardive Dyskinesia Assessment: Patient has established Parkinson's disease managed with carbidopa-levodop a from neurology. Currently experiencing some clicking of dentures that had previously resolved but have returned. Patient reports no recent falls and denies hallucinations. Last neurologist visit was June 04. Patient is on Ingrezza 40 mg capsules for tardive dyskinesia, but there is concern for potential medication interaction between Ingrezza and carbidopa-levodop a, as both work on dopamine pathways. Discussed how he combination may prevent full therapeutic effects of carbidopa-levodop a, and Ingrezza may worsen parkinsonism. Discussed how carbidopa-levodop a alone may not be sufficient to control movements that originally necessitated Ingrezza initiation, however risks outweigh benefits. Plan: - Discontinue Ingrezza 40 mg capsules to eliminate potential interaction with carbidopa-levodop a - Monitor for changes in movements over the next couple of weeks as medication clears system - Continue carbidopa-levodop a as prescribed by neurologist - Continue Nuplazid, samples provided - Follow-up appointment in 6 weeks Dementia Assessment: Patient continues medications prescribed by another physician for memory support in the context of Parkinson's disease. Plan: - Continue memantine and aricept as prescribed by other physician Medical Decision Making Jabari Norris is a patient with Parkinson's disease presenting for medication management follow-up. The patient reports stable mood with minimal irritability and no significant depression or anxiety, along with good appetite and sleep. Given the patient's Parkinson's disease and current medication regimen including both Ingrezza and carbidopa-levodop a, there is concern for potential dopamine-related medication interactions. Both medications work on dopamine pathways to control movements, with carbidopa-levodop a addressing Parkinson's motor symptoms and Ingrezza managing dyskinesia from other medications. The clinical reasoning suggests that concurrent use may reduce the full therapeutic effects of both medications, as they may interfere with each other's dopamine mechanisms. Since the patient's condition appears stable and carbidopa-levodop a can also help control the movements that Ingrezza was originally prescribed to address, discontinuation of Ingrezza is being considered to optimize the Parkinson's treatment regimen. The decision acknowledges that stopping Ingrezza could either improve motor control if carbidopa-levodop a provides adequate coverage, or potentially worsen movements including the recurring clicking symptoms, requiring careful monitoring during the transition period. Plan Of Treatment Next Appt Details Provider Name:Elodia saenz, 06/19/2025 01:15:00 PM, [address] [facility] [address], [facility] [address], [place], [address], Insurance Providers Payer Name Payer Address Payer Phone Subscriber Number Group Number Insured Name Patient Relationship to Insured Coverage Start Date Coverage End Date [facility] Medicare Replacement/ Advantage - Ppo [address] [address] [place] [address] [id number] JABARI NORRIS Self - patient is the insured Medical (General) History Medical History History ICD Code Problems: Dementia Generalized anxiety disorder Hyperlipidemia Hypothyroidism Marijuana user Mild recurrent major depression Minimal cognitive impairment Obesity Surgical History Surgery Date(Month/Year) Operative procedure on knee (6537995) Total replacement of hip (39732118) Reconstructive surgery Hospitalization History Reason Date(Month/Year) bradycardia 01/2024 depression 11/2023
== END 2025-05-30 16:29 | disposition left against medical advice (07) ==
LOC: ANHED 17:06
PROVIDERS: PCP Family Medicine
DX: F41.9 Anxiety disorder, unspecified (principal)
CPT/HCPCS: 99199

== ENCOUNTER 2025-06-21 02:12 | Day surgery (SDC) | payer MEDICARE, SELFPAY ==
--- OUTSIDE RECORDS SUMMARY | 2025-04-19 02:47 | XMS_ITS | Encounter Summary ---
Author Organization [facility] Address [address] [place] [address] Phone Care Team Providers Care Dog Groomer Name Role Phone Elan Gross MD Primary Care Provider [phone] Reason for Referral * PT/OT/ST (Routine) - Open Specialty Diagnoses / Procedures Referred By Columba melendez Referred To Contact Speech Therapy Diagnoses Parkinson's disease without dyskinesia, unspecified whether manifestations fluctuate Weakness Dysarthria and anarthria Elan Gross MD [address] [place] [address] Phone: tel: fax: [facility] at [address] [address] Phone: tel: fax: Referral ID Status Reason Start Date Expiration Date Visits Re quested Visits Authorized [id number] Open 04/03/2025 100 100 Scheduling Instructions * PT/OT/ST (Routine) - Open Specialty Diagnoses / Procedures Referred By Columba melendez Referred To Contact Occupational Therapy Diagnoses Parkinson's disease without dyskinesia, unspecified whether manifestations fluctuate Weakness Elan Gross MD [address] [place] [address] Phone: tel: fax: [facility] [address], [address] [address] Phone: tel: fax: Referral ID Status Reason Start Date Expiration Date Visits Re quested Visits Authorized [id number] Open 04/03/2025 100 100 Scheduling Instructions * PT/OT/ST (Routine) - Open Specialty Diagnoses / Procedures Referred By Contac t Referred To Contact Physical Therapy Diagnoses Parkinson's disease without dyskinesia, unspecified whether manifestations fluctuate Weakness Elna Gross MD [address] [place] [address] Phone: tel: fax: [facility] [address] [facility], [address] [address] Phone: tel: fax: Referral ID Status Reason Start Date Expiration Date Visits Re quested Visits Authorized [id number] Open 04/03/2025 100 100 Scheduling Instructions Encounter Details Date Type Department Care Team (Late st Contact Info) Description 04/03/2025 Transcribe Orders [facility] [address] [place] [phone] Elan Gross MD [address] [place] [address] Parkinson's disease without dyskinesia, unspecified whether manifestations fluctuate (HCC) (Primary Dx); Weakness; Dysarthria and anarthria Social History Tobacco Use Types Packs/Day Years Used Date Smoking Tobacco: Never Assessed Sex and Gender Information Value Date Recorded Sex Assigned at Not on file Legal Sex Male 9:36 AM CDT Gender Identity Not on file Sexual Orientation Not on file documented as of this encounter Plan of Treatment Upcoming Encounters Date Type Department Care Team (Late st Contact Info) Description 04/23/2025 9:00 AM CDT Occupational Therapy [facility] [address], [address] [place] [address] Elan Gross, [address] [address] Elise Mack, OT [place] Discharge Disposition: Discharged to home or Selfcare 04/23/2025 10:15 AM CDT Physical Therapy [facility] [address] [place] [address] Elan Gross MD [address] [address] Josefina Ospina, PT [place] Discharge Disposition: Discharged to home or Selfcare 04/23/2025 11:15 AM CDT Speech Therapy [facility] [address] [place] [address] Elan Gross, [address] [address] Elder Miller, [facility] [employer] [place] Discharge Disposition: Discharged to home or Selfcare Scheduled Referrals Name Type Priority Associated Diagnoses Orde r Schedule PHYSICAL THERAPY REFERRAL Outpatient Referral Routine Parkinson's disease without dyskinesia, unspecified whether manifestations fluctuate (HCC) Weakness Expected: 04/03/2025, Expires: 04/03/2026 OCCUPATIONAL THERAPY REFERRAL Outpatient Referral Routine Parkinson's disease without dyskinesia, unspecified whether manifestations fluctuate (HCC) Weakness Expected: 04/03/2025, Expires: 04/03/2026 SPEECH THERAPY REFERRAL Outpatient Referral Routine Parkinson's disease without dyskinesia, unspecified whether manifestations fluctuate (HCC) Weakness Dysarthria and anarthria Expected: 04/03/2025, Expires: 04/03/2026 documented as of this encounter Visit Diagnoses Diagnosis Parkinson's disease without dyskinesia, unspecified whether manifestations fluctuate- Primary Weakness Other malaise and fatigue Dysarthria and anarthria documented in this encounter Care Teams Dog Groomer Relationship Specialty Start Date End Date Elan Gross MD [address] [place], [place] [id number] PCP - General Family Medicine 02/06/25 documented as of this encounter
--- OUTSIDE RECORDS SUMMARY | 2025-04-19 02:47 | XMS_ITS | Clinical Summary ---
Author Organization [facility] [email or web address] Address [address] [place] [address] Care Team Providers Care Fresh Foods Cake Decorator Name Role Phone Elan Gross MD Primary Care Provider [phone] Source Comments [facility] [email or web address],non-owned Affiliates and Associated Physician Practices is amultiple site organization consisting of ambulatory clinics and hospital sitesin [place], [place], [place] and [place]. This disclosure is being madepursuant to the Care Everywhere program and may not contain all information available regarding this patient. Last updated 18.[email or web address] Allergies No known active allergies Medications * [...] on file Legal Sex Male 4:58 PM COMPLIANCE AUDITOR Gender Identity Not on file Sexual Orientation [...] 7 - 26 mg/dL 03/05/2021 4:09 PM [facility] Creatinine 0.93 0.71 - 1.16 mg/dL 03/05/2021 4:09 PM [facility] Sodium 139 136 - 145 mmol/L 03/05/2021 4:09 PM [facility] Potassium 4.1 3.5 - 4.5 mmol/L 03/05/2021 4:09 PM [facility] Chloride 103 98 - 107 mmol/L 03/05/2021 4:09 PM [facility] CO2 24 22 - 29 mmol/L 03/05/2021 4:09 PM [facility] Glucose 92 70 - 115 mg/dL 03/05/2021 4:09 PM [facility] Calcium 9.6 8.4 - 10.2 mg/dL 03/05/2021 4:09 PM [facility] Protein Total 7.4 6.0 - 8.3 g/dL 03/05/2021 4:09 PM [facility] Albumin 4.4 3.4 - 5.0 g/dL 03/05/2021 4:09 PM [facility] Bilirubin Total 0.7 0.2 - 1.2 mg/dL 03/05/2021 4:09 PM [facility] Alkaline Phosphatase 74 40 - 150 U/L 03/05/2021 4:09 PM [facility] ALT 14 5 - 55 U/L 03/05/2021 4:09 PM [facility] AST 18 5 - 34 U/L 03/05/2021 4:09 PM [facility] Anion Gap 16 8 - 18 03/05/2021 4:09 PM [facility] BUN/Creatinine Ratio 14 7 - 23 03/05/2021 4:09 PM [facility] Osmolality Calculated 288 270 - 300 mOsm/kg 03/05/2021 4:09 PM [facility] Albumin/Globulin Ratio 1.5 1.1 - 2.3 03/05/2021 4:09 PM [facility] eGFR by CKD-EPI 85(L) >=90 mL/min/1.7 3 m2 03/05/2021 4:09 PM [facility] Blood BLOOD SPECIMEN / Unknown Lab Venipuncture / Unknown 03/05/2021 3:12 PM CDT 03/05/2021 3:39 PM [facility] Lokesh Pennington MD LAB - CHEMI STRY ORDERABLES Final Result [facility] [address] [place] [address], [place] [phone] from Last 3 Months or Most Recently Relevant to Health Maintenance Insurance [place] [id number] MANAGED MEDICARE ADV Care Teams Fresh Foods Cake Decorator Relationship Specialty Start Date End Date Elan Gross MD [address] [place] [address] PCP - General 02/26/21
--- OUTSIDE RECORDS SUMMARY | 2025-04-19 02:47 | XMS_ITS | Clinical Summary ---
Author Organization [facility] Address [address] [place] [address] Phone Care Team Providers Care Compensation Specialist Name Role Phone Elan Gross MD Primary Care Provider [phone] Allergies No known active allergies Medications ibuprofen [...] Encounters Date Type Department Care Team Description 04/03/2025 2:00 PM CDT Home Care Visit [address] [address] Regla Kinney, CONSOLIDATOR-SPEECH LANGUAGE PATHOLOGIST CONSOLIDATOR - OASIS DISCHARGE 04/03/2025 Transcribe Orders [facility] [address] [place] [address] lEan Gross MD Parkinson's disease without dyskinesia, unspecified whether manifestations fluctuate (HCC) (Primary Dx); Weakness; Dysarthria and anarthria 04/01/2025 1:30 PM CDT Home Care Visit [address] [address] Regla Kinney, CONSOLIDATOR-SPEECH LANGUAGE PATHOLOGIST CONSOLIDATOR - HOME VISIT 03/28/2025 1:15 PM CDT Home Care Visit [address] [address] Regla Kinney, CONSOLIDATOR-SPEECH LANGUAGE PATHOLOGIST CONSOLIDATOR - HOME VISIT 03/27/2025 2:30 PM CDT Home Care Visit [address] [address] Regla Kinney, CONSOLIDATOR-SPEECH LANGUAGE PATHOLOGIST CONSOLIDATOR - HOME VISIT 03/26/2025 Home Care Visit [address] [address] Lashay Kim OT OT - DISCHARGE SUMMARY 03/22/2025 12:30 PM CDT Home Care Visit [address] [address] Maryellen Lewis OTA OT - DISCIPLINE DISCHARGE 03/22/2025 Home Care Visit [address] [address] Maryellen Lewis OTA CASE COMMUNICATION 03/21/2025 2:30 PM CDT Home Care Visit [address] [address] Regla Kinney, CONSOLIDATOR-SPEECH LANGUAGE PATHOLOGIST CONSOLIDATOR - HOME VISIT 03/21/2025 Home Care Visit [address] [address] Maryellen Lewis, SARA CASE COMMUNICATION 03/20/2025 3:00 PM CDT Home Care Visit [address] [address] Regla Kinney, CONSOLIDATOR-SPEECH LANGUAGE PATHOLOGIST CONSOLIDATOR - REASSESSMENT 03/20/2025 12:00 PM CDT Home Care Visit [facility] [address] Maryellen Lewis, SARA OT - HOME VISIT 03/19/2025 3:00 PM CDT Home Care Visit [facility] [address] Mckenzie Waldron RN SN - DISCIPLINE DISCHARGE 03/14/2025 4:00 PM CDT Home Care Visit [facility] [address] Mckenzie Waldron, RN SN - HOME VISIT 03/14/2025 2:00 PM CDT Home Care Visit [facility] [address] Regla Kinney, CONSOLIDATOR-SPEECH LANGUAGE PATHOLOGIST CONSOLIDATOR - HOME VISIT 03/14/2025 1:00 PM CDT Home Care Visit [facility] [address] Maryellen Lewis OTA OT - HOME VISIT 03/13/2025 2:30 PM CD[facility] [address] [address] Regla Kinney, CONSOLIDATOR-SPEECH LANGUAGE PATHOLOGIST CONSOLIDATOR - HOME VISIT 03/12/2025 2:00 PM CDT Home Care Visit [facility] [address] Crystal Perez, PT PT - DISCIPLINE DISCHARGE 03/12/2025 10:30 AM CDT Home Care Visit [facility] [address] Lashay Kim OT OT - REASSESSMENT 03/08/2025 11:00 AM CDT Home Care Visit [facility] [address] Teresa Brown, RN SN - HOME VISIT 03/07/2025 12:00 PM CDT Home Care Visit [facility] [address] Maryellen Lewis, SARA OT - HOME VISIT 03/07/2025 11:30 AM CDT Home Care Visit [facility] [address] Rose Cason, DRY TRANSFER MAN PT - HOME VISIT 03/06/2025 2:00 PM CDT Home Care Visit [facility] [address] Regla Kinney, CONSOLIDATOR-SPEECH LANGUAGE PATHOLOGIST CONSOLIDATOR - HOME VISIT 03/05/2025 12:30 PM CDT Home Care Visit [facility] [address] Maryellen Lewis, SARA OT - HOME VISIT 03/05/2025 12:00 PM CDT Home Care Visit [address] [address] Rose Cason, DRY TRANSFER MAN PT - HOME VISIT 03/04/2025 2:15 PM CDT Home Care Visit [facility] [address] Regla Kinney, CONSOLIDATOR-SPEECH LANGUAGE PATHOLOGIST CONSOLIDATOR - HOME VISIT 03/01/2025 12:00 PM CDT Home Care Visit [address] [address] Veronica Blackburn LPN SN - HOME VISIT 03/01/2025 10:30 AM CDT Home Care Visit [facility] [address] Maryellen Lewis OTA OT - HOME VISIT 02/28/2025 12:00 PM CDT Home Care Visit [facility] [address] Rose Cason, DRY TRANSFER MAN PT - HOME VISIT 02/27/2025 2:30 PM CDT Home Care Visit [facility] [address] Regla Kinney, CONSOLIDATOR-SPEECH LANGUAGE PATHOLOGIST CONSOLIDATOR - HOME VISIT 02/27/2025 12:30 PM CDT Home Care Visit [facility] [address] Maryellen Lewis, SARA OT - HOME VISIT 02/26/2025 1:30 PM CDT Home Care Visit [facility] [address] Rose Cason, DRY TRANSFER MAN PT - HOME VISIT 02/26/2025 Home Care Visit [facility] [address] Nicole Abarca, RN CARE CONFERENCE 02/25/2025 2:30 PM CDT Home Care Visit [facility] [address] Regla Kinney, CONSOLIDATOR-SPEECH LANGUAGE PATHOLOGIST CONSOLIDATOR - HOME VISIT 02/25/2025 Home Care Visit [facility] [address] Rose Cason, DRY TRANSFER MAN TELEPHONE ENCOUNTER 02/25/2025 Home Care Visit [facility] [address] Risa Woods, TURBOGENERATOR OPERATOR TELEPHONE ENCOUNTER 02/22/2025 11:00 AM CDT Home Care Visit [address] [address] Mckenzie Waldron, RN SN - HOME VISIT 02/21/2025 1:00 PM CDT Home Care Visit [facility] [address] Rose Cason, DRY TRANSFER MAN PT - HOME VISIT 02/21/2025 12:30 PM CDT Home Care Visit [address] [address] Maryellen Lewis OTA OT - HOME VISIT 02/21/2025 11:30 AM CDT Home Care Visit [address] [address] Risa Woods, TURBOGENERATOR OPERATOR TURBOGENERATOR OPERATOR - INITIAL EVALUATION 02/21/2025 Home Care Visit [facility] [address] Risa Woods, TURBOGENERATOR OPERATOR TELEPHONE ENCOUNTER 02/20/2025 9:30 AM CDT Home Care Visit [address] [address] Regla Kinney, CONSOLIDATOR-SPEECH LANGUAGE PATHOLOGIST CONSOLIDATOR - INITIAL EVALUATION 02/19/2025 3:30 PM CDT Home Care Visit [address] [address] Lashay Kim, OT OT - INITIAL EVALUATION 02/19/2025 10:00 AM CDT Home Care Visit [address] [address] Crystal Perez, PT PT - INITIAL EVALUATION 02/16/2025 9:00 AM CDT Home Care Visit [address] [address] Nicole Abarca, RN SN - OASIS START OF CARE 02/16/2025 Plan of Care Documentation [address] [address] 02/15/2025 Travel from Last 3 Months Social History Tobacco Use Types Packs/Day Years Used Date Smoking Tobacco: Never Assessed Sex and Gender Information Value Date Recorded Sex Assigned at Not on file Legal Sex Male 9:36 AM CDT Gender Identity Not on file Sexual Orientation Not on file Last Filed Vital Signs Vital Sign Reading Time Taken Comments Blood Pressure 98/64 04/03/2025 3:06 PM CDT Pulse 64 04/03/2025 3:06 PM CDT Temperature 36.6 C (97.9 F) 04/03/2025 3:06 PM CDT Respiratory Rate 18 04/03/2025 3:06 PM CDT Oxygen Saturation 90% 04/03/2025 3:06 PM CDT Inhaled Oxygen Concentration - - Weight 84.8 kg (187 lb) 02/19/2025 10:13 AM CDT Height 170.2 cm (5' 7) 02/19/2025 3:57 PM CDT Body Mass Index 28.43 02/19/2025 10:13 AM CDT Plan of Treatment Upcoming Encounters Date Type Department Care Team (Late st Contact Info) Description 04/23/2025 9:00 AM CDT Occupational Therapy [facility] [address] [place] [phone] Elan Gross MD [address] [address] Elise Mack, OT [place] Discharge Disposition: Discharged to home or Selfcare 04/23/2025 10:15 AM CDT Physical Therapy [facility] [address] [place] [phone] Elan Gross MD [address] [address] Josefina Ospina, PT [place] Discharge Disposition: Discharged to home or Selfcare 04/23/2025 11:15 AM CDT Speech Therapy [facility] [address] [place] [phone] Elan Gross MD [address] [address] Elder Miller, [facility] [place] Discharge Disposition: Discharged to home or Selfcare Health Maintenance Due Date Last Done Comments Hepatitis C Virus (HCV) Screening 1955 TdaP Immunization 1954 Cologuard 1999 Colonoscopy 1999 Colorectal Cancer Screening 1999 Immunochemical Fecal Occult Blood 1999 Pneumococcal Immunization (50+ years) (1 of 1 - PCV) 01/15/2004 Zoster Immunization (2 of 3) 11/30/2017 10/05/2017 Welcome to Medicare (IPPE) [id number] 08/11/2024 Influenza Immunization (#1) 2025 10/0 11/2023, 02/26/2022, 04/03/2021, Additional history exists SARS-COV-2 Immunization [...] to complete this topic Insurance MEDICARE C [facility] Advance Directives * Full Code (Latest Code Status on File) Date Activated Date Inactivated Comments 02/16/2025 10:29 PM Care Teams Compensation Specialist Relationship Specialty Start Date End Date Elan Gross MD [address] [place] [address] PCP - General Family Medicine 02/06/25
--- OUTSIDE RECORDS SUMMARY | 2025-04-19 02:47 | XMS_ITS | Clinical Summary ---
Author Organization [facility] Address [address] [place] [address] Care Team Providers Care Russian Language Instructor Name Role Phone Elan Gross MD Primary Care Provider [phone] Allergies No known active allergies Medications ALPRAZolam [...] 10/05/2017 Surgical History Surgery Date Site/Laterality Comments [place] ARTHRP ACETBLR/PROX FEM PROSTC AGRFT/ALGRFT Total Hip Replacement Left - (Added by TW Conv) [place] NEUROPLASTY &/TRANSPOS MEDIAN NRV CARPAL TUNNE Neuroplasty Decompression Median Nerve At Carpal Tunnel - (Added by TW Conv) [place] ARTHRP ACETBLR/PROX FEM PROSTC AGRFT/ALGRFT Total Knee [...] on file Legal Sex Male 7:04 PM CAN DRYER Gender Identity Not on file Sexual Orientation [...] on file Medical Devices Implanted Type Area Tyre Retreader Device Identifier Shelf Expiration Date Model / Serial / Lot Bilateral Hip Replacement Pelvis Knee Replacement Right: Knee Hardware Spine Cervical Insurance [facility]CR HMO REF MEDICARE COMMERCIAL GENERIC [facility]CR HMO REF Care Teams Russian Language Instructor Relationship Specialty Start Date End Date Elan Gross MD PCP - General 07/27/17
--- OUTSIDE RECORDS SUMMARY | 2025-04-19 02:47 | XMS_ITS | Clinical Summary ---
Author Organization [facility] Address [address] [place] [address] Care Team Providers Care Assistant Spa Director Name Role Phone Tresa Mancilla INTERNET SITE DESIGNER Primary Care Provider Social History Tobacco Use [...] Vaccine (1 - 2023-2 5 season) 2025 Influenza Adult (#1) 2025 RSV Immunization or 60+ Years (1 [...] patient's age to complete this topic Insurance [facility] MEDICARE Care Teams Assistant Spa Director Relationship Specialty Start Date End Date Tresa Mancilla NP [address] [place] [address] PCP - General NURSE PRACTITIONER 12/09/21
--- NOTE | 2025-04-19 13:15 | SUR.PREOP ---
Called patient twice in regards to procedures today with no answer.
--- NOTE | 2025-06-03 13:40 | PC.NURSE ---
SPOKE WITH PT'S DUE TO PT'S DEMENTIA, SPOUSE STATES NO NEW UPDATES TO MEDICAL HISTORY AND STATES UNDERSTANDING OF RESCHEDULED DATE AND TIME.
--- NOTE | 2025-06-18 12:04 | PC.NURSE ---
Spoke with with . Patient has dementia. Went over new procedure times and colon prep instructions. No further questions at this time. will sisal picker prep instructions from hospital today.
--- OUTSIDE RECORDS SUMMARY | 2025-06-21 02:15 | XMS_ITS | Encounter Summary ---
Author Organization [facility] Address [address] [place] [address] Phone Care Team Providers Care Deputy Sheriff K9 Handler Name Role Phone Elan Gross MD Primary Care Provider [phone] Reason for Referral * PT/OT/ST (Routine) - Closed Specialty Diagnoses / Procedures Referred By Columba melendez Referred To Contact Speech Therapy Diagnoses Parkinson's disease without dyskinesia, unspecified whether manifestations fluctuate Weakness Dysarthria and anarthria Elan Gross MD [address] [address] Phone: tel: fax: [facility] at [address] [address] Phone: tel: fax: Referral ID Status Reason Start Date Expiration Date Visits Re quested Visits Authorized [id number] Closed 04/03/2025 100 9 Scheduling Instructions * PT/OT/ST (Routine) - Closed Specialty Diagnoses / Procedures Referred By Columba melendez Referred To Contact Occupational Therapy Diagnoses Parkinson's disease without dyskinesia, unspecified whether manifestations fluctuate Weakness Elan Gross MD [address] [address] Phone: tel: fax: [facility] at [address], [address] [address] Phone: tel: fax: Referral ID Status Reason Start Date Expiration Date Visits Re quested Visits Authorized [id number] Closed 04/03/2025 100 17 Scheduling Instructions * PT/OT/ST (Routine) - Pending Review Specialty Diagnoses / Procedures Referred By Contac t Referred To Contact Physical Therapy Diagnoses Parkinson's disease without dyskinesia, unspecified whether manifestations fluctuate Weakness Elan Gross MD [address] [address] Phone: tel: fax: [facility] [address] [facility], [address] [address] Phone: tel: fax: Referral ID Status Reason Start Date Expiration Date V isits Requested Visits Authorized [id number] Pending Review 04/03/2025 100 100 Scheduling Instructions Encounter Details Date Type Department Care Team (Late st Contact Info) Description 04/03/2025 Transcribe Orders [facility] [address] [place] [address] Elan Gross MD [address] [address] Parkinson's disease without dyskinesia, unspecified whether manifestations [...] Author Kaleigh/64 04/03/2025 3:06 PM CDRegla Pastrana, MACHINE STRIPPER-SPEECH LANGUAGE PATHOLOGIST * Temp Answer Date of Assessment Author 97.9 04/03/2025 3:06 PM Regla Taylor, MACHINE STRIPPER-SPEECH LANGUAGE PATHOLOGIST * Pulse Answer Date of Assessment Author 64 04/03/2025 3:06 PM CDRegla Pastrana, MACHINE STRIPPER-SPEECH LANGUAGE PATHOLOGIST * Resp Answer Date of Assessment Author 18 04/03/2025 3:06 PM CDRegla Pastrana, MACHINE STRIPPER-SPEECH LANGUAGE PATHOLOGIST * SpO2 Answer Date of Assessment Author 90 04/03/2025 3:06 PM Regla Taylor, MACHINE STRIPPER-SPEECH LANGUAGE PATHOLOGIST documented as of this encounter Mental Status * BP Answer Entry Date Author Kaleigh/Guanaco 04/03/2025 3:06 PM Regla Taylor, MACHINE STRIPPER-SPEECH LANGUAGE PATHOLOGIST * Temp Answer Entry Date Author 97.9 04/03/2025 3:06 PM Regla Taylor, MACHINE STRIPPER-SPEECH LANGUAGE PATHOLOGIST * Pulse Answer Entry Date Author 64 04/03/2025 3:06 PM Regla Taylor MACHINE STRIPPER-SPEECH LANGUAGE PATHOLOGIST * SpO2 Answer Entry Date Author 90 04/03/2025 3:06 PM Regla Taylor, MACHINE STRIPPER-SPEECH LANGUAGE PATHOLOGIST documented in this encounter Plan [...] anarthria documented in this encounter Care Teams Deputy Sheriff K9 Handler Relationship Specialty Start Date End Date Elan Gross MD [address] [place] [address] PCP - General Family Medicine 02/06/25 documented as of this encounter
--- OUTSIDE RECORDS SUMMARY | 2025-06-21 02:15 | XMS_ITS | Encounter Summary ---
Author Organization [facility] Address [address] [facility] [place] [address] Care Team Providers Care 7Th Grade Social Studies Teacher Name Role Phone Elan Gross MD Primary Care Provider [phone] Encounter Details Date Type Department Care Team (Late st Contact Info) Description 05/08/2025 Lab Requisition [facility] - DermPath Lab [address] [place] [id number] Elan Gross MD [address] [place] [address] Social History Tobacco Use Types Packs/Day Years Used Date Smoking Tobacco: Never Smokeless Tobacco: Never Alcohol Use Standard Drinks/Week Comments Yes 0 (1 standard drink = 0.6 oz pur e alcohol) very occasionally Sex and Gender Information Value Date Recorded Sex Assigned at Not on file 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 Gender Identity Not on file Sexual Orientation Not on file documented as of this encounter Plan of Treatment Not on file documented as of this encounter Procedures Procedure Name Priority Date/Time Associated Diagnosis Comments DERMATOPATHOLOGY Routine 05/07/2025 12:0 0 AM CDT documented in this encounter Results * DERMATOPATHOLOGY (05/07/2025 12:00 AM CDT) Case Report Dermatopathology Report Case: [id number] Authorizing Provider: Elan Gross MD Collected: 05/07/2025 12:00 AM Ordering Location: [facility] - Received: 05/08/2025 01:07 PM [...] characteristic determined by the Dermatopathology Laboratory at [facility], directed by Dr. Yannick Montalvo. These tests need not be, and therefore are not, approved by the [place] Food and Drug Administration. The tests are used for clinical purposes. Billing Codes Specimen Charges Stain Charges 22041 1 1:02 PM CDT DERMATOPATHOLOGY LABORATORY Embedded Images 1:02 PM CDT DERMATOPATHOLOGY LABORATORY Pathology/Cytolog y TISSUE SPECIMEN FROM SKIN / Unknown 05/07/2025 05/08/2025 1:07 PM CDT us Elan F Schueler MD LAB - PATHOLOGY/CYTOLOGY REMI WILLIAM Final Result DERMATOPATHOLOGY LABORATORY [facility] - Department of Dermatology [address], [address] [phone] documented in this encounter Visit Diagnoses Not on filedocumented in this encounter Care Teams 7Th Grade Social Studies Teacher Relationship Specialty Start Date End Date Elan Gross MD [address] [place] [address] PCP - General 02/26/21 documented as of this encounter
--- OUTSIDE RECORDS SUMMARY | 2025-06-21 02:16 | XMS_ITS | Clinical Summary ---
Author Organization [facility] Address [address] [place] [address] Care Team Providers Care Repulping Supervisor Name Role Phone Elan Gross MD Primary Care Provider [phone] Allergies No known active allergies Medications ALPRAZolam [...] 10/05/2017 Surgical History Surgery Date Site/Laterality Comments UT ARTHRP ACETBLR/PROX FEM PROSTC AGRFT/ALGRFT Total Hip Replacement Left - (Added by TW Conv) [facility] NEUROPLASTY &/TRANSPOS MEDIAN NRV CARPAL TUNNE Neuroplasty Decompression Median Nerve At Carpal Tunnel - (Added by TW Conv) [facility] ARTHRP ACETBLR/PROX FEM PROSTC AGRFT/ALGRFT Total Knee [...] on file 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
--- OUTSIDE RECORDS SUMMARY | 2025-06-21 02:16 | XMS_ITS | Data Portability ---
Author Organization [facility] Main Office Address [address] [place] [address] Care Team Providers Care Fur Farmer Name Role Phone BOAZ ARTIS Primary Care [...] knee 2022 023 [email or web address] [facility] [place], [address], [place], [address], 11:49:22 XR, hip + pelvis, unilateral 2022 023 [email or web address] [facility] [place], [address], [place], [address], 11:36:44 Medication Orders None recorded. Patient TargetsNo targets recorded. Patient InstructionsNo instructions recorded. Reason for Referral None Reported. Results Created Date Observation Date Name Description Value Unit Range Abnormal Flag Note LastModifiedBy Organization Detail LastModifiedTime 01/18/20 23 XR, hip + pelvi s, unila teral No observ ation record ed. [email or web address] [facility] [place] [address], [place], [address], 01/17/2023 11:12:24 01/18/20 23 XR, knee No observ ation record ed. [email or web address] [facility] [place] [address], [place], [address], 01/17/2023 11:49:21 Result Notes None recorded. Problems Name Problem SNOMED Code Status Onset Date Resolution Date Notes Provider Name and Address Organization Details Recorded Time Disorder of shoulder 935775978 Active Not Available [facility] 3 12:49:23 Localized, primary osteoarthr itis of the pelvic region and thigh 180718643 Active Not Available [facility] 3 12:49:23 Pain of joint of wrist 776294230 Active Not Available [facility] 3 12:49:23 Osteoarthr itis of knee 508695115 Active Not Available [facility] 3 12:49:23 Knee pain Active Not Available [facility] 3 12:49:23 Localized, primary osteoarthr itis of the wrist 741916588 Active Not Available [facility] 3 12:49:23 Osteoarthr itis 290069153 Active Not Available [facility] 3 12:49:23 Pain of hip region 91344273 Active Not Available [facility] 3 12:49:23 Pain of right hip joint 8773684536030 02 Active 2022 ARTIE Skaggs, [facility] 3 10:11:53 Pain of right knee joint 0752639665921 00 Active 2022 ARTIE Skaggs, [facility] 10:12:10 Problem Notes [...] Updated DateTime 01/17/2023 170.18 cm 33.7 kg/m2 07521.36 ARTIE Rg [place] [facility] [place] [facility] 01/17/2023 10:02:01 Social History None recorded. Functional Status Question Answer Note LastModified by Organizat ion Details LastModified Time What is your level of alcohol consumption? Occasional [email or web address] Information not available 01/17/2023 Mental Status None recorded. Family History Nothing Reported. Medical History Condition Response ARTHRITIS Y Past Encounters Encounter ID Performer Location Encounter Start Date Encounter Closed Date Diagnosis/Indication Diagnosis SNOMED-CT Code Diagnosis ICD10 Code Diagnosis IMO Codes Diagnosis Note [id number] Nirav Nation MD [facility] [place] [address] [facility] [address] [place] [address] 01/17/2023 09:07:27 01/17/2023 11:36:44 Pain of right hip joint 2033194797 47495 M25.551 Pain of ri ght knee joint 1436343896 28512 M25.561 History of right total knee replacement 4801460542 878871 Z96.651 History of total replacement of bilateral hip joints 0578603110 416085 Z96.643 Health Concerns Section Related Observation LastModified by Organization Detai ls LastModified Time None Recorded Concern Status LastModified by Organization Details LastModified Time None Recorded Advance Directives Directive None Recorded Payers Insurance Date Sequence Insurance Name Policy Number Policy Aguiar Covered Member ID Aguiar Member ID Guarantor Name 01/17/2023 1 [facility] [id number] Brendan Ling [id number] Brendan Ling 03/28/2025 1 [facility] (MEDICARE REPLACEMENT/A DVANTAGE - POS) [id number] Brendan Ling [id number] Brendan Ling Notes Date Note Type Note Provider Name and Address Organization Details Recorded Time 01/17/2023 text/html Patient returns he has had bilateral knee hip replacements done and a right knee replacement overall he is doing fine. Calves says he gets occasional twinges but nothing severe he is 6 years out +on his joints. Nirav Nation MD [address] [place] [address] [address], [place], [address], [place] [facility] [place] [facility] 01/17/2023 11:49:26
--- OUTSIDE RECORDS SUMMARY | 2025-06-21 02:16 | XMS_ITS | Clinical Summary ---
Author Organization [facility] Address [address] [place] [address] Phone Care Team Providers Care Animal Physiologist Name Role Phone Elan Gross MD Primary Care Provider [phone] Allergies No known active allergies Medications ibuprofen [...] Type Department Care Team Description 05/30/2025 Telephone [facility] at [address], [address] [place] [address] Elise Mack, OT No Show (Patient was a no call/no show for the second time this date. Therapist called and LVM regarding attendance policy and discharge. PAS notified.) 05/30/2025 [facility] [address] [facility], [place] [address] [place] [phone] Jessi Bruce CCC-OPHTHALMIC ASST No Show (x2) 05/28/2025 Telephone [facility] [address] [facility], [address] [place] [address] Elise Mack, BRAVO Appointment (Patient or spouse called and LVM to cancel all appointments for today. Reason for cancellation was not provided. PAS got the voicemail. ) 05/28/2025 Telephone [facility] at [address], [place] [address] [place] [phone] Jessi Bruce, CCC-OPHTHALMIC ASST Appointment 05/23/2025 10:45 AM GROUNDS PERSON Occupational Therapy [facility] at [address], [place] [address] [place] [address] Elan Gross MD Kallal, Meagan K, OT Parkinson's disease without dyskinesia, unspecified whether manifestations fluctuate (Primary Dx); Weakness; Impaired functional mobility, balance, gait, and endurance Discharge Disposition: Discharged to home or Selfcare 05/20/2025 10:30 AM GROUNDS PERSON Speech Therapy [facility] [address], [place] [phone] SchuelElan raza MD Brim, Ashley E, CCC-OPHTHALMIC ASST Dysarthria (Primary Dx); Weakness; Parkinson's disease without dyskinesia, unspecified whether manifestations fluctuate; Dysarthria and anarthria Discharge Disposition: Discharged to home or Selfcare 05/20/2025 Travel 05/16/2025 [facility]phone [facility] [address], [place] [address] [place] [phone] Jessi Bruce CCC-OPHTHALMIC ASST Appointment (Illness ) 05/16/2025 [facility]phone [facility] [address], [place] [address] [place] [address] Elise Mack, OT Appointment (Patient's significant other called to cancel patient's appointment due to patient illness. PAS took the phone call. ) 05/14/2025 [facility]phone [facility] [address], [place] [address] [place] [address] Jessi Bruce CCC-OPHTHALMIC ASST Appointment 05/14/2025 Telephone [facility] [address], [place] [address] [place] [address] Elise Mack, OT Appointment (Patient's significant other called to cancel due to up all night. PAS took the phone call. ) 05/10/2025 12:15 PM CDT Speech Therapy [facility] [address], [place] [address] [place] [phone] Elan Gross MD Brim, Ashley E, CCC-OPHTHALMIC ASST Dysarthria (Primary Dx); Weakness; Parkinson's disease without dyskinesia, unspecified whether manifestations fluctuate; Dysarthria and anarthria Discharge Disposition: Discharged to home or Selfcare 05/10/2025 10:45 AM CDT Occupational Therapy [facility] [address], [place] [address] [place] [address] Elan Gross, Elise Kirby, OT Parkinson's disease without dyskinesia, unspecified whether manifestations fluctuate (Primary Dx); Weakness; Impaired functional mobility, balance, gait, and endurance Discharge Disposition: Discharged to home or Selfcare 05/10/2025 Travel 05/07/2025 Telephone [facility] [address] [facility], [place] [address] [place] [address] Jessi Bruce, CCC-OPHTHALMIC ASST No Show (x1) 05/07/2025 [facility]phone [facility] [address], [place] [address] [place] [address] Elise Mack, BRAVO No Show (Patient was a no call/no show for his appointment. Therapist called and LVM indicating missed appointment, next appt date/time, as well as Speech Therapy appointment at 10:30 this date. PAS notified.) 04/23/2025 9:45 AM CDT Speech Therapy [facility] [address] [facility], [place] [address] [place] [address] Elan rGoss, Jessi Dominguez, CCC-OPHTHALMIC ASST Dysarthria (Primary Dx); Parkinson's disease without dyskinesia, unspecified whether manifestations fluctuate; Weakness; Dysarthria and anarthria Discharge Disposition: Discharged to home or Selfcare 04/23/2025 9:00 AM CDT Occupational Therapy [facility] [address], [place] [address] [place] [address] Elan Gross, Elise Kirby, OT Impaired functional mobility, balance, gait, and endurance (Primary Dx); Parkinson's disease without dyskinesia, unspecified whether manifestations fluctuate; Weakness Discharge Disposition: Discharged to home or Selfcare 04/23/2025 Plan of Care Documentation [facility] [address] [facility], [place] [address] [address] 04/23/2025 Plan of Care Documentation [facility] [address] [facility], [address] [place] [address] 04/23/2025 Travel 04/03/2025 2:00 PM CDT Home Care Visit [address] [address] Regla Kinney, OPHTHALMIC ASST-SPEECH LANGUAGE PATHOLOGIST OPHTHALMIC ASST - OASIS DISCHARGE 04/03/2025 Transcribe Orders [facility] [address] [place] [address] Elan Gross MD Parkinson's disease without dyskinesia, unspecified whether manifestations fluctuate (HCC) (Primary Dx); Weakness; Dysarthria and anarthria 04/01/2025 1:30 PM CDT Home Care Visit [address] [address] Regla Kinney, OPHTHALMIC ASST-SPEECH LANGUAGE PATHOLOGIST OPHTHALMIC ASST - HOME VISIT 03/28/2025 1:15 PM CDT Home Care Visit [address] [address] Regla Kinney, OPHTHALMIC ASST-SPEECH LANGUAGE PATHOLOGIST OPHTHALMIC ASST - HOME VISIT 03/27/2025 2:30 PM CDT Home Care Visit [address] [address] Regla Kinney, OPHTHALMIC ASST-SPEECH LANGUAGE PATHOLOGIST OPHTHALMIC ASST - HOME VISIT 03/26/2025 Home Care Visit [address] [address] Lashay Kim OT OT - DISCHARGE SUMMARY 03/22/2025 12:30 PM CDT Home Care Visit [address] [address] Maryellen Lewis OTA OT - DISCIPLINE DISCHARGE 03/22/2025 Home Care Visit [address] [place] [address] Maryellen Lewis, SARA CASE COMMUNICATION from Last 3 Months Social History Tobacco [...] to complete this topic Insurance MEDICARE C [facility] Advance Directives * Full Code (Latest Code Status on File) Date Activated Date Inactivated Comments 02/16/2025 10:29 PM Care Teams Animal Physiologist Relationship Specialty Start Date End Date Elan Gross MD [address] [place] [address] PCP - General Family Medicine 02/06/25
--- OUTSIDE RECORDS SUMMARY | 2025-06-21 02:16 | XMS_ITS | Clinical Summary ---
Author Organization [facility] Address [address] [place] [address] Care Team Providers Care Nascar Racer Name Role Phone Elan Gross MD Primary Care Provider [phone] Source Comments [facility],non-owned Affiliates and Associated Physician Practices is amultiple site organization consisting of ambulatory clinics and hospital sitesin [place], [place], [place] and [place]. This disclosure is being madepursuant to the Care Everywhere program and may not contain all information available regarding this patient. Last updated 18.[facility] Allergies No known active allergies Medications * [...] Department Care Team Description 05/08/2025 Lab Requisition [facility] - DermPath Lab [address] 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 Yannick Montalvo. These tests need not be, and therefore are not, approved by the [place] Food and Drug Administration. The tests are used for clinical purposes. Billing Codes Specimen Charges Stain Charges 65381 1 1:02 PM CDT DERMATOPATHOLOGY LABORATORY Embedded Images 1:02 PM CDT DERMATOPATHOLOGY LABORATORY Pathology/Cytolog y TISSUE SPECIMEN FROM SKIN / Unknown 05/07/2025 05/08/2025 1:07 PM CDT us Elandequan Gross MD LAB - PATHOLOGY/CYTOLOGY FORRESTE NATALIIA Final Result DERMATOPATHOLOGY LABORATORY [facility] - Department of Dermatology [facility] Medicine [address] [place] [address], [address] [phone] * (ABNORMAL) COMPREHENSIVE METABOLIC PANEL (03/05/2021 3:12 PM [facility] BUN 13 7 - 26 mg/dL 03/05/2021 4:09 PM [facility] Creatinine 0.93 0.71 - 1.16 mg/dL 03/05/2021 4:09 PM [facility] Sodium 139 136 - 145 mmol/L 03/05/2021 4:09 PM [facility] Potassium 4.1 3.5 - 4.5 mmol/L 03/05/2021 4:09 PM [facility] Chloride 103 98 - 107 mmol/L 03/05/2021 4:09 PM [facility] CO2 24 22 - 29 mmol/L 03/05/2021 4:09 PM [facility] Glucose 92 70 - 115 mg/dL 03/05/2021 4:09 PM [facility] Calcium 9.6 8.4 - 10.2 mg/dL 03/05/2021 4:09 PM [facility] Protein Total 7.4 6.0 - 8.3 g/dL 03/05/2021 4:09 PM [facility] Albumin 4.4 3.4 - 5.0 g/dL 03/05/2021 4:09 PM [facility] Bilirubin Total 0.7 0.2 - 1.2 mg/dL 03/05/2021 4:09 PM [facility] Alkaline Phosphatase 74 40 - 150 U/L 03/05/2021 4:09 PM [facility] ALT 14 5 - 55 U/L 03/05/2021 4:09 PM [facility] AST 18 5 - 34 U/L 03/05/2021 4:09 PM [facility] Anion Gap 16 8 - 18 03/05/2021 4:09 PM [facility] BUN/Creatinine Ratio 14 7 - 23 03/05/2021 4:09 PM [facility] Osmolality Calculated 288 270 - 300 mOsm/kg 03/05/2021 4:09 PM CDT [facility] Albumin/Globulin Ratio 1.5 1.1 - 2.3 03/05/2021 4:09 PM CDT [facility] eGFR by CKD-EPI 85(L) >=90 mL/min/1.7 3 m2 03/05/2021 4:09 PM CDT [facility] Blood BLOOD SPECIMEN / Unknown Lab Venipuncture / Unknown 03/05/2021 3:12 PM CDT 03/05/2021 3:39 PM CDT Lokesh Pennington MD LAB - CHEMI STRY ORDERABLES Final Result [facility] [address] [place] [address], [facility] [phone] from Last 3 Months or Most Recently Relevant to Health Maintenance Insurance MANAGED MEDICARE ADV MANAGED MEDICARE ADV Care Teams Nascar Racer Relationship Specialty Start Date End Date Elan Gross MD [address] [place] [address] PCP - General 02/26/21
--- OUTSIDE RECORDS SUMMARY | 2025-06-21 02:16 | XMS_ITS | Clinical Summary ---
Author Organization [facility] Address [address] [place] [address] Care Team Providers Care Machine Rope Maker Name Role Phone Tresa Mancilla FUEL HANDLER Primary Care Provider Social History Tobacco Use [...] patient's age to complete this topic Insurance [facility] MEDICARE Member Subscriber Plan / Payer (Ef fective 2019-Present) Name:Brendan Ling Relation to Subscriber:Self Name:Berndan Ling Payer ID:[id number] (NAIC) Type:Not on file Address: [place] [id number] Care Teams Machine Rope Maker Relationship Specialty Start Date End Date Tresa Mancilla NP [address] [place] [address] PCP - General NURSE PRACTITIONER 12/09/21
--- NOTE | 2025-06-21 09:41 | PC.NURSE ---
Pt called this am and states when she got home from work at 4pm yesterday pt was having rectal pain and burning so bad he could not walk. She states she had to call ambulance and he was transported to [place]. They were told they couldn't find anything wrong except a little dehydration. He was given fluids and sent home and told to make sure he had his procedures today. She states he was released during the morning hours and did not have time to do his prep but wants to proceed with EGD as he is having so much difficulty with swallowing and feeling like food is stuck. She states he is feeling well this am and will be here at 1130.
[2025-06-21 12:35] VITALS: BP 126/85; PULSE 54; RESP 20; TEMP 36.1; O2SAT 98; BMI 26.6
[2025-06-21] MEDS: LACTATED RINGERS 1,000 ML 150 ML IV CONT (12:43)
--- NOTE | 2025-06-21 12:54 | WPDANESEPPF ---
Anes - Initial Pre Proc Eval Procedure: Operation Date: 06/21/25 13:00 Proposed Procedures p Esophagogastroduodenoscopy - Zeke Muller MD Date/Time: 06/21/25 12:54 Surgeon: Zeke Muller MD Pre Op Diagnosis: GERD/SCREENING Patient Data Age: 70 Gender: M Height: 1.73 m Weight: 79.5 kg Last Vital Signs Temp 36.1 C L 06/21/25 12:35 Pulse 54 L 06/21/25 12:35 Resp 20 06/21/25 12:35 BP 126/85 06/21/25 12:35 Pulse Ox 98 06/21/25 12:35 O2 Del Method Room Air 06/21/25 12:35 Allergies Allergy/AdvReac Type Severity Reaction Status Date / Time No Known Allergies Allergy Unknown Verified 06/21/25 12:33 Home Medications ?Medication ?Instructions ?Recorded ?Confirmed ?Type ibuprofen 800 mg tablet 800 mg PO TID PRN pain #270 tabs 12/06/23 06/07/25 Rx cholecalciferol (vitamin D3) 25 25 mcg PO DAILY 01/26/24 06/21/25 History mcg (1,000 unit) capsule docusate sodium 100 mg capsule 100 mg PO BID 01/22/25 06/07/25 History (Dulcolax Stool Softener (docusate)) ezetimibe 10 mg tablet (Zetia) 10 mg PO DAILY #30 tabs 02/11/25 06/21/25 Rx Held on 06/18/25. Instructions: hold to see if movement better without levothyroxine 75 mcg tablet 75 mcg PO DAILY #30 tabs 02/11/25 06/21/25 Rx omeprazole 40 mg capsule,delayed 40 mg PO DAILY #30 caps 04/09/25 06/21/25 Rx release rosuvastatin 20 mg tablet See Rx Instructions .Route 04/09/25 06/21/25 Rx Held on 06/18/25. .COMPLEX #90 tabs Instructions: hold to see how he responds pimavanserin 34 mg capsule 34 mg PO DAILY 04/11/25 06/21/25 History (Nuplazid) [id number] 3.5 1 drp EACH EYE Q4H 05/27/25 06/07/25 History mg/mL-10,000 unit/mL-0.1% eye drops carbidopa 25 mg-levodopa 100 mg 1 tablet PO TID #270 tabs 06/04/25 06/21/25 Rx tablet (Sinemet) memantine 10 mg tablet 10 mg PO BID #180 tabs 06/04/25 06/21/25 Rx cyclobenzaprine 5 mg tablet 5 mg PO TID PRN muscle spasm #30 06/07/25 06/18/25 Rx Held on 06/18/25. tabs Instructions: hold to see if helps being off acetaminophen 500 mg capsule 1,000 mg (2 x 500 mg) PO Q6H pain 06/18/25 06/21/25 Rx #30 caps celecoxib 200 mg capsule 200 mg PO DAILY #90 caps 06/18/25 06/21/25 Rx mirtazapine 15 mg tablet (Remeron) 30 mg PO HS 06/18/25 06/21/25 History potassium chloride 20 mEq 20 meq PO DAILY #90 tabs 06/18/25 06/21/25 Rx tablet,extended release (K-Tab) sertraline 25 mg tablet (Zoloft) 150 mg PO DAILY 06/18/25 06/21/25 History Patient hx anesthesia problems: none Family hx anesthesia problems: none Results Review: All pre-operative results and documents have been reviewed as part of the pre-operative evaluation. [facility] Past Medical History Medical History Otalgia, left ear Hospital discharge follow-up Abnormal CBC Elevated d-dimer Skin cancer, basal cell Tachypnea TMJ (dislocation of temporomandibular joint) TMJ (dislocation of temporomandibular joint) Shortness of breath Fall at home Otitis media of both ears Acute bacterial sinusitis Skin lesion of back Skin lesion Furuncle [place] Open comedone Furuncle of upper back excluding scapular region Cholelithiasis Dysesthesia Chronic schizophrenia Encephalopathy acute Drug-induced Parkinson's disease Dementia Dysuria Microhematuria Constipation Prostatitis Chronic daily headache Dementia of the Alzheimer's type Essential tremor Memory deficit Dyspnea on exertion Parasagittal meningioma Elevated fasting glucose Abnormal RBC Elevated ALT measurement Erectile dysfunction HSV-2 infection Hepatitis Weight loss Anxiety Colon cancer screening Mood disorder CARIE on CPAP Screening for prostate cancer Elevated CK Essential hypertension Mixed hyperlipidemia Surgical History Surgical History H/O cervical spine surgery History of knee surgery Right History of hip surgery Hx of colonoscopy Family History Family History Sibling Diabetes mellitus Family history of obesity Hypertension Family history of type 2 diabetes mellitus Mother Depression Hypertension Bipolar 1 disorder Father Abscess of internal cheek Septicemia Rheumatoid arthritis Other Family history of arthritis Family history of malignant neoplasm Social History Social History Smoking status: Never smoker Smokeless tobacco user: other Second hand tobacco smoke exposure: Yes Alcohol intake: never Alcohol use details: socially, infrequently Substance use: never Substance use type: marijuana Lack of Transportation: No Lack of Food: Never True Current Housing: I Have Housing Concerned About Future Housing: No Difficulty Paying Gas/Electric Bills: No Difficulty Paying for Meds: No Currently Unemployed: No Education: High School Diploma/GED Difficulty w/ Childcare or Family Care: No Living arrangements: with family Additional living arrangements comments: [place] Occupation/Education: 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 Informed Consent: The patient's anesthetic plan and its attendant risks and benefits were discussed with the patient/family/POA. Questions were solicited and answers provided to the satisfaction of the patient/family/POA.
--- NOTE | 2025-06-21 13:36 | PM.HPGS ---
History of Present Illness History of Present Illness Consent: Risks, benefits, and alternatives have been discussed and questions answered. Patient agrees to proceed with procedure. Chief complaint: GERD/SCREENING Narrative: Brendan Ling is a 70 year old male here for dysphagia, he also has progressive Lewy body dementia Review of Systems Review of Systems: All systems reviewed & are unremarkable except as noted in HPI and below PMFSH Past Medical History Medical History Otalgia, left ear Hospital discharge follow-up Abnormal CBC Elevated d-dimer Skin cancer, basal cell Tachypnea TMJ (dislocation of temporomandibular joint) TMJ (dislocation of temporomandibular joint) Shortness of breath Fall at home Otitis media of both ears Acute bacterial sinusitis Skin lesion of back Skin lesion Furuncle [place] Open comedone Furuncle of upper back excluding scapular region Cholelithiasis Dysesthesia Chronic schizophrenia Encephalopathy acute Drug-induced Parkinson's disease Dementia Dysuria Microhematuria Constipation Prostatitis Chronic daily headache Dementia of the Alzheimer's type Essential tremor Memory deficit Dyspnea on exertion Parasagittal meningioma Elevated fasting glucose Abnormal RBC Elevated ALT measurement Erectile dysfunction HSV-2 infection Hepatitis Weight loss Anxiety Colon cancer screening Mood disorder CARIE on CPAP Screening for prostate cancer Elevated CK Essential hypertension Mixed hyperlipidemia Surgical History Surgical History H/O cervical spine surgery History of knee surgery Right History of hip surgery Hx of colonoscopy Family History Family History Sibling Diabetes mellitus Family history of obesity Hypertension Family history of type 2 diabetes mellitus Mother Depression Hypertension Bipolar 1 disorder Father Abscess of internal cheek Septicemia Rheumatoid arthritis Other Family history of arthritis Family history of malignant neoplasm Social History Social History Smoking status: Never smoker Smokeless tobacco user: other Second hand tobacco smoke exposure: Yes Alcohol intake: never Alcohol use details: socially, infrequently Substance use: never Substance use type: marijuana Lack of Transportation: No Lack of Food: Never True Current Housing: I Have Housing Concerned About Future Housing: No Difficulty Paying Gas/Electric Bills: No Difficulty Paying for Meds: No Currently Unemployed: No Education: High School Diploma/GED Difficulty w/ Childcare or Family Care: No Living arrangements: with family Additional living arrangements comments: [place] 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 Instructions: hold to see if movement better without levothyroxine 75 mcg tablet 75 mcg PO DAILY #30 tabs 02/11/25 06/21/25 Rx omeprazole 40 mg capsule,delayed 40 mg PO DAILY #30 caps 04/09/25 06/21/25 Rx release rosuvastatin 20 mg tablet See Rx Instructions .Route 04/09/25 06/21/25 Rx Held on 06/18/25. .COMPLEX #90 tabs Instructions: hold to see how he responds pimavanserin 34 mg capsule 34 mg PO DAILY 04/11/25 06/21/25 History (Nuplazid) [id number]-cybpmglmp-buvvexev 3.5 1 drp EACH EYE Q4H 05/27/25 06/07/25 History mg/mL-10,000 unit/mL-0.1% eye drops carbidopa 25 mg-levodopa 100 mg 1 tablet PO TID #270 tabs 06/04/25 06/21/25 Rx tablet (Sinemet) memantine 10 mg tablet 10 mg PO BID #180 tabs 06/04/25 06/21/25 Rx cyclobenzaprine 5 mg tablet 5 mg PO TID PRN muscle spasm #30 06/07/25 06/18/25 Rx Held on 06/18/25. tabs Instructions: hold to see if helps being off acetaminophen 500 mg capsule 1,000 mg (2 x 500 mg) PO Q6H pain 12/09/25 12/12/25 Rx #30 caps celecoxib 200 mg capsule 200 mg PO DAILY #90 caps 06/18/25 06/21/25 Rx mirtazapine 15 mg tablet (Remeron) 30 mg PO HS 06/18/25 06/21/25 History potassium chloride 20 mEq 20 meq PO DAILY #90 tabs 06/18/25 06/21/25 Rx tablet,extended release (K-Tab) sertraline 25 mg tablet (Zoloft) 150 mg PO DAILY 06/18/25 06/21/25 History Allergies Allergy/AdvReac Type Severity Reaction Status Date / Time No Known Allergies Allergy Unknown Verified 06/21/25 12:33 Vital Signs Vital Signs - 24 hr 06/21/25 12:35 Temperature 97 F L Pulse Rate 54 L Respiratory Rate 20 Blood Pressure 126/85 Pulse Oximetry 98 Oxygen Delivery Room Air Exam Const: Other: awake, alert Resp: Effort & Inspection: normal respiratory effort Assessment and Plan Assessment and plan (1) Dysphagia: Qualifiers: Dysphagia type: esophageal phase Qualified Code(s): R13.19 - Other dysphagia Code(s): R13.10 - Dysphagia, unspecified Status: Acute Assessment and Plan: egd (2) Dementia with Lewy bodies: Qualifiers: Dementia severity: moderate Dementia behavioral or psychological symptom: unspecified whether behavioral, psychotic, or mood disturbance or anxiety Qualified Code(s): G31.83 - Neurocognitive disorder with Lewy bodies; F02.B0 - Dementia in other diseases classified elsewhere, moderate, without behavioral disturbance, psychotic disturbance, mood disturbance, and anxiety Code(s): G31.83 - Neurocognitive disorder with Lewy bodies; F02.80 - Dementia in other diseases classified elsewhere, unspecified severity, without behavioral disturbance, psychotic disturbance, mood disturbance, and anxiety Status: Acute
[2025-06-21 13:50] VITALS: BP 134/87; PULSE 61; RESP 19; O2SAT 100
[2025-06-21 14:00] VITALS: BP 139/85; PULSE 49; RESP 19; O2SAT 100
[2025-06-21 14:10] VITALS: BP 152/89; PULSE 65; RESP 20; O2SAT 91
== END 2025-06-21 14:28 | disposition home or self-care (01) ==
PROVIDERS: PCP Family Medicine; Referring Provider Nurse Practitioner Family; Visit Provider Internal Medicine Gastroenterology
PROC: 0DJ08ZZ Inspection of Upper Intestinal Tract, Via Natural or Artificial Opening Endoscopic (ICD-10-PCS; CPT 43235; principal; 2025-06-21 13:00)
DX: K21.9 Gastro-esophageal reflux disease without esophagitis (principal); K44.9 Diaphragmatic hernia without obstruction or gangrene; I10 Essential (primary) hypertension; E78.2 Mixed hyperlipidemia; G25.0 Essential tremor; N52.9 Male erectile dysfunction, unspecified; F41.9 Anxiety disorder, unspecified; G47.33 Obstructive sleep apnea (adult) (pediatric); G31.83 Neurocognitive disorder with Lewy bodies; G20.A1 Parkinson's disease without dyskinesia, without mention of fluctuations; F02.B0 Dementia in other diseases classified elsewhere, moderate, without behavioral disturbance, psychotic disturbance, mood disturbance, and anxiety; M26.609 Unspecified temporomandibular joint disorder, unspecified side; F20.9 Schizophrenia, unspecified; R51.9 Headache, unspecified; F39 Unspecified mood [affective] disorder; F12.90 Cannabis use, unspecified, uncomplicated; Z79.1 Long term (current) use of non-steroidal anti-inflammatories (NSAID); Z99.89 Dependence on other enabling machines and devices; Z98.890 Other specified postprocedural states; Z98.1 Arthrodesis status; Z85.828 Personal history of other malignant neoplasm of skin; Z80.9 Family history of malignant neoplasm, unspecified
CPT/HCPCS: 43235; J2003; J2704; J7120

== ENCOUNTER 2025-06-26 10:07 | Outpatient (CLI) | payer MEDICARE, SELFPAY ==
--- NOTE | ~2025-06-26 | CT_ITS ---
EXAMINATION: CTA chest PE protocol DATE: 06/26/2025 10:44 INDICATION: Rule out PE TECHNIQUE: Computed tomography angiography (CTA) of the chest was performed with 100 mL Omnipaque-350 intravenous contrast timed to evaluate the pulmonary arteries. Coronal maximum intensity projection 3D-reconstructions were created by the technologist. The dose-length product was 527.00 mGy-cm. COMPARISON: March 15, 2025 FINDINGS: No pulmonary emboli or thoracic aortic aneurysm/dissection. Heart size normal. No pericardial effusion or bulky lymphadenopathy. Centrilobular emphysematous changes noted throughout the mid and upper lung strauss. The lungs are otherwise clear. Bones appear intact. Degenerative changes throughout the thoracic spine and fusion hardware seen in the lower cervical spine. No acute process seen in the visualized portions of the upper abdomen, or extrathoracic soft tissues. IMPRESSION: 1. No pulmonary emboli or thoracic aneurysm/dissection. 2. No gross acute intrathoracic abnormality identified. Reviewed, dictated and finalized at location A. [place] TECHNICIAN
--- OUTSIDE RECORDS SUMMARY | 2025-06-26 11:41 | XMS_ITS | Patient Health Record ---
Author Organization [facility] Address [address] [place] [address] Care Team Providers Care Pearl Fisherman Name Role Phone Renato VERMA, Elan Primary Care Provider Elodia Medina Unavailable [phone] Allergies Allergen (clinical drug ingredient) Drug/Non Drug Allergy documented on EMR Reaction Allergy Type Onset Date Status Seasonale Unknown Drug Allergy Active Reason For Referral No Information Medications Medication SIG (Take, Route, Frequency, Duration) Notes Start Date End Date Status Memantine HCl 10 MG Tablet 1 tablet Orally twice a day Active Vitamin D 50 MCG (1999) Tablet 1 tablet Orally Once a day Active Mirtazapine 30 MG Tablet 1 tablet at bed time Orally Once a day; Duration: 30 days increasing 06/12/2025 Active Nuplazid 34 MG Capsule 1 capsule Orally Once a day; Duration: 30 day(s) 05/16/2025 Active amLODIPine Besylate 2.5 MG Tablet TAKE 1 TABLET BY MOUTH EVERY MORNING Oral; Duration: 100 Days Active Ezetimibe 10 MG Tablet Oral; Duration: 1 00 Days Active Sertraline HCl 100 MG Tablet 1.5 tablets Orally Once a day; Duration: 30 days 05/08/2025 Active Levothyroxine Sodium 75 MCG Tablet Oral; Duration: 100 Days Active Omeprazole 20 MG Capsule Delayed Release Oral; Duration: 100 Days Active Carbidopa-Levodopa 25-100 MG Tablet Oral; Duration: 90 Days Active Immunizations Vaccine Route Administration Date Status [...] Risk Notes Problem Mild recurrent major depression (45395491) Major depressive disorder, recurrent, mild (F33.0) 4 Active confirmed Problem Moderate recurrent major depression (36716161) Major depressive disorder, recurrent, moderate (F33.1) Active confirmed Problem Generalized anxiety disorder (73935206) Generalized anxiety disorder (F41.1) 4 Active confirmed Problem Dementia in other diseases classified elsewhere, unspecified severity, 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) Active confirmed Problem Tardive dyskinesia (136208779) Tardive dyskinesia (G24.01) Active confirmed Problem Parkinson's disease (disorder) (27927901) Parkinson disease, symptomatic (G20.A1) Active confirmed Vital Signs Heart Rate 75 /min 05/08/2025 Height-cm 170.18 cm 05/08/2025 Blood pressure diastolic 78 mm Hg 05/08/2025 Weight-kg 83.01 kg 05/08/2025 Height 67.00 in 05/08/2025 Blood pressure systolic 120 mm Hg 05/08/2025 Weight 183 lbs 05/08/2025 BMI 28.66 kg/m2 05/08/2025 Encounters Encounter Location Date Provider Diagnosis [facility] [place] [id number] [address] 07/13/2024 Elodia Schwab Major depressive disorder, recurrent, mild F33.0 ; Generalized anxiety disorder F41.1 ; Unspecified dementia, unspecified severity, with mood disturbance F03.93 ; Tardive dyskinesia G24.01 and Hypertension I10 [facility] [place] [address] [address] 08/13/2024 Elodia Schwab [facility] [place] [address] [address] 09/03/2024 Elodia Schwab Major depressive disorder, recurrent, mild F33.0 ; Generalized anxiety disorder F41.1 ; Unspecified dementia, unspecified severity, with mood disturbance F03.93 ; Tardive dyskinesia G24.01 and Benign essential HTN I10 [facility] [place] [address] [address] 10/01/2024 Elodia Schwab Major depressive disorder, recurrent, mild F33.0 ; Generalized anxiety disorder F41.1 ; Tardive dyskinesia G24.01 ; Unspecified dementia, unspecified severity, with mood disturbance F03.93 and Benign essential HTN I10 [facility] [address] [address] 11/12/2024 Elodia Schwab [facility] [address] [address] 12/06/2024 Elodia Schwab [facility] [place] [address] [address] 12/18/2024 Elodiajakub Villalobosopian Major depressive disorder, recurrent, mild F33.0 ; Generalized anxiety disorder F41.1 ; Tardive dyskinesia G24.01 ; Unspecified dementia, unspecified severity, with mood disturbance F03.93 ; Benign essential HTN I10 and Encounter for screening for depression Z13.31 [place] [address] [place] [address] 04/05/2025 Elodia Villalobosopian Major depressive disorder, recurrent, mild F33.0 ; Dementia in other diseases classified elsewhere, unspecified severity, with psychotic disturbance F02.82 ; Parkinson disease, symptomatic G20.A1 ; Generalized anxiety disorder F41.1 and Tardive dyskinesia G24.01 [place] [address] [facility] [address] [place] [address] 05/08/2025 Elodia Schwab Major depressive disorder, recurrent, mild F33.0 ; Dementia in other diseases classified elsewhere, unspecified severity, with psychotic disturbance F02.82 ; Generalized anxiety disorder F41.1 ; Parkinson disease, symptomatic G20.A1 and Tardive dyskinesia G24.01 [place] [address] [facility] [address] [place] [address] 06/12/2025 Elodia Schwab Major depressive disorder, recurrent, moderate F33.1 ; Dementia in other diseases classified elsewhere, unspecified severity, with psychotic disturbance F02.82 ; Generalized anxiety disorder F41.1 and Parkinson disease, symptomatic G20.A1 [place] [address] [facility] [address] [place] [address] 10/04/2024 Elodia Schwab [place] [address] [place] [address] 10/16/2024 Elodia Schwab [place] [address] [place] [address] 11/12/2024 Elodia Schwab Major depressive disorder, recurrent, mild F33.0 [place] [address] [place] [address] 12/04/2024 Elodia Schwab Generalized anxiety disorder F41.1 [place] [address] [place] [address] 12/13/2024 Elodia Schwab Tardive dyskinesia G24.01 [facility] [address] [place] [address] 05/02/2025 Elodia Schwab [facility], [facility] [address] [place] [address] 05/09/2025 Elodia Schwab [facility], [facility] [address] [place] [address] 05/16/2025 Elodia Schwab Dementia in other diseases classified elsewhere, unspecified severity, with psychotic disturbance F02.82 [facility] [address] [place] [address] 06/04/2025 Elodia Schwab [facility], [facility] [address] [place] [address] 09/11/2024 Elodia Schwab [facility] [address] [place] [address] 10/04/2024 Elodia Schwab Assessments Encounter Date Diagnosis (ICD Code) Assessment Notes Treatment Notes Treatment Clinical Notes Section Notes 05/16/2025 Dementia in other diseases classified elsewhere, unspecified severity, with psychotic disturbance (ICD-10 - F02.82) 06/12/2025 Major depressive disorder, recurrent, moderate (ICD-10 - F33.1) 05/08/2025 Major depressive disorder, recurrent, mild (ICD-10 - F33.0) 04/05/2025 Major depressive disorder, recurrent, mild (ICD-10 - F33.0) 04/05/2025 Dementia in other diseases classified elsewhere, unspecified severity, with psychotic disturbance (ICD-10 - F02.82) 07/13/2024 Major depressive disorder, recurrent, mild (ICD-10 [...] has declined medications and further treatment Tardive Dyskinesia/Invo luntary movements - Patient exhibits oral, hand, and [...] has declined medications and further treatment Tardive Dyskinesia/Invo luntary movements - Patient exhibits oral, hand, and [...] and mouth movements. Previous trial of Austedo (deutetrabenazi ne) at a low dose was ineffective in managing symptoms. Patient denies worsening of movements, describing them as about the same and notes they never got better. Considering alternative treatment options due to lack of improvement with current regimen. Plan: - Discontinue Austedo (deutetrabenazi ne) due to lack of efficacy - Consider [...] and mouth movements. Previous trial of Austedo (deutetrabenazi ne) at a low dose was ineffective in managing symptoms. Patient denies worsening of movements, describing them as about the same and notes they never got better. Considering alternative treatment options due to lack of improvement with current regimen. Plan: - Discontinue Austedo (deutetrabenazi ne) due to lack of efficacy - Consider [...] mild (ICD-10 - F33.0) receives rexulti from [employer] patient assistance 12/18/2024 Generalized anxiety disorder (ICD-10 [...] and mouth movements. Previous trial of Austedo (deutetrabenazi ne) at a low dose was ineffective in managing symptoms. Patient denies worsening of movements, describing them as about the same and notes they never got better. Considering alternative treatment options due to lack of improvement with current regimen. Plan: - Discontinue Austedo (deutetrabenazi ne) due to lack of efficacy - Consider [...] has declined medications and further treatment Tardive Dyskinesia/Invo luntary movements - Patient exhibits oral, hand, and foot movements, which may be related to tardive dyskinesia - Discontinue primidone as per neurologist's guidance - Initiate Austedo XR titration pack, prior authroization, assistance program likely needed as well. Follow up in 4 weeks, sooner if concerns arise Bring completed Patient Assistance Program paperwork to next appointment 12/18/2024 Tardive dyskinesia (ICD-10 - G24.01) 05/08/2025 Generalized anxiety disorder (ICD-10 - F41.1) 05/08/2025 Dementia in other diseases classified elsewhere, unspecified severity, with psychotic disturbance (ICD-10 - F02.82) Electronic Prior Authorization was requested for Nuplazid 34 MG Capsule. Provider can order medication once approval received. on memantine and aricept through neuro 06/12/2025 Generalized anxiety disorder (ICD-10 - F41.1) 06/12/2025 Dementia in other diseases classified elsewhere, unspecified severity, with psychotic disturbance (ICD-10 - F02.82) on memantine and aricept through neuro 04/05/2025 Parkinson disease, symptomatic (ICD-10 - G20.A1) 05/08/2025 Parkinson disease, symptomatic (ICD-10 - G20.A1) on Carbidopa-levodopa through neuro 06/12/2025 Parkinson disease, symptomatic (ICD-10 - G20.A1) on Carbidopa-levodopa through neuro 12/18/2024 Unspecified dementia, unspecified severity, [...] has declined medications and further treatment Tardive Dyskinesia/Invo luntary movements - Patient exhibits oral, hand, and [...] and mouth movements. Previous trial of Austedo (deutetrabenazi ne) at a low dose was ineffective in managing symptoms. Patient denies worsening of movements, describing them as about the same and notes they never got better. Considering alternative treatment options due to lack of improvement with current regimen. Plan: - Discontinue Austedo (deutetrabenazi ne) due to lack of efficacy - Consider [...] and mouth movements. Previous trial of Austedo (deutetrabenazi ne) at a low dose was ineffective in managing symptoms. Patient denies worsening of movements, describing them as about the same and notes they never got better. Considering alternative treatment options due to lack of improvement with current regimen. Plan: - Discontinue Austedo (deutetrabenazi ne) due to lack of efficacy - Consider [...] has declined medications and further treatment Tardive Dyskinesia/Invo luntary movements - Patient exhibits oral, hand, and [...] screening for depression (ICD-10 - Z13.31) 12/18/2024 Other Jabari Norris, an older male [...] visit to allow body to adjust to carbidopa-levodopa and Nuplazid fully and avoid rebound dopamine [...] Parkinson's symptoms, which are being managed with carbidopa-levodopa initiated by a neurologist during a recent hospitalization. The clinician notes stopping Ingrezza may be warranted, with the oppositional mechanisms with carbidopa-levodopa and risk of worsening parkinsonism or reduced levodopa efficacy. However notes this change can wait until next follow-up, as waiting can allow for adjustment to carbidopa-levodopa and Nuplazid fully and avoid rebound dopamine [...] Patient has established Parkinson's disease managed with carbidopa-levodopa from neurology. Currently experiencing some clicking of dentures that had previously resolved but have returned. Patient reports no recent falls and denies hallucinations. Last neurologist visit was June 04. Patient is on Ingrezza 40 mg capsules for tardive dyskinesia, but there is concern for potential medication interaction between Ingrezza and carbidopa-levodopa , as both work on dopamine pathways. Discussed how he combination may prevent full therapeutic effects of carbidopa-levodopa , and Ingrezza may worsen parkinsonism. Discussed how carbidopa-levodopa alone may not be sufficient to control movements that originally necessitated Ingrezza initiation, however risks outweigh benefits. Plan: - Discontinue Ingrezza 40 mg capsules to eliminate potential interaction with carbidopa-levodopa - Monitor for changes in movements over the next couple of weeks as medication clears system - Continue carbidopa-levodopa as prescribed by neurologist - Continue Nuplazid, [...] current medication regimen including both Ingrezza and carbidopa-levodopa , there is concern for potential dopamine-related medication interactions. Both medications work on dopamine pathways to control movements, with carbidopa-levodopa addressing Parkinson's motor symptoms and Ingrezza managing dyskinesia from other medications. The clinical reasoning suggests that concurrent use may reduce the full therapeutic effects of both medications, as they may interfere with each other's dopamine mechanisms. Since the patient's condition appears stable and carbidopa-levodopa can also help control the movements that Ingrezza was originally prescribed to address, discontinuation of Ingrezza is being considered to optimize the Parkinson's treatment regimen. The decision acknowledges that stopping Ingrezza could either improve motor control if carbidopa-levodopa provides adequate coverage, or potentially worsen movements including the recurring clicking symptoms, requiring careful monitoring during the transition period. 06/12/2025 Ninoska Norris is a patient with Parkinson's disease and dementia presenting with ongoing psychosis, anxiety, agitation, and respiratory symptoms including hyperventilation. Parkinson's disease with psychosis Assessment: Patient has established Parkinson's disease with associated psychotic symptoms including hallucinations, delusions, and paranoia. Recent medication changes included discontinuation of Rexulti and initiation of Nuplazid (pimavanserin) 4-5 weeks ago. The Nuplazid was specifically chosen because it doesn't interfere with carbidopa-levodopa or worsen motor symptoms, unlike previous antipsychotic medications that were fighting against the Parkinson's treatment. Patient continues to experience some psychotic symptoms but medication typically requires 6-8 weeks for initial effects and up to 8-12 weeks for full therapeutic benefit. Plan: - Continue Nuplazid 34 mg for hallucinations, delusions, paranoia, and anxiety - Monitor for 8-12 weeks for maximum effects - Follow-up in 4 weeks Depression and anxiety Assessment: Patient exhibits significant anxiety, restlessness, and agitation. Currently on sertraline 100 mg, which is well-studied in Parkinson's disease for depression and anxiety management. Current dose represents only long-term to maximum dosing, indicating room for therapeutic optimization. Anxiety may be contributing to hyperventilation pattern and creating a vicious cycle of worsening symptoms. Plan: - Increase sertraline from 100 mg to 150 mg - Expect 4 weeks for overall therapeutic change - Increase mirtazapine from 15 mg to 30 mg at nighttime for faster anxiety relief - Continue nighttime dosing schedule Respiratory symptoms Assessment: Patient demonstrates hyperventilation and altered breathing patterns. This can be a common manifestation in Parkinson's disease due to effects on the nervous system, muscle tone, and respiratory rhythm. The hyperventilation may be anxiety-driven, creating a cycle where overbreathing increases anxiety levels. Multiple medical evaluations including chest X-rays and ER visits have been completed. Plan: - Address underlying anxiety with medication adjustments as above - Monitor for improvement in breathing pattern with better anxiety control Dementia Assessment: Patient has established dementia with ongoing confusion. Currently managed with memantine from neurology. Neurologist made no recent changes and patient appears stable on his current regimen. Plan: - Continue memantine and aricept from neurologist Motor symptoms Assessment: Patient continues to have Parkinson's motor symptoms and potential return of Tsrdive Dyskinesia symptoms including jaw movements and toe movements. ENT evaluation was completed for jaw symptoms with limited treatment options due to his inability to wear guards. Patient is ambulatory, uses stairs, and continues physical therapy after missing sessions due to recent incidents. Ingrezza was recently discontonued due to parkinsons diagnosis and initiation of carbidopa-levodopa Plan: - Continue carbidopa-levodopa from neurologist - Resume physical therapy for 6-8 weeks after recent interruption - Monitor motor symptoms - Defer treatment adjustments, with prioritization on addressing mood and anxiety concerns. Medical Decision Making Jabari Norris is a male patient with Parkinson's disease and dementia presenting with ongoing agitation, hallucinations, hyperventilation, and lockjaw symptoms. The patient's complex presentation involves multiple neuropsychiatric symptoms including psychosis, anxiety, depression, and motor symptoms related to his underlying Parkinson's disease and dementia. The hyperventilation pattern is considered potentially related to Parkinson's disease affecting respiratory rhythm and muscle tone, though anxiety-driven hyperventilation creating a vicious cycle is also being considered. The lockjaw symptoms prompted evaluation by ENT, though no specific interventions were available given the patient's inability to tolerate typical treatments like mouth guards. Previous medication interactions between Rexulti/Ingresa and carbidopa-levodopa were identified as potentially worsening Parkinson's symptoms due to dopamine regulation conflicts, leading to discontinuation of the antipsychotic. The current medication regimen with Nuplazid was chosen specifically for its compatibility with Parkinson's disease, as it doesn't interfere with motor symptoms or interact with other Parkinson's medications. Given that Nuplazid typically requires 6-8 weeks for initial effects and up to 8-12 weeks for full therapeutic benefit, continued monitoring is warranted to assess efficacy for hallucinations and psychosis. Plan Of Treatment Next Appt Details Provider Name:Elodia saenz, 07/10/2025 11:45:00 AM, [address] [facility] [address], [facility] [address], [place], [address], Provider Name:Rocky torres, 07/17/2025 02:00:00 PM, [address], [place], [address], Insurance Providers Payer Name Payer Address Payer Phone Subscriber Number Group Number Insured Name Patient Relationship to Insured Coverage Start Date Coverage End Date [employer] Medicare Replacement/ Advantage - Ppo [address] [address] [place] [address] [id number] JABARI NORRIS Self - patient is the insured Medical (General) History Medical History History ICD Code Problems: Dementia Generalized anxiety disorder Hyperlipidemia Hypothyroidism Marijuana user Mild recurrent major depression Minimal cognitive impairment Obesity Surgical History Surgery Date(Month/Year) Operative procedure on knee (5355223) Total replacement of hip (47176698) Reconstructive surgery Hospitalization History Reason Date(Month/Year) bradycardia 01/2024 depression 11/2023
--- OUTSIDE RECORDS SUMMARY | 2025-06-26 11:41 | XMS_ITS | Encounter Summary ---
Author Organization [facility] Address [address] [facility] [place] [address] Care Team Providers Care Rig Builder Name Role Phone Elan Gross MD Primary Care Provider [phone] Encounter Details Date Type Department Care Team (Late st Contact Info) Description 05/08/2025 Lab Requisition [facility] - DermPath Lab [address] [place] [id number] Elan Gross MD [address] [place] [address] Social History Tobacco Use Types Packs/Day Years Used Date Smoking Tobacco: Never Smokeless Tobacco: Never Alcohol Use Standard Drinks/Week Comments Yes 0 (1 standard drink = 0.6 oz pur e alcohol) very occasionally Sex and Gender Information Value Date Recorded Sex Assigned at Not on file Legal Sex Male 4:58 PM [employer] 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[employer] Gender Identity Not on file Sexual Orientation Not on file documented as of this encounter Plan of Treatment Not on file documented as of this encounter Procedures Procedure Name Priority Date/Time Associated Diagnosis Comments DERMATOPATHOLOGY Routine 05/07/2025 12:0 0 AM CDT documented in this encounter Results * DERMATOPATHOLOGY (05/07/2025 12:00 AM CDT) Case Report Dermatopathology Report Case: [id number] Authorizing Provider: Elan Gross MD Collected: 05/07/2025 12:00 AM Ordering Location: [facility] - Received: 05/08/2025 01:07 PM [...] characteristic determined by the Dermatopathology Laboratory at [facility], directed by Dr. Yannick Montalvo. These tests need not be, and therefore are not, approved by the [place] Food and Drug Administration. The tests are used for clinical purposes. Billing Codes Specimen Charges Stain Charges 46541 1 1:02 PM CDT DERMATOPATHOLOGY LABORATORY Embedded Images 1:02 PM CDT DERMATOPATHOLOGY LABORATORY Pathology/Cytolog y TISSUE SPECIMEN FROM SKIN / Unknown 05/07/2025 05/08/2025 1:07 PM CDT us Elan F Schueler MD LAB - PATHOLOGY/CYTOLOGY REMI WILLIAM Final Result DERMATOPATHOLOGY LABORATORY [facility] - Department of Dermatology [address], [address] [phone] documented in this encounter Visit Diagnoses Not on filedocumented in this encounter Care Teams Rig Builder Relationship Specialty Start Date End Date Elan Gross MD [address] [place] [address] PCP - General 02/26/21 documented as of this encounter
--- OUTSIDE RECORDS SUMMARY | 2025-06-26 11:42 | XMS_ITS | Clinical Summary ---
Author Organization [facility] Address [address] [place] [address] Phone Care Team Providers Care Planning Aide Name Role Phone Elan Gross MD Primary Care Provider [phone] Allergies No known active allergies Medications ibuprofen [...] Type Department Care Team Description 05/30/2025 Telephone [facility] at [address], [address] [place] [address] Elise Mack, OT No Show (Patient was a no call/no show for the second time this date. Therapist called and LVM regarding attendance policy and discharge. PAS notified.) 05/30/20[facility] [address] [facility], [place] [address] [place] [phone] Jessi Bruce CCC-STONE FINISHER No Show (x2) 05/28/2025 Telephone [facility] at [facility] [address] [facility], [address] [place] [address] Elise Mack, BRAVO Appointment (Patient or spouse called and LVM to cancel all appointments for today. Reason for cancellation was not provided. PAS got the voicemail. ) 05/28/2025 Telephone [facility] at [address], [address] [address] [place] [phone] Jessi Bruce, CCC-STONE FINISHER Appointment 05/23/2025 10:45 AM MANAGER SOCIAL MEDIA Occupational Therapy [facility] at [address], [place] [address] [place] [address] Elan Gross MD Kallal, Meagan K, OT Parkinson's disease without dyskinesia, unspecified whether manifestations fluctuate (Primary Dx); Weakness; Impaired functional mobility, balance, gait, and endurance Discharge Disposition: Discharged to home or Selfcare 05/20/2025 10:30 AM MANAGER SOCIAL MEDIA Speech Therapy [facility] at [facility] [address], [place] [phone] SchuelElan raza MD Brim, Ashley E, CCC-STONE FINISHER Dysarthria (Primary Dx); Weakness; Parkinson's disease without dyskinesia, unspecified whether manifestations fluctuate; Dysarthria and anarthria Discharge Disposition: Discharged to home or Selfcare 05/20/2025 Travel 05/16/2025 Telephone [facility] at [facility] [address], [address] [place] [phone] Jessi Bruce CCC-STONE FINISHER Appointment (Illness ) 05/16/2025 Telephone [facility] [address], [address] [place] [address] Elise Mack, OT Appointment (Patient's significant other called to cancel patient's appointment due to patient illness. PAS took the phone call. ) 05/14/2025 Telephone [facility] [address], [place] [address] [place] [address] Jessi Bruce CCC-STONE FINISHER Appointment 05/14/2025 Telephone [facility] [address], [place] [place] [address] Elise Mack, OT Appointment (Patient's significant other called to cancel due to up all night. PAS took the phone call. ) 05/10/2025 12:15 PM CDT Speech Therapy [facility] [address], [place] [place] [address] Elan Gross MD Brim, Ashley E, CCC-STONE FINISHER Dysarthria (Primary Dx); Weakness; Parkinson's disease without dyskinesia, unspecified whether manifestations fluctuate; Dysarthria and anarthria Discharge Disposition: Discharged to home or Selfcare 05/10/2025 10:45 AM CDT Occupational Therapy [facility] [address], [place] [address] [place] [address] Elan Gross, Elise Kirby, OT Parkinson's disease without dyskinesia, unspecified whether manifestations fluctuate (Primary Dx); Weakness; Impaired functional mobility, balance, gait, and endurance Discharge Disposition: Discharged to home or Selfcare 05/10/2025 Travel 05/07/2025 Telephone [facility] [address] [facility], [address] [place] [address] Jessi Bruce, CCC-STONE FINISHER No Show (x1) 05/07/2025 Telephone [facility] at [address], [address] [place] [address] Elise Mack, BRAVO No Show (Patient was a no call/no show for his appointment. Therapist called and LVM indicating missed appointment, next appt date/time, as well as Speech Therapy appointment at 10:30 this date. PAS notified.) 04/23/2025 9:45 AM CDT Speech Therapy [facility] [address] [facility], [address] [place] [address] Elan Gross, Jessi Dominguez, CCC-STONE FINISHER Dysarthria (Primary Dx); Parkinson's disease without dyskinesia, unspecified whether manifestations fluctuate; Weakness; Dysarthria and anarthria Discharge Disposition: Discharged to home or Selfcare 04/23/2025 9:00 AM CDT Occupational Therapy [facility] [address], [place] [address] [place] [address] Elan Gross, Elise Kirby, OT Impaired functional mobility, balance, gait, and endurance (Primary Dx); Parkinson's disease without dyskinesia, unspecified whether manifestations fluctuate; Weakness Discharge Disposition: Discharged to home or Selfcare 04/23/2025 Plan of Care Documentation [facility] [address] [facility], [place] [address] [address] 04/23/2025 Plan of Care Documentation [facility] at [facility] [address] [facility], [address] [address] 04/23/2025 Travel 04/03/2025 2:00 PM CDT Home Care Visit [address] [address] Regla Kinney, STONE FINISHER-SPEECH LANGUAGE PATHOLOGIST STONE FINISHER - OASIS DISCHARGE 04/03/2025 Transcribe Orders [facility] [address] [place] [phone] Elan Gross MD Parkinson's disease without dyskinesia, unspecified whether manifestations fluctuate (HCC) (Primary Dx); Weakness; Dysarthria and anarthria 04/01/2025 1:30 PM CDT Home Care Visit [address] [address] Regla Kinney, STONE FINISHER-SPEECH LANGUAGE PATHOLOGIST STONE FINISHER - HOME VISIT 03/28/2025 1:15 PM CDT Home Care Visit [address] [address] Regla Kinney, STONE FINISHER-SPEECH LANGUAGE PATHOLOGIST STONE FINISHER - HOME VISIT 03/27/2025 2:30 PM CDT Home Care Visit [facility] [address] Regla Kinney, STONE FINISHER-SPEECH LANGUAGE PATHOLOGIST STONE FINISHER - HOME VISIT from Last 3 Months [...] complete this topic Human Papillomavirus (HPV) Immunization (No Doses Required) Completed Meningococcal Immunization (ACWY) Aged Out No longer eligible based on patient's age to complete this topic Rotavirus Immunization Aged Out No lo nger eligible based on patient's age to complete this topic Insurance [facility]IC[facility] Directives * Full Code (Latest Code Status on File) Date Activated Date Inactivated Comments 02/16/2025 10:29 PM Care Teams Planning Aide Relationship Specialty Start Date End Date Elan Gross MD [address] [address] PCP - General Family Medicine 02/06/25
--- OUTSIDE RECORDS SUMMARY | 2025-06-26 11:42 | XMS_ITS | Clinical Summary ---
Author Organization [facility] Address [address] [place] [address] Care Team Providers Care Passport Support Associate Name Role Phone Elan Gross MD Primary Care Provider [phone] Allergies No known active allergies Medications ALPRAZolam [...] 10/05/2017 Surgical History Surgery Date Site/Laterality Comments SD ARTHRP ACETBLR/PROX FEM PROSTC AGRFT/ALGRFT Total Hip Replacement Left - (Added by TW Conv) SD NEUROPLASTY &/TRANSPOS MEDIAN NRV CARPAL TUNNE Neuroplasty Decompression Median Nerve At Carpal Tunnel - (Added by TW Conv) SD ARTHRP ACETBLR/PROX FEM PROSTC AGRFT/ALGRFT Total Knee [...] on file Legal 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
--- OUTSIDE RECORDS SUMMARY | 2025-06-26 11:42 | XMS_ITS | Encounter Summary ---
Author Organization [facility] Address [address] [place] [address] Phone Care Team Providers Care Blueprint Assembler Name Role Phone Elan Gross MD Primary Care Provider [phone] Reason for Referral * PT/OT/ST (Routine) - Closed Specialty Diagnoses / Procedures Referred By Columba melendez Referred To Contact Speech Therapy Diagnoses Parkinson's disease without dyskinesia, unspecified whether manifestations fluctuate Weakness Dysarthria and anarthria Elan Gross MD [address] [address] Phone: tel: fax: [facility] at [address] [address] Phone: tel: fax: Referral ID Status Reason Start Date Expiration Date Visits Re quested Visits Authorized [id number] Closed 04/03/2025 100 9 Scheduling Instructions * PT/OT/ST (Routine) - Closed Specialty Diagnoses / Procedures Referred By Columba melendez Referred To Contact Occupational Therapy Diagnoses Parkinson's disease without dyskinesia, unspecified whether manifestations fluctuate Weakness Elan Gross MD [address] [address] Phone: tel: fax: [facility] at [address], [place] [address] [address] Phone: tel: fax: Referral ID Status Reason Start Date Expiration Date Visits Re quested Visits Authorized [id number] Closed 04/03/2025 100 17 Scheduling Instructions * PT/OT/ST (Routine) - Pending Review Specialty Diagnoses / Procedures Referred By Contac t Referred To Contact Physical Therapy Diagnoses Parkinson's disease without dyskinesia, unspecified whether manifestations fluctuate Weakness Elan Gross MD [address] [address] Phone: tel: fax: [facility] [address] [facility], [address] [address] Phone: tel: fax: Referral ID Status Reason Start Date Expiration Date V isits Requested Visits Authorized [id number] Pending Review 04/03/2025 100 100 Scheduling Instructions Encounter Details Date Type Department Care Team (Late st Contact Info) Description 04/03/2025 Transcribe Orders [facility] [address] [place] [address] Elan Gross MD [address] [address] Parkinson's disease without dyskinesia, unspecified whether manifestations [...] Author Kaleigh/64 04/03/2025 3:06 PM CDRegla Pastrana, COATING MIXER TENDER-SPEECH LANGUAGE PATHOLOGIST * Temp Answer Date of Assessment Author 97.9 04/03/2025 3:06 PM Regla Taylor, COATING MIXER TENDER-SPEECH LANGUAGE PATHOLOGIST * Pulse Answer Date of Assessment Author 64 04/03/2025 3:06 PM CDRegla Pastrana, COATING MIXER TENDER-SPEECH LANGUAGE PATHOLOGIST * Resp Answer Date of Assessment Author 18 04/03/2025 3:06 PM CDRegla Pastrana, COATING MIXER TENDER-SPEECH LANGUAGE PATHOLOGIST * SpO2 Answer Date of Assessment Author 90 04/03/2025 3:06 PM Regla Taylor, COATING MIXER TENDER-SPEECH LANGUAGE PATHOLOGIST documented as of this encounter Mental Status * BP Answer Entry Date Author Kaleigh/Guanaco 04/03/2025 3:06 PM Regla Taylor, COATING MIXER TENDER-SPEECH LANGUAGE PATHOLOGIST * Temp Answer Entry Date Author 97.9 04/03/2025 3:06 PM Regla Taylor, COATING MIXER TENDER-SPEECH LANGUAGE PATHOLOGIST * Pulse Answer Entry Date Author 64 04/03/2025 3:06 PM Regla Taylor COATING MIXER TENDER-SPEECH LANGUAGE PATHOLOGIST * SpO2 Answer Entry Date Author 90 04/03/2025 3:06 PM Regla Taylor, COATING MIXER TENDER-SPEECH LANGUAGE PATHOLOGIST documented in this encounter Plan [...] anarthria documented in this encounter Care Teams Blueprint Assembler Relationship Specialty Start Date End Date Elan Gross MD [address] [address] PCP - General Family Medicine 02/06/25 documented as of this encounter
--- OUTSIDE RECORDS SUMMARY | 2025-06-26 11:42 | XMS_ITS | Clinical Summary ---
Author Organization [facility] Address [address] [place] [address] Care Team Providers Care Laryngologist Name Role Phone Elan Gross MD Primary Care Provider [phone] Source Comments [facility],non-owned Affiliates and Associated Physician Practices is amultiple site organization consisting of ambulatory clinics and hospital sitesin [place], [place], [place] and [place]. This disclosure is being madepursuant to the Care Everywhere program and may not contain all information available regarding this patient. 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 Yannick Montalvo. These tests need not be, and therefore are not, approved by the [place] Food and Drug Administration. The tests are used for clinical purposes. Billing Codes Specimen Charges Stain Charges 41468 1 1:02 PM CDT DERMATOPATHOLOGY LABORATORY Embedded Images 1:02 PM CDT DERMATOPATHOLOGY LABORATORY Pathology/Cytolog y TISSUE SPECIMEN FROM SKIN / Unknown 05/07/2025 05/08/2025 1:07 PM CDT us Elandequan Gross MD LAB - PATHOLOGY/CYTOLOGY FORRESTE NATALIIA Final Result DERMATOPATHOLOGY LABORATORY [facility] - Department of Dermatology [facility] Medicine [address] [place] [address], [address] [phone] * (ABNORMAL) COMPREHENSIVE METABOLIC PANEL (03/05/2021 3:12 PM [facility]) BUN 13 7 - 26 mg/dL 03/05/2021 4:09 PM [facility] Creatinine 0.93 0.71 - 1.16 mg/dL 03/05/2021 4:09 PM [facility] Sodium 139 136 - 145 mmol/L 03/05/2021 4:09 PM [facility] Potassium 4.1 3.5 - 4.5 mmol/L 03/05/2021 4:09 PM [facility] Chloride 103 98 - 107 mmol/L 03/05/2021 4:09 PM [facility] CO2 24 22 - 29 mmol/L 03/05/2021 4:09 PM [facility] Glucose 92 70 - 115 mg/dL 03/05/2021 4:09 PM [facility] Calcium 9.6 8.4 - 10.2 mg/dL 03/05/2021 4:09 PM [facility] Protein Total 7.4 6.0 - 8.3 g/dL 03/05/2021 4:09 PM [facility] Albumin 4.4 3.4 - 5.0 g/dL 03/05/2021 4:09 PM [facility] Bilirubin Total 0.7 0.2 - 1.2 mg/dL 03/05/2021 4:09 PM [facility] Alkaline Phosphatase 74 40 - 150 U/L 03/05/2021 4:09 PM [facility] ALT 14 5 - 55 U/L 03/05/2021 4:09 PM [facility] AST 18 5 - 34 U/L 03/05/2021 4:09 PM [facility] Anion Gap 16 8 - 18 03/05/2021 4:09 PM [facility] BUN/Creatinine Ratio 14 7 - 23 03/05/2021 4:09 PM [facility] Osmolality Calculated 288 270 - 300 mOsm/kg 03/05/2021 4:09 PM CDT [facility] Albumin/Globulin Ratio 1.5 1.1 - 2.3 03/05/2021 4:09 PM CDT [facility] eGFR by CKD-EPI 85(L) >=90 mL/min/1.7 3 m2 03/05/2021 4:09 PM CDT [facility] Blood BLOOD SPECIMEN / Unknown Lab Venipuncture / Unknown 03/05/2021 3:12 PM CDT 03/05/2021 3:39 PM CDT Lokesh Pennington MD LAB - CHEMI STRY ORDERABLES Final Result [facility] [address] [place] [address], [facility] [phone] from Last 3 Months or Most Recently Relevant to Health Maintenance Insurance MANAGED MEDICARE ADV MANAGED MEDICARE ADV Care Teams Laryngologist Relationship Specialty Start Date End Date Elan Gross MD [address] [place] [address] PCP - General 02/26/21
== END 2025-06-26 10:08 | disposition home or self-care (01) ==
LOC: ANHIMG 10:09
PROVIDERS: PCP Family Medicine; Visit Provider Nurse Practitioner Family
DX: R06.82 Tachypnea, not elsewhere classified (principal); R05.3 Chronic cough; R79.89 Other specified abnormal findings of blood chemistry
CPT/HCPCS: 71275; Q9967